=== PATIENT | male | born 1980 | race African-American/Black ===

== ENCOUNTER 2016-08-23 08:13 | Inpatient (IN) | payer MEDICAID ==
[~2016-08-23] VITALS: Ht 182.9 cm; Wt 101.5 kg
[2016-08-23] VITALS (9 sets, daily range): BP systolic 125–166; BP diastolic 73–89; PULSE 68–95; RESP 16–24; TEMP 99.8–101.6; O2SAT 92–100
[~2016-08-23 08:13] MED LIST: ATEN25TA PEG; BACL10TA PEG; DILT60TA JT; EPIN1INJ21 IV PUSH; EPIN1INJ21 SQ; FENT50DI T-DERMAL; HYDR50TA15 JT; HYOS0.129 JT; IPRA0.02 NEB; LEVE500S TUBE; MAPA325T G-TUBE; MERO1INJ8 IV; PERC5TAB12 JT; SOLU250I IV PUSH
[2016-08-23] MEDS ORDERED: PIPERACIL-TAZO 4.5 GM PREMIX 100 ML IV STA (08:16)
[2016-08-23] MEDS ORDERED: VANCOMYCIN INJ 1,000 MG in SODIUM CHLOR 0.9% 250 ML INJ 250 ML IV STA (08:16)
[2016-08-23 08:58] LABS: AUTOMATED NEUTROPHIL # 6.9 TH/MM3 (1.8-7.7); BASOPHIL # 0.1 TH/MM3 (0-0.2); BASOPHIL % 0.6 % (0.0-2.0); EOSINOPHIL % 0.3 % (0.0-4.0); HEMATOCRIT 33.8 % (39.0-51.0); HEMO FLAGS DIFF FINAL; LYMPH % 22.2 % (9.0-44.0); LYMPHOCYTE # 2.2 TH/MM3 (1.0-4.8); MEAN CELL VOLUME 83.3 FL (80.0-100.0); MEAN CORPUSCULAR HEMOGLOBIN 27.4 PG (27.0-34.0); MEAN CORPUSCULAR HGB CONC 32.9 % (32.0-36.0); MONO % 8.6 % (0.0-8.0); NEUT % 68.3 % (16.0-70.0); PLATELET COUNT 366 TH/MM3 (150-450); RED BLOOD COUNT 4.05 MIL/MM3 (4.50-5.90); RED CELL DISTRIBUTION WIDTH 16.3 % (11.6-17.2); WHITE BLOOD COUNT 10.1 TH/MM3 (4.0-11.0)
[2016-08-23] MEDS ORDERED: ACETAMINOPHEN 500 MG CPLT PO ONE (09:00)
[2016-08-23] MEDS ORDERED: ACETAMINOPHEN 650 MG SUPP RECTAL ONE (09:00)
[2016-08-23 09:08] LABS: APTT (PATIENT) 29.4 SEC (24.3-30.1); INTERNATIONAL NORMALIZED RATIO 1.1 RATIO; PROTHROMBIN TIME - PATIENT 11.7 SEC (9.8-11.6)
[2016-08-23 09:09] LABS: ALKALINE PHOSPHATASE 117 U/L (45-117); ALT (GPT) 48 U/L (12-78); ANION GAP 9 MEQ/L (5-15); AST (GOT) 30 U/L (15-37); BICARBONATE 25.9 MEQ/L (21.0-32.0); BLOOD UREA NITROGEN 14 MG/DL (7-18); CHLORIDE 99 MEQ/L (98-107); GLOMERULAR FILTRATION RATE 170 ML/MIN (>89); MAGNESIUM 1.8 MG/DL (1.5-2.5); POTASSIUM 4.3 MEQ/L (3.5-5.1); SODIUM (NA) 134 MEQ/L (136-145); TOTAL BILIRUBIN ADULT 0.4 MG/DL (0.2-1.0)
--- NOTE | 2016-08-23 09:11 | RADRPT ---
EXAM DATE/TIME: 08/23/2016 08:25 [facility] COMPARISON: CHEST SINGLE AP, June 19, 2016, 10:06. CHEST SINGLE AP, June 04, 2016, 21:28. CHEST SINGLE A P, March 12, 2016, 6:05. CHEST SINGLE AP, December 24, 2015, 18:38. CHEST SINGLE AP, December 23, 2015, 17:5 3. CHEST SINGLE AP, September 27, 2015, 8:46. CHEST SINGLE AP, May 08, 2015, 3:28. CHEST SING LE AP, April 24, 2015, 9:37. CHEST SINGLE AP, April 20, 2015, 4:04. CHEST SINGLE AP, February 082014, 12:38. CHEST SINGLE AP, January 06, 2015, 2:24. CHEST SINGLE AP, December 25, 2014, 12:21. CHEST S MIKAEL AP, December 11, 2014, 14:09. CHEST SINGLE AP, November 29, 2014, 3:46. CHEST SINGLE AP, November 25 15, 8:17. CHEST SINGLE AP, November 21, 2014, 17:37. CHEST SINGLE AP, November 16, 2014, 15:17. CHEST SI NGLE AP, November 08, 2014, 15:15. CHEST SINGLE AP, July 08, 2016, 10:44. CHEST SINGLE AP, [facility] 2015, 9:21. CHEST SINGLE AP, July 26, 2016, 11:56. INDICATIONS : Fever. MEDICAL HISTORY : Hypertension. Methicillin-resistant Staphylococcus aureus. Stroke. Seizures. Diabetes, and anemia. SURGICAL HISTORY : Coronary artery stent. J-Tube. ENCOUNTER: Initial ACUITY: 1 day PAIN SCORE: Non-responsive. LOCATION: Bilateral chest FINDINGS: Stable irregular parenchymal opacity overlying the right upper lobe which they be some pleural or par enchymal scarring or calcification or possibly associated with skeletal structures. The lungs are oth erwise clear. No pleural effusion suspected. Cardiomediastinal contours are satisfactory for techniqu e and projection. Degenerative changes are present in the shoulders. Ventricular peritoneal shunt tub ing traverses the right chest.. CONCLUSION: Stable chest without definite evidence of acute disease Joni Sharpe MD on August 23, 2016 at 9:05 Board Certified Radiologist. This report was verified electronically.
[2016-08-23] MEDS ORDERED: PERC5TAB12 J-TUBE (09:31)
--- NOTE | 2016-08-23 09:32 | RADRPT ---
EXAM DATE/TIME: 08/23/2016 08:44 [facility] COMPARISON: CT ABDOMEN & PELVIS W/O CONTRAST, April 22, 2015, 0:20. CT ABDOMEN & PELVIS W CONTRAST, [employer] 2014, 17:41. CT ABDOMEN & PELVIS W/O CONTRAST, February 09, 2015, 17:59. CT ABDOMEN & PELVIS W/O CONTRAST, December 25, 2014, 14:09. CT ABDOMEN & PELVIS W/O CONTRAST, November 26, 2014, 21:39. CT ABDOMEN & PELVIS W/O CONTRAST, November 21, 2014, 16:30. CT ABDOMEN & PELVIS W CONTRAST, October 21, 2014, 23:55. CT ABDOMEN & PELVIS W CONTRAST, March 12, 2016, 7:09. INDICATIONS : Fever. ORAL CONTRAST: No oral contrast ingested. RADIATION DOSE: 21.79 CTDIvol (mGy) MEDICAL HISTORY : Seizures. Hypertension. Diabetes mellitus type 2.CVA. SURGICAL HISTORY : J tube. ENCOUNTER: Initial ACUITY: 1 day PAIN SCALE: Non-responsive LOCATION: abdomen TECHNIQUE: Volumetric scanning of the abdomen and pelvis was performed. Using automated exposure control and ad justment of the mA and/or kV according to patient size, radiation dose was kept as low as reasonably achievable to obtain optimal diagnostic quality images. FINDINGS: A presumed ventricular peritoneal shunt is present entering the right upper quadrant with tip termina ting along side the lateral aspect of the right lobe of the liver. The adjacent liver is notable for a slightly greater than 3.5 cm low density area. The appearance is worrisome for shunt complication, either fluid loculation or catheter infection with adjacent hepatic parenchymal edema. A jejunostomy catheter is present in good position. There is extensive dystrophic calcification or myositis ossificans associated with the posterior left hip and pelvis. There is overlying myositis and cellulitis in the posterior tissues of the buttock a nd hip and diffuse edema laterally in the hip and proximal thigh region. No drainable abscess is cece rly seen. A 5 mm nonobstructing right kidney stone is present and there is slight dependent calcific density in the urinary bladder which may be small bladder stones or wall calcification. This should be followed as wall calcification would be worrisome for neoplasm versus atypical cystitis. Elsewhere, the spleen, pancreas, adrenals, left kidney are unremarkable. The lung bases are clear. Th e bowel structures are nondilated. CONCLUSION: Abnormal scan with multiple findings as outlined above Joni Sharpe MD on August 23, 2016 at 9:10 Board Certified Radiologist. This report was verified electronically.
[2016-08-23] MEDS ORDERED: SILV1CRE20 TOPICAL (09:42)
[2016-08-23] MEDS ORDERED: IPRASOL INH (09:42)
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
[2016-08-23] MEDS ORDERED: SODIUM CHLOR 0.9% 1000 ML INJ 1,000 ML IV ONE (10:15)
[2016-08-23] MEDS ORDERED: Vancomycin Consult Pharmacy 1 EA OTHER SCH (10:30)
[2016-08-23] MEDS ORDERED: RESP: ALBUTEROL 2.5 MG/IPRATROPIUM 0.5 MG NEB (PRN) NEB (10:30)
[2016-08-23] MEDS ORDERED: ACETAMINOPHEN 325 MG TAB G-TUBE PRN (10:30)
[2016-08-23] MEDS ORDERED: VANCOMYCIN INJ 1,000 MG in SODIUM CHLOR 0.9% 250 ML INJ 250 ML IV SCH (10:30)
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
--- NOTE | 2016-08-23 11:52 | PD.CONS ---
HPI Service Urology Consult Requested By Reason for Consult Urinary retention and inability to place Falcon catheter Primary Care Physician Unknown Diagnosis: History of Present Illness 36 year-old gentleman with history traumatic brain injury who presents to the emergency room with fever over the past several days. Multiple attempts were made by the ER staff to pass a Falcon without success and thus a urology consult was placed. Patient is nonverbal and I was unable to obtain any additional history from the patient. 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; 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 - 12/24/15 & 03/12/16 MRSA (blood & sputum 04/2015; urine 12/2015;sputum-03/12/16;head-06/18/16; blood-06/19/16) ESBL+E.Coli (urine-06/19/16); MDR-Pseudomonas (sputum-03/12/16) Active Ordered Medications Refer to EMR Family History Unable to obtain Social History Unable to obtain Physical Exam Vital Signs Vital Signs Date Time Temp Pulse Resp B/P Pulse Ox O2 Delivery O2 Flow Rate FiO2 08/23/16 09:21 94 22 138/73 100 Nasal Cannula 2 08/23/16 08:20 99 Nasal Cannula 2 08/23/16 08:20 24 99 Nasal Cannula 2 08/23/16 08:20 101.4 95 24 125/89 92 Room Air 08/23/16 08:20 99 Nasal Cannula 2 08/23/16 08:17 101.4 95 22 125/89 92 Physical Exam GENERAL: Lying quietly in no apparent distress. Nonverbal. SKIN: No rashes, ecchymoses or lesions. Cool and dry. HEAD: Atraumatic. Normocephalic. No temporal or scalp tenderness. EYES: Pupils equal round and reactive. Extraocular motions intact. No scleral icterus. No injection or drainage. ENT: Nose without bleeding, purulent drainage or septal hematoma. Throat without erythema, tonsillar hypertrophy or exudate. Uvula midline. Airway patent. NECK: Trachea midline. No JVD or lymphadenopathy. GASTROINTESTINAL: Abdomen soft, non-tender, nondistended. : Bladder not distended. Normal male external genitalia. MUSCULOSKELETAL: Extremities with contractures. NEUROLOGICAL: Awake and nonverbal. Laboratory Laboratory Tests Test 08/23/16 08:30 White Blood Count 10.1 Red Blood Count 4.05 Hemoglobin 11.1 Hematocrit 33.8 Mean Corpuscular Volume 83.3 Mean Corpuscular Hemoglobin 27.4 Mean Corpuscular Hemoglobin 32.9 Concent Red Cell Distribution Width 16.3 Platelet Count 366 Mean Platelet Volume 6.8 Neutrophils (%) (Auto) 68.3 Lymphocytes (%) (Auto) 22.2 Monocytes (%) (Auto) 8.6 Eosinophils (%) (Auto) 0.3 Basophils (%) (Auto) 0.6 Neutrophils # (Auto) 6.9 Lymphocytes # (Auto) 2.2 Monocytes # (Auto) 0.9 Eosinophils # (Auto) 0.0 Basophils # (Auto) 0.1 CBC Comment DIFF FINAL Differential Comment Prothrombin Time 11.7 Prothromb Time International 1.1 Ratio Activated Partial 29.4 Thromboplast Time Sodium Level 134 Potassium Level 4.3 Chloride Level 99 Carbon Dioxide Level 25.9 Anion Gap 9 Blood Urea Nitrogen 14 Creatinine 0.65 Estimat Glomerular Filtration 170 Rate Random Glucose 92 Lactic Acid Level 0.7 Calcium Level 9.2 Magnesium Level 1.8 Total Bilirubin 0.4 Aspartate Amino Transf 30 (AST/SGOT) Alanine Aminotransferase 48 (ALT/SGPT) Alkaline Phosphatase 117 Troponin I LESS THAN 0.02 Total Protein 8.0 Albumin 3.5 Lipase 81 Date/Time Procedure Status Source Growth 08/23/16 09:20 Influenza Types A,B Antigen (YESSI) - Final Complete Nasal Washing NEGATIVE FOR FLU A AND B ANTIGEN.... 08/23/16 08:35 Aerobic Blood Culture Received Blood Peripheral Pending 08/23/16 08:35 Anaerobic Blood Culture Received Blood Peripheral Pending Result Diagram: 08/23/1682908/23/16829 Course I attempted to place a 16 [place] Falcon catheter and met considerable resistance within the bulbar urethra. I then proceeded with flexible cystoscopy and the patient was noted to have a bulbar urethral stricture with a very small opening noted. I was able to pass a small guidewire through this opening and subsequently removed the cystoscope. I then dilated the urethral stricture over this wire with male dilators in sequential fashion. I was then able to easily advance a 16 [place] Falcon over the wire and the wire was withdrawn. The Falcon was then placed to gravity drainage with return of clare colored urine. Assessment and Plan Assessment and Plan Urologic impression: Bulbar urethral stricture that precluded passage of a Falcon catheter. Urethral stricture was dilated at the bedside without difficulty. Recommendations: #1 maintain Falcon catheter to gravity drainage #2 do not discontinue Falcon catheter for a minimum of 2 weeks time. Jaguar Paiz MD Aug 23, 2016 11:52
[2016-08-23 11:55] LABS: BACTERIA, URINE RARE /hpf; BLOOD, URINE MOD (NEG); COMMENT (UR) CATH-CULTURE IND; CULTURE IF INDICATED CATH CULTURE IND; GLUCOSE,URINE NEG (NEG); KETONE, URINE NEG (NEG); MUCUS URINE FEW /lpf (OCC); NITRITE,URINE NEG (NEG); SQUAMOUS EPITHELIAL CELL URINE 10 /hpf (0-5)
[2016-08-23 11:56] LABS: URINE COLOR RED (YELLW/STRAW)
[2016-08-23] MEDS ORDERED: ENOXAPARIN SODIUM 40 MG/0.4 ML SYRINGE SQ SCH (12:00)
[2016-08-23] MEDS ORDERED: PIPERACIL-TAZO 4.5 GM PREMIX 100 ML IV SCH ×2 (12:00→16:00)
--- NOTE | 2016-08-23 12:55 | RADRPT ---
EXAM DATE/TIME: 08/23/2016 11:57 [facility] COMPARISON: CT BRAIN W/O CONTRAST, July 26, 2016, 11:35. INDICATIONS: Altered mental status. RADIATION DOSE: 56.35 CTDIvol (mGy) MEDICAL HISTORY: Cerebrovascular disease. Hypertension. Seizures. SURGICAL HISTORY: Shunt ENCOUNTER: Initial ACUITY: 1 day PAIN SCALE: 0/10 LOCATION: Cranial TECHNIQUE: Multiple contiguous axial images were obtained of the head. Using automated exposure control and adj ustment of the mA and/or kV according to patient size, radiation dose was kept as low as reasonably a chievable to obtain optimal diagnostic quality images. FINDINGS: There is interval significant increase in the size of the ventricles compared to the previous examina tion in July 2016 suggesting worsening hydrocephalus. Ventriculostomy shunt is noted on the right with i ts tip in the medial aspect of the right lateral ventricle posteriorly. Extensive areas of encephalomalacia ar e again noted within the cerebral hemispheres bilaterally (right worse than left). There is no acute hemorrhage, m idline shift or extraaxial fluid collections. Extraaxial calcifications are noted within the parietal regions zulma aterally. Patient is status post bilateral parietal craniotomies. CONCLUSION: 1. Interval significant increase in the size of the ventricles compared to the previous examination suggesting worsening hydrocephalus. Clinical correlation is recommended. 2. No significant change in the extensive encephalomalacia (right worse than left) within the cerebr al hemispheres. 3. No acute hemorrhage, midline shift or extraaxial fluid collections. Donavan Vidales MD on August 23, 2016 at 12:19 Board Certified Radiologist. This report was verified electronically.
[2016-08-23] MEDS: fentaNYL 50 MCG/HR PATCH T-DERMAL SCH (13:05)
[2016-08-23] MEDS: hydrALAZINE HCL 50 MG TAB JT SCH (13:08)
[2016-08-23] MEDS: DILTIAZEM HCL 60 MG TAB JT SCH ×2 (13:08→21:00)
[2016-08-23] MEDS: HYOSCYAMINE 0.125 MG TAB JT SCH ×2 (13:09→21:00)
[2016-08-23] MEDS ORDERED: SODIUM CHLORIDE 0.9% FLUSH 5 ML FLUSH FLUSH PRN (14:00)
[2016-08-23] MEDS ORDERED: PROCHLORPERAZINE 25 MG SUPP PR PRN (14:00)
[2016-08-23] MEDS ORDERED: TEMAZEPAM 15 MG CAP PO PRN (14:00)
[2016-08-23] MEDS ORDERED: BISACODYL 10 MG SUPP PR PRN (14:00)
[2016-08-23] MEDS: RESP: ALBUTEROL 2.5 MG/IPRATROPIUM 0.5 MG NEB (SCH) NEB (14:16)
[2016-08-23] MEDS ORDERED: IOHEXOL 300 MG/ML 50 ML BTL (for RAD DIAG) ONE (15:16)
[2016-08-23] MEDS: SODIUM CHLOR 0.9% 1000 ML INJ 1,000 ML IV SCH (16:09)
[2016-08-23] MEDS: oxyCODONE/ACETAMINOPHEN 5 MG/325 MG TAB JT SCH ×2 (16:10→21:13)
[2016-08-23] MEDS: VANCOMYCIN INJ 2,000 MG in SODIUM CHLORID 0.9% 500 ML INJ 500 ML IV SCH (16:11)
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
--- NOTE | 2016-08-23 17:03 | HHI.NSPN ---
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 He had a left ventriculoperitoneal shunt which was removed secondary to wound dehiscence and had a right ventriculoperitoneal shunt placed. He is a chronic snf resident and has been febrile the last few days and presents MRI is room for workup for for this fever. He had a urethral stricture which was dilated in the emergency room by urology and urinalysis reveals urinary tract infection. He also has a decubitus ulcer. Blood cultures are pending. His neurologic examination is baseline and CT of the head obtained reveals ventriculomegaly compared to the scan from a month ago. The patient had programmable valve place with a lower setting of 50 mm water. Shuntogram obtained reveals ventricular catheter being patent but the peritoneal catheter was not evaluated because patient did not cooperate and the plan is to have this further evaluated once more cooperate with IV access per special procedures. CSF from a shunt tap that does not reveal any organisms on Gram stain. CT of the abdomen reveals a small fluid collection around the shunt catheter of unclear significance. Exam Results Vital Signs Date Time Temp Pulse Resp B/P Pulse Ox O2 Delivery O2 Flow Rate FiO2 08/23/16 16:11 16 08/23/16 16:00 101.6 88 137/78 99 Room Air 08/23/16 13:16 2 Physical Examination Bilateral scalp incision sites are clean and dry with no tenderness swelling or drainage. Right parietal shunt valve reservoir refills well without any tenderness. Abdomen is soft and nontender with a G-tube in place and no guarding or rigidity. He is awake and he tracks but does not follow commands with contractures in the upper and lower extremities which are chronic. Neurologic exam is baseline. Lab, Micro, Other Results Laboratory Tests Test 08/23/16 08/23/16 08:30 11:10 White Blood Count 10.1 Red Blood Count 4.05 Hemoglobin 11.1 Hematocrit 33.8 Mean Corpuscular Volume 83.3 Mean Corpuscular Hemoglobin 27.4 Mean Corpuscular Hemoglobin 32.9 Concent Red Cell Distribution Width 16.3 Platelet Count 366 Mean Platelet Volume 6.8 Neutrophils (%) (Auto) 68.3 Lymphocytes (%) (Auto) 22.2 Monocytes (%) (Auto) 8.6 Eosinophils (%) (Auto) 0.3 Basophils (%) (Auto) 0.6 Neutrophils # (Auto) 6.9 Lymphocytes # (Auto) 2.2 Monocytes # (Auto) 0.9 Eosinophils # (Auto) 0.0 Basophils # (Auto) 0.1 CBC Comment DIFF FINAL Differential Comment Prothrombin Time 11.7 Prothromb Time International 1.1 Ratio Activated Partial 29.4 Thromboplast Time Sodium Level 134 Potassium Level 4.3 Chloride Level 99 Carbon Dioxide Level 25.9 Anion Gap 9 Blood Urea Nitrogen 14 Creatinine 0.65 Estimat Glomerular Filtration 170 Rate Random Glucose 92 Lactic Acid Level 0.7 Calcium Level 9.2 Magnesium Level 1.8 Total Bilirubin 0.4 Aspartate Amino Transf 30 (AST/SGOT) Alanine Aminotransferase 48 (ALT/SGPT) Alkaline Phosphatase 117 Troponin I LESS THAN 0.02 Total Protein 8.0 Albumin 3.5 Lipase 81 Urine Color RED Urine Turbidity CLOUDY Urine pH 6.0 Urine Specific [place] 1.038 Urine Protein 100 Urine Glucose (UA) NEG Urine Ketones NEG Urine Occult Blood MOD Urine Nitrite NEG Urine Bilirubin NEG Urine Urobilinogen LESS THAN 2.0 Urine Leukocyte Esterase MOD Urine RBC Urine WBC 53 Urine Squamous Epithelial 10 Cells Urine Bacteria RARE Urine Mucus FEW Urine Yeast (Budding) FEW Microscopic Urinalysis Comment CATH-CULTURE IND Date/Time Procedure Status Source Growth 08/23/16 14:39 Gram Stain - Final Resulted Cerebral Spinal Fluid Shunt Fluid 08/23/16 14:39 CSF Culture Resulted Cerebral Spinal Fluid Shunt Fluid Pending 08/23/16 11:10 Urine Culture Received Urine Catheterized Urine Pending 08/23/16 09:20 Influenza Types A,B Antigen (YESSI) - Final Complete Nasal Washing NEGATIVE FOR FLU A AND B ANTIGEN.... 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 This appears that he has compensatory ventriculomegaly since the shunt pressure setting is at low level and his neurologic examination is baseline. There is a question of the LUNG PULLER shunt malfunction versus infection although on the proximal shunt evaluation it appears to be functioning and CSF does not reveal any organisms but we'll await the culture results. It is possible he may have a distal LUNG PULLER shunt malfunction and will need further evaluation with a repeat shuntogram by the radiologist. If the shunt tap CSF cultures reveal any growth then we will externalize the LUNG PULLER shunt. Franky Carreno MD Aug 23, 2016 17:03
[2016-08-23 17:30] LABS: SUPERNATE COLOR TUBE #1 CLEAR (CLEAR); VOLUME TUBE # 1 3.8 ML
[2016-08-23 17:31] LABS: GROSS BLOOD TUBE #1 0 (0); GROSS BLOOD TUBE #2 0 (0); GROSS BLOOD TUBE #3 0 (0); GROSS BLOOD TUBE #4 0 (0); SUPERNATE COLOR TUBE #2 CLEAR (CLEAR); SUPERNATE COLOR TUBE #3 CLEAR (CLEAR); SUPERNATE COLOR TUBE #4 CLEAR (CLEAR); VOLUME TUBE # 2 6.5 ML
[2016-08-23 17:32] LABS: CSF LYMPHOCYTES 88 %; CSF NEUTROPHILS 8 %; WBC TUBE #4 477 /MM3 (0-10)
[2016-08-23] MEDS ORDERED: ASP: Path resistant to other antimicrobials, culture proven XX PRN (17:45)
[2016-08-23] MEDS ORDERED: MISCELLANEOUS PHARMACY INFORMATION XX PRN ×2 (17:45)
--- NOTE | 2016-08-23 18:36 | EKG ---
Date Performed: 08/23/2016 Time Performed: 09:25:25 PTAGE: 36 years EKG: Sinus rhythm NONSPECIFIC T-WAVE ABNORMALITY BORDERLINE ECG PREVIOUS TRACING : 07/26/2016 12.10 Since previous tracing, no significant change noted DOCTOR: Ivone Malone Interpretating Date/Time 08/23/2016 18:35:00
[2016-08-23] MEDS: ACETAMINOPHEN 325 MG TAB PO PRN (21:13)
[2016-08-23] MEDS: BACLOFEN 10 MG TAB PEG SCH (21:14)
[2016-08-23] MEDS: ATENOLOL 50 MG TAB PEG SCH (21:14)
[2016-08-23] MEDS: levETIRAcetam 500 MG/5 ML UDC TUBE SCH (21:14)
[2016-08-23] MEDS: SODIUM CHLORIDE 0.9% FLUSH 5 ML FLUSH FLUSH SCH (21:15)
[2016-08-23] MEDS: MEROPENEM INJ 2,000 MG in SODIUM CHLORIDE 0.9% INJ 100 ML IV SCH (21:15)
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
[2016-08-24] VITALS (11 sets, daily range): BP systolic 104–154; BP diastolic 64–82; PULSE 81–116; RESP 16–21; TEMP 101.1–103; O2SAT 95–100
[2016-08-24] MEDS: SILVER SULFADIAZINE 1% CR 50 GM JAR TOPICAL SCH ×2 (00:15→22:28)
[2016-08-24] MEDS: ACETAMINOPHEN 325 MG TAB PO PRN (01:08)
[2016-08-24] MEDS: VANCOMYCIN INJ 2,000 MG in SODIUM CHLORID 0.9% 500 ML INJ 500 ML IV SCH ×2 (03:03→15:11)
[2016-08-24] MEDS: MEROPENEM INJ 2,000 MG in SODIUM CHLORIDE 0.9% INJ 100 ML IV SCH ×3 (03:03→22:27)
[2016-08-24] MEDS: SODIUM CHLOR 0.9% 1000 ML INJ 1,000 ML IV SCH ×3 (04:01→22:30)
[2016-08-24] MEDS: oxyCODONE/ACETAMINOPHEN 5 MG/325 MG TAB JT SCH ×3 (05:34→20:55)
[2016-08-24] MEDS: RESP: ALBUTEROL 2.5 MG/IPRATROPIUM 0.5 MG NEB (SCH) NEB ×3 (08:13→19:41)
[2016-08-24] MEDS: SODIUM CHLORIDE 0.9% FLUSH 5 ML FLUSH FLUSH SCH ×2 (09:00→21:00)
[2016-08-24 09:32] LABS: AUTOMATED NEUTROPHIL # 6.1 TH/MM3 (1.8-7.7); BASOPHIL # 0.1 TH/MM3 (0-0.2); BASOPHIL % 0.7 % (0.0-2.0); HEMATOCRIT 32.6 % (39.0-51.0); HEMO FLAGS DIFF FINAL; LYMPH % 14.6 % (9.0-44.0); LYMPHOCYTE # 1.2 TH/MM3 (1.0-4.8); MEAN CELL VOLUME 83.2 FL (80.0-100.0); MEAN CORPUSCULAR HEMOGLOBIN 27.1 PG (27.0-34.0); MEAN CORPUSCULAR HGB CONC 32.5 % (32.0-36.0); MONO % 7.2 % (0.0-8.0); NEUT % 77.5 % (16.0-70.0); PLATELET COUNT 305 TH/MM3 (150-450); RED BLOOD COUNT 3.91 MIL/MM3 (4.50-5.90); RED CELL DISTRIBUTION WIDTH 16.1 % (11.6-17.2); WHITE BLOOD COUNT 7.9 TH/MM3 (4.0-11.0)
[2016-08-24 10:04] LABS: BICARBONATE 26.4 MEQ/L (21.0-32.0); POTASSIUM 3.9 MEQ/L (3.5-5.1)
[2016-08-24] MEDS: ATENOLOL 50 MG TAB PEG SCH ×2 (10:12→22:27)
[2016-08-24] MEDS: hydrALAZINE HCL 50 MG TAB JT SCH ×4 (10:13→18:00)
[2016-08-24] MEDS: BACLOFEN 10 MG TAB PEG SCH ×2 (10:13→22:27)
[2016-08-24] MEDS: HYOSCYAMINE 0.125 MG TAB JT SCH ×4 (10:13→20:54)
[2016-08-24] MEDS: levETIRAcetam 500 MG/5 ML UDC TUBE SCH ×2 (10:13→20:53)
[2016-08-24] MEDS: DILTIAZEM HCL 60 MG TAB JT SCH ×4 (10:13→21:00)
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
[2016-08-24] MEDS: ACETAMINOPHEN 1000 MG/100 ML VIAL IV PRN (12:09)
--- NOTE | 2016-08-24 13:47 | HHI.NSPN ---
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 He had a left ventriculoperitoneal shunt which was removed secondary to wound dehiscence and had a right ventriculoperitoneal shunt placed. He is a chronic [facility] resident and has been febrile the last few days and presents MRI is room for workup for for this fever. He had a urethral stricture which was dilated in the emergency room by urology and urinalysis reveals urinary tract infection. He also has a decubitus ulcer. Blood cultures are pending. His neurologic examination is baseline and CT of the head obtained reveals ventriculomegaly compared to the scan from a month ago. The patient had programmable valve place with a lower setting of 50 mm water. Shuntogram obtained reveals ventricular catheter being patent but the peritoneal catheter was not evaluated because patient did not cooperate and the plan is to have this further evaluated once more cooperate with IV access per special procedures. CSF from a shunt tap that does not reveal any organisms on Gram stain. CT of the abdomen reveals a small fluid collection around the shunt catheter of unclear significance. 08/24/16: Pt at his clinical baseline. Eyes open. occasionally focuses on my face. At times rolling eye movements. Not following commands. Flexion contractures of UEs and Extension contractures of LEs. Pt having high fevers today. Tmax of 103 at 8am. (Juanjo Oquendo) System Review Comments Not able to obtain given clinical condition. (Juanjo Oquendo) Exam Results Vital Signs Date Time Temp Pulse Resp B/P Pulse Ox O2 Delivery O2 Flow Rate FiO2 08/24/16 12:00 102.2 116 17 128/68 97 08/24/16 08:13 Nasal Cannula 3.00 Intake and Output 08/23/16 08/23/16 08/24/16 08:00 16:00 00:00 Output Total 501 ml Balance -501 ml (Juanjo Oquendo) Physical Examination Resp: CTA bilaterally Heart: Tachycardic no murmurs. Abdomen is soft and nontender with a G-tube in place and no guarding or rigidity. Skin: Bilateral scalp incision sites are clean and dry with no tenderness swelling or drainage. Muscle: Flexion contractures in UEs and Extension contractures in LEs. Neuro: Right parietal shunt valve reservoir refills well without any tenderness. He is awake and he tracks but does not follow commands. No verbalizing. Neurologic exam is baseline. (Juanjo Oquendo) Lab, Micro, Other Results Last Impressions Shunt Study (Imaging) 08/23/16 1514 Signed Impressions: Service Date/Time: Tuesday, August 23, 2016 15:14 - CONCLUSION: SPARK PLUG TESTER shunt tap for spinal fluid sampling as above Joni Sharpe MD Chest X-Ray 08/23/16 0816 Signed Impressions: Service Date/Time: Tuesday, August 23, 2016 08:25 - CONCLUSION: Stable chest without definite evidence of acute disease Joni Sharpe MD Abdomen/Pelvis CT 08/23/16 0816 Signed Impressions: Service Date/Time: Tuesday, August 23, 2016 08:44 - CONCLUSION: Abnormal scan with multiple findings as outlined above Joni Sharpe MD Shunt Study 08/23/16 0000 Signed Impressions: Service Date/Time: Tuesday, August 23, 2016 14:07 - CONCLUSION: Shunt tubing is patent into the ventricular system. The downstream portion of the shunt to the peritoneal cavity was not evaluated. Joni Sharpe MD Head CT 08/23/16 0000 Signed Impressions: Service Date/Time: Tuesday, August 23, 2016 11:57 - CONCLUSION: 1. Interval significant increase in the size of the ventricles compared to the previous examination suggesting worsening hydrocephalus. Clinical correlation is recommended. 2. No significant change in the extensive encephalomalacia ( right worse than left) within the cerebral hemispheres. 3. No acute hemorrhage, midline shift or extraaxial fluid collections. Donavan Vidales MD Laboratory Tests Test 08/23/16 08/24/16 14:39 09:08 CSF Volume (Tube 1) 3.8 ML CSF Supernatant Color (tube 1) CLEAR CSF Gross Blood (Tube 1) 0 CSF Volume (Tube 2) 6.5 ML CSF Supernatant Color (tube 2) CLEAR CSF Gross Blood (Tube 2) 0 CSF Volume (Tube 3) 4.0 ML CSF Supernatant Color (tube 3) CLEAR CSF Gross Blood (Tube 3) 0 CSF Volume (Tube 4) 2.0 ML CSF Supernatant Color (tube 4) CLEAR CSF Gross Blood (Tube 4) 0 CSF WBC (Tube 4) 477 /MM3 CSF RBC (Tube 4) 166 /MM3 CSF Neutrophils 8 % CSF Lymphocytes 88 % CSF Histiocytes 4 % White Blood Count 7.9 TH/MM3 Red Blood Count 3.91 MIL/MM3 Hemoglobin 10.6 GM/DL Hematocrit 32.6 % Mean Corpuscular Volume 83.2 FL Mean Corpuscular Hemoglobin 27.1 PG Mean Corpuscular Hemoglobin 32.5 % Concent Red Cell Distribution Width 16.1 % Platelet Count 305 TH/MM3 Mean Platelet Volume 6.8 FL Neutrophils (%) (Auto) 77.5 % Lymphocytes (%) (Auto) 14.6 % Monocytes (%) (Auto) 7.2 % Eosinophils (%) (Auto) 0.0 % Basophils (%) (Auto) 0.7 % Neutrophils # (Auto) 6.1 TH/MM3 Lymphocytes # (Auto) 1.2 TH/MM3 Monocytes # (Auto) 0.6 TH/MM3 Eosinophils # (Auto) 0.0 TH/MM3 Basophils # (Auto) 0.1 TH/MM3 CBC Comment DIFF FINAL Differential Comment Sodium Level 135 MEQ/L Potassium Level 3.9 MEQ/L Chloride Level 101 MEQ/L Carbon Dioxide Level 26.4 MEQ/L Anion Gap 8 MEQ/L Blood Urea Nitrogen 14 MG/DL Creatinine 0.67 MG/DL Estimat Glomerular Filtration 165 ML/MIN Rate Random Glucose 105 MG/DL Calcium Level 8.7 MG/DL 08/23/16 08/23/16 08/24/16 15:00 23:00 07:00 Intake Total 1050 ml Output Total 501 ml 250 ml Balance -501 ml 800 ml Intake IV Total 500 ml Tube Feeding 200 ml Other 350 ml Output Urine Total 500 ml 250 ml Stool Total 1 ml (Juanjo Oquendo) Medical Decision Making Impression and Plan A: 36 year-old gentleman with severe traumatic brain injury in a chronic vegetative state and a pen[facility]iary resident. This appears that he has compensatory ventriculomegaly since the shunt pressure setting is at low level and his neurologic examination is baseline. There is a question of the SPARK PLUG TESTER shunt malfunction versus infection although on the proximal shunt evaluation it appears to be functioning and CSF does not reveal any organisms but we'll await the culture results. It is possible he may have a distal SPARK PLUG TESTER shunt malfunction and will need further evaluation with a repeat shuntogram by the radiologist. If the shunt tap CSF cultures reveal any growth then we will externalize the SPARK PLUG TESTER shunt. CSF cultures are negative at 24 hours. P: Continue to monitor cultures. Continue with antibiotics Continue to monitor. (Juanjo Oquendo) Attending Statement The exam, history, and the medical decision-making described in the above note were completed with the assistance of the mid-level provider. I reviewed and agree with the findings presented. I attest that I had a [id number] encounter with the patient on the same day, and personally performed and documented my assessment and findings in the medical record. Updated mother at bedside. (Franky Carreno MD) Juanjo Oquendo Aug 24, 2016 13:47 Franky Carreno MD Aug 24, 2016 15:07
[2016-08-24] MEDS: IBUPROFEN SUSP 100 MG/5 ML UDC PO PRN (18:16)
--- NOTE | 2016-08-24 18:43 | HHI.IDPN ---
Subjective Subjective Remarks ID [id number] cover for Dr Rayo chart reviewed This is a 36-year-old male a resident of a penit[facility]iary facility treated recently for Pseudomonas COMPUTER SPECIALIST shunt infection. Sp meropenem completed on August 12. REadmitted for fevers COMPUTER SPECIALIST shunt infection suspected based on shunt fluid study and CT findings, also cellulitis and myositis Pt cont to have fever up to 103 today BC grew low grade coag neg staph (1/4 bottles) urine with GNR Antibiotics meropenem 2 g q 8 vancomycin Past Medical History 1. Traumatic brain injury in October 2014, COMPUTER SPECIALIST shunt placement, 2. Seizure disorder. 3. PEG placement 4. History of tracheostomy 5. History of MRSA wound infection from the scalp 6. Bacteremia due to MRSA 7. History of ESBL E-coli UTI. 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 Vital Signs Date Time Temp Pulse Resp B/P Pulse Ox O2 Delivery O2 Flow Rate FiO2 08/24/16 16:00 101.9 103 20 116/64 98 08/24/16 12:00 102.2 116 17 128/68 97 08/24/16 08:13 98 Nasal Cannula 3.00 08/24/16 08:00 103.0 113 16 126/82 100 08/24/16 07:18 98 Nasal Cannula 3.00 08/24/16 07:00 102 08/24/16 05:51 102.8 97 20 154/79 96 08/24/16 00:52 102.7 81 21 143/70 99 08/23/16 20:36 101.5 90 18 165/85 100 08/23/16 08/23/16 08/24/16 15:00 23:00 07:00 Intake Total 1050 ml Output Total 501 ml 250 ml Balance -501 ml 800 ml Intake IV Total 500 ml Tube Feeding 200 ml Other 350 ml Output Urine Total 500 ml 250 ml Stool Total 1 ml . Laboratory Tests Test 08/23/16 08/24/16 08:30 09:08 White Blood Count 10.1 TH/MM3 7.9 TH/MM3 Red Blood Count 4.05 MIL/MM3 3.91 MIL/MM3 Hemoglobin 11.1 GM/DL 10.6 GM/DL Hematocrit 33.8 % 32.6 % Mean Corpuscular Volume 83.3 FL 83.2 FL Mean Corpuscular Hemoglobin 27.4 PG 27.1 PG Mean Corpuscular Hemoglobin 32.9 % 32.5 % Concent Red Cell Distribution Width 16.3 % 16.1 % Platelet Count 366 TH/MM3 305 TH/MM3 Mean Platelet Volume 6.8 FL 6.8 FL Neutrophils (%) (Auto) 68.3 % 77.5 % Lymphocytes (%) (Auto) 22.2 % 14.6 % Monocytes (%) (Auto) 8.6 % 7.2 % Eosinophils (%) (Auto) 0.3 % 0.0 % Basophils (%) (Auto) 0.6 % 0.7 % Neutrophils # (Auto) 6.9 TH/MM3 6.1 TH/MM3 Lymphocytes # (Auto) 2.2 TH/MM3 1.2 TH/MM3 Monocytes # (Auto) 0.9 TH/MM3 0.6 TH/MM3 Eosinophils # (Auto) 0.0 TH/MM3 0.0 TH/MM3 Basophils # (Auto) 0.1 TH/MM3 0.1 TH/MM3 CBC Comment DIFF FINAL DIFF FINAL Differential Comment Laboratory Tests Test 08/23/16 08/24/16 08:30 09:08 Sodium Level 134 MEQ/L 135 MEQ/L Potassium Level 4.3 MEQ/L 3.9 MEQ/L Chloride Level 99 MEQ/L 101 MEQ/L Carbon Dioxide Level 25.9 MEQ/L 26.4 MEQ/L Anion Gap 9 MEQ/L 8 MEQ/L Blood Urea Nitrogen 14 MG/DL 14 MG/DL Creatinine 0.65 MG/DL 0.67 MG/DL Estimat Glomerular Filtration 170 ML/MIN 165 ML/MIN Rate Random Glucose 92 MG/DL 105 MG/DL Lactic Acid Level 0.7 mmol/L Calcium Level 9.2 MG/DL 8.7 MG/DL Magnesium Level 1.8 MG/DL Total Bilirubin 0.4 MG/DL Aspartate Amino Transf 30 U/L (AST/SGOT) Alanine Aminotransferase 48 U/L (ALT/SGPT) Alkaline Phosphatase 117 U/L Troponin I LESS THAN 0.02 NG/ML Total Protein 8.0 GM/DL Albumin 3.5 GM/DL Lipase 81 U/L Microbiology Date/Time Procedure Status Source Growth 08/23/16 08:30 Aerobic Blood Culture - Preliminary Resulted Blood Peripheral Staph Sp Coagulase Negative 08/23/16 08:30 Anaerobic Blood Culture - Preliminary Resulted Blood Peripheral NO GROWTH IN 1 DAY 08/23/16 08:35 Aerobic Blood Culture - Preliminary Resulted Blood Peripheral NO GROWTH IN 1 DAY 08/23/16 08:35 Anaerobic Blood Culture - Preliminary Resulted Blood Peripheral NO GROWTH IN 1 DAY 08/23/16 09:20 Influenza Types A,B Antigen (YESSI) - Final Complete Nasal Washing NEGATIVE FOR FLU A AND B ANTIGEN.... 08/23/16 11:10 Urine Culture - Preliminary Resulted Urine Catheterized Urine IMMATURE GROWTH - REINCUBATE 08/23/16 14:39 Gram Stain - Final Resulted Cerebral Spinal Fluid Shunt Fluid 08/23/16 14:39 CSF Culture - Preliminary Resulted Cerebral Spinal Fluid Shunt Fluid NO GROWTH IN 24 HOURS. Imaging Last Impressions Shunt Study (Imaging) 08/23/16 1514 Signed Impressions: Service Date/Time: Tuesday, August 23, 2016 15:14 - CONCLUSION: COMPUTER SPECIALIST shunt tap for spinal fluid sampling as above Joni Sharpe MD Chest X-Ray 08/23/16 0816 Signed Impressions: Service Date/Time: Tuesday, August 23, 2016 08:25 - CONCLUSION: Stable chest without definite evidence of acute disease Joni Sharpe MD Abdomen/Pelvis CT 08/23/16 0816 Signed Impressions: Service Date/Time: Tuesday, August 23, 2016 08:44 - CONCLUSION: Abnormal scan with multiple findings as outlined above Joni Sharpe MD Shunt Study 08/23/16 0000 Signed Impressions: Service Date/Time: Tuesday, August 23, 2016 14:07 - CONCLUSION: Shunt tubing is patent into the ventricular system. The downstream portion of the shunt to the peritoneal cavity was not evaluated. Joni Sharpe MD Head CT 08/23/16 0000 Signed Impressions: Service Date/Time: Tuesday, August 23, 2016 11:57 - CONCLUSION: 1. Interval significant increase in the size of the ventricles compared to the previous examination suggesting worsening hydrocephalus. Clinical correlation is recommended. 2. No significant change in the extensive encephalomalacia ( right worse than left) within the cerebral hemispheres. 3. No acute hemorrhage, midline shift or extraaxial fluid collections. Donavan Vidales MD Physical Exam GENERAL: This is a well-developed male who is in no acute distress. NECK: Supple. No adenopathy. No swelling. LUNGS: Clear to auscultation. HEART: Regular rate and rhythm. Normal S1-S2. ABDOMEN: Bowel sounds present, soft, no tenderness appreciated. RECTAL: Not performed. EXTREMITIES: No clubbing or cyanosis + mildedema. Spastic extremeties SKIN: No rash. Some denuded skin at the upper left humerus. No drainage. NEUROLOGIC: awake and he appears alert. He tracks with his eyes and does not follow any commands otherwise. Uniteglligible speech (moans and groans ) No movements noted. Spastic quadriparesis Assessment & Plan Remarks IMPRESSION 1. Fever. 2. Recent COMPUTER SPECIALIST shunt malfunction and culture positive with Pseudomonas treated with a round of antibiotic and left shunt removal Suspected recurrent COMPUTER SPECIALIST shunt infx sp shiunt study: lymphocytic pleocytosis noted, clx negative @ 24 hrs - ho MDRO PSAE 3. Cellulitis suggested by CT scan of the abdomen and pelvis which reveals myositis and cellulitis in the posterior tissues of the buttock and hip. 4. UTI, GNB 5.COag negative staph bacterima, low grade likely contaminant RECOMMENDATIONS 1. Continue vancomycin. 2. cont meropenem to cover Pseudomonas which was resistant to piperacillin/tazobactam on last testing of that organism which was recovered from his COMPUTER SPECIALIST shunt catheter tip. 3. Monitor blood cultures. 4. Monitor urine culture 5. Monitor CSF culture 6. Follow clinical status 7. Monitor temperature. Lauryn Gaytan MD Aug 24, 2016 18:43
[2016-08-25] VITALS (10 sets, daily range): BP systolic 106–132; BP diastolic 54–75; PULSE 93–128; RESP 17–22; TEMP 100.6–103.4; O2SAT 94–100
[2016-08-25] MEDS: ACETAMINOPHEN 1000 MG/100 ML VIAL IV PRN ×2 (01:56→18:20)
[2016-08-25] MEDS: MEROPENEM INJ 2,000 MG in SODIUM CHLORIDE 0.9% INJ 100 ML IV SCH ×3 (03:50→21:59)
[2016-08-25] MEDS: VANCOMYCIN INJ 2,000 MG in SODIUM CHLORID 0.9% 500 ML INJ 500 ML IV SCH (03:51)
[2016-08-25] MEDS: oxyCODONE/ACETAMINOPHEN 5 MG/325 MG TAB JT SCH ×3 (04:49→21:12)
[2016-08-25 06:57] LABS: AUTOMATED NEUTROPHIL # 6.3 TH/MM3 (1.8-7.7); BASOPHIL % 0.4 % (0.0-2.0); HEMATOCRIT 31.2 % (39.0-51.0); HEMO FLAGS DIFF FINAL; LYMPH % 16.4 % (9.0-44.0); LYMPHOCYTE # 1.5 TH/MM3 (1.0-4.8); MEAN CELL VOLUME 83.3 FL (80.0-100.0); MEAN CORPUSCULAR HEMOGLOBIN 27.2 PG (27.0-34.0); MEAN CORPUSCULAR HGB CONC 32.6 % (32.0-36.0); MONO % 13.7 % (0.0-8.0); NEUT % 69.5 % (16.0-70.0); PLATELET COUNT 282 TH/MM3 (150-450); RED BLOOD COUNT 3.75 MIL/MM3 (4.50-5.90); RED CELL DISTRIBUTION WIDTH 16.4 % (11.6-17.2); WHITE BLOOD COUNT 9.1 TH/MM3 (4.0-11.0)
[2016-08-25 07:20] LABS: BICARBONATE 28.7 MEQ/L (21.0-32.0); POTASSIUM 4.1 MEQ/L (3.5-5.1)
[2016-08-25] MEDS: RESP: ALBUTEROL 2.5 MG/IPRATROPIUM 0.5 MG NEB (SCH) NEB ×3 (08:17→19:25)
--- NOTE | 2016-08-25 08:22 | HHI.NSPN ---
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 He had a left ventriculoperitoneal shunt which was removed secondary to wound dehiscence and had a right ventriculoperitoneal shunt placed. He is a chronic [facility] resident and has been febrile the last few days and presents MRI is room for workup for for this fever. He had a urethral stricture which was dilated in the emergency room by urology and urinalysis reveals urinary tract infection. He also has a decubitus ulcer. Blood cultures are pending. His neurologic examination is baseline and CT of the head obtained reveals ventriculomegaly compared to the scan from a month ago. The patient had programmable valve place with a lower setting of 50 mm water. Shuntogram obtained reveals ventricular catheter being patent but the peritoneal catheter was not evaluated because patient did not cooperate and the plan is to have this further evaluated once more cooperate with IV access per special procedures. CSF from a shunt tap that does not reveal any organisms on Gram stain. CT of the abdomen reveals a small fluid collection around the shunt catheter of unclear significance. 08/24/16: Pt at his clinical baseline. Eyes open. occasionally focuses on my face. At times rolling eye movements. Not following commands. Flexion contractures of UEs and Extension contractures of LEs. Pt having high fevers today. Tmax of 103 at 8am. 08/25/16: Pt with eyes open. Right sided gaze preference. Not following commands. Not verbalizing. Pt at baseline neurologically. Pt continues to have fevers, T Max 103.4 at 2am. System Review Comments Not able to obtain given current condition. Exam Results Vital Signs Date Time Temp Pulse Resp B/P Pulse Ox O2 Delivery O2 Flow Rate FiO2 08/25/16 02:10 103.4 93 22 119/67 98 08/24/16 19:44 Nasal Cannula 08/24/16 08:13 3.00 Intake and Output 08/24/16 08/24/16 08/25/16 08:00 16:00 00:00 Intake Total 1050 ml Output Total 250 ml 2300 ml Balance 800 ml -2300 ml Physical Examination Resp: CTA bilaterally Heart: Tachycardic no murmurs. Abdomen is soft and nontender with a G-tube in place and no guarding or rigidity. Skin: Bilateral scalp incision sites are clean and dry with no tenderness swelling or drainage. Muscle: Flexion contractures in UEs and Extension contractures in LEs. Neuro: Right parietal shunt valve reservoir refills well without any tenderness. He is awake and he tracks but does not follow commands. No verbalizing. Neurologic exam is baseline. Lab, Micro, Other Results Last Impressions Shunt Study (Imaging) 08/23/16 1514 Signed Impressions: Service Date/Time: Tuesday, August 23, 2016 15:14 - CONCLUSION: MOBILE MANAGER shunt tap for spinal fluid sampling as above Joni Sharpe MD Chest X-Ray 08/23/16 0816 Signed Impressions: Service Date/Time: Tuesday, August 23, 2016 08:25 - CONCLUSION: Stable chest without definite evidence of acute disease Joni Sharpe MD Abdomen/Pelvis CT 08/23/16 0816 Signed Impressions: Service Date/Time: Tuesday, August 23, 2016 08:44 - CONCLUSION: Abnormal scan with multiple findings as outlined above Joni Sharpe MD Shunt Study 08/23/16 0000 Signed Impressions: Service Date/Time: Tuesday, August 23, 2016 14:07 - CONCLUSION: Shunt tubing is patent into the ventricular system. The downstream portion of the shunt to the peritoneal cavity was not evaluated. Joni Sharpe MD Head CT 08/23/16 0000 Signed Impressions: Service Date/Time: Tuesday, August 23, 2016 11:57 - CONCLUSION: 1. Interval significant increase in the size of the ventricles compared to the previous examination suggesting worsening hydrocephalus. Clinical correlation is recommended. 2. No significant change in the extensive encephalomalacia ( right worse than left) within the cerebral hemispheres. 3. No acute hemorrhage, midline shift or extraaxial fluid collections. Donavan Vidales MD Laboratory Tests Test 08/24/16 08/25/16 09:08 06:13 White Blood Count 7.9 TH/MM3 9.1 TH/MM3 Red Blood Count 3.91 MIL/MM3 3.75 MIL/MM3 Hemoglobin 10.6 GM/DL 10.2 GM/DL Hematocrit 32.6 % 31.2 % Mean Corpuscular Volume 83.2 FL 83.3 FL Mean Corpuscular Hemoglobin 27.1 PG 27.2 PG Mean Corpuscular Hemoglobin 32.5 % 32.6 % Concent Red Cell Distribution Width 16.1 % 16.4 % Platelet Count 305 TH/MM3 282 TH/MM3 Mean Platelet Volume 6.8 FL 7.0 FL Neutrophils (%) (Auto) 77.5 % 69.5 % Lymphocytes (%) (Auto) 14.6 % 16.4 % Monocytes (%) (Auto) 7.2 % 13.7 % Eosinophils (%) (Auto) 0.0 % 0.0 % Basophils (%) (Auto) 0.7 % 0.4 % Neutrophils # (Auto) 6.1 TH/MM3 6.3 TH/MM3 Lymphocytes # (Auto) 1.2 TH/MM3 1.5 TH/MM3 Monocytes # (Auto) 0.6 TH/MM3 1.2 TH/MM3 Eosinophils # (Auto) 0.0 TH/MM3 0.0 TH/MM3 Basophils # (Auto) 0.1 TH/MM3 0.0 TH/MM3 CBC Comment DIFF FINAL DIFF FINAL Differential Comment Sodium Level 135 MEQ/L 138 MEQ/L Potassium Level 3.9 MEQ/L 4.1 MEQ/L Chloride Level 101 MEQ/L 102 MEQ/L Carbon Dioxide Level 26.4 MEQ/L 28.7 MEQ/L Anion Gap 8 MEQ/L 7 MEQ/L Blood Urea Nitrogen 14 MG/DL 10 MG/DL Creatinine 0.67 MG/DL 0.55 MG/DL Estimat Glomerular Filtration 165 ML/MIN 207 ML/MIN Rate Random Glucose 105 MG/DL 107 MG/DL Calcium Level 8.7 MG/DL 8.5 MG/DL 08/24/16 08/24/16 08/25/16 15:00 23:00 07:00 Output Total 2300 ml Balance -2300 ml Output Urine Total 2300 ml Medical Decision Making Impression and Plan A: 36 year-old gentleman with severe traumatic brain injury in a chronic vegetative state and a [facility] resident. This appears that he has compensatory ventriculomegaly since the shunt pressure setting is at low level and his neurologic examination is baseline. There is a question of the MOBILE MANAGER shunt malfunction versus infection although on the proximal shunt evaluation it appears to be functioning and CSF does not reveal any organisms but we'll await the culture results. It is possible he may have a distal MOBILE MANAGER shunt malfunction and will need further evaluation with a repeat shuntogram by the radiologist. If the shunt tap CSF cultures reveal any growth then we will externalize the MOBILE MANAGER shunt. CSF cultures are negative. P: Continue to monitor cultures. Continue with antibiotics Continue with medical care. Juanjo Oquendo Aug 25, 2016 08:22
[2016-08-25] MEDS: SODIUM CHLORIDE 0.9% FLUSH 5 ML FLUSH FLUSH SCH ×2 (09:00→21:00)
[2016-08-25] MEDS: ATENOLOL 50 MG TAB PEG SCH ×2 (09:00→21:00)
[2016-08-25] MEDS: DILTIAZEM HCL 60 MG TAB JT SCH ×4 (09:00→21:12)
[2016-08-25] MEDS: HYOSCYAMINE 0.125 MG TAB JT SCH ×4 (09:00→21:12)
[2016-08-25] MEDS: hydrALAZINE HCL 50 MG TAB JT SCH ×3 (09:00→18:34)
[2016-08-25] MEDS: BACLOFEN 10 MG TAB PEG SCH ×2 (09:00→21:12)
[2016-08-25] MEDS: IBUPROFEN SUSP 100 MG/5 ML UDC PO PRN ×2 (10:00→21:11)
[2016-08-25] MEDS: levETIRAcetam 500 MG/5 ML UDC TUBE SCH ×2 (10:35→21:11)
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
[2016-08-25] MEDS ORDERED: PHARMACY ORDERED LAB XX ONE (14:45)
[2016-08-25] MEDS ORDERED: VANCOMYCIN INJ 2,000 MG in SODIUM CHLORID 0.9% 500 ML INJ 500 ML IV SCH (18:31)
[2016-08-25] MEDS: SILVER SULFADIAZINE 1% CR 50 GM JAR TOPICAL SCH (21:14)
[2016-08-26] VITALS (9 sets, daily range): BP systolic 115–140; BP diastolic 61–81; PULSE 91–119; RESP 20–24; TEMP 97.9–102.7; O2SAT 96–100
[2016-08-26] MEDS: ACETAMINOPHEN 1000 MG/100 ML VIAL IV PRN (00:38)
[2016-08-26] MEDS: VANCOMYCIN 1,500 MG/NS 500 ML IV SCH ×6 (01:54→18:25)
[2016-08-26] MEDS: SODIUM CHLOR 0.9% 1000 ML INJ 1,000 ML IV SCH (02:00)
[2016-08-26] MEDS: MEROPENEM INJ 2,000 MG in SODIUM CHLORIDE 0.9% INJ 100 ML IV SCH ×3 (04:08→22:27)
[2016-08-26] MEDS: oxyCODONE/ACETAMINOPHEN 5 MG/325 MG TAB JT SCH ×3 (06:06→22:29)
[2016-08-26] MEDS: IBUPROFEN SUSP 100 MG/5 ML UDC PO PRN (06:36)
[2016-08-26] MEDS: RESP: ALBUTEROL 2.5 MG/IPRATROPIUM 0.5 MG NEB (SCH) NEB ×3 (08:09→19:46)
--- NOTE | 2016-08-26 09:54 | HHI.NSPN ---
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 He had a left ventriculoperitoneal shunt which was removed secondary to wound dehiscence and had a right ventriculoperitoneal shunt placed. He is a chronic skilled nursing resident and has been febrile the last few days and presents MRI is room for workup for for this fever. He had a urethral stricture which was dilated in the emergency room by urology and urinalysis reveals urinary tract infection. He also has a decubitus ulcer. Blood cultures are pending. His neurologic examination is baseline and CT of the head obtained reveals ventriculomegaly compared to the scan from a month ago. The patient had programmable valve place with a lower setting of 50 mm water. Shuntogram obtained reveals ventricular catheter being patent but the peritoneal catheter was not evaluated because patient did not cooperate and the plan is to have this further evaluated once more cooperate with IV access per special procedures. CSF from a shunt tap that does not reveal any organisms on Gram stain. CT of the abdomen reveals a small fluid collection around the shunt catheter of unclear significance. 08/24/16: Pt at his clinical baseline. Eyes open. occasionally focuses on my face. At times rolling eye movements. Not following commands. Flexion contractures of UEs and Extension contractures of LEs. Pt having high fevers today. Tmax of 103 at 8am. 08/25/16: Pt with eyes open. Right sided gaze preference. Not following commands. Not verbalizing. Pt at baseline neurologically. Pt continues to have fevers, T Max 103.4 at 2am. 08/26/16: Pt with eyes open. Tracking more today to both sides. Not following commands which is his baseline. Fever spikes yesterday today T max 100.1. System Review Comments Not able to obtain given clinical condition. Exam Results Vital Signs Date Time Temp Pulse Resp B/P Pulse Ox O2 Delivery O2 Flow Rate FiO2 08/26/16 08:46 100.0 100 20 120/81 100 08/26/16 08:11 Nasal Cannula 3.00 Intake and Output 08/25/16 08/25/16 08/26/16 08:00 16:00 00:00 Output Total 1000 ml 1150 ml 950 ml Balance -1000 ml -1150 ml -950 ml Physical Examination Resp: CTA bilaterally Heart: NSR no murmurs. Abdomen is soft and nontender with a G-tube in place and no guarding or rigidity. Skin: Bilateral scalp incision sites are clean and dry with no tenderness swelling or drainage. Muscle: Flexion contractures in UEs and Extension contractures in LEs. Neuro: Right parietal shunt valve reservoir refills. He is awake and he tracks but does not follow commands. No verbalizing. Neurologic exam is baseline. Lab, Micro, Other Results Laboratory Tests Test 08/25/16 08/26/16 17:31 07:13 Vancomycin Level Trough 10.0 MCG/ML Creatinine 0.43 MG/DL Estimat Glomerular Filtration 275 ML/MIN Rate 08/25/16 08/25/16 08/26/16 15:00 23:00 07:00 Output Total 2150 ml 950 ml 850 ml Balance -2150 ml -950 ml -850 ml Output Urine Total 2150 ml 950 ml 850 ml # Bowel Movements 1 1 Medical Decision Making Impression and Plan A: 36 year-old gentleman with severe traumatic brain injury in a chronic vegetative state and a skilled nursing resident. This appears that he has compensatory ventriculomegaly since the shunt pressure setting is at low level and his neurologic examination is baseline. There is a question of the LICENSING OFFICER shunt malfunction versus infection although on the proximal shunt evaluation it appears to be functioning and CSF does not reveal any organisms but we'll await the culture results. It is possible he may have a distal LICENSING OFFICER shunt malfunction and will need further evaluation with a repeat shuntogram by the radiologist. If the shunt tap CSF cultures reveal any growth then we will externalize the LICENSING OFFICER shunt. CSF cultures are negative. P: Continue with antibiotics Continue with medical care. Juanjo Oquendo Aug 26, 2016 09:54
[2016-08-26] MEDS: ACETAMINOPHEN 325 MG TAB PO PRN ×2 (09:59→17:41)
[2016-08-26] MEDS: SODIUM CHLORIDE 0.9% FLUSH 5 ML FLUSH FLUSH SCH ×2 (10:00→21:00)
[2016-08-26] MEDS: levETIRAcetam 500 MG/5 ML UDC TUBE SCH ×2 (10:00→22:20)
[2016-08-26] MEDS: hydrALAZINE HCL 50 MG TAB JT SCH ×3 (10:05→17:41)
[2016-08-26] MEDS: DILTIAZEM HCL 60 MG TAB JT SCH ×4 (10:05→22:20)
[2016-08-26] MEDS: HYOSCYAMINE 0.125 MG TAB JT SCH ×4 (10:05→22:20)
[2016-08-26] MEDS: ATENOLOL 50 MG TAB PEG SCH ×2 (10:06→22:20)
[2016-08-26] MEDS: BACLOFEN 10 MG TAB PEG SCH ×2 (10:06→22:29)
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
[2016-08-26] MEDS: REMOVE OLD PATCH TD SCH (12:00)
[2016-08-26] MEDS: fentaNYL 50 MCG/HR PATCH T-DERMAL SCH (13:18)
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
[2016-08-26] MEDS: FLUCONAZOLE 100 MG PREMIX BAG 50 ML IV SCH (16:52)
[2016-08-26] MEDS ORDERED: PHARMACY ORDERED LAB XX ONE (17:45)
[2016-08-26] MEDS: SILVER SULFADIAZINE 1% CR 50 GM JAR TOPICAL SCH (21:00)
[2016-08-27] VITALS (8 sets, daily range): BP systolic 104–123; BP diastolic 59–82; PULSE 82–116; RESP 18–26; TEMP 98.1–101.9; O2SAT 96–100
[2016-08-27] MEDS: ACETAMINOPHEN 1000 MG/100 ML VIAL IV PRN (00:42)
[2016-08-27] MEDS: MEROPENEM INJ 2,000 MG in SODIUM CHLORIDE 0.9% INJ 100 ML IV SCH ×2 (03:47→12:37)
[2016-08-27] MEDS: oxyCODONE/ACETAMINOPHEN 5 MG/325 MG TAB JT SCH ×3 (05:23→21:02)
[2016-08-27] MEDS: HYOSCYAMINE 0.125 MG TAB JT SCH ×4 (10:08→21:02)
[2016-08-27] MEDS: hydrALAZINE HCL 50 MG TAB JT SCH ×3 (10:08→17:41)
[2016-08-27] MEDS: ATENOLOL 50 MG TAB PEG SCH ×2 (10:08→21:02)
[2016-08-27] MEDS: levETIRAcetam 500 MG/5 ML UDC TUBE SCH ×2 (10:08→21:01)
[2016-08-27] MEDS: BACLOFEN 10 MG TAB PEG SCH ×2 (10:08→21:02)
[2016-08-27] MEDS: IBUPROFEN SUSP 100 MG/5 ML UDC PO PRN ×2 (10:08→21:01)
[2016-08-27] MEDS: DILTIAZEM HCL 60 MG TAB JT SCH ×4 (10:08→21:03)
[2016-08-27] MEDS: SODIUM CHLORIDE 0.9% FLUSH 5 ML FLUSH FLUSH SCH ×2 (10:09→21:00)
[2016-08-27] MEDS: SODIUM CHLOR 0.9% 1000 ML INJ 1,000 ML IV SCH ×2 (10:10→17:41)
[2016-08-27] MEDS: VANCOMYCIN INJ 1,750 MG in SODIUM CHLORID 0.9% 500 ML INJ 500 ML IV SCH ×2 (10:36→22:42)
[2016-08-27] MEDS: oxyCODONE/ACETAMINOPHEN 5 MG/325 MG TAB J-TUBE PRN (10:37)
[2016-08-27] MEDS: ACETAMINOPHEN 325 MG TAB PO PRN (13:00)
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
[2016-08-27] MEDS: FLUCONAZOLE 100 MG PREMIX BAG 50 ML IV SCH (15:26)
--- NOTE | 2016-08-27 18:03 | HHI.IDPN ---
Note Infectious Disease Note Notes reviewed. Patient is awake. Sweating. Less alert. Non verbal but tracking with eyes. Has Hiccups. Febrile. This is a 36-year-old black male who has had multiple recent admissions to this hospital. He is a resident of a intermediate facility. The patient is known to me from prior hospitalization. He was treated recently for SPORTS NUTRITIONIST shunt infection. Cultures during the hospitalization in mid July grew Pseudomonas. He received intravenous antibiotic in the form of meropenem and completed antibiotic course on August 12. The patient has had fevers at the intermediate facility for 3-4 days and they had difficulty controlling the fevers and he was sent to the emergency department for evaluation. The patient has history of traumatic brain injury and has a SPORTS NUTRITIONIST shunt in place. The SPORTS NUTRITIONIST shunt was revised recently. The patient is usually nonverbal but is able to track with his eyes at his best level of alertness. Currently, he is looking around and following me with his eyes. His temperature has remained elevated since evaluation this morning and last temperature measured 101.6 degrees this evening. He has had problems with leakage from the scalp incision from prior surgery, but he has no drainage currently. Cultures have been taken and all cultures are pending including CSF culture, urine culture and blood culture. The white count is 10.1. Chest x-ray shows no evidence of acute disease. The CT scan of the abdomen report myositis and cellulitis in the posterior tissues of the buttock and hip and diffuse edema laterally in the hip and proximal thigh region but no abscess noted. A low density area was noted adjacent to the liver with appearance being worrisome for shunt complication, fluid loculation or catheter infection with adjacent hepatic parenchyma edema per the CT scan reading. PAST MEDICAL HISTORY 1. Traumatic brain injury in October 2014, SPORTS NUTRITIONIST shunt placement, 2. Seizure disorder. 3. PEG placement 4. History of tracheostomy 5. History of MRSA wound infection from the scalp 6. Bacteremia due to MRSA 7. History of ESBL E-coli UTI. ALLERGIES NO KNOWN DRUG ALLERGIES. Current Medications Medications (Trade) Dose Ordered Sig/Yinka Route PRN Reason Start Time Stop Time Status Last Admin Dose Admin Pharmacy Profile Note (Vancomycin Consult Pharmacy) 0 ml @ 0 mls/hr UNSCH OTHER 08/23/16 10:30 Acetaminophen (Tylenol) 650 mg Q4H PRN G-TUBE INCREASED TEMPERATURE 08/23/16 10:30 Atenolol (Tenormin) 50 mg BID PEG 08/23/16 21:00 08/27/16 10:08 Baclofen (Lioresal) 10 mg BID PEG 08/23/16 21:00 08/27/16 10:08 Diltiazem HCl (Cardizem) 60 mg QID JT 08/23/16 13:00 08/27/16 17:41 Fentanyl (Duragesic 50 Mcg Patch.72 Hr) 1 patch Q72H T-DERMAL 08/23/16 12:00 08/26/16 13:18 Hydralazine HCl (Apresoline) 50 mg TID JT 08/23/16 13:00 08/27/16 17:41 Hyoscyamine Sulfate (Levsin) 0.125 mg QID JT 08/23/16 13:00 08/27/16 17:41 Levetriacetam (Keppra Liq) 1,000 mg Q12HR TUBE 08/23/16 21:00 08/27/16 10:08 Oxycodone/ Acetaminophen (Percocet 5-325 Mg) 1 tab Q6H PRN J-TUBE BREAKTHROUGH PAIN 08/23/16 10:30 08/27/16 10:37 Oxycodone/ Acetaminophen (Percocet 5-325 Mg) 1 tab Q8HR JT 08/23/16 14:00 08/27/16 15:26 Silver Sulfadiazine (Silvadene 1% Cream (50 Gm)) 1 applic HS TOPICAL 08/23/16 21:00 08/25/16 21:14 Miscellaneous Information 1 1 Q3D TD 08/26/16 12:00 08/26/16 12:00 Sodium Chloride (NS 1000 ml Inj) 1,000 ml @ 100 mls/hr Q10H IV 08/23/16 14:00 08/27/16 10:10 IV Flush (NS Flush) 2 ml UNSCH PRN FLUSH FLUSH AFTER USING IV ACCESS 08/23/16 14:00 IV Flush (NS Flush) 2 ml BID FLUSH 08/23/16 21:00 08/27/16 10:09 Acetaminophen (Tylenol) 650 mg Q4H PRN PO TEMP > 100.4 08/23/16 14:00 08/27/16 13:00 Ondansetron HCl (Zofran Inj) 4 mg Q6H PRN IVP NAUSEA OR VOMITING 08/23/16 14:00 Prochlorperazine (Compazine Supp) 25 mg Q12H PRN FL NAUSEA OR VOMITING 08/23/16 14:00 Bisacodyl (Dulcolax Supp) 10 mg DAILY PRN FL CONSTIPATION 08/23/16 14:00 Magnesium Hydroxide (Milk Of Magnesia Liq) 30 ml Q12H PRN PO CONSTIPATION 08/23/16 14:00 Sennosides (Senokot) 17.2 mg Q12H PRN PO CONSTIPATION 08/23/16 14:00 Temazepam 15 mg 15 mg HS PRN PO INSOMNIA 08/23/16 14:00 Meropenem/Sodium Chloride (Merrem Inj/NS Inj) 100 ml @ 200 mls/hr Q8H IV 08/23/16 20:00 08/27/16 12:37 Acetaminophen (Ofirmev Inj) 1,000 mg Q6H PRN IV high grade fevers/ alter ibupr 08/24/16 10:45 08/27/16 00:42 Ibuprofen 200 mg 200 mg Q6H PRN PO fevers 08/24/16 10:45 08/27/16 10:08 Fluconazole/ Sodium Chloride 50 ml @ 50 mls/hr Q24H IV 08/26/16 16:00 08/27/16 15:26 Vancomycin HCl/ Sodium Chloride (Vancomycin Inj/ NS 500 ml Inj) 517.5 ml @ 258.75 mls/ hr Q12H IV 08/27/16 11:00 08/27/16 10:36 Miscellaneous Information SPECIFIC LAB TO BE [facility]... ONCE ONCE XX 08/29/16 10:45 08/29/16 10:46 SOCIAL HISTORY The patient is a intermediate resident. No tobacco, alcohol or illicit drugs. FAMILY HISTORY Noncontributory. REVIEW OF SYSTEMS Unable to obtain OBJECTIVE: Vital Signs Date Time Temp Pulse Resp B/P Pulse Ox O2 Delivery O2 Flow Rate FiO2 08/27/16 16:34 98.1 95 20 107/59 100 08/27/16 12:26 101.3 101 20 104/59 98 08/27/16 09:31 96 Nasal Cannula 1.00 08/27/16 09:18 101.4 104 20 123/82 98 08/27/16 04:00 98.1 88 18 110/80 97 08/27/16 00:00 101.9 116 26 111/74 96 08/26/16 20:00 97.9 119 24 130/61 98 08/26/16 19:46 96 Nasal Cannula 3.00 Vital Signs Date Time Temp Pulse Resp B/P Pulse Ox O2 Delivery O2 Flow Rate FiO2 08/26/16 12:43 99.7 103 20 129/68 99 08/26/16 08:46 100.0 100 20 120/81 100 08/26/16 08:11 99 Nasal Cannula 3.00 08/26/16 08:05 101 08/26/16 04:01 100.1 97 22 124/76 100 08/26/16 00:32 99.8 91 20 115/71 100 08/25/16 23:11 108 08/25/16 20:39 101.0 116 22 106/60 98 08/25/16 19:26 95 Nasal Cannula 3.00 08/25/16 19:25 95 Nasal Cannula 3.00 08/25/16 16:00 103.4 128 20 132/75 99 08/26/16 08/26/16 08/27/16 15:00 23:00 07:00 Intake Total 2360 ml 1796 ml 1140 ml Output Total 600 ml 300 ml 300 ml Balance 1760 ml 1496 ml 840 ml Intake IV Total 1300 ml 811 ml 777 ml Tube Feeding 660 ml 835 ml 363 ml Other 400 ml 150 ml Output Urine Total 600 ml 300 ml 300 ml Laboratory Tests Test 08/26/16 07:13 Creatinine 0.43 MG/DL Estimat Glomerular Filtration 275 ML/MIN Rate Microbiology Date/Time Procedure Status Source Growth 08/24/16 20:55 Aerobic Blood Culture - Preliminary Resulted Blood Peripheral NO GROWTH IN 3 DAYS 08/24/16 20:55 Anaerobic Blood Culture - Preliminary Resulted Blood Peripheral NO GROWTH IN 3 DAYS 08/24/16 21:07 Aerobic Blood Culture - Preliminary Resulted Blood Peripheral NO GROWTH IN 3 DAYS 08/24/16 21:07 Anaerobic Blood Culture - Preliminary Resulted Blood Peripheral NO GROWTH IN 3 DAYS IMAGING: Shunt Study (Imaging) 08/23/16 8474 Signed Impressions: Service Date/Time: Tuesday, August 23, 2016 15:14 - CONCLUSION: SPORTS NUTRITIONIST shunt tap for spinal fluid sampling as above Joni Sharpe MD Chest X-Ray 08/23/1616 Signed Impressions: Service Date/Time: Tuesday, August 23, 2016 08:25 - CONCLUSION: Stable chest without definite evidence of acute disease Joni Sharpe MD Abdomen/Pelvis CT 08/23/1616 Signed Impressions: Service Date/Time: Tuesday, August 23, 2016 08:44 - CONCLUSION: Abnormal scan with multiple findings as outlined above Joni Sharpe MD Shunt Study 08/23/16 0000 Signed Impressions: Service Date/Time: Tuesday, August 23, 2016 14:07 - CONCLUSION: Shunt tubing is patent into the ventricular system. The downstream portion of the shunt to the peritoneal cavity was not evaluated. Joni Sharpe MD Head CT 08/23/16 0000 Signed Impressions: Service Date/Time: Tuesday, August 23, 2016 11:57 - CONCLUSION: 1. Interval significant increase in the size of the ventricles compared to the previous examination suggesting worsening hydrocephalus. Clinical correlation is recommended. 2. No significant change in the extensive encephalomalacia ( right worse than left) within the cerebral hemispheres. 3. No acute hemorrhage, midline shift or extraaxial fluid collections. Donavan Vidales MD PHYSICAL EXAMINATION GENERAL: Well-developed male who is in no acute distress. He tracks with his eyes and does not follow any commands otherwise. NECK: Supple. No adenopathy. No swelling. LUNGS: Clear to auscultation. HEART: Regular rate and rhythm. Normal S1-S2. ABDOMEN: Bowel sounds present, soft, no tenderness appreciated. EXTREMITIES: No clubbing or cyanosis or edema. Bilateral hip without edema or erythema. SKIN: No rash. Some denuded skin at the upper left humerus. No drainage. NEUROLOGIC: Unable to fully assess. less alert. IMPRESSION 1. Fever. Persist. ? infection, ? drug. No clear source. ? shunt related. 2. Recent SPORTS NUTRITIONIST shunt malfunction and culture positive with Pseudomonas treated with a round of antibiotic. No positive culture to suggest shunt associated infection. 3. Cellulitis suggested by CT scan of the abdomen and pelvis which reveals myositis and cellulitis in the posterior tissues of the buttock and hip. 4. Candiduria. RECOMMENDATIONS 1. Continue vancomycin. 2. Stop Meropenem. 3. Continue Diflucan for [place]. 4. Thorazine trial for the Hiccups 5. Monitor blood cultures. 6. Follow clinical status 7. Monitor temperature. 8. Consider repeat abdomen CT scan if fever persist. Quique Mendez MD Aug 27, 2016 18:03
[2016-08-27] MEDS ORDERED: chlorproMAZINE HCL 25 MG TAB PO PRN (20:00)
[2016-08-27] MEDS: SILVER SULFADIAZINE 1% CR 50 GM JAR TOPICAL SCH (21:00)
[2016-08-28] VITALS (12 sets, daily range): BP systolic 98–158; BP diastolic 66–105; PULSE 83–135; RESP 18–24; TEMP 98.4–102.8; O2SAT 95–100
[2016-08-28] MEDS: ACETAMINOPHEN 1000 MG/100 ML VIAL IV PRN ×2 (03:56→21:38)
[2016-08-28] MEDS: SODIUM CHLOR 0.9% 1000 ML INJ 1,000 ML IV SCH ×2 (04:03→14:00)
[2016-08-28] MEDS: oxyCODONE/ACETAMINOPHEN 5 MG/325 MG TAB JT SCH ×3 (05:30→21:38)
[2016-08-28] MEDS: SODIUM CHLORIDE 0.9% FLUSH 5 ML FLUSH FLUSH SCH ×2 (09:00→21:00)
[2016-08-28] MEDS: levETIRAcetam 500 MG/5 ML UDC TUBE SCH ×2 (10:42→21:37)
[2016-08-28] MEDS: BACLOFEN 10 MG TAB PEG SCH ×2 (10:42→21:37)
[2016-08-28] MEDS: HYOSCYAMINE 0.125 MG TAB JT SCH ×4 (10:42→21:37)
[2016-08-28] MEDS: hydrALAZINE HCL 50 MG TAB JT SCH ×4 (10:42→18:21)
[2016-08-28] MEDS: DILTIAZEM HCL 60 MG TAB JT SCH ×4 (10:53→21:37)
[2016-08-28] MEDS: ATENOLOL 50 MG TAB PEG SCH ×2 (10:56→21:37)
[2016-08-28] MEDS: VANCOMYCIN INJ 1,750 MG in SODIUM CHLORID 0.9% 500 ML INJ 500 ML IV SCH ×2 (11:07→23:46)
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
[2016-08-28] MEDS ORDERED: CEFEPIME INJ 2,000 MG in SODIUM CHLORIDE 0.9% INJ 100 ML IV SCH (17:00)
--- NOTE | 2016-08-28 17:12 | PD.OP ---
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 Food Consultant(s): None Operation and Findings: 36-year-old unfortunate gentleman with a severe traumatic brain injury and persistent vegetative state. Presented to the emergency room with the persistent fevers and a LEATHER SEASONER shunt tap did not reveal any infection although in the distal peritoneal catheter there is a fluid loculation. The proximal portion of the LEATHER SEASONER shunt is functioning but the distal portion could not be assessed given the patient's significant contractures and noncooperation. His neurologic status has changed the and is somewhat less responsive per his mother and grunting today. It is felt best that we externalize a distal ventriculoperitoneal shunt externally to monitor CSF drainage and cultures. Informed consent was obtained from the patient's mother and the procedure and taken the bedside using sterile technique this prepping and draping with Betadine ointment and usual fashion. 1% lidocaine with epinephrine was injected overlying the distal ventricle peritoneal shunt tube palpating over the clavicle in the anterior chest. The 11 blade incision was made and the underlying catheter identified and pulled out from the peritoneum through this small incision. Clear CSF drainage was noted at the distal peritoneal catheter and which was connected to the drainage bag. The exit site approximated with the 2-0 silk stitches and a sterile dressing applied. There were no complications and blood loss less than 5 cc. Franky Carreno MD Aug 28, 2016 17:12
[2016-08-28] MEDS: LEVOFLOXACIN 750 MG PREMIX INJ 150 ML IV SCH (17:50)
[2016-08-28] MEDS: MICAFUNGIN INJ 100 MG in SODIUM CHLORIDE 0.9% INJ 100 ML IV SCH (17:50)
[2016-08-28] MEDS ORDERED: GENTAMICIN INJ 300 MG in SODIUM CHLORIDE 0.9% INJ 100 ML IV ONE (18:00)
[2016-08-28] MEDS: CEFEPIME INJ 2,000 MG in SODIUM CHLORIDE 0.9% INJ 100 ML IV SCH (19:10)
[2016-08-28] MEDS: SILVER SULFADIAZINE 1% CR 50 GM JAR TOPICAL SCH (21:00)
[2016-08-29] VITALS (13 sets, daily range): BP systolic 108–152; BP diastolic 60–86; PULSE 76–124; RESP 14–29; TEMP 98.8–102; O2SAT 98–100
[2016-08-29] MEDS: SODIUM CHLOR 0.9% 1000 ML INJ 1,000 ML IV SCH ×3 (00:41→17:21)
[2016-08-29] MEDS: CEFEPIME INJ 2,000 MG in SODIUM CHLORIDE 0.9% INJ 100 ML IV SCH ×3 (03:37→17:21)
[2016-08-29 04:30] LABS: HEMATOCRIT 32.3 % (39.0-51.0); MEAN CELL VOLUME 85.9 FL (80.0-100.0); MEAN CORPUSCULAR HEMOGLOBIN 27.4 PG (27.0-34.0); MEAN CORPUSCULAR HGB CONC 31.9 % (32.0-36.0); RED BLOOD COUNT 3.76 MIL/MM3 (4.50-5.90); RED CELL DISTRIBUTION WIDTH 16.8 % (11.6-17.2)
[2016-08-29 04:31] LABS: AUTOMATED NEUTROPHIL # 6.1 TH/MM3 (1.8-7.7); BASOPHIL % 0.3 % (0.0-2.0); EOSINOPHIL % 0.1 % (0.0-4.0); HEMO FLAGS DIFF FINAL; LYMPH % 20.8 % (9.0-44.0); LYMPHOCYTE # 1.9 TH/MM3 (1.0-4.8); MONO % 10.7 % (0.0-8.0); NEUT % 68.1 % (16.0-70.0); PLATELET COUNT 292 TH/MM3 (150-450)
[2016-08-29 04:51] LABS: BICARBONATE 29.4 MEQ/L (21.0-32.0)
[2016-08-29] MEDS: oxyCODONE/ACETAMINOPHEN 5 MG/325 MG TAB JT SCH ×3 (06:50→21:15)
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
[2016-08-29] MEDS: DILTIAZEM HCL 60 MG TAB JT SCH ×4 (08:53→21:15)
[2016-08-29] MEDS: levETIRAcetam 500 MG/5 ML UDC TUBE SCH ×2 (08:53→21:15)
[2016-08-29] MEDS: HYOSCYAMINE 0.125 MG TAB JT SCH ×4 (08:53→21:15)
[2016-08-29] MEDS: BACLOFEN 10 MG TAB PEG SCH ×2 (08:53→21:15)
[2016-08-29] MEDS: hydrALAZINE HCL 50 MG TAB JT SCH ×3 (08:53→17:19)
[2016-08-29] MEDS: SODIUM CHLORIDE 0.9% FLUSH 5 ML FLUSH FLUSH SCH ×2 (08:54→21:15)
[2016-08-29] MEDS: ATENOLOL 50 MG TAB PEG SCH ×2 (08:55→21:15)
--- NOTE | 2016-08-29 09:26 | HHI.NSPN ---
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 He had a left ventriculoperitoneal shunt which was removed secondary to wound dehiscence and had a right ventriculoperitoneal shunt placed. He is a chronic assisted resident and has been febrile the last few days and presents MRI is room for workup for for this fever. He had a urethral stricture which was dilated in the emergency room by urology and urinalysis reveals urinary tract infection. He also has a decubitus ulcer. Blood cultures are pending. His neurologic examination is baseline and CT of the head obtained reveals ventriculomegaly compared to the scan from a month ago. The patient had programmable valve place with a lower setting of 50 mm water. Shuntogram obtained reveals ventricular catheter being patent but the peritoneal catheter was not evaluated because patient did not cooperate and the plan is to have this further evaluated once more cooperate with IV access per special procedures. CSF from a shunt tap that does not reveal any organisms on Gram stain. CT of the abdomen reveals a small fluid collection around the shunt catheter of unclear significance. 08/24/16: Pt at his clinical baseline. Eyes open. occasionally focuses on my face. At times rolling eye movements. Not following commands. Flexion contractures of UEs and Extension contractures of LEs. Pt having high fevers today. Tmax of 103 at 8am. 08/25/16: Pt with eyes open. Right sided gaze preference. Not following commands. Not verbalizing. Pt at baseline neurologically. Pt continues to have fevers, T Max 103.4 at 2am. 08/26/16: Pt with eyes open. Tracking more today to both sides. Not following commands which is his baseline. Fever spikes yesterday today T max 100.1. 08/28/16: Pt examined on 08/28/16 delayed note entry. Pt awake with rolling eye movements, erythematous sclera, grunting, and appears more restlessness. System Review Comments Not able to obtain given clinical status. Exam Results Vital Signs Date Time Temp Pulse Resp B/P Pulse Ox O2 Delivery O2 Flow Rate FiO2 08/29/16 08:00 100 Nasal Cannula 3.00 08/29/16 06:00 91 08/29/16 00:00 98.8 27 108/60 Intake and Output 08/28/16 08/28/16 08/29/16 08:00 16:00 00:00 Intake Total 1502 ml 2534 ml Output Total 2200 ml 850 ml 96 ml Balance -698 ml -850 ml 2438 ml Physical Examination Resp: CTA bilaterally Heart: NSR no murmurs. Abdomen is soft and nontender with a G-tube in place and no guarding or rigidity. Skin: Bilateral scalp incision sites are clean and dry with no tenderness swelling or drainage. Muscle: Flexion contractures in UEs and Extension contractures in LEs. Neuro: Right parietal shunt valve reservoir refills. He is awake not tracking today. Not follow commands. No verbalizing. He has increased rolling upward eye movements and grunting today. Lab, Micro, Other Results Laboratory Tests Test 08/29/16 03:54 White Blood Count 9.0 TH/MM3 Red Blood Count 3.76 MIL/MM3 Hemoglobin 10.3 GM/DL Hematocrit 32.3 % Mean Corpuscular Volume 85.9 FL Mean Corpuscular Hemoglobin 27.4 PG Mean Corpuscular Hemoglobin 31.9 % Concent Red Cell Distribution Width 16.8 % Platelet Count 292 TH/MM3 Mean Platelet Volume 7.2 FL Neutrophils (%) (Auto) 68.1 % Lymphocytes (%) (Auto) 20.8 % Monocytes (%) (Auto) 10.7 % Eosinophils (%) (Auto) 0.1 % Basophils (%) (Auto) 0.3 % Neutrophils # (Auto) 6.1 TH/MM3 Lymphocytes # (Auto) 1.9 TH/MM3 Monocytes # (Auto) 1.0 TH/MM3 Eosinophils # (Auto) 0.0 TH/MM3 Basophils # (Auto) 0.0 TH/MM3 CBC Comment DIFF FINAL Differential Comment Sodium Level 143 MEQ/L Potassium Level 4.0 MEQ/L Chloride Level 106 MEQ/L Carbon Dioxide Level 29.4 MEQ/L Anion Gap 8 MEQ/L Blood Urea Nitrogen 14 MG/DL Creatinine 0.44 MG/DL Estimat Glomerular Filtration 267 ML/MIN Rate Random Glucose 95 MG/DL Calcium Level 8.8 MG/DL 08/28/16 08/28/16 08/29/16 15:00 23:00 07:00 Intake Total 2534 ml 1514 ml Output Total 850 ml 96 ml 553 ml Balance -850 ml 2438 ml 961 ml Intake IV Total 1766 ml 1184 ml Tube Feeding 768 ml 270 ml Tube Irrigant 60 ml Output Urine Total 850 ml 50 ml 550 ml Drainage Total 46 ml 3 ml # Bowel Movements 1 0 0 Medical Decision Making Impression and Plan A: 36 year-old gentleman with severe traumatic brain injury in a chronic vegetative state and a assisted resident. This appears that he has compensatory ventriculomegaly since the shunt pressure setting is at low level and his neurologic examination is baseline. There is a question of the LGSW shunt malfunction versus infection although on the proximal shunt evaluation it appears to be functioning and CSF does not reveal any organisms but we'll await the culture results. It is possible he may have a distal LGSW shunt malfunction and will need further evaluation with a repeat shuntogram by the radiologist. If the shunt tap CSF cultures reveal any growth then we will externalize the LGSW shunt. CSF cultures are negative. P: Continue with antibiotics Continue with medical care. Discussed with Dr. Carreno. Pt will be transferred to [facility] and LGSW shunt will be externalized. Juanjo Oquendo Aug 29, 2016 09:26
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
[2016-08-29] MEDS ORDERED: PHARMACY ORDERED LAB XX ONE (10:45)
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
[2016-08-29] MEDS: REMOVE OLD PATCH TD SCH (12:00)
[2016-08-29] MEDS: fentaNYL 50 MCG/HR PATCH T-DERMAL SCH (12:30)
[2016-08-29] MEDS: VANCOMYCIN INJ 1,750 MG in SODIUM CHLORID 0.9% 500 ML INJ 500 ML IV SCH (13:26)
[2016-08-29] MEDS: MICAFUNGIN INJ 100 MG in SODIUM CHLORIDE 0.9% INJ 100 ML IV SCH (17:20)
[2016-08-29] MEDS: LEVOFLOXACIN 750 MG PREMIX INJ 150 ML IV SCH (17:20)
[2016-08-29] MEDS: SILVER SULFADIAZINE 1% CR 50 GM JAR TOPICAL SCH (21:15)
[2016-08-30] VITALS (15 sets, daily range): BP systolic 113–144; BP diastolic 62–90; PULSE 82–108; RESP 18–33; TEMP 99.1–101.2; O2SAT 93–100
[2016-08-30] MEDS: VANCOMYCIN INJ 1,750 MG in SODIUM CHLORID 0.9% 500 ML INJ 500 ML IV SCH ×2 (00:44→12:35)
[2016-08-30] MEDS: CEFEPIME INJ 2,000 MG in SODIUM CHLORIDE 0.9% INJ 100 ML IV SCH ×3 (04:08→17:48)
[2016-08-30] MEDS: oxyCODONE/ACETAMINOPHEN 5 MG/325 MG TAB JT SCH ×3 (05:55→21:39)
[2016-08-30] MEDS: SODIUM CHLOR 0.9% 1000 ML INJ 1,000 ML IV SCH ×2 (05:55→16:00)
[2016-08-30] MEDS: BACLOFEN 10 MG TAB PEG SCH ×2 (08:22→21:38)
[2016-08-30] MEDS: levETIRAcetam 500 MG/5 ML UDC TUBE SCH ×2 (08:22→21:39)
[2016-08-30] MEDS: DILTIAZEM HCL 60 MG TAB JT SCH ×4 (08:22→21:38)
[2016-08-30] MEDS: ATENOLOL 50 MG TAB PEG SCH ×2 (08:22→21:39)
[2016-08-30] MEDS: hydrALAZINE HCL 50 MG TAB JT SCH ×3 (08:22→17:44)
[2016-08-30] MEDS: HYOSCYAMINE 0.125 MG TAB JT SCH ×4 (08:24→21:39)
[2016-08-30] MEDS: SODIUM CHLORIDE 0.9% FLUSH 5 ML FLUSH FLUSH SCH ×2 (08:25→21:38)
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
[2016-08-30] MEDS ORDERED: PHARMACY ORDERED LAB XX ONE (10:45)
--- NOTE | 2016-08-30 11:43 | HHI.IDPN ---
Note Infectious Disease Note Notes reviewed. Patient has eyes open and upward gaze. Not tracking. Still with hiccups. Calmer and not sweating. Still febrile but temp is lower. WBC nl. CSF culture has no growth. Had RESEARCH DIETITIAN shunt externalization. CSF looks clear. This is a 36-year-old black male who has had multiple recent admissions to this hospital. He is a resident of a shelter facility. The patient is known to me from prior hospitalization. He was treated recently for RESEARCH DIETITIAN shunt infection. Cultures during the hospitalization in mid July grew Pseudomonas. He received intravenous antibiotic in the form of meropenem and completed antibiotic course on August 12. The patient has had fevers at the shelter facility for 3-4 days and they had difficulty controlling the fevers and he was sent to the emergency department for evaluation. The patient has history of traumatic brain injury and has a RESEARCH DIETITIAN shunt in place. The RESEARCH DIETITIAN shunt was revised recently. The patient is usually nonverbal but is able to track with his eyes at his best level of alertness. Currently, he is looking around and following me with his eyes. His temperature has remained elevated since evaluation this morning and last temperature measured 101.6 degrees this evening. He has had problems with leakage from the scalp incision from prior surgery, but he has no drainage currently. Cultures have been taken and all cultures are pending including CSF culture, urine culture and blood culture. The white count is 10.1. Chest x-ray shows no evidence of acute disease. The CT scan of the abdomen report myositis and cellulitis in the posterior tissues of the buttock and hip and diffuse edema laterally in the hip and proximal thigh region but no abscess noted. A low density area was noted adjacent to the liver with appearance being worrisome for shunt complication, fluid loculation or catheter infection with adjacent hepatic parenchyma edema per the CT scan reading. PAST MEDICAL HISTORY 1. Traumatic brain injury in October 2014, RESEARCH DIETITIAN shunt placement, 2. Seizure disorder. 3. PEG placement 4. History of tracheostomy 5. History of MRSA wound infection from the scalp 6. Bacteremia due to MRSA 7. History of ESBL E-coli UTI. ALLERGIES NO KNOWN DRUG ALLERGIES. Current Medications Medications (Trade) Dose Ordered Sig/Yinka Route PRN Reason Start Time Stop Time Status Last Admin Dose Admin Pharmacy Profile Note (Vancomycin Consult Pharmacy) 0 ml @ 0 mls/hr UNSCH OTHER 08/23/16 10:30 Acetaminophen (Tylenol) 650 mg Q4H PRN G-TUBE INCREASED TEMPERATURE 08/23/16 10:30 08/28/16 12:37 Atenolol (Tenormin) 50 mg BID PEG 08/23/16 21:00 08/30/16 08:22 Baclofen (Lioresal) 10 mg BID PEG 08/23/16 21:00 08/30/16 08:22 Diltiazem HCl (Cardizem) 60 mg QID JT 08/23/16 13:00 08/30/16 08:22 Fentanyl (Duragesic 50 Mcg Patch.72 Hr) 1 patch Q72H T-DERMAL 08/23/16 12:00 08/29/16 12:30 Hydralazine HCl (Apresoline) 50 mg TID JT 08/23/16 13:00 08/30/16 08:22 Hyoscyamine Sulfate (Levsin) 0.125 mg QID JT 08/23/16 13:00 08/30/16 08:24 Levetriacetam (Keppra Liq) 1,000 mg Q12HR TUBE 08/23/16 21:00 08/30/16 08:22 Oxycodone/ Acetaminophen (Percocet 5-325 Mg) 1 tab Q6H PRN J-TUBE BREAKTHROUGH PAIN 08/23/16 10:30 08/27/16 10:37 Oxycodone/ Acetaminophen (Percocet 5-325 Mg) 1 tab Q8HR JT 08/23/16 14:00 08/30/16 05:55 Silver Sulfadiazine (Silvadene 1% Cream (50 Gm)) 1 applic HS TOPICAL 08/23/16 21:00 08/29/16 21:15 Miscellaneous Information 1 1 Q3D TD 08/26/16 12:00 08/29/16 12:00 Sodium Chloride (NS 1000 ml Inj) 1,000 ml @ 100 mls/hr Q10H IV 08/23/16 14:00 08/30/16 05:55 IV Flush (NS Flush) 2 ml UNSCH PRN FLUSH FLUSH AFTER USING IV ACCESS 08/23/16 14:00 IV Flush (NS Flush) 2 ml BID FLUSH 08/23/16 21:00 08/30/16 08:25 Acetaminophen (Tylenol) 650 mg Q4H PRN PO TEMP > 100.4 08/23/16 14:00 08/27/16 13:00 Ondansetron HCl (Zofran Inj) 4 mg Q6H PRN IVP NAUSEA OR VOMITING 08/23/16 14:00 Prochlorperazine (Compazine Supp) 25 mg Q12H PRN SC NAUSEA OR VOMITING 08/23/16 14:00 Bisacodyl (Dulcolax Supp) 10 mg DAILY PRN SC CONSTIPATION 08/23/16 14:00 Magnesium Hydroxide (Milk Of Magnesia Liq) 30 ml Q12H PRN PO CONSTIPATION 08/23/16 14:00 Sennosides (Senokot) 17.2 mg Q12H PRN PO CONSTIPATION 08/23/16 14:00 Temazepam (Restoril) 15 mg HS PRN PO INSOMNIA 08/23/16 14:00 Acetaminophen (Ofirmev Inj) 1,000 mg Q6H PRN IV high grade fevers/ alter ibupr 08/24/16 10:45 08/28/16 21:38 Ibuprofen 200 mg 200 mg Q6H PRN PO fevers 08/24/16 10:45 08/27/16 21:01 Vancomycin HCl 1750 mg/Sodium Chloride 517.5 ml @ 258.75 mls/ hr Q12H IV 08/27/16 11:00 08/30/16 00:44 Micafungin Sodium 100 mg/Sodium Chloride 100 ml @ 100 mls/hr Q24H IV 08/28/16 17:00 08/29/16 17:20 Levofloxacin/ Dextrose 150 ml @ 100 mls/hr Q24H IV 08/28/16 17:00 08/29/16 17:20 Cefepime HCl/ Sodium Chloride (Maxipime Inj/NS Inj) 100 ml @ 200 mls/hr Q8H IV 08/28/16 19:00 08/30/16 11:10 Chlorpromazine (Thorazine) 25 mg Q6H PRN PO hiccups 08/30/16 09:00 SOCIAL HISTORY The patient is a shelter resident. No tobacco, alcohol or illicit drugs. FAMILY HISTORY Noncontributory. REVIEW OF SYSTEMS Unable to obtain OBJECTIVE: Vital Signs Date Time Temp Pulse Resp B/P Pulse Ox O2 Delivery O2 Flow Rate FiO2 08/30/16 10:00 100 1/20/17 09:12 97 Nasal Cannula 2.00 08/30/16 08:00 105 08/30/16 08:00 99.8 103 22 144/90 97 08/30/16 08:00 Room Air 3.00 08/30/16 06:00 108 08/30/16 04:00 84 08/30/16 02:00 86 08/30/16 00:00 82 08/30/16 00:00 82 18 113/62 100 08/29/16 22:00 90 08/29/16 20:42 100 Nasal Cannula 2.00 08/29/16 20:00 100.5 96 24 133/69 100 08/29/16 20:00 96 08/29/16 19:00 100 Nasal Cannula 2.00 08/29/16 18:00 101 08/29/16 16:00 87 08/29/16 16:00 99.0 87 14 119/64 100 08/29/16 14:00 78 08/29/16 12:00 99.7 84 15 128/75 100 08/29/16 12:00 84 08/29/16 08/29/16 08/30/16 15:00 23:00 07:00 Intake Total 1603 ml 1724 ml 1803 ml Output Total 990 ml 762 ml 530 ml Balance 613 ml 962 ml 1273 ml Intake IV Total 992 ml 1050 ml 1133 ml Tube Feeding 411 ml 449 ml 420 ml Tube Irrigant 200 ml 50 ml Other 175 ml 250 ml Output Urine Total 900 ml 750 ml 500 ml Drainage Total 90 ml 12 ml 30 ml # Bowel Movements 0 0 0 Laboratory Tests Test 08/29/16 03:54 White Blood Count 9.0 TH/MM3 Red Blood Count 3.76 MIL/MM3 Hemoglobin 10.3 GM/DL Hematocrit 32.3 % Mean Corpuscular Volume 85.9 FL Mean Corpuscular Hemoglobin 27.4 PG Mean Corpuscular Hemoglobin 31.9 % Concent Red Cell Distribution Width 16.8 % Platelet Count 292 TH/MM3 Mean Platelet Volume 7.2 FL Neutrophils (%) (Auto) 68.1 % Lymphocytes (%) (Auto) 20.8 % Monocytes (%) (Auto) 10.7 % Eosinophils (%) (Auto) 0.1 % Basophils (%) (Auto) 0.3 % Neutrophils # (Auto) 6.1 TH/MM3 Lymphocytes # (Auto) 1.9 TH/MM3 Monocytes # (Auto) 1.0 TH/MM3 Eosinophils # (Auto) 0.0 TH/MM3 Basophils # (Auto) 0.0 TH/MM3 CBC Comment DIFF FINAL Differential Comment Laboratory Tests Test 08/29/16 03:54 Sodium Level 143 MEQ/L Potassium Level 4.0 MEQ/L Chloride Level 106 MEQ/L Carbon Dioxide Level 29.4 MEQ/L Anion Gap 8 MEQ/L Blood Urea Nitrogen 14 MG/DL Creatinine 0.44 MG/DL Estimat Glomerular Filtration 267 ML/MIN Rate Random Glucose 95 MG/DL Calcium Level 8.8 MG/DL Microbiology Date/Time Procedure Status Source Growth 08/29/16 09:30 Gram Stain - Final Resulted Cerebral Spinal Fluid Shunt Fluid 08/29/16 09:30 CSF Culture - Preliminary Resulted Cerebral Spinal Fluid Shunt Fluid NO GROWTH IN 24 HOURS. IMAGING: Shunt Study (Imaging) 08/23/16 1514 Signed Impressions: Service Date/Time: Tuesday, August 23, 2016 15:14 - CONCLUSION: RESEARCH DIETITIAN shunt tap for spinal fluid sampling as above Joni Sharpe MD Chest X-Ray 08/23/16 0816 Signed Impressions: Service Date/Time: Tuesday, August 23, 2016 08:25 - CONCLUSION: Stable chest without definite evidence of acute disease Joni Sharpe MD Abdomen/Pelvis CT 08/23/16 0816 Signed Impressions: Service Date/Time: Tuesday, August 23, 2016 08:44 - CONCLUSION: Abnormal scan with multiple findings as outlined above Joni Sharpe MD Shunt Study 08/23/16 0000 Signed Impressions: Service Date/Time: Tuesday, August 23, 2016 14:07 - CONCLUSION: Shunt tubing is patent into the ventricular system. The downstream portion of the shunt to the peritoneal cavity was not evaluated. Joni Sharpe MD Head CT 08/23/16 0000 Signed Impressions: Service Date/Time: Tuesday, August 23, 2016 11:57 - CONCLUSION: 1. Interval significant increase in the size of the ventricles compared to the previous examination suggesting worsening hydrocephalus. Clinical correlation is recommended. 2. No significant change in the extensive encephalomalacia ( right worse than left) within the cerebral hemispheres. 3. No acute hemorrhage, midline shift or extraaxial fluid collections. Donavan Vidales MD PHYSICAL EXAMINATION GENERAL: decreased responsiveness. Has Hiccups. Not tracks with his eyes. NECK: Supple. No adenopathy. No swelling. LUNGS: Coarse breath sounds. HEART: Regular rate and rhythm. Normal S1-S2. ABDOMEN: Bowel sounds present, soft. EXTREMITIES: No clubbing or cyanosis or edema. Bilateral hip without edema or erythema. SKIN: No rash. Dry. No drainage. NEUROLOGIC: Unable to fully assess. IMPRESSION 1. Fever. Persistent. ? infection, ? drug. No clear source. ? shunt related. New CSF culture pending. Sepsis indicated By decreased BP, increased HR. Decreased mentation. High fever. 2. Recent RESEARCH DIETITIAN shunt malfunction and culture positive with Pseudomonas treated with a round of antibiotic. No positive CSF culture now. ? shunt associated infection. 3. Cellulitis suggested by CT scan of the abdomen and pelvis which reveals myositis and cellulitis in the posterior tissues of the buttock and hip. No erythema present. 4. Candiduria. RECOMMENDATIONS 1. Continue vancomycin. 2. Continue Aztreonam. 3. Continue Micafungin for [place]. 4. Continue Levaquin. 5. Monitor CSF culture. 6. Follow blood counts. 7. Monitor temp. 8. Neurosurgery to decide on shunt. ? revise again. Quique Mendze MD Aug 30, 2016 11:43
--- NOTE | 2016-08-30 13:26 | HHI.NSPN ---
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 He had a left ventriculoperitoneal shunt which was removed secondary to wound dehiscence and had a right ventriculoperitoneal shunt placed. He is a chronic residential resident and has been febrile the last few days and presents MRI is room for workup for for this fever. He had a urethral stricture which was dilated in the emergency room by urology and urinalysis reveals urinary tract infection. He also has a decubitus ulcer. Blood cultures are pending. His neurologic examination is baseline and CT of the head obtained reveals ventriculomegaly compared to the scan from a month ago. The patient had programmable valve place with a lower setting of 50 mm water. Shuntogram obtained reveals ventricular catheter being patent but the peritoneal catheter was not evaluated because patient did not cooperate and the plan is to have this further evaluated once more cooperate with IV access per special procedures. CSF from a shunt tap that does not reveal any organisms on Gram stain. CT of the abdomen reveals a small fluid collection around the shunt catheter of unclear significance. 08/24/16: Pt at his clinical baseline. Eyes open. occasionally focuses on my face. At times rolling eye movements. Not following commands. Flexion contractures of UEs and Extension contractures of LEs. Pt having high fevers today. Tmax of 103 at 8am. 08/25/16: Pt with eyes open. Right sided gaze preference. Not following commands. Not verbalizing. Pt at baseline neurologically. Pt continues to have fevers, T Max 103.4 at 2am. 08/26/16: Pt with eyes open. Tracking more today to both sides. Not following commands which is his baseline. Fever spikes yesterday today T max 100.1. 08/28/16: Pt examined on 08/28/16 delayed note entry. Pt awake with rolling eye movements, erythematous sclera, grunting, and appears more restlessness. 08/29/16: Pt with eyes open and upward gaze with rolling eye movements. Not focusing on face or tacking. Less grunting. Resolving injected sclera. Less restlessness than yesterday. Shunt is externalized and connected to a drainage bag. 08/30/16: Pt with eyes open and upward gaze. He does appear to be less agitated today with no grunting. He also focused on my face briefly which he didn't do yesterday. Distal TENTER FEEDER shunt catheter is connected to a drainage bag and draining well. (Juanjo Oquendo) Exam Results Vital Signs Date Time Temp Pulse Resp B/P Pulse Ox O2 Delivery O2 Flow Rate FiO2 08/30/16 12:00 101.2 96 26 118/63 96 08/30/16 09:12 Nasal Cannula 2.00 Intake and Output 08/29/16 08/29/16 08/30/16 08:00 16:00 00:00 Intake Total 1514 ml 1603 ml 1724 ml Output Total 553 ml 990 ml 762 ml Balance 961 ml 613 ml 962 ml (Juanjo Oquendo) Physical Examination Resp: CTA bilaterally Heart: NSR no murmurs. Abdomen is soft and nontender with a G-tube in place and no guarding or rigidity. Skin: Bilateral scalp incision sites are clean and dry with no tenderness swelling or drainage. The distal TENTER FEEDER shunt catheter is connected to a drainage bag. Muscle: Flexion contractures in UEs and Extension contractures in LEs. Neuro: Right parietal shunt valve reservoir refills. He is awake not tracking today but focused briefly on my face. Not follow commands. No verbalizing. He has rolling upward eye movements. No grunting or snoring noted. He does have hiccups currently. Distal TENTER FEEDER shunt catheter is connected to a drainage bag at - 5 and leveled at nipple line. CSF draining does not look infected normal gold colored CSF. CSF is negative at 24 hours. (Juanjo Oquendo) Lab, Micro, Other Results Laboratory Tests Test 08/29/16 23:09 Vancomycin Level Trough 12.3 MCG/ML 08/29/16 08/29/16 08/30/16 15:00 23:00 07:00 Intake Total 1603 ml 1724 ml 1803 ml Output Total 990 ml 762 ml 530 ml Balance 613 ml 962 ml 1273 ml Intake IV Total 992 ml 1050 ml 1133 ml Tube Feeding 411 ml 449 ml 420 ml Tube Irrigant 200 ml 50 ml Other 175 ml 250 ml Output Urine Total 900 ml 750 ml 500 ml Drainage Total 90 ml 12 ml 30 ml # Bowel Movements 0 0 0 (Juanjo Oquendo) Medical Decision Making Impression and Plan A: 36 year-old gentleman with severe traumatic brain injury in a chronic vegetative state and a residential resident. This appears that he has compensatory ventriculomegaly since the shunt pressure setting is at low level and his neurologic examination is baseline. There is a question of the TENTER FEEDER shunt malfunction versus infection although on the proximal shunt evaluation it appears to be functioning and CSF does not reveal any organisms but we'll await the culture results. It is possible he may have a distal TENTER FEEDER shunt malfunction and will need further evaluation with a repeat shuntogram by the radiologist. P: Continue with antibiotics Continue with medical care. Discussed with Dr. Vaughan (Juanjo Oquendo) Attending Statement The exam, history, and the medical decision-making described in the above note were completed with the assistance of the mid-level provider. I reviewed and agree with the findings presented. I attest that I had a [id number] encounter with the patient on the same day, and personally performed and documented my assessment and findings in the medical record. (Franky Carreno MD) Juanjo Oquendo Aug 30, 2016 13:26 Franky Carreno MD Aug 30, 2016 15:21
[2016-08-30] MEDS: LEVOFLOXACIN 750 MG PREMIX INJ 150 ML IV SCH (16:34)
[2016-08-30] MEDS: MICAFUNGIN INJ 100 MG in SODIUM CHLORIDE 0.9% INJ 100 ML IV SCH (16:35)
[2016-08-30] MEDS: SILVER SULFADIAZINE 1% CR 50 GM JAR TOPICAL SCH (21:00)
[2016-08-30] MEDS: chlorproMAZINE HCL 25 MG TAB PO PRN (22:46)
[2016-08-30] MEDS: IBUPROFEN SUSP 100 MG/5 ML UDC PO PRN (22:46)
[2016-08-30] MEDS: VANCOMYCIN INJ 2,000 MG in SODIUM CHLORID 0.9% 500 ML INJ 500 ML IV SCH (23:15)
[2016-08-31] VITALS (14 sets, daily range): BP systolic 106–143; BP diastolic 38–92; PULSE 78–98; RESP 14–22; TEMP 98–99.3; O2SAT 97–100
[2016-08-31] MEDS: SODIUM CHLOR 0.9% 1000 ML INJ 1,000 ML IV SCH ×3 (02:41→23:18)
[2016-08-31] MEDS: CEFEPIME INJ 2,000 MG in SODIUM CHLORIDE 0.9% INJ 100 ML IV SCH ×3 (03:07→18:16)
[2016-08-31] MEDS: oxyCODONE/ACETAMINOPHEN 5 MG/325 MG TAB JT SCH ×3 (05:29→23:17)
[2016-08-31] MEDS: ATENOLOL 50 MG TAB PEG SCH ×2 (08:08→23:18)
[2016-08-31] MEDS: hydrALAZINE HCL 50 MG TAB JT SCH ×3 (08:08→18:00)
[2016-08-31] MEDS: DILTIAZEM HCL 60 MG TAB JT SCH ×4 (08:08→23:17)
[2016-08-31] MEDS: BACLOFEN 10 MG TAB PEG SCH ×2 (08:08→23:17)
[2016-08-31] MEDS: levETIRAcetam 500 MG/5 ML UDC TUBE SCH ×2 (08:08→23:18)
[2016-08-31] MEDS: HYOSCYAMINE 0.125 MG TAB JT SCH ×4 (08:08→23:17)
--- NOTE | 2016-08-31 09:37 | HHI.NSPN ---
History Chief Complaint: n/a Interval History Low grade fevers but stable after externalization of the shunt at the chest. EVD put out 121 cc of xanthochromic CSF. CSF is still negative and a distal shuntogram is planned. Review of Systems General: Positive for: fever (to 100.2) Exam Results Vital Signs Date Time Temp Pulse Resp B/P Pulse Ox O2 Delivery O2 Flow Rate FiO2 08/31/16 08:00 98.0 94 22 134/71 98 08/31/16 07:00 Nasal Cannula 2.00 Intake and Output 08/30/16 08/30/16 08/31/16 08:00 16:00 00:00 Intake Total 1803 ml 1790 ml 1423 ml Output Total 530 ml 895 ml 726 ml Balance 1273 ml 895 ml 697 ml Physical Examination Resp: CTA bilaterally Heart: NSR no murmurs. Abdomen is soft and nontender with a G-tube in place and no guarding or rigidity. Skin: Bilateral scalp incision sites are clean and dry with no tenderness swelling or drainage. The distal SCIENTIFIC ADVISOR shunt catheter is connected to a drainage bag.CSF clear yellow Muscle: Flexion contractures in UEs and Extension contractures in LEs. Neuro: Right parietal shunt valve reservoir refills. He is awake not tracking today but focused briefly on my face. Not follow commands. No verbalizing. He has rolling upward eye movements. He does have hiccups currently. Lab, Micro, Other Results Microbiology Date/Time Procedure Status Source Growth 08/29/16 09:30 Gram Stain - Final Resulted Cerebral Spinal Fluid Shunt Fluid 08/29/16 09:30 CSF Culture - Preliminary Resulted Cerebral Spinal Fluid Shunt Fluid NO GROWTH IN 48 HOURS. Medical Decision Making Impression and Plan 36 year old gentleman with repeated shunt malfunctions/infections. A distal shuntogram is planned. The last positive cx was from the blood, staph hominis on 08/23/16. Tube feeds are well tolerated. He is at his neurologic baseline with eyes open. ID is following. Total Minutes: 10 Denton Cavazos Aug 31, 2016 09:37
[2016-08-31] MEDS: VANCOMYCIN INJ 2,000 MG in SODIUM CHLORID 0.9% 500 ML INJ 500 ML IV SCH (10:44)
[2016-08-31] MEDS: SODIUM CHLORIDE 0.9% FLUSH 5 ML FLUSH FLUSH SCH ×2 (10:45→23:17)
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
--- NOTE | 2016-08-31 17:02 | HHI.IDPN ---
Subjective Subjective Remarks ID X cover for Dr Rayo chart reviewed This is a 36-year-old male a resident of a custodial facility treated recently for Pseudomonas NUCLEAR EQUIPMENT OPERATOR shunt infection. Sp meropenem completed on August 12. Readmitted for fevers NUCLEAR EQUIPMENT OPERATOR shunt infection suspected based on shunt fluid study and CT findings, also cellulitis and myositis Pt cont to have fever up to 103 today BC grew low grade coag neg staph (1/4 bottles) urine with GNR Overnight events reviewed No fevers No rash No diarrhea More alert per family. Not tracking. Antibiotics Cefepime IV Levaquin IV Micafungin IV vancomycin Lines Line sites with no e/o infection Past Medical History 1. Traumatic brain injury in October 2014, NUCLEAR EQUIPMENT OPERATOR shunt placement, 2. Seizure disorder. 3. J tube placement 4. History of tracheostomy 5. History of MRSA wound infection from the scalp 6. Bacteremia due to MRSA 7. History of ESBL E-coli UTI. 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 Vital Signs Date Time Temp Pulse Resp B/P Pulse Ox O2 Delivery O2 Flow Rate FiO2 08/31/16 16:00 82 08/31/16 16:00 98.0 97 22 143/92 100 08/31/16 14:00 98 08/31/16 12:00 98.0 85 22 134/82 98 08/31/16 12:00 80 08/31/16 10:05 97 Nasal Cannula 2.00 08/31/16 10:00 94 08/31/16 08:00 98.0 94 22 134/71 98 08/31/16 08:00 96 08/31/16 07:00 Nasal Cannula 2.00 08/31/16 06:00 81 08/31/16 04:00 78 08/31/16 02:00 78 08/31/16 00:00 99.2 86 19 106/60 97 08/31/16 00:00 86 08/30/16 22:00 96 08/30/16 21:02 95 Nasal Cannula 2.00 08/30/16 20:00 92 08/30/16 20:00 100.2 96 33 129/78 95 08/30/16 19:00 94 Nasal Cannula 2.00 08/30/16 18:00 97 08/30/16 17:19 99.1 86 30 122/65 93 08/30/16 08/30/16 08/31/16 15:00 23:00 07:00 Intake Total 1790 ml 1423 ml 1752 ml Output Total 895 ml 726 ml 1455 ml Balance 895 ml 697 ml 297 ml Intake IV Total 1201 ml 854 ml 1087 ml Tube Feeding 389 ml 394 ml 415 ml Tube Irrigant 50 ml Other 200 ml 125 ml 250 ml Output Urine Total 850 ml 650 ml 1450 ml Drainage Total 45 ml 76 ml 5 ml # Bowel Movements 0 0 0 . Microbiology Date/Time Procedure Status Source Growth 08/29/16 09:30 Gram Stain - Final Resulted Cerebral Spinal Fluid Shunt Fluid 08/29/16 09:30 CSF Culture - Preliminary Resulted Cerebral Spinal Fluid Shunt Fluid NO GROWTH IN 48 HOURS. Imaging Last Impressions Shunt Study (Imaging) 08/23/16 1514 Signed Impressions: Service Date/Time: Tuesday, August 23, 2016 15:14 - CONCLUSION: NUCLEAR EQUIPMENT OPERATOR shunt tap for spinal fluid sampling as above Joni Sharpe MD Chest X-Ray 08/23/16 0816 Signed Impressions: Service Date/Time: Tuesday, August 23, 2016 08:25 - CONCLUSION: Stable chest without definite evidence of acute disease Joni Sharpe MD Abdomen/Pelvis CT 08/23/16 0816 Signed Impressions: Service Date/Time: Tuesday, August 23, 2016 08:44 - CONCLUSION: Abnormal scan with multiple findings as outlined above Joni Sharpe MD Shunt Study 08/23/16 0000 Signed Impressions: Service Date/Time: Tuesday, August 23, 2016 14:07 - CONCLUSION: Shunt tubing is patent into the ventricular system. The downstream portion of the shunt to the peritoneal cavity was not evaluated. Joni Sharpe MD Head CT 08/23/16 0000 Signed Impressions: Service Date/Time: Tuesday, August 23, 2016 11:57 - CONCLUSION: 1. Interval significant increase in the size of the ventricles compared to the previous examination suggesting worsening hydrocephalus. Clinical correlation is recommended. 2. No significant change in the extensive encephalomalacia ( right worse than left) within the cerebral hemispheres. 3. No acute hemorrhage, midline shift or extraaxial fluid collections. Donavan Vidales MD Physical Exam GENERAL: This is a well-developed male who is in no acute distress. NECK: Supple. No adenopathy. No swelling. Prior trach scar. LUNGS: Clear to auscultation. HEART: Regular rate and rhythm. Normal S1-S2. ABDOMEN: Bowel sounds present, soft, no tenderness appreciated. RECTAL: Not performed. EXTREMITIES: No clubbing or cyanosis + mildedema. Spastic extremeties SKIN: No rash. Some denuded skin at the upper left humerus. No drainage. NUCLEAR EQUIPMENT OPERATOR shunt cath in the Right chest wall connected to bag. Clear fluid in bag. NEUROLOGIC: awake and he appears alert. He tracks with his eyes and does not follow any commands otherwise. Unintelligible speech (moans and groans ) No movements noted. Spastic quadriparesis Psych could not be assessed IV line sites with no e/o infection. Assessment & Plan Remarks 1. Fever. 2. Recent NUCLEAR EQUIPMENT OPERATOR shunt malfunction and culture positive with Pseudomonas treated with a round of antibiotic and left shunt removal Suspected recurrent NUCLEAR EQUIPMENT OPERATOR shunt infx sp shunt study: lymphocytic pleocytosis noted, clx negative - ho MDRO PSAE treated with Zerbaxa IV in past. 3. Cellulitis suggested by CT scan of the abdomen and pelvis which reveals myositis and cellulitis in the posterior tissues of the buttock and hip. 4. UTI, GNB 5.COag negative staph bacterima, low grade likely contaminant RECOMMENDATIONS Continue vancomycin for cellulitis of buttock area. Target 10-15. Cont Cefepime IV to cover Pseudomonas which was resistant to piperacillin/tazobactam on last testing of that organism which was recovered from his NUCLEAR EQUIPMENT OPERATOR shunt catheter tip. DC Levaquin IV DC Micafungin IV Follow cultures Follow clinically to resume care on friday. Will follow prn over the weekend. If any issues please call back. Ginny Quezada MD Aug 31, 2016 5:01 pm
[2016-08-31] MEDS: SILVER SULFADIAZINE 1% CR 50 GM JAR TOPICAL SCH (21:00)
[2016-08-31] MEDS ORDERED: PHARMACY ORDERED LAB XX ONE (22:45)
[2016-08-31] MEDS: levETIRAcetam 1000 MG INJ 100 ML IV SCH (23:00)
[2016-09-01] VITALS (13 sets, daily range): BP systolic 115–159; BP diastolic 64–81; PULSE 76–109; RESP 12–24; TEMP 97.7–99.9; O2SAT 92–100
[2016-09-01] MEDS: VANCOMYCIN INJ 2,000 MG in SODIUM CHLORID 0.9% 500 ML INJ 500 ML IV SCH ×3 (00:13→22:57)
[2016-09-01] MEDS: SODIUM CHLOR 0.9% 1000 ML INJ 1,000 ML IV SCH ×3 (02:40→17:47)
[2016-09-01] MEDS: CEFEPIME INJ 2,000 MG in SODIUM CHLORIDE 0.9% INJ 100 ML IV SCH ×3 (02:41→17:48)
[2016-09-01] MEDS: oxyCODONE/ACETAMINOPHEN 5 MG/325 MG TAB JT SCH ×3 (06:12→20:32)
[2016-09-01] MEDS: levETIRAcetam 1000 MG INJ 100 ML IV SCH ×3 (09:00→20:33)
[2016-09-01] MEDS: levETIRAcetam 500 MG/5 ML UDC TUBE SCH ×2 (09:19→20:32)
[2016-09-01] MEDS: DILTIAZEM HCL 60 MG TAB JT SCH ×4 (09:19→20:31)
[2016-09-01] MEDS: ATENOLOL 50 MG TAB PEG SCH ×2 (09:19→20:31)
[2016-09-01] MEDS: hydrALAZINE HCL 50 MG TAB JT SCH ×3 (09:19→17:47)
[2016-09-01] MEDS: BACLOFEN 10 MG TAB PEG SCH ×2 (09:19→20:31)
[2016-09-01] MEDS: HYOSCYAMINE 0.125 MG TAB JT SCH ×4 (09:19→20:31)
[2016-09-01] MEDS: SODIUM CHLORIDE 0.9% FLUSH 5 ML FLUSH FLUSH SCH ×2 (09:20→20:32)
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
[2016-09-01] MEDS: fentaNYL 50 MCG/HR PATCH T-DERMAL SCH (11:58)
[2016-09-01] MEDS: REMOVE OLD PATCH TD SCH (12:00)
[2016-09-01] MEDS: oxyCODONE/ACETAMINOPHEN 5 MG/325 MG TAB J-TUBE PRN (12:37)
--- NOTE | 2016-09-01 12:37 | HHI.NSPN ---
History Chief Complaint: n/a Interval History Low grade fevers but stable after externalization of the shunt at the chest. EVD put out 121 cc of xanthochromic CSF. CSF is still negative and a distal shuntogram is planned. 09/01/16 He has no fevers and the CSF is still clear but he still has some abdominal tenderness. Review of Systems General: Negative for: fever, chills, insomnia Gastrointestinal: Negative for: nausea, vomitting, diarrhea, constipation Exam Results Vital Signs Date Time Temp Pulse Resp B/P Pulse Ox O2 Delivery O2 Flow Rate FiO2 09/01/16 10:20 96 High Flow Nasal Cannula 2.00 09/01/16 10:00 91 09/01/16 08:00 98.7 19 124/66 Intake and Output 08/31/16 08/31/16 09/01/16 08:00 16:00 00:00 Intake Total 1752 ml 1777 ml 791 ml Output Total 1455 ml 1314 ml 758 ml Balance 297 ml 463 ml 33 ml Physical Examination Resp: CTA bilaterally Heart: NSR no murmurs. Abdomen is soft and tender with a G-tube in place Skin: Bilateral scalp incision sites are clean and dry with no tenderness swelling or drainage. The distal FLAT SPRING ASSEMBLER shunt catheter is connected to a drainage bag.CSF clear yellow Muscle: Flexion contractures in UEs and Extension contractures in LEs. Neuro: Right parietal shunt valve reservoir refills. He is awake and tracking today but focused briefly on my face. Not follow commands. No verbalizing. He has rolling upward eye movements. Medical Decision Making Impression and Plan 36 year old gentleman with repeated shunt malfunctions/infections. A distal shuntogram is planned. The last positive cx was from the blood, staph hominis on 08/23/16 but CSF remains negative. Tube feeds are well tolerated. He is at his neurologic baseline with eyes open. ID is following. Total Minutes: 10 Denton Cavazos Sep 01, 2016 12:37
[2016-09-01] MEDS: SILVER SULFADIAZINE 1% CR 50 GM JAR TOPICAL SCH (20:32)
[2016-09-01] MEDS: DEXAMETHASONE SOD PHOS 4 MG/ML VIAL IV PUSH SCH (22:57)
[2016-09-01 23:39] LABS: GROSS BLOOD TUBE #1 0 (0); GROSS BLOOD TUBE #2 0 (0); SUPERNATE COLOR TUBE #1 CLEAR (CLEAR); SUPERNATE COLOR TUBE #2 CLEAR (CLEAR); WBC TUBE #2 55 /MM3 (0-10)
[2016-09-01 23:40] LABS: GROSS BLOOD TUBE #3 0 (0); SUPERNATE COLOR TUBE #3 CLEAR (CLEAR)
[2016-09-01 23:41] LABS: CSF LYMPHOCYTES 78 %; CSF MONOCYTES 2 %; CSF NEUTROPHILS 20 %
[2016-09-02] VITALS (10 sets, daily range): BP systolic 126–145; BP diastolic 62–92; PULSE 70–82; RESP 11–17; TEMP 97.5–99; O2SAT 93–100
[2016-09-02] MEDS: CEFEPIME INJ 2,000 MG in SODIUM CHLORIDE 0.9% INJ 100 ML IV SCH ×3 (03:00→18:58)
[2016-09-02] MEDS: SODIUM CHLOR 0.9% 1000 ML INJ 1,000 ML IV SCH ×3 (04:14→22:42)
[2016-09-02] MEDS: DEXAMETHASONE SOD PHOS 4 MG/ML VIAL IV PUSH SCH ×4 (05:57→23:50)
[2016-09-02] MEDS: oxyCODONE/ACETAMINOPHEN 5 MG/325 MG TAB JT SCH ×3 (05:57→20:41)
[2016-09-02] MEDS: SODIUM CHLORIDE 0.9% FLUSH 5 ML FLUSH FLUSH SCH ×2 (09:00→20:41)
[2016-09-02] MEDS: fentaNYL 50 MCG/HR PATCH T-DERMAL SCH (09:27)
[2016-09-02] MEDS: hydrALAZINE HCL 50 MG TAB JT SCH ×3 (09:27→18:58)
[2016-09-02] MEDS: HYOSCYAMINE 0.125 MG TAB JT SCH ×4 (09:27→20:41)
[2016-09-02] MEDS: ATENOLOL 50 MG TAB PEG SCH ×2 (09:27→20:41)
[2016-09-02] MEDS: levETIRAcetam 500 MG/5 ML UDC TUBE SCH ×2 (09:27→20:41)
[2016-09-02] MEDS: BACLOFEN 10 MG TAB PEG SCH ×2 (09:27→20:41)
[2016-09-02] MEDS: DILTIAZEM HCL 60 MG TAB JT SCH ×4 (09:27→20:41)
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
[2016-09-02] MEDS: VANCOMYCIN INJ 2,000 MG in SODIUM CHLORID 0.9% 500 ML INJ 500 ML IV SCH ×2 (10:05→22:42)
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
--- NOTE | 2016-09-02 13:06 | HHI.IDPN ---
Note Infectious Disease Note Notes reviewed. Sleeping. Comfortable. No hiccups. Not sweating. Afebrile. WBC nl. CSF from 08/29 has AFB. ` Sent to state lab for ID. Had GENERAL COUNSEL shunt externalization. CSF looks clear. This is a 36-year-old black male who has had multiple recent admissions to this hospital. He is a resident of a shelter facility. The patient is known to me from prior hospitalization. He was treated recently for GENERAL COUNSEL shunt infection. Cultures during the hospitalization in mid July grew Pseudomonas. He received intravenous antibiotic in the form of meropenem and completed antibiotic course on August 12. The patient has had fevers at the shelter facility for 3-4 days and they had difficulty controlling the fevers and he was sent to the emergency department for evaluation. The patient has history of traumatic brain injury and has a GENERAL COUNSEL shunt in place. The GENERAL COUNSEL shunt was revised recently. The patient is usually nonverbal but is able to track with his eyes at his best level of alertness. Currently, he is looking around and following me with his eyes. His temperature has remained elevated since evaluation this morning and last temperature measured 101.6 degrees this evening. He has had problems with leakage from the scalp incision from prior surgery, but he has no drainage currently. Cultures have been taken and all cultures are pending including CSF culture, urine culture and blood culture. The white count is 10.1. Chest x-ray shows no evidence of acute disease. The CT scan of the abdomen report myositis and cellulitis in the posterior tissues of the buttock and hip and diffuse edema laterally in the hip and proximal thigh region but no abscess noted. A low density area was noted adjacent to the liver with appearance being worrisome for shunt complication, fluid loculation or catheter infection with adjacent hepatic parenchyma edema per the CT scan reading. PAST MEDICAL HISTORY 1. Traumatic brain injury in October 2014, GENERAL COUNSEL shunt placement, 2. Seizure disorder. 3. PEG placement 4. History of tracheostomy 5. History of MRSA wound infection from the scalp 6. Bacteremia due to MRSA 7. History of ESBL E-coli UTI. ALLERGIES NO KNOWN DRUG ALLERGIES. Current Medications Medications (Trade) Dose Ordered Sig/Yinka Route PRN Reason Start Time Stop Time Status Last Admin Dose Admin Pharmacy Profile Note (Vancomycin Consult Pharmacy) 0 ml @ 0 mls/hr UNSCH OTHER 08/23/16 10:30 Acetaminophen (Tylenol) 650 mg Q4H PRN G-TUBE INCREASED TEMPERATURE 08/23/16 10:30 08/28/16 12:37 Atenolol (Tenormin) 50 mg BID PEG 08/23/16 21:00 09/02/16 09:27 Baclofen (Lioresal) 10 mg BID PEG 08/23/16 21:00 09/02/16 09:27 Diltiazem HCl (Cardizem) 60 mg QID JT 08/23/16 13:00 09/02/16 09:27 Fentanyl (Duragesic 50 Mcg Patch.72 Hr) 1 patch Q72H T-DERMAL 08/23/16 12:00 09/01/16 11:58 Hydralazine HCl (Apresoline) 50 mg TID JT 08/23/16 13:00 09/02/16 09:27 Hyoscyamine Sulfate (Levsin) 0.125 mg QID JT 08/23/16 13:00 09/02/16 09:27 Levetriacetam (Keppra Liq) 1,000 mg Q12HR TUBE 08/23/16 21:00 09/02/16 09:27 Oxycodone/ Acetaminophen (Percocet 5-325 Mg) 1 tab Q6H PRN J-TUBE BREAKTHROUGH PAIN 08/23/16 10:30 09/01/16 12:37 Oxycodone/ Acetaminophen (Percocet 5-325 Mg) 1 tab Q8HR JT 08/23/16 14:00 09/02/16 05:57 Silver Sulfadiazine (Silvadene 1% Cream (50 Gm)) 1 applic HS TOPICAL 08/23/16 21:00 09/01/16 20:32 Miscellaneous Information 1 1 Q3D TD 08/26/16 12:00 09/01/16 12:00 Sodium Chloride (NS 1000 ml Inj) 1,000 ml @ 100 mls/hr Q10H IV 08/23/16 14:00 09/02/16 04:14 IV Flush (NS Flush) 2 ml UNSCH PRN FLUSH FLUSH AFTER USING IV ACCESS 08/23/16 14:00 IV Flush (NS Flush) 2 ml BID FLUSH 08/23/16 21:00 09/01/16 20:32 Acetaminophen (Tylenol) 650 mg Q4H PRN PO TEMP > 100.4 08/23/16 14:00 08/27/16 13:00 Ondansetron HCl (Zofran Inj) 4 mg Q6H PRN IVP NAUSEA OR VOMITING 08/23/16 14:00 Prochlorperazine (Compazine Supp) 25 mg Q12H PRN MN NAUSEA OR VOMITING 08/23/16 14:00 Bisacodyl (Dulcolax Supp) 10 mg DAILY PRN MN CONSTIPATION 08/23/16 14:00 Magnesium Hydroxide (Milk Of Magnesia Liq) 30 ml Q12H PRN PO CONSTIPATION 08/23/16 14:00 Sennosides (Senokot) 17.2 mg Q12H PRN PO CONSTIPATION 08/23/16 14:00 Temazepam (Restoril) 15 mg HS PRN PO INSOMNIA 08/23/16 14:00 Acetaminophen (Ofirmev Inj) 1,000 mg Q6H PRN IV high grade fevers/ alter ibupr 08/24/16 10:45 08/28/16 21:38 Ibuprofen 200 mg 200 mg Q6H PRN PO fevers 08/24/16 10:45 08/30/16 22:46 Cefepime HCl/ Sodium Chloride (Maxipime Inj/NS Inj) 100 ml @ 200 mls/hr Q8H IV 08/28/16 19:00 09/02/16 10:06 Chlorpromazine 25 mg 25 mg Q6H PRN PO hiccups 08/30/16 09:00 08/30/16 22:46 Vancomycin HCl/ Sodium Chloride (Vancomycin Inj/ NS 500 ml Inj) 520 ml @ 250 mls/hr Q12H IV 08/30/16 23:00 09/02/16 10:05 Labetalol HCl 10 mg 10 mg Q4H PRN IV PUSH SBP>160, DBP>95, HR>65 08/31/16 23:00 Levetriacetam (Keppra 1000 Mg Inj) 100 ml @ 400 mls/hr Q12HR PRN IV IF TUBE CLOGGED 09/01/16 21:42 Dexamethasone Sodium Phosphate (Decadron Inj) 4 mg Q6HR IV PUSH 09/02/16 00:00 09/02/16 05:57 Miscellaneous Information SPECIFIC LAB TO BE [facility]... ONCE ONCE XX 09/03/16 10:45 09/03/16 10:46 SOCIAL HISTORY The patient is a shelter resident. No tobacco, alcohol or illicit drugs. FAMILY HISTORY Noncontributory. REVIEW OF SYSTEMS Unable to obtain OBJECTIVE: Vital Signs Date Time Temp Pulse Resp B/P Pulse Ox O2 Delivery O2 Flow Rate FiO2 09/02/16 09:20 98 Simple Mask 10.00 09/02/16 08:00 98.1 76 17 135/81 98 09/02/16 07:00 95 Simple Mask 10.00 09/02/16 06:57 20 09/02/16 04:00 99.0 76 11 141/92 99 09/02/16 00:00 98.8 74 12 126/81 99 09/01/16 22:58 95 Nasal Cannula 3.00 09/01/16 20:00 99.9 90 12 128/81 96 09/01/16 20:00 92 09/01/16 20:00 Nasal Cannula 2.00 09/01/16 18:00 98 09/01/16 16:00 85 09/01/16 16:00 99.2 86 22 120/75 100 09/01/16 14:00 100 09/01/16 09/01/16 09/02/16 15:00 23:00 07:00 Intake Total 1696 ml 1470 ml 1600 ml Output Total 1924 ml 2106 ml 2400 ml Balance -228 ml -636 ml -800 ml Intake IV Total 1173 ml 919 ml 1115 ml Tube Feeding 423 ml 431 ml 425 ml Tube Irrigant 120 ml 60 ml Other 100 ml Output Urine Total 1900 ml 2100 ml 2400 ml Drainage Total 24 ml 6 ml 0 ml # Bowel Movements 1 1 Laboratory Tests Test 09/01/16 04:32 Creatinine 0.38 MG/DL Estimat Glomerular Filtration 317 ML/MIN Rate Microbiology Date/Time Procedure Status Source Growth 09/01/16 22:00 Gram Stain - Final Resulted Cerebral Spinal Fluid Shunt Fluid 09/01/16 22:00 CSF Culture - Preliminary Resulted Cerebral Spinal Fluid Shunt Fluid NO GROWTH IN 24 HOURS. 09/01/16 22:00 Acid Fast Stain Received Cerebral Spinal Fluid Shunt Fluid Pending 09/01/16 22:00 Mycobacterial Culture Received Cerebral Spinal Fluid Shunt Fluid Pending 09/01/16 22:00 Fungal Smear Received Cerebral Spinal Fluid Shunt Fluid Pending 09/01/16 22:00 Fungal Culture Received Cerebral Spinal Fluid Shunt Fluid Pending Microbiology Date/Time Procedure Status Source Growth 08/29/16 09:30 Gram Stain - Final Resulted Cerebral Spinal Fluid Shunt Fluid 08/29/16 09:30 CSF Culture - Preliminary Resulted Cerebral Spinal Fluid Shunt Fluid NO GROWTH IN 24 HOURS. IMAGING: Shunt Study (Imaging) 08/23/16 1514 Signed Impressions: Service Date/Time: Tuesday, August 23, 2016 15:14 - CONCLUSION: GENERAL COUNSEL shunt tap for spinal fluid sampling as above Joni Sharpe MD Chest X-Ray 08/23/16 0816 Signed Impressions: Service Date/Time: Tuesday, August 23, 2016 08:25 - CONCLUSION: Stable chest without definite evidence of acute disease Joni Sharpe MD Abdomen/Pelvis CT 08/23/16 0816 Signed Impressions: Service Date/Time: Tuesday, August 23, 2016 08:44 - CONCLUSION: Abnormal scan with multiple findings as outlined above Joni Sharpe MD Shunt Study 08/23/16 0000 Signed Impressions: Service Date/Time: Tuesday, August 23, 2016 14:07 - CONCLUSION: Shunt tubing is patent into the ventricular system. The downstream portion of the shunt to the peritoneal cavity was not evaluated. Joni Sharpe MD Head CT 08/23/16 0000 Signed Impressions: Service Date/Time: Tuesday, August 23, 2016 11:57 - CONCLUSION: 1. Interval significant increase in the size of the ventricles compared to the previous examination suggesting worsening hydrocephalus. Clinical correlation is recommended. 2. No significant change in the extensive encephalomalacia ( right worse than left) within the cerebral hemispheres. 3. No acute hemorrhage, midline shift or extraaxial fluid collections. Donavan Vidales MD PHYSICAL EXAMINATION GENERAL: No distress. NECK: Supple. No adenopathy. No swelling. LUNGS: Decreased breath sounds. HEART: Regular rate and rhythm. Normal S1-S2. ABDOMEN: Bowel sounds present, soft. EXTREMITIES: No clubbing or cyanosis or edema. Bilateral hip without edema or erythema. SKIN: No rash. Dry. No drainage. NEUROLOGIC: Unable to fully assess. IMPRESSION 1. Fever. Persistent. ? infection, ? drug. No clear source. ? shunt related. New CSF culture pending. AFB in CSF ? significance. ? contamination. Sepsis indicated By decreased BP, increased HR. Decreased mentation. High fever. 2. Recent GENERAL COUNSEL shunt malfunction and culture positive with Pseudomonas treated with a round of antibiotic. No positive CSF culture now. ? shunt associated infection. 3. Cellulitis suggested by CT scan of the abdomen and pelvis which reveals myositis and cellulitis in the posterior tissues of the buttock and hip. No erythema present. 4. Candiduria. RECOMMENDATIONS 1. Continue vancomycin. 2. Continue Cefepime. 3. Monitor CSF culture and AFB ID. 4. Monitor temp. 5. Neurosurgery to decide on shunt. ? revise again. Need to obtain CSF AFB ID before shunt procedure. Quique Mendez MD Sep 02, 2016 13:06
[2016-09-02] MEDS: levETIRAcetam 1000 MG INJ 100 ML IV PRN (20:41)
[2016-09-02] MEDS: SILVER SULFADIAZINE 1% CR 50 GM JAR TOPICAL SCH (20:41)
[2016-09-03] VITALS (12 sets, daily range): BP systolic 100–143; BP diastolic 57–86; PULSE 66–87; RESP 12–18; TEMP 96.6–98; O2SAT 96–100
[2016-09-03] MEDS: CEFEPIME INJ 2,000 MG in SODIUM CHLORIDE 0.9% INJ 100 ML IV SCH ×3 (04:02→17:06)
[2016-09-03] MEDS: oxyCODONE/ACETAMINOPHEN 5 MG/325 MG TAB JT SCH ×3 (05:49→20:49)
[2016-09-03] MEDS: DEXAMETHASONE SOD PHOS 4 MG/ML VIAL IV PUSH SCH (05:49)
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
[2016-09-03] MEDS: DILTIAZEM HCL 60 MG TAB JT SCH ×4 (09:50→20:49)
[2016-09-03] MEDS: ATENOLOL 50 MG TAB PEG SCH ×2 (09:50→20:49)
[2016-09-03] MEDS: hydrALAZINE HCL 50 MG TAB JT SCH ×3 (09:50→17:06)
[2016-09-03] MEDS: HYOSCYAMINE 0.125 MG TAB JT SCH ×4 (09:50→20:49)
[2016-09-03] MEDS: levETIRAcetam 500 MG/5 ML UDC TUBE SCH ×2 (09:50→20:49)
[2016-09-03] MEDS: SODIUM CHLOR 0.9% 1000 ML INJ 1,000 ML IV SCH ×2 (09:50→20:50)
[2016-09-03] MEDS: BACLOFEN 10 MG TAB PEG SCH ×2 (09:50→20:49)
[2016-09-03] MEDS: SODIUM CHLORIDE 0.9% FLUSH 5 ML FLUSH FLUSH SCH ×2 (09:51→20:50)
[2016-09-03] MEDS ORDERED: PHARMACY ORDERED LAB XX ONE (10:45)
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
[2016-09-03 12:11] LABS: CMV PCR SPECIMEN SOURCE CSF (())
[2016-09-03] MEDS ORDERED: GADODIAMIDE PF 287 MG/ML 20 ML VIAL (for RAD MRI) IV ONE (12:13)
[2016-09-03] MEDS: VANCOMYCIN INJ 2,000 MG in SODIUM CHLORID 0.9% 500 ML INJ 500 ML IV SCH ×2 (13:59→23:00)
--- NOTE | 2016-09-03 14:45 | RADRPT ---
EXAM DATE/TIME: 09/03/2016 11:54 [facility] COMPARISON: MRI BRAIN W & W/O CONTRAST, May 02, 2015, 12:22. INDICATIONS : Infection in the brain from recent shunt surgery in July. CONTRAST: 20 cc Omniscan (gadodiamide) IV MEDICAL HISTORY : Seizures. Hypertension. Tramatic brain injury. SURGICAL HISTORY : Craniotomy. Tracheostomy with tracheotomy. Shunt placement and revisions. ENCOUNTER: Subsequent ACUITY: 1 month PAIN SCORE: Nonresponsive. LOCATION: head. TECHNIQUE: Multiplanar, multisequence MRI of the brain was performed both prior to and following the administrat ion of paramagnetic contrast. FINDINGS: There is severe ventriculomegaly involving the lateral and third ventricles with massive increase in size of the aqueduct and fourth ventricle. This is significantly larger than on the prior study but n o transependymal fluid migration is seen. There is extensive infarction involving the right cerebral hemisphere with encephalomalacia which may be accounting for at least part of the increase in ventric ular size. Diffusion weighted imaging demonstrates no abnormality. Following the administration of co ntrast no abnormal enhancement is identified. There is no evidence of abscess. Posterior fossa struct ures are unremarkable. CONCLUSION: 1. Marked increase in ventricular size and compare with the prior study but no transependymal fluid m igration. Obstructing communicating hydrocephalus is not excluded. There is no evidence of abscess. Jem Alexander MD on September 03, 2016 at 14:39 Board Certified Radiologist. This report was verified electronically.
[2016-09-03] MEDS: SILVER SULFADIAZINE 1% CR 50 GM JAR TOPICAL SCH (20:49)
[2016-09-04] VITALS (10 sets, daily range): BP systolic 96–129; BP diastolic 55–87; PULSE 63–78; RESP 12–23; TEMP 97–98.3; O2SAT 98–100
[2016-09-04] MEDS: CEFEPIME INJ 2,000 MG in SODIUM CHLORIDE 0.9% INJ 100 ML IV SCH ×3 (03:00→20:14)
[2016-09-04 04:59] LABS: AUTOMATED NEUTROPHIL # 8.5 TH/MM3 (1.8-7.7); BASOPHIL % 0.3 % (0.0-2.0); HEMATOCRIT 34.7 % (39.0-51.0); HEMO FLAGS DIFF FINAL; LYMPH % 9.7 % (9.0-44.0); MEAN CORPUSCULAR HEMOGLOBIN 27.4 PG (27.0-34.0); MEAN CORPUSCULAR HGB CONC 32.2 % (32.0-36.0); MONO % 9.7 % (0.0-8.0); NEUT % 80.3 % (16.0-70.0); PLATELET COUNT 467 TH/MM3 (150-450); RED BLOOD COUNT 4.08 MIL/MM3 (4.50-5.90); RED CELL DISTRIBUTION WIDTH 17.4 % (11.6-17.2); WHITE BLOOD COUNT 10.6 TH/MM3 (4.0-11.0)
[2016-09-04 05:26] LABS: POTASSIUM 4.2 MEQ/L (3.5-5.1)
[2016-09-04] MEDS: oxyCODONE/ACETAMINOPHEN 5 MG/325 MG TAB JT SCH ×3 (05:50→20:15)
[2016-09-04] MEDS: SODIUM CHLOR 0.9% 1000 ML INJ 1,000 ML IV SCH ×2 (05:50→12:45)
[2016-09-04] MEDS: levETIRAcetam 500 MG/5 ML UDC TUBE SCH ×2 (08:36→20:14)
[2016-09-04] MEDS: ATENOLOL 50 MG TAB PEG SCH ×2 (08:36→20:14)
[2016-09-04] MEDS: DILTIAZEM HCL 60 MG TAB JT SCH ×4 (08:36→20:14)
[2016-09-04] MEDS: HYOSCYAMINE 0.125 MG TAB JT SCH ×4 (08:36→20:14)
[2016-09-04] MEDS: SODIUM CHLORIDE 0.9% FLUSH 5 ML FLUSH FLUSH SCH ×2 (08:36→20:15)
[2016-09-04] MEDS: hydrALAZINE HCL 50 MG TAB JT SCH ×3 (08:36→17:10)
[2016-09-04] MEDS: BACLOFEN 10 MG TAB PEG SCH ×2 (08:36→20:14)
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
[2016-09-04] MEDS: VANCOMYCIN INJ 2,000 MG in SODIUM CHLORID 0.9% 500 ML INJ 500 ML IV SCH ×2 (11:44→22:54)
[2016-09-04] MEDS: REMOVE OLD PATCH TD SCH (11:45)
[2016-09-04] MEDS: fentaNYL 50 MCG/HR PATCH T-DERMAL SCH (11:45)
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
--- NOTE | 2016-09-04 13:47 | HHI.IDPN ---
Note Infectious Disease Note Notes reviewed. Patient has eyes open but is not responsive. Afebrile. Non verbal and unable to obtain history. CSF from 08/29 has AFB. ` Sent to [facility] lab for ID. Result not yet available. Repeat CSF AFB smear 09/01 positive. Post FOOD CHEMIST shunt externalization. CSF looks clear. PAST MEDICAL HISTORY 1. Traumatic brain injury in October 2014, FOOD CHEMIST shunt placement, 2. Seizure disorder. 3. PEG placement 4. History of tracheostomy 5. History of MRSA wound infection from the scalp 6. Bacteremia due to MRSA 7. History of ESBL E-coli UTI. ALLERGIES NO KNOWN DRUG ALLERGIES. ANTIBIOTICS: Cefepime. Vancomycin. SOCIAL HISTORY The patient is a group home resident. No tobacco, alcohol or illicit drugs. FAMILY HISTORY Noncontributory. REVIEW OF SYSTEMS Unable to obtain OBJECTIVE: Vital Signs Date Time Temp Pulse Resp B/P Pulse Ox O2 Delivery O2 Flow Rate FiO2 09/04/16 12:00 97.7 64 18 129/87 98 09/04/16 12:00 63 09/04/16 10:00 70 09/04/16 08:00 97.9 76 12 107/59 98 09/04/16 08:00 76 09/04/16 07:00 99 Nasal Cannula 2.00 09/04/16 04:00 97.2 78 23 125/80 99 09/04/16 00:00 97.0 64 13 96/55 100 09/03/16 21:49 15 09/03/16 20:00 78 09/03/16 20:00 Nasal Cannula 2.00 09/03/16 20:00 96.6 72 18 136/73 100 09/03/16 19:15 100 Nasal Cannula 4.00 09/03/16 18:00 79 09/03/16 16:00 66 09/03/16 16:00 98.0 66 13 124/69 100 09/03/16 14:00 75 09/03/16 09/03/16 09/04/16 15:00 23:00 07:00 Intake Total 581 ml 1411 ml 1479 ml Output Total 658 ml 1004 ml 902 ml Balance -77 ml 407 ml 577 ml IV Total 581 ml 1167 ml 1015 ml Tube Feeding 184 ml 404 ml Tube Irrigant 60 ml 60 ml Output Urine Total 650 ml 1000 ml 900 ml Drainage Total 8 ml 4 ml 2 ml # Bowel Movements 1 0 0 Laboratory Tests Test 09/04/16 04:48 White Blood Count 10.6 TH/MM3 Red Blood Count 4.08 MIL/MM3 Hemoglobin 11.2 GM/DL Hematocrit 34.7 % Mean Corpuscular Volume 85.0 FL Mean Corpuscular Hemoglobin 27.4 PG Mean Corpuscular Hemoglobin 32.2 % Concent Red Cell Distribution Width 17.4 % Platelet Count 467 TH/MM3 Mean Platelet Volume 6.6 FL Neutrophils (%) (Auto) 80.3 % Lymphocytes (%) (Auto) 9.7 % Monocytes (%) (Auto) 9.7 % Eosinophils (%) (Auto) 0.0 % Basophils (%) (Auto) 0.3 % Neutrophils # (Auto) 8.5 TH/MM3 Lymphocytes # (Auto) 1.0 TH/MM3 Monocytes # (Auto) 1.0 TH/MM3 Eosinophils # (Auto) 0.0 TH/MM3 Basophils # (Auto) 0.0 TH/MM3 CBC Comment DIFF FINAL Differential Comment Laboratory Tests Test 09/04/16 04:48 Sodium Level 142 MEQ/L Potassium Level 4.2 MEQ/L Chloride Level 104 MEQ/L Carbon Dioxide Level 32.0 MEQ/L Anion Gap 6 MEQ/L Blood Urea Nitrogen 16 MG/DL Creatinine 0.44 MG/DL Estimat Glomerular Filtration 267 ML/MIN Rate Random Glucose 100 MG/DL Calcium Level 8.9 MG/DL Microbiology Date/Time Procedure Status Source Growth 09/01/16 22:00 Gram Stain - Final Resulted Cerebral Spinal Fluid Shunt Fluid 09/01/16 22:00 CSF Culture - Preliminary Resulted Staph Sp Coagulase Negative 09/01/16 22:00 Acid Fast Stain - Final Resulted Cerebral Spinal Fluid Shunt Fluid NO ACID FAST BACILLI SEEN 09/01/16 22:00 Mycobacterial Culture - Preliminary Resulted Culture Positive For Afb 09/01/16 22:00 Fungal Smear - Final Resulted Cerebral Spinal Fluid Shunt Fluid NO FUNGAL ELEMENTS SEEN. 09/01/16 22:00 Fungal Culture Resulted Cerebral Spinal Fluid Shunt Fluid Pending 09/04/16 09:22 Gram Stain - Final Resulted Cerebral Spinal Fluid Shunt Fluid 09/04/16 09:22 CSF Culture Resulted Cerebral Spinal Fluid Shunt Fluid Pending IMAGING: Brain MRI 09/03/16 0600 Signed Impressions: Service Date/Time: Saturday, September 03, 2016 11:54 - CONCLUSION: 1. Marked increase in ventricular size and compare with the prior study but no transependymal fluid migration. Obstructing communicating hydrocephalus is not excluded. There is no evidence of abscess. Jem Alexander MD Shunt Study (Imaging) 08/23/16 1514 Signed Impressions: Service Date/Time: Tuesday, August 23, 2016 15:14 - CONCLUSION: FOOD CHEMIST shunt tap for spinal fluid sampling as above Joni Sharpe MD Chest X-Ray 08/23/16 0816 Signed Impressions: Service Date/Time: Tuesday, August 23, 2016 08:25 - CONCLUSION: Stable chest without definite evidence of acute disease Joni Sharpe MD Abdomen/Pelvis CT 08/23/16 0816 Signed Impressions: Service Date/Time: Tuesday, August 23, 2016 08:44 - CONCLUSION: Abnormal scan with multiple findings as outlined above Joni Sharpe MD Shunt Study 08/23/16 0000 Signed Impressions: Service Date/Time: Tuesday, August 23, 2016 14:07 - CONCLUSION: Shunt tubing is patent into the ventricular system. The downstream portion of the shunt to the peritoneal cavity was not evaluated. Joni Sharpe MD Head CT 08/23/16 0000 Signed Impressions: Service Date/Time: Tuesday, August 23, 2016 11:57 - CONCLUSION: 1. Interval significant increase in the size of the ventricles compared to the previous examination suggesting worsening hydrocephalus. Clinical correlation is recommended. 2. No significant change in the extensive encephalomalacia ( right worse than left) within the cerebral hemispheres. 3. No acute hemorrhage, midline shift or extraaxial fluid collections. Donavan Vidales MD PHYSICAL EXAMINATION GENERAL: No distress. No responses. NECK: Supple. No adenopathy. No swelling. LUNGS: Decreased breath sounds. HEART: Regular rate and rhythm. ABDOMEN: Bowel sounds present, soft. EXTREMITIES: No clubbing or cyanosis or edema. Bilateral hip without edema or erythema. SKIN: No rash. NEUROLOGIC: Unable to fully assess. IMPRESSION 1. Fever. Persistent previous, now temp normal. Shunt related infection. CSF has AFB. Rapid grower. Sepsis indicated By decreased BP, increased HR. Decreased mentation. High fever. 2. Recent FOOD CHEMIST shunt malfunction and culture positive with Pseudomonas treated with a round of antibiotic. No positive CSF culture now. ? shunt associated infection. 3. Cellulitis suggested by CT scan of the abdomen and pelvis which reveals myositis and cellulitis in the posterior tissues of the buttock and hip. No erythema present. 4. Candiduria. RECOMMENDATIONS 1. Continue vancomycin. 2. Continue Cefepime. 3. Monitor CSF culture and AFB ID. 4. Add Ethambutol to cover rapid growing AFB in CSF. 5. Add Biaxin to cover rapid growing AFB in CSF. 6. Will discuss with Neurosurgery. I think the FOOD CHEMIST shunt needs to be removed. Quique Mendez MD Sep 04, 2016 13:47
[2016-09-04] MEDS: ETHAMBUTOL HCL 400 MG TAB PO SCH (16:53)
[2016-09-04] MEDS: CLARITHROMYCIN 500 MG TAB PO SCH ×2 (16:53→20:14)
[2016-09-04] MEDS: SILVER SULFADIAZINE 1% CR 50 GM JAR TOPICAL SCH (20:15)
[2016-09-04 23:19] LABS: CSF CRYPTOCOCCUS AG CONF ND (NOT DETECTD)
[2016-09-05] VITALS (11 sets, daily range): BP systolic 110–135; BP diastolic 58–82; PULSE 64–84; RESP 9–18; TEMP 97.3–97.9; O2SAT 96–98
[2016-09-05] MEDS: SODIUM CHLOR 0.9% 1000 ML INJ 1,000 ML IV SCH ×3 (02:49→22:00)
[2016-09-05] MEDS: CEFEPIME INJ 2,000 MG in SODIUM CHLORIDE 0.9% INJ 100 ML IV SCH ×3 (02:50→18:16)
[2016-09-05] MEDS: oxyCODONE/ACETAMINOPHEN 5 MG/325 MG TAB JT SCH ×3 (05:12→22:32)
[2016-09-05] MEDS: levETIRAcetam 500 MG/5 ML UDC TUBE SCH ×2 (09:30→22:31)
[2016-09-05] MEDS: VANCOMYCIN INJ 2,000 MG in SODIUM CHLORID 0.9% 500 ML INJ 500 ML IV SCH ×2 (09:30→22:34)
[2016-09-05] MEDS: SODIUM CHLORIDE 0.9% FLUSH 5 ML FLUSH FLUSH SCH ×2 (09:30→21:00)
[2016-09-05] MEDS: hydrALAZINE HCL 50 MG TAB JT SCH ×3 (09:31→18:16)
[2016-09-05] MEDS: HYOSCYAMINE 0.125 MG TAB JT SCH ×4 (09:31→22:31)
[2016-09-05] MEDS: CLARITHROMYCIN 500 MG TAB PO SCH ×2 (09:31→22:32)
[2016-09-05] MEDS: ETHAMBUTOL HCL 400 MG TAB PO SCH (09:31)
[2016-09-05] MEDS: DILTIAZEM HCL 60 MG TAB JT SCH ×4 (09:31→22:31)
[2016-09-05] MEDS: BACLOFEN 10 MG TAB PEG SCH ×2 (09:31→22:32)
[2016-09-05] MEDS: ATENOLOL 50 MG TAB PEG SCH ×2 (09:31→22:32)
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
[2016-09-05] MEDS: THROMBIN (TOPICAL) 5,000 UNIT VIAL ONE ×2 (11:39→12:58)
[2016-09-05] MEDS ORDERED: VANCOMYCIN HCL 1000 MG VIAL ONE (11:39)
[2016-09-05] MEDS: VANCOMYCIN 500 MG VIAL ONE ×2 (11:39→12:58)
[2016-09-05] MEDS: GELFOAM SIZE 100 ONE ×2 (11:39→12:58)
[2016-09-05] MEDS ORDERED: ONDANSETRON HCL 4 MG/2 ML VIAL IV PUSH ONE (12:00)
[2016-09-05] MEDS ORDERED: PROPOFOL 200 MG/20 ML AMP IV ONE (12:00)
[2016-09-05] MEDS ORDERED: NEOSTIGMINE 3 MG/3 ML SYR IV ONE (12:00)
[2016-09-05] MEDS: BUPIVACAINE/EPINEPHRINE 0.25% PF 30 ML VIAL ONE ×2 (12:19→12:58)
[2016-09-05] MEDS ORDERED: DO NOT ADM ANY ANTICOAGULANT DRUGS XX PRN (14:30)
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
[2016-09-05] MEDS: SILVER SULFADIAZINE 1% CR 50 GM JAR TOPICAL SCH (21:00)
[2016-09-06] VITALS (14 sets, daily range): BP systolic 111–132; BP diastolic 60–90; PULSE 68–92; RESP 8–15; TEMP 97.8–98.4; O2SAT 96–98
[2016-09-06] MEDS: CEFEPIME INJ 2,000 MG in SODIUM CHLORIDE 0.9% INJ 100 ML IV SCH ×3 (03:00→17:52)
[2016-09-06] MEDS: oxyCODONE/ACETAMINOPHEN 5 MG/325 MG TAB JT SCH ×3 (04:36→20:35)
[2016-09-06] MEDS: SODIUM CHLORIDE 0.9% FLUSH 5 ML FLUSH FLUSH SCH ×2 (09:13→20:35)
[2016-09-06] MEDS: SODIUM CHLOR 0.9% 1000 ML INJ 1,000 ML IV SCH ×2 (09:13→17:52)
[2016-09-06] MEDS: DILTIAZEM HCL 60 MG TAB JT SCH ×4 (09:14→20:35)
[2016-09-06] MEDS: HYOSCYAMINE 0.125 MG TAB JT SCH ×4 (09:14→20:34)
[2016-09-06] MEDS: levETIRAcetam 500 MG/5 ML UDC TUBE SCH ×2 (09:14→20:34)
[2016-09-06] MEDS: ETHAMBUTOL HCL 400 MG TAB PO SCH (09:14)
[2016-09-06] MEDS: ATENOLOL 50 MG TAB PEG SCH ×2 (09:14→20:34)
[2016-09-06] MEDS: CLARITHROMYCIN 500 MG TAB PO SCH ×2 (09:14→20:35)
[2016-09-06] MEDS: BACLOFEN 10 MG TAB PEG SCH ×2 (09:14→20:34)
[2016-09-06] MEDS: hydrALAZINE HCL 50 MG TAB JT SCH ×3 (09:14→17:52)
[2016-09-06] MEDS: VANCOMYCIN INJ 2,000 MG in SODIUM CHLORID 0.9% 500 ML INJ 500 ML IV SCH ×2 (10:31→22:17)
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
--- NOTE | 2016-09-06 13:26 | HHI.NSPN ---
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 He had a left ventriculoperitoneal shunt which was removed secondary to wound dehiscence and had a right ventriculoperitoneal shunt placed. [facility] is a [facility] and has been febrile the last few days and presents MRI is room for workup for for this fever. He had a urethral stricture which was dilated in the emergency room by urology and urinalysis reveals urinary tract infection. He also has a decubitus ulcer. Blood cultures are pending. His neurologic examination is baseline and CT of the head obtained reveals ventriculomegaly compared to the scan from a month ago. The patient had programmable valve place with a lower setting of 50 mm water. Shuntogram obtained reveals ventricular catheter being patent but the peritoneal catheter was not evaluated because patient did not cooperate and the plan is to have this further evaluated once more cooperate with IV access per special procedures. CSF from a shunt tap that does not reveal any organisms on Gram stain. CT of the abdomen reveals a small fluid collection around the shunt catheter of unclear significance. 08/24/16: Pt at his clinical baseline. Eyes open. occasionally focuses on my face. At times rolling eye movements. Not following commands. Flexion contractures of UEs and Extension contractures of LEs. Pt having high fevers today. Tmax of 103 at 8am. 08/25/16: Pt with eyes open. Right sided gaze preference. Not following commands. Not verbalizing. Pt at baseline neurologically. Pt continues to have fevers, T Max 103.4 at 2am. 08/26/16: Pt with eyes open. Tracking more today to both sides. Not following commands which is his baseline. Fever spikes yesterday today T max 100.1. 08/28/16: Pt examined on 08/28/16 delayed note entry. Pt awake with rolling eye movements, erythematous sclera, grunting, and appears more restlessness. 08/29/16: Pt with eyes open and upward gaze with rolling eye movements. Not focusing on face or tacking. Less grunting. Resolving injected sclera. Less restlessness than yesterday. Shunt is externalized and connected to a drainage bag. 08/30/16: Pt with eyes open and upward gaze. He does appear to be less agitated today with no grunting. He also focused on my face briefly which he didn't do yesterday. Distal SEAMER shunt catheter is connected to a drainage bag and draining well. 09/02/16: Pt with eyes open and upward gaze and some rolling eye movements. No grunting or snoring noted by me at bedside. Not focusing on face or tracking. Distal SEAMER shunt catheter is connected to drainage bag. 09/03/16: Pt with eyes open and upward gaze. No tracking. Not focusing on my face or tracking. Distal SEAMER shunt catheter connected to drainage bag. 09/04/16: Pt with eyes open upward gaze. Not tracking. Distal SEAMER shunt catheter connected to drainage bag with clear CSF. Pt Neurologically at baseline. 09/06: s/p removal of SEAMER shunt with placement of ventriculostomy drain yesterday. Drain set at 5 cm H20, draining well. No changes to neuro checks overnight. CSF cx +acid fast bacilli and stap haemolyticus, ID following ( Laurie Kerr) Labs, Micro, & Vital Signs Results Date Time Temp Pulse Resp B/P Pulse Ox O2 Delivery O2 Flow Rate FiO2 09/06/16 10:00 88 09/06/16 09:02 96 Nasal Cannula 2.00 09/06/16 08:00 68 09/06/16 08:00 97.8 68 10 122/73 96 09/06/16 07:00 96 Nasal Cannula 2.00 09/06/16 06:00 74 09/06/16 05:36 10 09/06/16 04:00 97.9 76 8 123/90 97 09/06/16 04:00 74 09/06/16 02:00 72 09/06/16 00:00 98.0 74 14 111/60 98 09/06/16 00:00 74 09/05/16 22:00 84 09/05/16 20:00 97.9 82 9 135/82 97 09/05/16 20:00 82 09/05/16 19:51 97 Nasal Cannula 2.00 09/05/16 19:00 100 Nasal Cannula 2.00 09/05/16 18:00 74 09/05/16 16:00 97.6 76 12 131/58 98 09/05/16 16:00 76 09/05/16 14:45 78 09/05/16 14:30 74 14 132/76 97 Nasal Cannula 3 09/05/16 14:15 71 14 132/78 97 Nasal Cannula 3 09/05/16 14:00 69 14 132/72 96 Nasal Cannula 3 09/05/16 13:47 98.2 76 14 124/74 96 Nasal Cannula 3 09/06/16 07:00 Intake Total 3269 ml Output Total 3775.0 ml Balance -506.0 ml Constitutional Vital Signs Date Time Temp Pulse Resp B/P Pulse Ox O2 Delivery O2 Flow Rate FiO2 09/06/16 10:00 88 09/06/16 09:02 96 Nasal Cannula 2.00 09/06/16 08:00 68 09/06/16 08:00 97.8 68 10 122/73 96 09/06/16 07:00 96 Nasal Cannula 2.00 09/06/16 06:00 74 09/06/16 05:36 10 09/06/16 04:00 97.9 76 8 123/90 97 09/06/16 04:00 74 09/06/16 02:00 72 09/06/16 00:00 98.0 74 14 111/60 98 09/06/16 00:00 74 09/05/16 22:00 84 09/05/16 20:00 97.9 82 9 135/82 97 09/05/16 20:00 82 09/05/16 19:51 97 Nasal Cannula 2.00 09/05/16 19:00 100 Nasal Cannula 2.00 09/05/16 18:00 74 09/05/16 16:00 97.6 76 12 131/58 98 09/05/16 16:00 76 09/05/16 14:45 78 09/05/16 14:30 74 14 132/76 97 Nasal Cannula 3 09/05/16 14:15 71 14 132/78 97 Nasal Cannula 3 09/05/16 14:00 69 14 132/72 96 Nasal Cannula 3 09/05/16 13:47 98.2 76 14 124/74 96 Nasal Cannula 3 09/06/16 07:00 Intake Total 3269 ml Output Total 3775.0 ml Balance -506.0 ml (Laurie Kerr) Review of Systems/Exam Exam Awake, eyes open but does not focus or track. Does not follow commands. Ventriculostomy drain in place, draining well at 5 cm H20. CN: Pupils equal Motor: contracture in upper extremities, extended in LEs. (Laurie Kerr) Medications Current Medications Current Medications Medications (Trade) Dose Ordered Sig/Yinka Route PRN Reason Start Time Stop Time Status Last Admin Dose Admin Pharmacy Profile Note (Vancomycin Consult Pharmacy) 0 ml @ 0 mls/hr UNSCH OTHER 08/23/16 10:30 Acetaminophen (Tylenol) 650 mg Q4H PRN G-TUBE INCREASED TEMPERATURE 08/23/16 10:30 08/28/16 12:37 Atenolol (Tenormin) 50 mg BID PEG 08/23/16 21:00 09/06/16 09:14 Baclofen (Lioresal) 10 mg BID PEG 08/23/16 21:00 09/06/16 09:14 Diltiazem HCl (Cardizem) 60 mg QID JT 08/23/16 13:00 09/06/16 09:14 Fentanyl (Duragesic 50 Mcg Patch.72 Hr) 1 patch Q72H T-DERMAL 08/23/16 12:00 09/04/16 11:45 Hydralazine HCl (Apresoline) 50 mg TID JT 08/23/16 13:00 09/06/16 09:14 Hyoscyamine Sulfate (Levsin) 0.125 mg QID JT 08/23/16 13:00 09/06/16 09:14 Levetriacetam (Keppra Liq) 1,000 mg Q12HR TUBE 08/23/16 21:00 09/06/16 09:14 Oxycodone/ Acetaminophen (Percocet 5-325 Mg) 1 tab Q6H PRN J-TUBE BREAKTHROUGH PAIN 08/23/16 10:30 09/01/16 12:37 Oxycodone/ Acetaminophen (Percocet 5-325 Mg) 1 tab Q8HR JT 08/23/16 14:00 09/06/16 04:36 Silver Sulfadiazine (Silvadene 1% Cream (50 Gm)) 1 applic HS TOPICAL 08/23/16 21:00 09/05/16 21:00 Miscellaneous Information 1 1 Q3D TD 08/26/16 12:00 09/01/16 12:00 Sodium Chloride (NS 1000 ml Inj) 1,000 ml @ 100 mls/hr Q10H IV 08/23/16 14:00 09/06/16 09:13 IV Flush (NS Flush) 2 ml UNSCH PRN FLUSH FLUSH AFTER USING IV ACCESS 08/23/16 14:00 IV Flush (NS Flush) 2 ml BID FLUSH 08/23/16 21:00 09/06/16 09:13 Acetaminophen (Tylenol) 650 mg Q4H PRN PO TEMP > 100.4 08/23/16 14:00 08/27/16 13:00 Ondansetron HCl (Zofran Inj) 4 mg Q6H PRN IVP NAUSEA OR VOMITING 08/23/16 14:00 Prochlorperazine (Compazine Supp) 25 mg Q12H PRN HI NAUSEA OR VOMITING 08/23/16 14:00 Bisacodyl (Dulcolax Supp) 10 mg DAILY PRN HI CONSTIPATION 08/23/16 14:00 Magnesium Hydroxide (Milk Of Magnesia Liq) 30 ml Q12H PRN PO CONSTIPATION 08/23/16 14:00 Sennosides (Senokot) 17.2 mg Q12H PRN PO CONSTIPATION 08/23/16 14:00 Temazepam (Restoril) 15 mg HS PRN PO INSOMNIA 08/23/16 14:00 Acetaminophen (Ofirmev Inj) 1,000 mg Q6H PRN IV high grade fevers/ alter ibupr 08/24/16 10:45 08/28/16 21:38 Ibuprofen 200 mg 200 mg Q6H PRN PO fevers 08/24/16 10:45 08/30/16 22:46 Cefepime HCl/ Sodium Chloride (Maxipime Inj/NS Inj) 100 ml @ 200 mls/hr Q8H IV 08/28/16 19:00 09/06/16 09:14 Chlorpromazine 25 mg 25 mg Q6H PRN PO hiccups 08/30/16 09:00 08/30/16 22:46 Vancomycin HCl/ Sodium Chloride (Vancomycin Inj/ NS 500 ml Inj) 520 ml @ 250 mls/hr Q12H IV 08/30/16 23:00 09/06/16 10:31 Labetalol HCl 10 mg 10 mg Q4H PRN IV PUSH SBP>160, DBP>95, HR>65 08/31/16 23:00 Levetriacetam (Keppra 1000 Mg Inj) 100 ml @ 400 mls/hr Q12HR PRN IV IF TUBE CLOGGED 09/01/16 21:42 09/02/16 20:41 Ethambutol HCl (Myambutol) 1,200 mg DAILY PO 09/04/16 14:00 09/06/16 09:14 Clarithromycin (Biaxin) 500 mg Q12HR PO 09/04/16 14:00 09/06/16 09:14 Miscellaneous Information ALL NURSING DEPARTME... UNSCH PRN XX SEE LABEL COMMENTS 09/05/16 14:30 09/06/16 14:29 (Laurie Kerr) Medical Decision Making MDM Remarks 36 y/o male with history of severe TBI, hydrocephalus with SEAMER shunt placement. Shunt infection, s/p removal of SEAMER shunt with placement of external ventriculostomy drain (Laurie Kerr) Plan Plan Remarks cont ventriculostomy draining, cont abx per Infectious Disease cont serial neuro checks (Laurie Kerr) Attending Statement The exam, history, and the medical decision-making described in the above note were completed with the assistance of the mid-level provider. I reviewed and agree with the findings presented. I attest that I had a [id number] encounter with the patient on the same day, and personally performed and documented my assessment and findings in the medical record. (Tom Quick MD) Laurie Kerr Sep 06, 2016 13:26 Tom Quick MD Sep 07, 2016 18:37
--- NOTE | 2016-09-06 18:27 | HHI.IDPN ---
Note Infectious Disease Note Notes reviewed. Patient has random non purposeful eye movements. Afebrile. Had removal of [employer]IST[employer] shunt 09/05/16. CSF from 08/29 has AFB. ` [facility] lab for ID. still awaiting the ID. Repeat CSF AFB smear 09/01 positive. CSF culture also has staph haemolyticus. PAST MEDICAL HISTORY 1. 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 Seizure disorder. 3. PEG placement 4. History of tracheostomy 5. History of MRSA wound infection from the scalp 6. Bacteremia due to MRSA 7. History of ESBL E-coli UTI. 8. Recent [employer]IST[employer] shunt malfunction and culture positive with Pseudomonas treated with a round of antibiotic. ALLERGIES NO KNOWN DRUG ALLERGIES. ANTIBIOTICS: Cefepime. Vancomycin. Ethambutol 09/04/16. Biaxin 09/04/16. SOCIAL HISTORY The patient is a group home resident. No tobacco, alcohol or illicit drugs. FAMILY HISTORY Noncontributory. REVIEW OF SYSTEMS Unable to obtain OBJECTIVE: Vital Signs Date Time Temp Pulse Resp B/P Pulse Ox O2 Delivery O2 Flow Rate FiO2 09/06/16 18:00 92 09/06/16 16:00 92 09/06/16 16:00 98.3 92 15 128/66 97 09/06/16 14:00 84 09/06/16 12:00 97.9 87 12 121/69 96 09/06/16 12:00 87 09/06/16 10:00 88 09/06/16 09:02 96 Nasal Cannula 2.00 09/06/16 08:00 68 09/06/16 08:00 97.8 68 10 122/73 96 09/06/16 07:00 96 Nasal Cannula 2.00 09/06/16 06:00 74 09/06/16 05:36 10 09/06/16 04:00 97.9 76 8 123/90 97 09/06/16 04:00 74 09/06/16 02:00 72 09/06/16 00:00 98.0 74 14 111/60 98 09/06/16 00:00 74 09/05/16 22:00 84 09/05/16 20:00 97.9 82 9 135/82 97 09/05/16 20:00 82 09/05/16 19:51 97 Nasal Cannula 2.00 09/05/16 19:00 100 Nasal Cannula 2.00 09/05/16 09/05/16 09/06/16 15:00 23:00 07:00 Intake Total 1210 ml 1372 ml 687 ml Output Total 605 ml 1250.0 ml 1920 ml Balance 605 ml 122.0 ml -1233 ml IV Total 960 ml 1372 ml 414 ml Tube Feeding 273 ml Other 250 ml Output Urine Total 600 ml 1200 ml 1900 ml Tube Feeding Residual Discard 30.0 ml Drainage Total 0 ml 20 ml 20 ml Estimated Blood Loss 5 ml Other 0 ml # Bowel Movements 0 0 0 Laboratory Tests Test 09/06/16 04:37 Creatinine 0.35 MG/DL Estimat Glomerular Filtration 348 ML/MIN Rate Microbiology Date/Time Procedure Status Source Growth 09/04/16 09:22 Gram Stain - Final Resulted Cerebral Spinal Fluid Shunt Fluid 09/04/16 09:22 CSF Culture - Preliminary Resulted Cerebral Spinal Fluid Shunt Fluid NO GROWTH IN 24 HOURS. 09/05/16 13:07 Gram Stain - Final Resulted Cerebral Spinal Fluid Shunt Fluid 09/05/16 13:07 CSF Culture - Preliminary Resulted Cerebral Spinal Fluid Shunt Fluid NO GROWTH IN 24 HOURS. 09/05/16 13:07 Acid Fast Stain - Final Resulted Cerebral Spinal Fluid Shunt Fluid NO ACID FAST BACILLI SEEN 09/05/16 13:07 Mycobacterial Culture Resulted Cerebral Spinal Fluid Shunt Fluid Pending 09/05/16 13:07 Fungal Smear - Final Resulted Cerebral Spinal Fluid Shunt Fluid NO FUNGAL ELEMENTS SEEN. 09/05/16 13:07 Fungal Culture Resulted Cerebral Spinal Fluid Shunt Fluid Pending Microbiology Date/Time Procedure Status Source Growth 09/01/16 22:00 Gram Stain - Final Resulted Cerebral Spinal Fluid Shunt Fluid 09/01/16 22:00 CSF Culture - Preliminary Resulted Staph Sp Coagulase Negative 09/01/16 22:00 Acid Fast Stain - Final Resulted Cerebral Spinal Fluid Shunt Fluid NO ACID FAST BACILLI SEEN 09/01/16 22:00 Mycobacterial Culture - Preliminary Resulted Culture Positive For Afb 09/01/16 22:00 Fungal Smear - Final Resulted Cerebral Spinal Fluid Shunt Fluid NO FUNGAL ELEMENTS SEEN. 09/01/16 22:00 Fungal Culture Resulted Cerebral Spinal Fluid Shunt Fluid Pending 09/04/16 09:22 Gram Stain - Final Resulted Cerebral Spinal Fluid Shunt Fluid 09/04/16 09:22 CSF Culture Resulted Cerebral Spinal Fluid Shunt Fluid Pending IMAGING: Brain MRI 09/03/16 0600 Signed Impressions: Service Date/Time: Saturday, September 03, 2016 11:54 - CONCLUSION: 1. Marked increase in ventricular size and compare with the prior study but no transependymal fluid migration. Obstructing communicating hydrocephalus is not excluded. There is no evidence of abscess. Jem Alexander MD Shunt Study (Imaging) 08/23/16 1514 Signed Impressions: Service Date/Time: Tuesday, August 23, 2016 15:14 - CONCLUSION: [employer] shunt tap for spinal fluid sampling as above Joni Sharpe MD Chest X-Ray 08/23/16 0816 Signed Impressions: Service Date/Time: Tuesday, August 23, 2016 08:25 - CONCLUSION: Stable chest without definite evidence of acute disease Joni Sharpe MD Abdomen/Pelvis CT 08/23/16 0816 Signed Impressions: Service Date/Time: Tuesday, August 23, 2016 08:44 - CONCLUSION: Abnormal scan with multiple findings as outlined above Joni Sharpe MD Shunt Study 08/23/16 0000 Signed Impressions: Service Date/Time: Tuesday, August 23, 2016 14:07 - CONCLUSION: Shunt tubing is patent into the ventricular system. The downstream portion of the shunt to the peritoneal cavity was not evaluated. Joni Sharpe MD Head CT 08/23/16 0000 Signed Impressions: Service Date/Time: Tuesday, August 23, 2016 11:57 - CONCLUSION: 1. Interval significant increase in the size of the ventricles compared to the previous examination suggesting worsening hydrocephalus. Clinical correlation is recommended. 2. No significant change in the extensive encephalomalacia ( right worse than left) within the cerebral hemispheres. 3. No acute hemorrhage, midline shift or extraaxial fluid collections. Donavan Vidales MD PHYSICAL EXAMINATION GENERAL: No distress. NECK: No adenopathy. No swelling. LUNGS: Slight basilar rhonchi - same. HEART: Regular rate and rhythm. ABDOMEN: Bowel sounds present, soft. EXTREMITIES: No clubbing or cyanosis or edema. No hip edema or erythema. SKIN: No rash. NEUROLOGIC: Unable to fully assess. IMPRESSION 1. Fever. Persistent previous, now temp normal. [employer] ASSISTANT Shunt related infection. CSF has AFB. Rapid grower. Also Staph Haemolyticus. Sepsis indicated By decreased BP, increased HR. Decreased mentation. High fever. 2. Cellulitis suggested by CT scan of the abdomen and pelvis which reveals myositis and cellulitis in the posterior tissues of the buttock and hip. No erythema present. 3. Candiduria. Treated. RECOMMENDATIONS 1. Continue vancomycin. 2. Continue Cefepime. 3. Monitor CSF culture and AFB ID. 4. Continue Ethambutol to cover rapid growing AFB in CSF. 5. Continue Biaxin to cover rapid growing AFB in CSF. Quique Mendez MD Sep 06, 2016 18:27
[2016-09-06] MEDS: SILVER SULFADIAZINE 1% CR 50 GM JAR TOPICAL SCH (20:35)
[2016-09-07] VITALS (13 sets, daily range): BP systolic 113–148; BP diastolic 71–89; PULSE 84–92; RESP 9–12; TEMP 98.2–98.6; O2SAT 95–97
[2016-09-07] MEDS: SODIUM CHLOR 0.9% 1000 ML INJ 1,000 ML IV SCH ×2 (04:00→13:54)
[2016-09-07] MEDS: oxyCODONE/ACETAMINOPHEN 5 MG/325 MG TAB JT SCH ×3 (04:23→22:04)
[2016-09-07] MEDS: CEFEPIME INJ 2,000 MG in SODIUM CHLORIDE 0.9% INJ 100 ML IV SCH ×3 (04:23→18:08)
[2016-09-07] MEDS: CLARITHROMYCIN 500 MG TAB PO SCH ×2 (08:55→20:37)
[2016-09-07] MEDS: ATENOLOL 50 MG TAB PEG SCH ×2 (08:55→20:37)
[2016-09-07] MEDS: DILTIAZEM HCL 60 MG TAB JT SCH ×4 (08:55→20:37)
[2016-09-07] MEDS: ETHAMBUTOL HCL 400 MG TAB PO SCH (08:55)
[2016-09-07] MEDS: hydrALAZINE HCL 50 MG TAB JT SCH ×3 (08:55→18:02)
[2016-09-07] MEDS: BACLOFEN 10 MG TAB PEG SCH ×2 (08:55→20:37)
[2016-09-07] MEDS: levETIRAcetam 500 MG/5 ML UDC TUBE SCH ×2 (08:55→20:37)
[2016-09-07] MEDS: HYOSCYAMINE 0.125 MG TAB JT SCH ×4 (08:55→20:37)
[2016-09-07] MEDS: SODIUM CHLORIDE 0.9% FLUSH 5 ML FLUSH FLUSH SCH ×2 (08:56→20:39)
[2016-09-07] MEDS: VANCOMYCIN INJ 2,000 MG in SODIUM CHLORID 0.9% 500 ML INJ 500 ML IV SCH ×2 (10:08→22:04)
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
[2016-09-07] MEDS: fentaNYL 50 MCG/HR PATCH T-DERMAL SCH (11:55)
[2016-09-07] MEDS: REMOVE OLD PATCH TD SCH (11:55)
[2016-09-07] MEDS: SENNOSIDES 8.6 MG TAB PO PRN (18:03)
[2016-09-07] MEDS: SILVER SULFADIAZINE 1% CR 50 GM JAR TOPICAL SCH (20:39)
[2016-09-08] VITALS (14 sets, daily range): BP systolic 114–152; BP diastolic 71–90; PULSE 74–100; RESP 11–20; TEMP 98.2–98.5; O2SAT 95–99
[2016-09-08] MEDS: CEFEPIME INJ 2,000 MG in SODIUM CHLORIDE 0.9% INJ 100 ML IV SCH ×2 (02:24→09:42)
[2016-09-08] MEDS: oxyCODONE/ACETAMINOPHEN 5 MG/325 MG TAB JT SCH ×3 (06:00→22:00)
[2016-09-08] MEDS: SODIUM CHLORIDE 0.9% FLUSH 5 ML FLUSH FLUSH SCH ×2 (09:00→21:00)
[2016-09-08] MEDS: levETIRAcetam 500 MG/5 ML UDC TUBE SCH ×2 (09:41→21:00)
[2016-09-08] MEDS: ATENOLOL 50 MG TAB PEG SCH ×2 (09:41→21:00)
[2016-09-08] MEDS: CLARITHROMYCIN 500 MG TAB PO SCH ×2 (09:41→21:00)
[2016-09-08] MEDS: DILTIAZEM HCL 60 MG TAB JT SCH ×4 (09:41→21:00)
[2016-09-08] MEDS: ETHAMBUTOL HCL 400 MG TAB PO SCH (09:41)
[2016-09-08] MEDS: HYOSCYAMINE 0.125 MG TAB JT SCH ×4 (09:42→21:00)
[2016-09-08] MEDS: BACLOFEN 10 MG TAB PEG SCH ×2 (09:42→21:00)
[2016-09-08] MEDS: hydrALAZINE HCL 50 MG TAB JT SCH ×3 (09:42→18:00)
[2016-09-08] MEDS: SODIUM CHLOR 0.9% 1000 ML INJ 1,000 ML IV SCH ×3 (09:42→12:54)
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
[2016-09-08] MEDS ORDERED: ASP: Other exception documentation: ( ) XX PRN (10:30)
[2016-09-08] MEDS ORDERED: MISCELLANEOUS PHARMACY INFORMATION XX PRN (10:30)
[2016-09-08] MEDS ORDERED: PHARMACY ORDERED LAB XX ONE ×2 (10:45→22:00)
[2016-09-08] MEDS: VANCOMYCIN INJ 2,000 MG in SODIUM CHLORID 0.9% 500 ML INJ 500 ML IV SCH ×2 (11:30→23:00)
--- NOTE | 2016-09-08 11:49 | HHI.NSPN ---
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 He had a left ventriculoperitoneal shunt which was removed secondary to wound dehiscence and had a right ventriculoperitoneal shunt placed. He is a chronic [facility] resident and has been febrile the last few days and presents MRI is room for workup for for this fever. He had a urethral stricture which was dilated in the emergency room by urology and urinalysis reveals urinary tract infection. He also has a decubitus ulcer. Blood cultures are pending. His neurologic examination is baseline and CT of the head obtained reveals ventriculomegaly compared to the scan from a month ago. The patient had programmable valve place with a lower setting of 50 mm water. Shuntogram obtained reveals ventricular catheter being patent but the peritoneal catheter was not evaluated because patient did not cooperate and the plan is to have this further evaluated once more cooperate with IV access per special procedures. CSF from a shunt tap that does not reveal any organisms on Gram stain. CT of the abdomen reveals a small fluid collection around the shunt catheter of unclear significance. 08/24/16: Pt at his clinical baseline. Eyes open. occasionally focuses on my face. At times rolling eye movements. Not following commands. Flexion contractures of UEs and Extension contractures of LEs. Pt having high fevers today. Tmax of 103 at 8am. 08/25/16: Pt with eyes open. Right sided gaze preference. Not following commands. Not verbalizing. Pt at baseline neurologically. Pt continues to have fevers, T Max 103.4 at 2am. 08/26/16: Pt with eyes open. Tracking more today to both sides. Not following commands which is his baseline. Fever spikes yesterday today T max 100.1. 08/28/16: Pt examined on 08/28/16 delayed note entry. Pt awake with rolling eye movements, erythematous sclera, grunting, and appears more restlessness. 08/29/16: Pt with eyes open and upward gaze with rolling eye movements. Not focusing on face or tacking. Less grunting. Resolving injected sclera. Less restlessness than yesterday. Shunt is externalized and connected to a drainage bag. 08/30/16: Pt with eyes open and upward gaze. He does appear to be less agitated today with no grunting. He also focused on my face briefly which he didn't do yesterday. Distal PROCESS DEVELOPMENT TECHNICIAN shunt catheter is connected to a drainage bag and draining well. 09/02/16: Pt with eyes open and upward gaze and some rolling eye movements. No grunting or snoring noted by me at bedside. Not focusing on face or tracking. Distal PROCESS DEVELOPMENT TECHNICIAN shunt catheter is connected to drainage bag. 09/03/16: Pt with eyes open and upward gaze. No tracking. Not focusing on my face or tracking. Distal PROCESS DEVELOPMENT TECHNICIAN shunt catheter connected to drainage bag. 09/04/16: Pt with eyes open upward gaze. Not tracking. Distal PROCESS DEVELOPMENT TECHNICIAN shunt catheter connected to drainage bag with clear CSF. Pt Neurologically at baseline. 09/06: s/p removal of PROCESS DEVELOPMENT TECHNICIAN shunt with placement of ventriculostomy drain yesterday. Drain set at 5 cm H20, draining well. No changes to neuro checks overnight. CSF cx +acid fast bacilli and stap haemolyticus, ID following 09/07: EVD draining well, no changes to neuro checks. 09/08: EVD continues to be draining well, drain intact. no clinical changes ( Laurie Kerr) Labs, Micro, & Vital Signs Results Date Time Temp Pulse Resp B/P Pulse Ox O2 Delivery O2 Flow Rate FiO2 09/08/16 10:00 80 09/08/16 08:00 80 09/08/16 08:00 98.2 86 20 136/71 96 09/08/16 07:00 98 Nasal Cannula 1.00 09/08/16 06:00 82 09/08/16 04:00 98.3 82 11 146/90 95 09/08/16 04:00 92 09/08/16 02:00 90 09/08/16 00:00 98.3 74 11 125/77 96 09/08/16 00:00 78 09/07/16 22:00 85 09/07/16 20:47 97 Nasal Cannula 1.50 09/07/16 20:00 86 09/07/16 20:00 98.3 86 10 148/84 96 09/07/16 19:00 97 Nasal Cannula 1.00 09/07/16 18:00 86 09/07/16 16:00 98.2 84 9 130/76 97 09/07/16 16:00 84 09/07/16 14:55 10 09/07/16 14:00 84 09/07/16 12:55 12 09/07/16 12:00 98.5 87 12 132/84 97 09/07/16 12:00 87 09/08/16 07:00 Intake Total 5782 ml Output Total 6055 ml Balance -273 ml Constitutional Vital Signs Date Time Temp Pulse Resp B/P Pulse Ox O2 Delivery O2 Flow Rate FiO2 09/08/16 10:00 80 09/08/16 08:00 80 09/08/16 08:00 98.2 86 20 136/71 96 09/08/16 07:00 98 Nasal Cannula 1.00 09/08/16 06:00 82 09/08/16 04:00 98.3 82 11 146/90 95 09/08/16 04:00 92 09/08/16 02:00 90 09/08/16 00:00 98.3 74 11 125/77 96 09/08/16 00:00 78 09/07/16 22:00 85 09/07/16 20:47 97 Nasal Cannula 1.50 09/07/16 20:00 86 09/07/16 20:00 98.3 86 10 148/84 96 09/07/16 19:00 97 Nasal Cannula 1.00 09/07/16 18:00 86 09/07/16 16:00 98.2 84 9 130/76 97 09/07/16 16:00 84 09/07/16 14:55 10 09/07/16 14:00 84 09/07/16 12:55 12 09/07/16 12:00 98.5 87 12 132/84 97 09/07/16 12:00 87 09/08/16 07:00 Intake Total 5782 ml Output Total 6055 ml Balance -273 ml (Laurie Kerr) Review of Systems/Exam Exam Awake, eyes open but does not focus or track. Does not follow commands. Ventriculostomy drain in place, draining well at 5 cm H20. CN: Pupils equal, intermittently looks around but not focusing or tracking. Yawning. Motor: contracture in upper extremities, extended in LEs. Tone increased throughout. Plantars equivocal b/l. (Laurie Kerr) Medications Current Medications Current Medications Medications (Trade) Dose Ordered Sig/Yinka Route PRN Reason Start Time Stop Time Status Last Admin Dose Admin Pharmacy Profile Note (Vancomycin Consult Pharmacy) 0 ml @ 0 mls/hr UNSCH OTHER 08/23/16 10:30 Acetaminophen (Tylenol) 650 mg Q4H PRN G-TUBE INCREASED TEMPERATURE 08/23/16 10:30 08/28/16 12:37 Atenolol (Tenormin) 50 mg BID PEG 08/23/16 21:00 09/08/16 09:41 Baclofen (Lioresal) 10 mg BID PEG 08/23/16 21:00 09/08/16 09:42 Diltiazem HCl (Cardizem) 60 mg QID JT 08/23/16 13:00 09/08/16 09:41 Fentanyl (Duragesic 50 Mcg Patch.72 Hr) 1 patch Q72H T-DERMAL 08/23/16 12:00 09/07/16 11:55 Hydralazine HCl (Apresoline) 50 mg TID JT 08/23/16 13:00 09/08/16 09:42 Hyoscyamine Sulfate (Levsin) 0.125 mg QID JT 08/23/16 13:00 09/08/16 09:42 Levetriacetam (Keppra Liq) 1,000 mg Q12HR TUBE 08/23/16 21:00 09/08/16 09:41 Oxycodone/ Acetaminophen (Percocet 5-325 Mg) 1 tab Q6H PRN J-TUBE BREAKTHROUGH PAIN 08/23/16 10:30 09/01/16 12:37 Oxycodone/ Acetaminophen (Percocet 5-325 Mg) 1 tab Q8HR JT 08/23/16 14:00 09/08/16 06:00 Silver Sulfadiazine (Silvadene 1% Cream (50 Gm)) 1 applic HS TOPICAL 08/23/16 21:00 09/07/16 20:39 Miscellaneous Information 1 1 Q3D TD 08/26/16 12:00 09/07/16 11:55 Sodium Chloride (NS 1000 ml Inj) 1,000 ml @ 100 mls/hr Q10H IV 08/23/16 14:00 09/08/16 09:42 IV Flush (NS Flush) 2 ml UNSCH PRN FLUSH FLUSH AFTER USING IV ACCESS 08/23/16 14:00 IV Flush (NS Flush) 2 ml BID FLUSH 08/23/16 21:00 09/08/16 09:00 Acetaminophen (Tylenol) 650 mg Q4H PRN PO TEMP > 100.4 08/23/16 14:00 08/27/16 13:00 Ondansetron HCl (Zofran Inj) 4 mg Q6H PRN IVP NAUSEA OR VOMITING 08/23/16 14:00 Prochlorperazine (Compazine Supp) 25 mg Q12H PRN MN NAUSEA OR VOMITING 08/23/16 14:00 Bisacodyl (Dulcolax Supp) 10 mg DAILY PRN MN CONSTIPATION 08/23/16 14:00 Magnesium Hydroxide (Milk Of Magnesia Liq) 30 ml Q12H PRN PO CONSTIPATION 08/23/16 14:00 Sennosides (Senokot) 17.2 mg Q12H PRN PO CONSTIPATION 08/23/16 14:00 09/07/16 18:03 Temazepam (Restoril) 15 mg HS PRN PO INSOMNIA 08/23/16 14:00 Acetaminophen (Ofirmev Inj) 1,000 mg Q6H PRN IV high grade fevers/ alter ibupr 08/24/16 10:45 08/28/16 21:38 Ibuprofen (Motrin Liq) 200 mg Q6H PRN PO fevers 08/24/16 10:45 08/30/16 22:46 Chlorpromazine 25 mg 25 mg Q6H PRN PO hiccups 08/30/16 09:00 08/30/16 22:46 Vancomycin HCl/ Sodium Chloride (Vancomycin Inj/ NS 500 ml Inj) 520 ml @ 250 mls/hr Q12H IV 08/30/16 23:00 09/07/16 22:04 Labetalol HCl 10 mg 10 mg Q4H PRN IV PUSH SBP>160, DBP>95, HR>65 08/31/16 23:00 Levetriacetam (Keppra 1000 Mg Inj) 100 ml @ 400 mls/hr Q12HR PRN IV IF TUBE CLOGGED 09/01/16 21:42 09/02/16 20:41 Ethambutol HCl (Myambutol) 1,200 mg DAILY PO 09/04/16 14:00 09/08/16 09:41 Clarithromycin 500 mg 500 mg Q12HR PO 09/04/16 14:00 09/08/16 09:41 Imipenem/ Cilastatin Sodium/ Sodium Chloride (Primaxin Inj/NS Inj) 100 ml @ 200 mls/hr Q6H IV 09/08/16 12:00 (Laurie Kerr) Medical Decision Making MDM Remarks 36 y/o male with history of severe TBI, hydrocephalus with PROCESS DEVELOPMENT TECHNICIAN shunt placement. Shunt infection, s/p removal of PROCESS DEVELOPMENT TECHNICIAN shunt with placement of external ventriculostomy drain (Laurie Kerr) Plan Plan Remarks cont ventriculostomy drain cont abx per Infectious Disease cont serial neuro checks dw nursing (Laurie Kerr) Attending Statement The exam, history, and the medical decision-making described in the above note were completed with the assistance of the mid-level provider. I reviewed and agree with the findings presented. I attest that I had a [id number] encounter with the patient on the same day, and personally performed and documented my assessment and findings in the medical record. (Tom Quick MD) Laurie Kerr Sep 08, 2016 11:49 Tom Quick MD Sep 09, 2016 11:42
[2016-09-08] MEDS: IMIPENEM/CILASTATIN INJ 500 MG in SODIUM CHLORIDE 0.9% INJ 100 ML IV SCH ×2 (12:00→17:57)
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
[2016-09-08] MEDS: LABETALOL HCL 100 MG/20 ML VIAL IV PUSH PRN (16:40)
[2016-09-08] MEDS: ONDANSETRON HCL 4 MG/2 ML VIAL IVP PRN (23:28)
[2016-09-08] MEDS: levETIRAcetam 1000 MG INJ 100 ML IV PRN (23:32)
[2016-09-09] VITALS (18 sets, daily range): BP systolic 109–154; BP diastolic 64–94; PULSE 88–104; RESP 12–24; TEMP 97.8–100; O2SAT 91–100
[2016-09-09] MEDS ORDERED: PANTOPRAZOLE SODIUM 40 MG VIAL IV PUSH ONE
[2016-09-09] MEDS ORDERED: MORPHINE SULFATE 4 MG/ML INJ IV PUSH ONE
--- NOTE | 2016-09-09 00:16 | RADRPT ---
EXAM DATE/TIME: 09/09/2016 00:01 [place] COMPARISON: CHEST SINGLE AP, August 23, 2016, 8:25. INDICATIONS : Congestion. MEDICAL HISTORY : Hypertension. Acute head trauma SURGICAL HISTORY : Craniotomy. Shunt, tracheostomy ENCOUNTER: Subsequent ACUITY: 1 month PAIN SCORE: Non-responsive. LOCATION: Bilateral chest FINDINGS: Ill-defined opacity seen projecting over the right upper lobe. Patient has had right-sided ventriculo peritoneal shunt catheter removed recently and I do see some skin naldo in the supraclavicular yesy on some gauze or other bandaging could be present. If there is no bandage, presumably the opacity rep resents some right upper lobe consolidation. Otherwise, there is minimal streaky atelectasis of both mid and lower lungs. No pleural effusion. No pneumothorax. Heart size stable, within normal limits. CONCLUSION: 1. Ill-defined opacity projecting over the right upper lobe. Right upper lobe pneumonia versus overly ing bandage/gauze.Please see above. 2. Mild bibasilar atelectasis. Joni Lay MD on September 09, 2016 at 0:12 Board Certified Radiologist. This report was verified electronically.
[2016-09-09] MEDS ORDERED: RESP: ALBUTEROL 2.5 MG/IPRATROPIUM 0.5 MG NEB (PRN) NEB (01:15)
[2016-09-09] MEDS: SILVER SULFADIAZINE 1% CR 50 GM JAR TOPICAL SCH ×2 (01:41→21:00)
[2016-09-09] MEDS: IMIPENEM/CILASTATIN INJ 500 MG in SODIUM CHLORIDE 0.9% INJ 100 ML IV SCH ×4 (01:41→21:09)
[2016-09-09] MEDS: VANCOMYCIN INJ 2,000 MG in SODIUM CHLORID 0.9% 500 ML INJ 500 ML IV SCH ×2 (01:42→14:00)
[2016-09-09] MEDS: SODIUM CHLOR 0.9% 1000 ML INJ 1,000 ML IV SCH ×2 (05:23→16:00)
[2016-09-09] MEDS: oxyCODONE/ACETAMINOPHEN 5 MG/325 MG TAB JT SCH ×3 (05:24→21:01)
[2016-09-09] MEDS: HYOSCYAMINE 0.125 MG TAB JT SCH ×4 (08:11→21:09)
[2016-09-09] MEDS: hydrALAZINE HCL 50 MG TAB JT SCH ×3 (08:11→18:00)
[2016-09-09] MEDS: ATENOLOL 50 MG TAB PEG SCH ×2 (08:11→21:01)
[2016-09-09] MEDS: levETIRAcetam 500 MG/5 ML UDC TUBE SCH ×2 (08:11→21:01)
[2016-09-09] MEDS: DILTIAZEM HCL 60 MG TAB JT SCH ×4 (08:11→21:09)
[2016-09-09] MEDS: BACLOFEN 10 MG TAB PEG SCH ×2 (08:11→21:01)
[2016-09-09] MEDS: ETHAMBUTOL HCL 400 MG TAB PO SCH (08:11)
[2016-09-09] MEDS: chlorproMAZINE HCL 25 MG TAB PO PRN (08:11)
[2016-09-09] MEDS: CLARITHROMYCIN 500 MG TAB PO SCH ×2 (08:12→21:02)
[2016-09-09] MEDS: SODIUM CHLORIDE 0.9% FLUSH 5 ML FLUSH FLUSH SCH ×2 (08:12→21:02)
--- NOTE | 2016-09-09 13:13 | HHI.NSPN ---
History Chief Complaint: n/a Interval History Low grade fevers but stable after externalization of the shunt at the chest. EVD put out 121 cc of xanthochromic CSF. CSF is still negative and a distal shuntogram is planned. 09/01/16 He has no fevers and the CSF is still clear but he still has some abdominal tenderness. 09/09/16 CSF draing 100 cc in 24 hr. 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 MRI was negative for abcess Exam Results Vital Signs Date Time Temp Pulse Resp B/P Pulse Ox O2 Delivery O2 Flow Rate FiO2 09/09/16 12:15 97 Venturi Mask 6.00 50 09/09/16 10:00 94 09/09/16 08:00 98.2 16 119/76 Intake and Output 09/08/16 09/08/16 09/09/16 08:00 16:00 00:00 Intake Total 1779 ml 1256 ml 803 ml Output Total 1665 ml 2034 ml 1384 ml Balance 114 ml -778 ml -581 ml Medical Decision Making Impression and Plan 36 year old gentleman with repeated shunt malfunctions/infections. On EVD and draing well, antibiotics per ID. Denton Cavazos Sep 09, 2016 13:13
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
[2016-09-10] VITALS (14 sets, daily range): BP systolic 119–147; BP diastolic 72–82; PULSE 85–98; RESP 16–22; TEMP 97.8–98.9; O2SAT 93–98
[2016-09-10] MEDS: IMIPENEM/CILASTATIN INJ 500 MG in SODIUM CHLORIDE 0.9% INJ 100 ML IV SCH ×4 (01:39→18:29)
[2016-09-10] MEDS: VANCOMYCIN INJ 2,000 MG in SODIUM CHLORID 0.9% 500 ML INJ 500 ML IV SCH ×2 (02:25→14:26)
[2016-09-10] MEDS: SODIUM CHLOR 0.9% 1000 ML INJ 1,000 ML IV SCH ×3 (02:26→15:29)
[2016-09-10 04:50] LABS: POTASSIUM 4.6 MEQ/L (3.5-5.1)
[2016-09-10] MEDS: oxyCODONE/ACETAMINOPHEN 5 MG/325 MG TAB JT SCH ×2 (06:24→13:01)
[2016-09-10] MEDS: ATENOLOL 50 MG TAB PEG SCH (09:22)
[2016-09-10] MEDS: hydrALAZINE HCL 50 MG TAB JT SCH ×3 (09:22→18:29)
[2016-09-10] MEDS: HYOSCYAMINE 0.125 MG TAB JT SCH ×3 (09:22→18:29)
[2016-09-10] MEDS: levETIRAcetam 500 MG/5 ML UDC TUBE SCH (09:22)
[2016-09-10] MEDS: SODIUM CHLORIDE 0.9% FLUSH 5 ML FLUSH FLUSH SCH (09:22)
[2016-09-10] MEDS: DILTIAZEM HCL 60 MG TAB JT SCH ×3 (09:22→18:29)
[2016-09-10] MEDS: BACLOFEN 10 MG TAB PEG SCH (09:23)
[2016-09-10] MEDS: ETHAMBUTOL HCL 400 MG TAB PO SCH (09:37)
[2016-09-10] MEDS: CLARITHROMYCIN 500 MG TAB PO SCH (09:37)
[2016-09-10] MEDS: REMOVE OLD PATCH TD SCH (12:00)
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
[2016-09-10] MEDS: fentaNYL 50 MCG/HR PATCH T-DERMAL SCH (12:58)
[2016-09-10] MEDS: chlorproMAZINE HCL 25 MG TAB PO PRN (13:02)
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
--- NOTE | 2016-09-10 15:16 | HHI.IDPN ---
Note Infectious Disease Note Notes reviewed. Patient looks lethargic. Afebrile. CXR abnormality noted. Had removal of PROJECTION PRINTER shunt 09/05/16. CSF still has AFB. Yet to be identified by State lab. Notified by micro the the organism had to be grown on slant media before being sent to the state, Therefore delay is identification. CSF from 08/29 has AFB. Repeat CSF AFB smear 09/01,09/05 positive. PAST MEDICAL HISTORY 1. Traumatic brain injury in October 2014, PROJECTION PRINTER shunt placement, 2. Seizure disorder. 3. PEG placement 4. History of tracheostomy 5. History of MRSA wound infection from the scalp 6. Bacteremia due to MRSA 7. History of ESBL E-coli UTI. 8. Recent PROJECTION PRINTER shunt malfunction and culture positive with Pseudomonas treated with a round of antibiotic. ALLERGIES NO KNOWN DRUG ALLERGIES. ANTIBIOTICS: Imipenem. Vancomycin. Ethambutol 09/04/16. Biaxin 09/04/16. SOCIAL HISTORY The patient is a care home resident. No tobacco, alcohol or illicit drugs. OBJECTIVE: Vital Signs Date Time Temp Pulse Resp B/P Pulse Ox O2 Delivery O2 Flow Rate FiO2 09/10/16 12:00 88 09/10/16 12:00 97.8 88 22 128/72 97 09/10/16 10:00 88 09/10/16 08:18 97 Venturi Mask 6.00 50 09/10/16 08:00 88 09/10/16 08:00 98.8 95 21 147/79 96 09/10/16 07:00 99 Venturi Mask 5.00 50 09/10/16 06:00 94 09/10/16 04:00 87 09/10/16 04:00 98.9 86 17 142/79 98 09/10/16 02:00 89 09/10/16 00:00 98.5 86 16 119/72 93 09/10/16 00:00 86 09/09/16 22:00 88 09/09/16 20:00 100.0 100 17 130/67 100 09/09/16 20:00 99 09/09/16 19:53 95 Venturi Mask 6.00 50 09/09/16 19:00 100 Venturi Mask 50 09/09/16 18:00 90 09/09/16 16:00 93 09/09/16 16:00 98.8 93 21 109/76 91 Laboratory Tests Test 09/10/16 04:06 Sodium Level 134 MEQ/L Potassium Level 4.6 MEQ/L Chloride Level 98 MEQ/L Carbon Dioxide Level 31.0 MEQ/L Anion Gap 5 MEQ/L Blood Urea Nitrogen 12 MG/DL Creatinine 0.37 MG/DL Estimat Glomerular Filtration 327 ML/MIN Rate Random Glucose 111 MG/DL Serum Osmolality 281 MOSM/KG Calcium Level 9.0 MG/DL Microbiology Date/Time Procedure Status Source Growth 09/01/16 22:00 Gram Stain - Final Resulted Cerebral Spinal Fluid Shunt Fluid 09/01/16 22:00 CSF Culture - Preliminary Resulted Staph Sp Coagulase Negative 09/01/16 22:00 Acid Fast Stain - Final Resulted Cerebral Spinal Fluid Shunt Fluid NO ACID FAST BACILLI SEEN 09/01/16 22:00 Mycobacterial Culture - Preliminary Resulted Culture Positive For Afb 09/01/16 22:00 Fungal Smear - Final Resulted Cerebral Spinal Fluid Shunt Fluid NO FUNGAL ELEMENTS SEEN. 09/01/16 22:00 Fungal Culture Resulted Cerebral Spinal Fluid Shunt Fluid Pending 09/04/16 09:22 Gram Stain - Final Resulted Cerebral Spinal Fluid Shunt Fluid 09/04/16 09:22 CSF Culture Resulted Cerebral Spinal Fluid Shunt Fluid Pending IMAGING: Chest X-Ray 09/08/16 0000 Signed Impressions: Service Date/Time: Friday, September 09, 2016 00:01 - CONCLUSION: 1. Ill- defined opacity projecting over the right upper lobe. Right upper lobe pneumonia versus overlying bandage/gauze.Please see above. 2. Mild bibasilar atelectasis. Joni Lay MD Brain MRI 09/03/16 0600 Signed Impressions: Service Date/Time: Saturday, September 03, 2016 11:54 - CONCLUSION: 1. Marked increase in ventricular size and compare with the prior study but no transependymal fluid migration. Obstructing communicating hydrocephalus is not excluded. There is no evidence of abscess. Jem Alexander MD Shunt Study (Imaging) 08/23/16 1514 Signed Impressions: Service Date/Time: Tuesday, August 23, 2016 15:14 - CONCLUSION: PROJECTION PRINTER shunt tap for spinal fluid sampling as above Joni Sharpe MD Chest X-Ray 08/23/16 0816 Signed Impressions: Service Date/Time: Tuesday, August 23, 2016 08:25 - CONCLUSION: Stable chest without definite evidence of acute disease Joni Sharpe MD Abdomen/Pelvis CT 08/23/16 0816 Signed Impressions: Service Date/Time: Tuesday, August 23, 2016 08:44 - CONCLUSION: Abnormal scan with multiple findings as outlined above Joni Sharpe MD Shunt Study 08/23/16 0000 Signed Impressions: Service Date/Time: Tuesday, August 23, 2016 14:07 - CONCLUSION: Shunt tubing is patent into the ventricular system. The downstream portion of the shunt to the peritoneal cavity was not evaluated. Joni Sharpe MD Head CT 08/23/16 0000 Signed Impressions: Service Date/Time: Tuesday, August 23, 2016 11:57 - CONCLUSION: 1. Interval significant increase in the size of the ventricles compared to the previous examination suggesting worsening hydrocephalus. Clinical correlation is recommended. 2. No significant change in the extensive encephalomalacia ( right worse than left) within the cerebral hemispheres. 3. No acute hemorrhage, midline shift or extraaxial fluid collections. Donavan Vidales MD PHYSICAL EXAMINATION GENERAL: No distress. NECK: No adenopathy or swelling. LUNGS: Bilateral basilar rhonchi. HEART: Regular rate and rhythm. Nl S1S2. ABDOMEN: Bowel sounds present, soft. EXTREMITIES: No clubbing or cyanosis or edema. No hip edema or erythema. SKIN: No rash. NEUROLOGIC: Unable to fully assess. IMPRESSION 1. Fever. Persistent previous, now temp normal. PROJECTION PRINTER Shunt related infection. CSF has AFB. Rapid grower. Also Staph Haemolyticus on in one sample. Sepsis indicated By decreased BP, increased HR. Decreased mentation. High fever. 2. Cellulitis suggested by CT scan of the abdomen and pelvis which reveals myositis and cellulitis in the posterior tissues of the buttock and hip. No erythema present. 3. Candiduria. Treated. 4. Abnormal CXR suggesting pneumonia. RECOMMENDATIONS 1. Stop vancomycin. 2. Continue Imipenem. Started 2 days ago. 3. Monitor CSF culture and AFB ID. Repeated call to micro for update on the culture. 4. Continue Ethambutol to cover rapid growing AFB in CSF. 5. Continue Biaxin to cover rapid growing AFB in CSF. 6. Add Rifampin. 7. Monitor response. Quique Mendez MD Sep 10, 2016 15:16
[2016-09-10] MEDS: RIFAMPIN INJ 600 MG in SODIUM CHLORIDE 0.9% INJ 100 ML IV SCH (16:41)
[2016-09-10] MEDS: SILVER SULFADIAZINE 1% CR 50 GM JAR TOPICAL SCH (21:00)
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
[2016-09-11] VITALS (15 sets, daily range): BP systolic 118–143; BP diastolic 65–84; PULSE 68–92; RESP 12–18; TEMP 98.6–98.8; O2SAT 93–98
[2016-09-11] MEDS: IMIPENEM/CILASTATIN INJ 500 MG in SODIUM CHLORIDE 0.9% INJ 100 ML IV SCH ×6 (06:00→17:56)
[2016-09-11 06:06] LABS: BASOPHIL % 0.5 % (0.0-2.0); EOSINOPHIL # 0.1 TH/MM3 (0-0.4); EOSINOPHIL % 1.4 % (0.0-4.0); HEMATOCRIT 35.7 % (39.0-51.0); HEMO FLAGS DIFF FINAL; LYMPH % 11.8 % (9.0-44.0); LYMPHOCYTE # 0.9 TH/MM3 (1.0-4.8); MEAN CELL VOLUME 85.7 FL (80.0-100.0); MEAN CORPUSCULAR HEMOGLOBIN 27.1 PG (27.0-34.0); MEAN CORPUSCULAR HGB CONC 31.6 % (32.0-36.0); MONO % 10.3 % (0.0-8.0); PLATELET COUNT 326 TH/MM3 (150-450); RED BLOOD COUNT 4.16 MIL/MM3 (4.50-5.90); RED CELL DISTRIBUTION WIDTH 17.7 % (11.6-17.2); WHITE BLOOD COUNT 7.9 TH/MM3 (4.0-11.0)
[2016-09-11 06:34] LABS: BICARBONATE 32.5 MEQ/L (21.0-32.0); POTASSIUM 5.1 MEQ/L (3.5-5.1)
[2016-09-11] MEDS: SODIUM CHLOR 0.9% 1000 ML INJ 1,000 ML IV SCH ×2 (08:00→18:11)
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
[2016-09-11] MEDS: RIFAMPIN INJ 600 MG in SODIUM CHLORIDE 0.9% INJ 100 ML IV SCH (09:21)
[2016-09-11] MEDS: hydrALAZINE HCL 50 MG TAB JT SCH ×3 (09:24→18:11)
[2016-09-11] MEDS: ETHAMBUTOL HCL 400 MG TAB PO SCH (09:25)
[2016-09-11] MEDS: SODIUM CHLORIDE 0.9% FLUSH 5 ML FLUSH FLUSH SCH ×2 (09:27→22:54)
[2016-09-11] MEDS: DILTIAZEM HCL 60 MG TAB JT SCH ×4 (09:27→22:54)
[2016-09-11] MEDS: HYOSCYAMINE 0.125 MG TAB JT SCH ×4 (09:28→22:53)
[2016-09-11] MEDS: BACLOFEN 10 MG TAB PEG SCH ×2 (09:28→22:54)
[2016-09-11] MEDS: ATENOLOL 50 MG TAB PEG SCH ×2 (09:29→22:53)
[2016-09-11] MEDS: chlorproMAZINE HCL 25 MG TAB PO PRN (09:30)
[2016-09-11] MEDS: CLARITHROMYCIN 500 MG TAB PO SCH ×2 (09:30→22:53)
[2016-09-11] MEDS: levETIRAcetam 500 MG/5 ML UDC TUBE SCH ×2 (09:31→22:52)
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
[2016-09-11] MEDS: oxyCODONE/ACETAMINOPHEN 5 MG/325 MG TAB JT SCH ×2 (13:01→22:53)
[2016-09-11] MEDS ORDERED: Amikacin Consult Pharmacy 1 EA OTHER SCH (14:00)
--- NOTE | 2016-09-11 14:16 | HHI.IDPN ---
Note Infectious Disease Note Patient with eyes open. Has Hiccups. No tracking. Baseline non verbal. Afebrile. CSF clear in external ventric. Had removal of ROAD MAKER shunt 09/05/16. AFB identified as Mycobacterium abscessus. CSF from 08/29 has AFB. Repeat CSF AFB smear 09/01,09/05 positive. PAST MEDICAL HISTORY 1. Traumatic brain injury in October 2014, ROAD MAKER shunt placement, 2. Seizure disorder. 3. PEG placement 4. History of tracheostomy 5. History of MRSA wound infection from the scalp 6. Bacteremia due to MRSA 7. History of ESBL E-coli UTI. 8. Recent ROAD MAKER shunt malfunction and culture positive with Pseudomonas treated with a round of antibiotic. ALLERGIES NO KNOWN DRUG ALLERGIES. ANTIBIOTICS: Imipenem. Vancomycin. Ethambutol 09/04/16. Biaxin 09/04/16. Rifampin. OBJECTIVE: Vital Signs Date Time Temp Pulse Resp B/P Pulse Ox O2 Delivery O2 Flow Rate FiO2 09/11/16 12:00 87 09/11/16 12:00 98.6 85 18 131/65 97 09/11/16 10:00 92 09/11/16 08:30 97 Nasal Cannula 3.00 09/11/16 08:00 98.8 91 15 142/84 98 09/11/16 08:00 68 09/11/16 07:00 96 Nasal Cannula 3.00 09/11/16 06:00 88 09/11/16 04:00 98.7 80 16 133/82 97 09/11/16 04:00 80 09/11/16 02:00 88 09/11/16 00:00 98.8 82 12 132/73 97 09/11/16 00:00 88 09/10/16 20:00 88 09/10/16 20:00 97 Nasal Cannula 4.00 09/10/16 20:00 98.8 92 16 142/82 97 09/10/16 19:43 97 Nasal Cannula 5.00 09/10/16 18:00 98 09/10/16 16:52 96 Nasal Cannula 5.00 09/10/16 16:00 85 09/10/16 09/10/16 09/11/16 15:00 23:00 07:00 Intake Total 1452 ml 1592 ml 1107 ml Output Total 2052 ml 1374 ml 1330 ml Balance -600 ml 218 ml -223 ml Intake Oral 0 ml 0 ml 0 ml IV Total 945 ml 1085 ml 712 ml Tube Feeding 457 ml 457 ml 345 ml Tube Irrigant 50 ml 50 ml 50 ml Output Urine Total 2000 ml 1350 ml 1300 ml Drainage Total 52 ml 24 ml 30 ml # Bowel Movements 0 0 0 Laboratory Tests Test 09/11/16 05:24 White Blood Count 7.9 TH/MM3 Red Blood Count 4.16 MIL/MM3 Hemoglobin 11.3 GM/DL Hematocrit 35.7 % Mean Corpuscular Volume 85.7 FL Mean Corpuscular Hemoglobin 27.1 PG Mean Corpuscular Hemoglobin 31.6 % Concent Red Cell Distribution Width 17.7 % Platelet Count 326 TH/MM3 Mean Platelet Volume 6.8 FL Neutrophils (%) (Auto) 76.0 % Lymphocytes (%) (Auto) 11.8 % Monocytes (%) (Auto) 10.3 % Eosinophils (%) (Auto) 1.4 % Basophils (%) (Auto) 0.5 % Neutrophils # (Auto) 6.0 TH/MM3 Lymphocytes # (Auto) 0.9 TH/MM3 Monocytes # (Auto) 0.8 TH/MM3 Eosinophils # (Auto) 0.1 TH/MM3 Basophils # (Auto) 0.0 TH/MM3 CBC Comment DIFF FINAL Differential Comment Laboratory Tests Test 09/10/16 09/11/16 04:06 05:24 Sodium Level 134 MEQ/L 136 MEQ/L Potassium Level 4.6 MEQ/L 5.1 MEQ/L Chloride Level 98 MEQ/L 94 MEQ/L Carbon Dioxide Level 31.0 MEQ/L 32.5 MEQ/L Anion Gap 5 MEQ/L 10 MEQ/L Blood Urea Nitrogen 12 MG/DL 12 MG/DL Creatinine 0.37 MG/DL 0.34 MG/DL Estimat Glomerular Filtration 327 ML/MIN 360 ML/MIN Rate Random Glucose 111 MG/DL 110 MG/DL Serum Osmolality 281 MOSM/KG Calcium Level 9.0 MG/DL 9.2 MG/DL IMAGING: Chest X-Ray 09/08/16 0000 Signed Impressions: Service Date/Time: Friday, September 09, 2016 00:01 - CONCLUSION: 1. Ill- defined opacity projecting over the right upper lobe. Right upper lobe pneumonia versus overlying bandage/gauze.Please see above. 2. Mild bibasilar atelectasis. Joni Lay MD PHYSICAL EXAMINATION GENERAL: Has Hiccups. NECK: No adenopathy or swelling. LUNGS: Bilateral rhonchi. HEART: Regular rate and rhythm. Nl S1S2. ABDOMEN: Bowel sounds present, soft. EXTREMITIES: No clubbing or cyanosis or edema. NEUROLOGIC: Unable to fully assess. IMPRESSION 1. Fever. Persistent previous, now temp normal. ROAD MAKER Shunt related infection. Mycobacteria abscessus. Also had Staph Haemolyticus on in one sample. Sepsis indicated By decreased BP, increased HR. Decreased mentation. High fever. 2. Cellulitis suggested by CT scan of the abdomen and pelvis which reveals myositis and cellulitis in the posterior tissues of the buttock and hip. No erythema present. 3. Candiduria. Treated. 4. Abnormal CXR suggesting pneumonia. RECOMMENDATIONS 1. Add Amikacin. Pharmacy to assist with dosing. 2. Continue Imipenem. 3. Stop Ethambutol to cover rapid growing AFB in CSF. 4. Continue Biaxin to cover rapid growing AFB in CSF. 5. Stop Rifampin. 6. Repeat CSF to check for clearance today. This will need to be done every couple of days initially. Above antibiotic combination of antibiotics recommended but the infection may be difficult to clear since he need the external shunt.. However with the ROAD MAKER shunt having been removed there is better chance of clearance. Quique Mendez MD Sep 11, 2016 14:16
[2016-09-11] MEDS: SODIUM CHLORID 0.9% IV SCH (18:10)
[2016-09-11] MEDS: AMIKACIN IV SCH (18:10)
--- NOTE | 2016-09-11 20:29 | HHI.PR ---
Subjective Remarks 36 YOAA male with TBI, Ch RF On NC Looks around, does'T follow No fever Tolerates TF Objective Vital Signs Vital Signs Date Time Temp Pulse Resp B/P Pulse Ox O2 Delivery O2 Flow Rate FiO2 09/11/16 19:00 95 Nasal Cannula 3.00 50 09/11/16 18:00 82 09/11/16 16:00 98.8 82 14 118/68 96 09/11/16 16:00 82 09/11/16 14:00 88 09/11/16 12:00 87 09/11/16 12:00 98.6 85 18 131/65 97 09/11/16 10:00 92 09/11/16 08:30 97 Nasal Cannula 3.00 09/11/16 08:00 98.8 91 15 142/84 98 09/11/16 08:00 68 09/11/16 07:00 96 Nasal Cannula 3.00 09/11/16 06:00 88 09/11/16 04:00 98.7 80 16 133/82 97 09/11/16 04:00 80 09/11/16 02:00 88 09/11/16 00:00 98.8 82 12 132/73 97 09/11/16 00:00 88 I/O 09/10/16 09/10/16 09/10/16 09/11/16 09/11/16 09/11/16 07:00 15:00 23:00 07:00 15:00 23:00 Intake Total 1710 ml 1452 ml 1592 ml 1107 ml 1338 ml Output Total 2514 ml 2052 ml 1374 ml 1330 ml 870 ml Balance -804 ml -600 ml 218 ml -223 ml 468 ml Intake Oral 0 ml 0 ml 0 ml 0 ml IV Total 1073 ml 945 ml 1085 ml 712 ml 915 ml Tube Feeding 367 ml 457 ml 457 ml 345 ml 373 ml Tube Irrigant 50 ml 50 ml 50 ml 50 ml Other 270 ml Output Urine Total 2500 ml 2000 ml 1350 ml 1300 ml 850 ml Drainage Total 14 ml 52 ml 24 ml 30 ml 20 ml # Bowel Movements 0 0 0 0 1 Result Diagram: 09/11/1624 09/11/1624 Objective Remarks GENERAL: WBWN AA male, mild sob SKIN: Warm and dry. HEAD: Normocephalic. EYES: No scleral icterus. No injection or drainage. NECK: Supple, trachea midline. No JVD or lymphadenopathy. CARDIOVASCULAR: Regular rate and rhythm without murmurs, gallops, or rubs. RESPIRATORY: Breath sounds equal bilaterally. No accessory muscle use. GASTROINTESTINAL: Abdomen soft, non-tender, nondistended. PEG tube MUSCULOSKELETAL: No cyanosis, or edema. BACK: Nontender without obvious deformity. No CVA tenderness. A/P Assessment and Plan Resp insuff, improved Right Basal infilt Atelactesis TBI MRSA Pn treated PLAN: Cont 02 Supplement with NC Aerosol nebs Abx per ID Cont TF Han Hernandez MD Sep 11, 2016 20:29
[2016-09-11] MEDS: SILVER SULFADIAZINE 1% CR 50 GM JAR TOPICAL SCH (21:00)
[2016-09-12] VITALS (13 sets, daily range): BP systolic 132–151; BP diastolic 70–99; PULSE 90–105; RESP 10–22; TEMP 98.2–99.3; O2SAT 93–98
[2016-09-12] MEDS ORDERED: PHARMACY ORDERED LAB XX ONE (01:45)
[2016-09-12] MEDS: SODIUM CHLOR 0.9% 1000 ML INJ 1,000 ML IV SCH ×2 (04:00→19:50)
[2016-09-12] MEDS: IMIPENEM/CILASTATIN INJ 500 MG in SODIUM CHLORIDE 0.9% INJ 100 ML IV SCH ×5 (06:00→18:32)
[2016-09-12] MEDS: ATENOLOL 50 MG TAB PEG SCH ×2 (08:41→19:51)
[2016-09-12] MEDS: levETIRAcetam 500 MG/5 ML UDC TUBE SCH ×2 (08:41→19:51)
[2016-09-12] MEDS: HYOSCYAMINE 0.125 MG TAB JT SCH ×4 (08:41→19:51)
[2016-09-12] MEDS: hydrALAZINE HCL 50 MG TAB JT SCH ×3 (08:41→18:31)
[2016-09-12] MEDS: BACLOFEN 10 MG TAB PEG SCH ×2 (08:41→19:51)
[2016-09-12] MEDS: CLARITHROMYCIN 500 MG TAB PO SCH ×2 (08:41→19:51)
[2016-09-12] MEDS: DILTIAZEM HCL 60 MG TAB JT SCH ×4 (08:41→19:51)
[2016-09-12] MEDS: chlorproMAZINE HCL 25 MG TAB PO PRN ×2 (08:41→16:21)
[2016-09-12] MEDS: SODIUM CHLORIDE 0.9% FLUSH 5 ML FLUSH FLUSH SCH ×2 (08:41→19:51)
--- NOTE | 2016-09-12 13:01 | HHI.NSPN ---
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 He had a left ventriculoperitoneal shunt which was removed secondary to wound dehiscence and had a right ventriculoperitoneal shunt placed. He is a chronic senior care resident and has been febrile the last few days and presents MRI is room for workup for for this fever. He had a urethral stricture which was dilated in the emergency room by urology and urinalysis reveals urinary tract infection. He also has a decubitus ulcer. Blood cultures are pending. His neurologic examination is baseline and CT of the head obtained reveals ventriculomegaly compared to the scan from a month ago. The patient had programmable valve place with a lower setting of 50 mm water. Shuntogram obtained reveals ventricular catheter being patent but the peritoneal catheter was not evaluated because patient did not cooperate and the plan is to have this further evaluated once more cooperate with IV access per special procedures. CSF from a shunt tap that does not reveal any organisms on Gram stain. CT of the abdomen reveals a small fluid collection around the shunt catheter of unclear significance. 08/24/16: Pt at his clinical baseline. Eyes open. occasionally focuses on my face. At times rolling eye movements. Not following commands. Flexion contractures of UEs and Extension contractures of LEs. Pt having high fevers today. Tmax of 103 at 8am. 08/25/16: Pt with eyes open. Right sided gaze preference. Not following commands. Not verbalizing. Pt at baseline neurologically. Pt continues to have fevers, T Max 103.4 at 2am. 08/26/16: Pt with eyes open. Tracking more today to both sides. Not following commands which is his baseline. Fever spikes yesterday today T max 100.1. 08/28/16: Pt examined on 08/28/16 delayed note entry. Pt awake with rolling eye movements, erythematous sclera, grunting, and appears more restlessness. 08/29/16: Pt with eyes open and upward gaze with rolling eye movements. Not focusing on face or tacking. Less grunting. Resolving injected sclera. Less restlessness than yesterday. Shunt is externalized and connected to a drainage bag. 08/30/16: Pt with eyes open and upward gaze. He does appear to be less agitated today with no grunting. He also focused on my face briefly which he didn't do yesterday. Distal COLLARETTE SEPARATOR shunt catheter is connected to a drainage bag and draining well. 09/02/16: Pt with eyes open and upward gaze and some rolling eye movements. No grunting or snoring noted by me at bedside. Not focusing on face or tracking. Distal COLLARETTE SEPARATOR shunt catheter is connected to drainage bag. 09/03/16: Pt with eyes open and upward gaze. No tracking. Not focusing on my face or tracking. Distal COLLARETTE SEPARATOR shunt catheter connected to drainage bag. 09/04/16: Pt with eyes open upward gaze. Not tracking. Distal COLLARETTE SEPARATOR shunt catheter connected to drainage bag with clear CSF. Pt Neurologically at baseline. 09/10/16: Pt with eyes open and upward gaze. Not tracking. Ventriculostomy in place at 5cm H20 with clear gold tinged CSF. Not following commands. Neurological baseline. 09/11/16: Pt with eyes open and upward gaze. Not focusing on face or tracking. Ventriculostomy drain at 5cm with clear gold tinged CSF. Not following commands. 09/12/16: pt opens eyes to voice. Not focusing or tracking. Ventriculostomy drain at 5cmH20 not draining. System Review Comments Not able to obtain given clinical status. Exam Results Vital Signs Date Time Temp Pulse Resp B/P Pulse Ox O2 Delivery O2 Flow Rate FiO2 09/12/16 10:00 104 09/12/16 08:00 99.2 22 151/99 93 09/12/16 08:00 Nasal Cannula 4.00 09/11/16 19:00 50 Intake and Output 09/11/16 09/11/16 09/12/16 08:00 16:00 00:00 Intake Total 1107 ml 1338 ml 1487 ml Output Total 1330 ml 870 ml 1040 ml Balance -223 ml 468 ml 447 ml Physical Examination Resp: CTA bilaterally. Heart: NSR no murmurs Abd: Soft positive bs Skin: No cyanosis or erythema. SCDs remain in place. Muscle: flexion contractures UEs Extension contractures LEs. Neuro: Pt opens eyes to voice. Not tracking or focusing on my face. Not following commands. Ventriculostomy drain at 5cm H20 not draining this morning. Using Betadine swabs the CSF port for cleaned. The drain was clamped to the chamber. I tried to obtain a CSF sample with sterile syringe but was unable to aspirate any fluid. I flushed the ventriculostomy drain and the drain was reopened and was now draining CSF. Lab, Micro, Other Results 09/11/16 09/11/16 09/12/16 15:00 23:00 07:00 Intake Total 1338 ml 1487 ml 1147 ml Output Total 870 ml 1040 ml 1800 ml Balance 468 ml 447 ml -653 ml Intake Oral 0 ml IV Total 915 ml 1487 ml 738 ml Tube Feeding 373 ml 359 ml Tube Irrigant 50 ml 50 ml Output Urine Total 850 ml 1000 ml 1800 ml Drainage Total 20 ml 40 ml 0 ml # Bowel Movements 1 0 Medical Decision Making Impression and Plan A: 36 year-old gentleman with severe 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 This appears that he has compensatory ventriculomegaly since the shunt pressure setting is at low level and his neurologic examination is baseline. COLLARETTE SEPARATOR shunt infection growing AFB. P: Continue with antibiotics Continue with medical care. Continue with CSF drainage Will obtain repeat CSF for gram stain and culture. Juanjo Oquendo Sep 12, 2016 13:01
--- NOTE | 2016-09-12 13:37 | HHI.IDPN ---
Note Infectious Disease Note Patient with eyes open. No tracking. Baseline non verbal. Ventriculostomy noted to be clogging up. To have placement of the lumbar spinal drain. CSF clear in external ventric. Afebrile. Had removal of BANDER HAND shunt 09/05/16. AFB identified as Mycobacterium abscessus. CSF from 08/29 has AFB. Repeat CSF AFB smear 09/01,09/05 positive. PAST MEDICAL HISTORY 1. Traumatic brain injury in October 2014, BANDER HAND shunt placement, 2. Seizure disorder. 3. PEG placement 4. History of tracheostomy 5. History of MRSA wound infection from the scalp 6. Bacteremia due to MRSA 7. History of ESBL E-coli UTI. 8. Recent BANDER HAND shunt malfunction and culture positive with Pseudomonas treated with a round of antibiotic. ALLERGIES NO KNOWN DRUG ALLERGIES. ANTIBIOTICS: Imipenem. Amikacin. Biaxin 09/04/16. OBJECTIVE: Vital Signs Date Time Temp Pulse Resp B/P Pulse Ox O2 Delivery O2 Flow Rate FiO2 09/12/16 10:00 104 09/12/16 08:00 101 09/12/16 08:00 99.2 100 22 151/99 93 09/12/16 08:00 Nasal Cannula 4.00 09/12/16 06:00 98 09/12/16 04:00 98.2 96 16 151/89 93 09/12/16 04:00 96 09/12/16 02:00 90 09/12/16 00:00 98.5 98 18 136/78 94 09/12/16 00:00 98 09/11/16 22:00 92 09/11/16 20:55 94 Nasal Cannula 4.00 09/11/16 20:00 88 09/11/16 20:00 98.7 92 14 143/82 93 09/11/16 19:00 95 Nasal Cannula 3.00 50 09/11/16 18:00 82 09/11/16 16:00 98.8 82 14 118/68 96 09/11/16 16:00 82 09/11/16 14:00 88 09/11/16 09/11/16 09/12/16 15:00 23:00 07:00 Intake Total 1338 ml 1487 ml 1147 ml Output Total 870 ml 1040 ml 1800 ml Balance 468 ml 447 ml -653 ml Intake Oral 0 ml IV Total 915 ml 1487 ml 738 ml Tube Feeding 373 ml 359 ml Tube Irrigant 50 ml 50 ml Output Urine Total 850 ml 1000 ml 1800 ml Drainage Total 20 ml 40 ml 0 ml # Bowel Movements 1 0 Laboratory Tests Test 09/11/16 05:24 White Blood Count 7.9 TH/MM3 Red Blood Count 4.16 MIL/MM3 Hemoglobin 11.3 GM/DL Hematocrit 35.7 % Mean Corpuscular Volume 85.7 FL Mean Corpuscular Hemoglobin 27.1 PG Mean Corpuscular Hemoglobin 31.6 % Concent Red Cell Distribution Width 17.7 % Platelet Count 326 TH/MM3 Mean Platelet Volume 6.8 FL Neutrophils (%) (Auto) 76.0 % Lymphocytes (%) (Auto) 11.8 % Monocytes (%) (Auto) 10.3 % Eosinophils (%) (Auto) 1.4 % Basophils (%) (Auto) 0.5 % Neutrophils # (Auto) 6.0 TH/MM3 Lymphocytes # (Auto) 0.9 TH/MM3 Monocytes # (Auto) 0.8 TH/MM3 Eosinophils # (Auto) 0.1 TH/MM3 Basophils # (Auto) 0.0 TH/MM3 CBC Comment DIFF FINAL Differential Comment Laboratory Tests Test 09/11/16 05:24 Sodium Level 136 MEQ/L Potassium Level 5.1 MEQ/L Chloride Level 94 MEQ/L Carbon Dioxide Level 32.5 MEQ/L Anion Gap 10 MEQ/L Blood Urea Nitrogen 12 MG/DL Creatinine 0.34 MG/DL Estimat Glomerular Filtration 360 ML/MIN Rate Random Glucose 110 MG/DL Calcium Level 9.2 MG/DL IMAGING: Chest X-Ray 09/08/16 0000 Signed Impressions: Service Date/Time: Friday, September 09, 2016 00:01 - CONCLUSION: 1. Ill- defined opacity projecting over the right upper lobe. Right upper lobe pneumonia versus overlying bandage/gauze.Please see above. 2. Mild bibasilar atelectasis. Joni Lay MD PHYSICAL EXAMINATION GENERAL: Moaning sounds. NECK: No adenopathy or swelling. LUNGS: Bilateral rhonchi. HEART: Regular rate and rhythm. Nl S1S2. ABDOMEN: Bowel sounds present, soft. EXTREMITIES: No clubbing or cyanosis or edema. NEUROLOGIC: Unable to fully assess. IMPRESSION 1. Fever. Persistent previous, now temp normal. BANDER HAND Shunt related infection. Mycobacteria abscessus. Also had Staph Haemolyticus on in one sample. Sepsis indicated By decreased BP, increased HR. Decreased mentation. High fever. 2. Cellulitis suggested by CT scan of the abdomen and pelvis which reveals myositis and cellulitis in the posterior tissues of the buttock and hip. No erythema present. 3. Candiduria. Treated. 4. Abnormal CXR suggesting pneumonia. RECOMMENDATIONS 1. Continue Amikacin. Pharmacy dosing. 2. Continue Imipenem. 3. Continue Biaxin to cover rapid growing AFB in CSF. 4. Follow repeat CSF to check for clearance today. This will need to be done every couple of days initially. 5. Removal of ventriculostomy when lumbar drain is placed. Above combination of antibiotics recommended but the infection may be difficult to clear since he need the external CSF drain. However with the BANDER HAND shunt having been removed there is better chance of clearance. Quique Mendez MD Sep 12, 2016 13:37
[2016-09-12 15:45] LABS: APTT (PATIENT) 24.3 SEC (24.3-30.1); PROTHROMBIN TIME - PATIENT 10.7 SEC (9.8-11.6)
[2016-09-12] MEDS: SODIUM CHLORID 0.9% IV SCH (16:21)
[2016-09-12] MEDS: AMIKACIN IV SCH (16:21)
[2016-09-12] MEDS ORDERED: fentaNYL CITRATE 250 MCG/5 ML AMP ONE (16:34)
[2016-09-12] MEDS ORDERED: LORazepam 2 MG/ML VIAL ONE (16:34)
--- NOTE | 2016-09-12 17:37 | PD.RAD ---
Post Procedure Progress Note Pre Procedure Diagnosis: (1) Infection of WIRE CHARGER (ventriculoperitoneal) shunt Post Procedure Diagnosis: (1) Infection of WIRE CHARGER (ventriculoperitoneal) shunt Procedure Date: Sep 12, 2016 Supervising Radiologist: Jem Alexander Proceduralist/Assist: Ni Castillo, RT(R)(), Nuzhat Byrne RT(R)(CV) Anesthesia: Local Plan of Activity Patient to Unit: Critical Care Patient Condition: Poor See PACS Report for procedural detail/treatment Spinal Procedure Lumbar Drain L2-L3 (tip at t10) Fluid Description: Clear, Yellow Jem Alexander MD Sep 12, 2016 17:37
--- NOTE | 2016-09-12 18:43 | HHI.PR ---
Subjective Remarks 36 YOAA male with TBI, Ch RF On NC Looks around, does'T follow No fever Tolerates TF no new complaint Objective Vital Signs Vital Signs Date Time Temp Pulse Resp B/P Pulse Ox O2 Delivery O2 Flow Rate FiO2 09/12/16 16:00 100 09/12/16 16:00 99.3 100 18 134/77 97 09/12/16 14:00 102 09/12/16 12:00 99.3 98 19 132/72 98 09/12/16 12:00 98 09/12/16 10:00 104 09/12/16 08:00 101 09/12/16 08:00 99.2 100 22 151/99 93 09/12/16 08:00 Nasal Cannula 4.00 09/12/16 06:00 98 09/12/16 04:00 98.2 96 16 151/89 93 09/12/16 04:00 96 09/12/16 02:00 90 09/12/16 00:00 98.5 98 18 136/78 94 09/12/16 00:00 98 09/11/16 22:00 92 09/11/16 20:55 94 Nasal Cannula 4.00 09/11/16 20:00 88 09/11/16 20:00 98.7 92 14 143/82 93 09/11/16 19:00 95 Nasal Cannula 3.00 50 I/O 09/11/16 09/11/16 09/11/16 09/12/16 09/12/16 09/12/16 07:00 15:00 23:00 07:00 15:00 23:00 Intake Total 1107 ml 1338 ml 1487 ml 1147 ml 1535 ml Output Total 1330 ml 870 ml 1040 ml 1800 ml 800 ml Balance -223 ml 468 ml 447 ml -653 ml 735 ml Intake Oral 0 ml 0 ml IV Total 712 ml 915 ml 1487 ml 738 ml 905 ml Tube Feeding 345 ml 373 ml 359 ml 430 ml Tube Irrigant 50 ml 50 ml 50 ml 200 ml Output Urine Total 1300 ml 850 ml 1000 ml 1800 ml 800 ml Drainage Total 30 ml 20 ml 40 ml 0 ml 0 ml # Bowel Movements 0 1 0 0 Result Diagram: 09/11/1652309/11/1624 Objective Remarks GENERAL: WBWN AA male, mild sob SKIN: Warm and dry. HEAD: Normocephalic. EYES: No scleral icterus. No injection or drainage. NECK: Supple, trachea midline. No JVD or lymphadenopathy. CARDIOVASCULAR: Regular rate and rhythm without murmurs, gallops, or rubs. RESPIRATORY: Breath sounds equal bilaterally. No accessory muscle use. GASTROINTESTINAL: Abdomen soft, non-tender, nondistended. PEG tube MUSCULOSKELETAL: No cyanosis, or edema. BACK: Nontender without obvious deformity. No CVA tenderness. A/P Assessment and Plan Resp insuff, improved Right Basal infilt Atelactesis TBI MRSA Pn treated PLAN: Cont 02 Supplement with NC Aerosol nebs Abx per ID Cont TF Han Hernandez MD Sep 12, 2016 18:43
--- NOTE | 2016-09-12 19:08 | HHI.PR ---
Subjective Remarks sp lumbar drain placement No reports of diarrhea Patient slightly tachycardic No fevers or redness reported Objective Vitals Vital Signs Date Time Temp Pulse Resp B/P Pulse Ox O2 Delivery O2 Flow Rate FiO2 09/12/16 18:00 92 09/12/16 16:00 100 09/12/16 16:00 99.3 100 18 134/77 97 09/12/16 14:00 102 09/12/16 12:00 99.3 98 19 132/72 98 09/12/16 12:00 98 09/12/16 10:00 104 09/12/16 08:00 101 09/12/16 08:00 99.2 100 22 151/99 93 09/12/16 08:00 Nasal Cannula 4.00 09/12/16 06:00 98 09/12/16 04:00 98.2 96 16 151/89 93 09/12/16 04:00 96 09/12/16 02:00 90 09/12/16 00:00 98.5 98 18 136/78 94 09/12/16 00:00 98 09/11/16 22:00 92 09/11/16 20:55 94 Nasal Cannula 4.00 09/11/16 20:00 88 09/11/16 20:00 98.7 92 14 143/82 93 I/O 09/11/16 09/11/16 09/11/16 09/12/16 09/12/16 09/12/16 07:00 15:00 23:00 07:00 15:00 23:00 Intake Total 1107 ml 1338 ml 1487 ml 1147 ml 1535 ml Output Total 1330 ml 870 ml 1040 ml 1800 ml 800 ml Balance -223 ml 468 ml 447 ml -653 ml 735 ml Intake Oral 0 ml 0 ml IV Total 712 ml 915 ml 1487 ml 738 ml 905 ml Tube Feeding 345 ml 373 ml 359 ml 430 ml Tube Irrigant 50 ml 50 ml 50 ml 200 ml Output Urine Total 1300 ml 850 ml 1000 ml 1800 ml 800 ml Drainage Total 30 ml 20 ml 40 ml 0 ml 0 ml # Bowel Movements 0 1 0 0 Result Diagram: 09/11/16 0524 09/11/16 0524 Imaging Last Impressions Chest X-Ray 09/08/16 0000 Signed Impressions: Service Date/Time: Friday, September 09, 2016 00:01 - CONCLUSION: 1. Ill- defined opacity projecting over the right upper lobe. Right upper lobe pneumonia versus overlying bandage/gauze.Please see above. 2. Mild bibasilar atelectasis. Joni Lay MD Brain MRI 09/03/16 0600 Signed Impressions: Service Date/Time: Saturday, September 03, 2016 11:54 - CONCLUSION: 1. Marked increase in ventricular size and compare with the prior study but no transependymal fluid migration. Obstructing communicating hydrocephalus is not excluded. There is no evidence of abscess. Jem Alexander MD Shunt Study (Imaging) 08/23/16 1514 Signed Impressions: Service Date/Time: Tuesday, August 23, 2016 15:14 - CONCLUSION: PLASTIC PANEL INSTALLER shunt tap for spinal fluid sampling as above Joni Sharpe MD Abdomen/Pelvis CT 08/23/16 0816 Signed Impressions: Service Date/Time: Tuesday, August 23, 2016 08:44 - CONCLUSION: Abnormal scan with multiple findings as outlined above Joni Sharpe MD Shunt Study 08/23/16 0000 Signed Impressions: Service Date/Time: Tuesday, August 23, 2016 14:07 - CONCLUSION: Shunt tubing is patent into the ventricular system. The downstream portion of the shunt to the peritoneal cavity was not evaluated. Joni Sharpe MD Head CT 08/23/16 0000 Signed Impressions: Service Date/Time: Tuesday, August 23, 2016 11:57 - CONCLUSION: 1. Interval significant increase in the size of the ventricles compared to the previous examination suggesting worsening hydrocephalus. Clinical correlation is recommended. 2. No significant change in the extensive encephalomalacia ( right worse than left) within the cerebral hemispheres. 3. No acute hemorrhage, midline shift or extraaxial fluid collections. Donavan Vidales MD Objective Remarks GENERAL: This is a chronically ill AA patient, in no apparent distress. SKIN: Cool and dry. Sacral/buttocks pressure ulcers present on admission HEAD: Atraumatic. Normocephalic. No temporal or scalp tenderness. EYES: Pupils equal round and reactive. Extraocular motions intact. No scleral icterus. No injection or drainage. ENT: Nose without bleeding, purulent drainage or septal hematoma. Throat without erythema, tonsillar hypertrophy or exudate. Uvula midline. Airway patent. NECK: Trach in place CARDIOVASCULAR: Regular rate and rhythm without murmurs, gallops, or rubs. RESPIRATORY: Clear to auscultation. Breath sounds equal bilaterally. No wheezes , rales, or rhonchi. GASTROINTESTINAL: Abdomen soft, grimacing on palpation of abdomen, nondistended. No guarding. MUSCULOSKELETAL: Contractures of extremities. NEUROLOGICAL: Awake, eyes opened, doesn't track. Nonverbal, will occasionally look around the room. Mental status at baseline. 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 S/P Ventricular peritoneal shunt externalization by Dr Franky Carreno 09/05/16 S/P Removal of ventriculoperitoneal shunt; placement of right occipital ventriculostomy by Dr Franky Carreno 09/12/16 Status post lumbar drain placement by IR Medications and IVs Current Medications Medications (Trade) Dose Ordered Sig/Yinka Route Start Time Stop Time Status Last Admin (Tenormin) 50 mg BID PEG 08/23/16 21:00 09/12/16 08:41 (Lioresal) 10 mg BID PEG 08/23/16 21:00 09/12/16 08:41 (Cardizem) 60 mg QID JT 08/23/16 13:00 09/12/16 18:31 (Duragesic 50 Mcg Patch.72 Hr) 1 patch Q72H T-DERMAL 08/23/16 12:00 09/10/16 12:58 (Apresoline) 50 mg TID JT 08/23/16 13:00 09/12/16 18:31 (Levsin) 0.125 mg QID JT 08/23/16 13:00 09/12/16 18:32 (Keppra Liq) 1,000 mg Q12HR TUBE 08/23/16 21:00 09/12/16 08:41 (Percocet 5-325 Mg) 1 tab Q6H PRN J-TUBE 08/23/16 10:30 09/01/16 12:37 (Percocet 5-325 Mg) 1 tab Q8HR JT 08/23/16 14:00 09/11/16 22:53 (Silvadene 1% Cream (50 Gm)) 1 applic HS TOPICAL 08/23/16 21:00 09/09/16 01:41 Miscellaneous Information 1 1 Q3D TD 08/26/16 12:00 09/10/16 12:00 (NS 1000 ml Inj) 1,000 ml @ 100 mls/hr Q10H IV 08/23/16 14:00 09/12/16 04:00 (NS Flush) 2 ml UNSCH PRN FLUSH 08/23/16 14:00 (NS Flush) 2 ml BID FLUSH 08/23/16 21:00 09/11/16 22:54 (Tylenol) 650 mg Q4H PRN PO 08/23/16 14:00 08/27/16 13:00 (Zofran Inj) 4 mg Q6H PRN IVP 08/23/16 14:00 09/08/16 23:28 (Compazine Supp) 25 mg Q12H PRN KS 08/23/16 14:00 (Dulcolax Supp) 10 mg DAILY PRN KS 08/23/16 14:00 (Milk Of Magnesia Liq) 30 ml Q12H PRN PO 08/23/16 14:00 (Senokot) 17.2 mg Q12H PRN PO 08/23/16 14:00 09/07/16 18:03 (Restoril) 15 mg HS PRN PO 08/23/16 14:00 (Motrin Liq) 200 mg Q6H PRN PO 08/24/16 10:45 08/30/16 22:46 (Thorazine) 25 mg Q6H PRN PO 08/30/16 09:00 09/12/16 16:21 Labetalol HCl 10 mg 10 mg Q4H PRN IV PUSH 08/31/16 23:00 09/08/16 16:40 (Keppra 1000 Mg Inj) 100 ml @ 400 mls/hr Q12HR PRN IV 09/01/16 21:42 09/08/16 23:32 Clarithromycin 500 mg 500 mg Q12HR PO 09/04/16 14:00 09/12/16 08:41 (Primaxin Inj/NS Inj) 100 ml @ 200 mls/hr Q6H IV 09/08/16 12:00 09/12/16 18:32 Acetaminophen 650 mg 650 mg Q6H PRN G-TUBE 09/10/16 15:05 Pharmacy Profile Note 0 ml @ 0 mls/hr UNSCH OTHER 09/11/16 14:00 (Amikin Inj/NS 500 ml Inj) 505.2 ml @ 250 mls/hr Q24H IV 09/11/16 17:00 09/12/16 16:21 A/P Problem List: (1) Sepsis ICD Code: A41.9 Status: Resolved Plan: Sepsis in the present admission. ID consulted Blood cultures positive for Staphylococcus hominis on 1 set on 08/23/16 CSF with culture with AFB on 09/01, 09/04/, 09/05. 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 CT abdomen and pelvis as above. Patient's PLASTIC PANEL INSTALLER shunt tip terminating in the right upper quadrant along the lateral aspect of the right lobe of the liver with low density area concerning for shunt complication, fluid loculation, catheter infection with adjacent hepatic parenchymal edema. Patient underwent left PLASTIC PANEL INSTALLER shunt removal on 07/26/16 \ (2) Shunt malfunction ICD Code: T85.618A Status: Acute Plan: Neurosurgery consulted. PLASTIC PANEL INSTALLER shunt externalization on 08/28 by , Status post removal of PLASTIC PANEL INSTALLER shunt a ventriculostomy placement due to progressive hydrocephalus. Status post lumbar drain placement by interventional radiology on 09/12 (3) Hydrocephalus ICD Code: G91.9 Status: Acute Plan: My of the brain showed marked increase in mechanical size when compared to prior study but no transependymal fluid migration. Obstructive communicating hydrocephalus was not excluded. No evidence of abscess. As above. (4) Infection of PLASTIC PANEL INSTALLER (ventriculoperitoneal) shunt ICD Code: T85.730A Status: Acute Plan: Shelley with antibiotics as per ID. Patient currently on imipenem and clarithromycin. Repeat CSF cultures and Gram stain pending (5) Intractable hiccups ICD Code: R06.6 Status: Resolved Plan: Status post treatment with Thorazine as needed. Now resolved. (6) Malfunctioning jejunostomy tube ICD Code: K94.13 Status: Resolved Plan: J-tube functioning well at this time. Continue throat flushing. (7) Urethral stricture ICD Code: N35.9 Status: Acute Plan: Patient with urethral stricture on admission. Patient with multiple urethral stricture at the particular passage of Falcon catheter on admission. Urethral stricture was dilated at the bedside without difficulty by urology Dr. Paiz. I maintain the Falcon catheter to gravity drainage. As per Dr. Paz' s instructions the patient's Falcon catheter to be continued for a minimum of 2 weeks. Assessment and Plan Problem Qualifiers (1) Sepsis: Qualified Code: A41.9 - Sepsis, due to unspecified organism Rosendo Moore MD Sep 12, 2016 19:08 J/tube malfunctioning at times. Needs thorough flushing. Patient has persistent , recurrent malfunctioning of J tube. Will give IV meds if can't use J tube. J tube was flushed consistently and is working now. Patient with bulbar urethral stricture that precluded passage of a Falcon catheter on admission. Urethral stricture was dilated at the bedside without difficulty by urology Dr Finn. Maintain Falcon catheter to gravity drainage. Do not discontinue Falcon catheter for a minimum of 2 weeks time per urology Dr Paiz. Aphasia/PEG tube dependent Restart home PEG tube feedings 2 chester HN at 55 ml/hour with 250ml Q6H water flush Anemia chronic no active signs of bleeding recheck CBC in a.m. DVT prophylaxis SCDs patient has had recent PLASTIC PANEL INSTALLER shunt removal tip culture negative. Rosendo Moore MD Sep 12, 2016 19:08
[2016-09-12] MEDS: SILVER SULFADIAZINE 1% CR 50 GM JAR TOPICAL SCH (19:53)
[2016-09-12] MEDS: oxyCODONE/ACETAMINOPHEN 5 MG/325 MG TAB JT SCH (21:07)
[2016-09-13] VITALS (12 sets, daily range): BP systolic 132–154; BP diastolic 79–90; PULSE 75–98; RESP 14–23; TEMP 98–98.9; O2SAT 97–99
[2016-09-13] MEDS: IMIPENEM/CILASTATIN INJ 500 MG in SODIUM CHLORIDE 0.9% INJ 100 ML IV SCH ×4 (00:24→18:02)
[2016-09-13] MEDS: oxyCODONE/ACETAMINOPHEN 5 MG/325 MG TAB JT SCH ×3 (05:03→20:43)
[2016-09-13] MEDS: SODIUM CHLORIDE 0.9% FLUSH 5 ML FLUSH FLUSH SCH ×2 (09:00→20:44)
--- NOTE | 2016-09-13 09:03 | HHI.NSPN ---
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 He had a left ventriculoperitoneal shunt which was removed secondary to wound dehiscence and had a right ventriculoperitoneal shunt placed. He is a chronic [facility] resident and has been febrile the last few days and presents MRI is room for workup for for this fever. He had a urethral stricture which was dilated in the emergency room by urology and urinalysis reveals urinary tract infection. He also has a decubitus ulcer. Blood cultures are pending. His neurologic examination is baseline and CT of the head obtained reveals ventriculomegaly compared to the scan from a month ago. The patient had programmable valve place with a lower setting of 50 mm water. Shuntogram obtained reveals ventricular catheter being patent but the peritoneal catheter was not evaluated because patient did not cooperate and the plan is to have this further evaluated once more cooperate with IV access per special procedures. CSF from a shunt tap that does not reveal any organisms on Gram stain. CT of the abdomen reveals a small fluid collection around the shunt catheter of unclear significance. 08/24/16: Pt at his clinical baseline. Eyes open. occasionally focuses on my face. At times rolling eye movements. Not following commands. Flexion contractures of UEs and Extension contractures of LEs. Pt having high fevers today. Tmax of 103 at 8am. 08/25/16: Pt with eyes open. Right sided gaze preference. Not following commands. Not verbalizing. Pt at baseline neurologically. Pt continues to have fevers, T Max 103.4 at 2am. 08/26/16: Pt with eyes open. Tracking more today to both sides. Not following commands which is his baseline. Fever spikes yesterday today T max 100.1. 08/28/16: Pt examined on 08/28/16 delayed note entry. Pt awake with rolling eye movements, erythematous sclera, grunting, and appears more restlessness. 08/29/16: Pt with eyes open and upward gaze with rolling eye movements. Not focusing on face or tacking. Less grunting. Resolving injected sclera. Less restlessness than yesterday. Shunt is externalized and connected to a drainage bag. 08/30/16: Pt with eyes open and upward gaze. He does appear to be less agitated today with no grunting. He also focused on my face briefly which he didn't do yesterday. Distal AUTOMATION TESTER shunt catheter is connected to a drainage bag and draining well. 09/02/16: Pt with eyes open and upward gaze and some rolling eye movements. No grunting or snoring noted by me at bedside. Not focusing on face or tracking. Distal AUTOMATION TESTER shunt catheter is connected to drainage bag. 09/03/16: Pt with eyes open and upward gaze. No tracking. Not focusing on my face or tracking. Distal AUTOMATION TESTER shunt catheter connected to drainage bag. 09/04/16: Pt with eyes open upward gaze. Not tracking. Distal AUTOMATION TESTER shunt catheter connected to drainage bag with clear CSF. Pt Neurologically at baseline. 09/10/16: Pt with eyes open and upward gaze. Not tracking. Ventriculostomy in place at 5cm H20 with clear gold tinged CSF. Not following commands. Neurological baseline. 09/11/16: Pt with eyes open and upward gaze. Not focusing on face or tracking. Ventriculostomy drain at 5cm with clear gold tinged CSF. Not following commands. 09/12/16: pt opens eyes to voice. Not focusing or tracking. Ventriculostomy drain at 5cmH20 not draining. 09/13/16: Pt with eyes open. Occasionally focuses on face very briefly then has upward gaze and rolling eye movements. Lumbar spinal drain placed last afternoon. Ventriculostomy drain in place. System Review Comments Not able to obtain given clinical condition. Exam Results Vital Signs Date Time Temp Pulse Resp B/P Pulse Ox O2 Delivery O2 Flow Rate FiO2 09/13/16 07:00 97 Nasal Cannula 4.00 09/13/16 06:00 92 09/13/16 04:00 98.9 15 154/86 09/11/16 19:00 50 Intake and Output 09/12/16 09/12/16 09/13/16 08:00 16:00 00:00 Intake Total 1147 ml 1535 ml 936 ml Output Total 1800 ml 800 ml 1570 ml Balance -653 ml 735 ml -634 ml Physical Examination Resp: CTA bilaterally. Heart: NSR no murmurs Abd: Soft positive bs Skin: No cyanosis or erythema. SCDs remain in place. Muscle: flexion contractures UEs Extension contractures LEs. Neuro: Pt opens eyes to voice. Not tracking. Focused intermittently but very briefly on my face. Not following commands. Ventriculostomy drain at 5cm H20 not draining this morning. Lumbar spinal drain in place draining well. Lab, Micro, Other Results Laboratory Tests Test 09/12/16 09/13/16 14:28 03:56 Prothrombin Time 10.7 SEC Prothromb Time International 1.0 RATIO Ratio Activated Partial 24.3 SEC Thromboplast Time Creatinine 0.34 MG/DL Estimat Glomerular Filtration 360 ML/MIN Rate 09/12/16 09/12/16 09/13/16 15:00 23:00 07:00 Intake Total 1535 ml 936 ml 1683 ml Output Total 800 ml 1570 ml 2165 ml Balance 735 ml -634 ml -482 ml IV Total 905 ml 722 ml 964 ml Tube Feeding 430 ml 94 ml 479 ml Tube Irrigant 200 ml Other 120 ml 240 ml Output Urine Total 800 ml 1550 ml 2150 ml Drainage Total 0 ml 20 ml 15 ml # Bowel Movements 0 0 0 Medical Decision Making Impression and Plan A: 36 year-old gentleman with severe traumatic brain injury in a chronic vegetative state and a [facility] resident. This appears that he has compensatory ventriculomegaly since the shunt pressure setting is at low level and his neurologic examination is baseline. AUTOMATION TESTER shunt infection growing AFB. P: Continue with antibiotics Continue with medical care. Continue with CSF drainage via lumbar spinal drain. Repeat CSF for gram stain and culture pending Addendum: The ventriculostomy exit site was cleaned with Betadine solution. Lidocaine 1% with epi 1.5 cc was used at the ventriculostomy exit site for local anesthesia. The ventriculostomy drain was removed. Sterile technique was used. Emerald were placed. No CSF drainage was noted. Juanjo Oquendo Sep 13, 2016 09:03
[2016-09-13] MEDS: levETIRAcetam 500 MG/5 ML UDC TUBE SCH ×2 (09:32→20:46)
[2016-09-13] MEDS: SODIUM CHLOR 0.9% 1000 ML INJ 1,000 ML IV SCH ×3 (09:33→20:44)
[2016-09-13] MEDS: CLARITHROMYCIN 500 MG TAB PO SCH ×2 (09:33→20:45)
[2016-09-13] MEDS: ATENOLOL 50 MG TAB PEG SCH ×2 (09:33→20:46)
[2016-09-13] MEDS: hydrALAZINE HCL 50 MG TAB JT SCH ×3 (09:33→18:02)
[2016-09-13] MEDS: BACLOFEN 10 MG TAB PEG SCH ×2 (09:33→20:45)
[2016-09-13] MEDS: HYOSCYAMINE 0.125 MG TAB JT SCH ×4 (09:33→20:44)
[2016-09-13] MEDS: DILTIAZEM HCL 60 MG TAB JT SCH ×4 (09:33→20:44)
--- NOTE | 2016-09-13 11:01 | HHI.PR ---
Subjective Remarks The patient is nonverbal Abdomen reports that patient had 2 large watery bowel movements. One last night and one this exam. Stable vital signs Objective Vitals Vital Signs Date Time Temp Pulse Resp B/P Pulse Ox O2 Delivery O2 Flow Rate FiO2 09/13/16 07:00 97 Nasal Cannula 4.00 09/13/16 06:00 92 09/13/16 04:00 98 09/13/16 04:00 98.9 98 15 154/86 99 09/13/16 02:00 96 09/13/16 00:00 96 09/13/16 00:00 98.5 96 16 142/79 97 09/12/16 22:33 97 Nasal Cannula 5.00 09/12/16 22:00 90 09/12/16 20:00 98.5 105 10 137/70 98 09/12/16 20:00 98 Nasal Cannula 4.00 09/12/16 20:00 98 Nasal Cannula 4.00 09/12/16 20:00 97 09/12/16 18:00 92 09/12/16 16:00 100 09/12/16 16:00 99.3 100 18 134/77 97 09/12/16 14:00 102 09/12/16 12:00 99.3 98 19 132/72 98 09/12/16 12:00 98 I/O 09/12/16 09/12/16 09/12/16 09/13/16 09/13/16 09/13/16 07:00 15:00 23:00 07:00 15:00 23:00 Intake Total 1147 ml 1535 ml 936 ml 1683 ml Output Total 1800 ml 800 ml 1570 ml 2165 ml Balance -653 ml 735 ml -634 ml -482 ml IV Total 738 ml 905 ml 722 ml 964 ml Tube Feeding 359 ml 430 ml 94 ml 479 ml Tube Irrigant 50 ml 200 ml Other 120 ml 240 ml Output Urine Total 1800 ml 800 ml 1550 ml 2150 ml Drainage Total 0 ml 0 ml 20 ml 15 ml # Bowel Movements 0 0 0 0 Result Diagram: 09/11/16 0524 09/13/16 0356 Imaging Last Impressions Lumbar Puncture Fluoroscopy 09/12/16 0000 Signed Impressions: Service Date/Time: September 17:05 - CONCLUSION: Uncomplicated lumbar drain placement as above. Jem Alexander MD Chest X-Ray 09/08/16 0000 Signed Impressions: Service Date/Time: Friday, September 09, 2016 00:01 - CONCLUSION: 1. Ill- defined opacity projecting over the right upper lobe. Right upper lobe pneumonia versus overlying bandage/gauze.Please see above. 2. Mild bibasilar atelectasis. Joni Lay MD Brain MRI 09/03/16 0600 Signed Impressions: Service Date/Time: Saturday, September 03, 2016 11:54 - CONCLUSION: 1. Marked increase in ventricular size and compare with the prior study but no transependymal fluid migration. Obstructing communicating hydrocephalus is not excluded. There is no evidence of abscess. Jem Alexander MD Shunt Study (Imaging) 08/23/16 1514 Signed Impressions: Service Date/Time: Tuesday, August 23, 2016 15:14 - CONCLUSION: FAMILY CONSUMER SCIENCE [employer] TEACHER shunt tap for spinal fluid sampling as above Joni Sharpe MD Abdomen/Pelvis CT 08/23/16 0816 Signed Impressions: Service Date/Time: Tuesday, August 23, 2016 08:44 - CONCLUSION: Abnormal scan with multiple findings as outlined above Joni Sharpe MD Shunt Study 08/23/16 0000 Signed Impressions: Service Date/Time: Tuesday, August 23, 2016 14:07 - CONCLUSION: Shunt tubing is patent into the ventricular system. The downstream portion of the shunt to the peritoneal cavity was not evaluated. Joni Sharpe MD Head CT 08/23/16 0000 Signed Impressions: Service Date/Time: Tuesday, August 23, 2016 11:57 - CONCLUSION: 1. Interval significant increase in the size of the ventricles compared to the previous examination suggesting worsening hydrocephalus. Clinical correlation is recommended. 2. No significant change in the extensive encephalomalacia ( right worse than left) within the cerebral hemispheres. 3. No acute hemorrhage, midline shift or extraaxial fluid collections. Donavan Vidales MD Objective Remarks GENERAL: This is a chronically ill AA patient, in no apparent distress. SKIN: Cool and dry. Sacral/buttocks pressure ulcers present on admission HEAD: Atraumatic. Normocephalic. No temporal or scalp tenderness. EYES: Pupils equal round and reactive. Extraocular motions intact. No scleral icterus. No injection or drainage. ENT: Nose without bleeding, purulent drainage or septal hematoma. Throat without erythema, tonsillar hypertrophy or exudate. Uvula midline. Airway patent. NECK: Trach in place CARDIOVASCULAR: Regular rate and rhythm without murmurs, gallops, or rubs. RESPIRATORY: Clear to auscultation. Breath sounds equal bilaterally. No wheezes , rales, or rhonchi. GASTROINTESTINAL: Abdomen soft, bowel sounds hyperactive, nontender, nondistended. MUSCULOSKELETAL: Contractures of extremities. NEUROLOGICAL: Awake, eyes opened, doesn't track. Nonverbal, will occasionally look around the room. Mental status at baseline. 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 S/P Ventricular peritoneal shunt externalization by Dr Franky Carreno 09/05/16 S/P Removal of ventriculoperitoneal shunt; placement of right occipital ventriculostomy by Dr Franky Carreno 09/12/16 Status post lumbar drain placement by IR Medications and IVs Current Medications Medications (Trade) Dose Ordered Sig/Yinka Route Start Time Stop Time Status Last Admin (Tenormin) 50 mg BID PEG 08/23/16 21:00 09/13/16 09:33 (Lioresal) 10 mg BID PEG 08/23/16 21:00 09/13/16 09:33 (Cardizem) 60 mg QID JT 08/23/16 13:00 09/13/16 18:02 (Duragesic 50 Mcg Patch.72 Hr) 1 patch Q72H T-DERMAL 08/23/16 12:00 09/13/16 12:53 (Apresoline) 50 mg TID JT 08/23/16 13:00 09/13/16 18:02 (Levsin) 0.125 mg QID JT 08/23/16 13:00 09/13/16 18:02 (Keppra Liq) 1,000 mg Q12HR TUBE 08/23/16 21:00 09/13/16 09:32 (Percocet 5-325 Mg) 1 tab Q6H PRN J-TUBE 08/23/16 10:30 09/01/16 12:37 (Percocet 5-325 Mg) 1 tab Q8HR JT 08/23/16 14:00 09/13/16 12:56 (Silvadene 1% Cream (50 Gm)) 1 applic HS TOPICAL 08/23/16 21:00 09/12/16 19:53 Miscellaneous Information 1 1 Q3D TD 08/26/16 12:00 09/13/16 12:00 (NS 1000 ml Inj) 1,000 ml @ 100 mls/hr Q10H IV 08/23/16 14:00 09/13/16 09:33 (NS Flush) 2 ml UNSCH PRN FLUSH 08/23/16 14:00 (NS Flush) 2 ml BID FLUSH 08/23/16 21:00 09/12/16 19:51 (Tylenol) 650 mg Q4H PRN PO 08/23/16 14:00 08/27/16 13:00 (Zofran Inj) 4 mg Q6H PRN IVP 08/23/16 14:00 09/08/16 23:28 (Compazine Supp) 25 mg Q12H PRN MT 08/23/16 14:00 (Dulcolax Supp) 10 mg DAILY PRN MT 08/23/16 14:00 (Milk Of Magnesia Liq) 30 ml Q12H PRN PO 08/23/16 14:00 (Senokot) 17.2 mg Q12H PRN PO 08/23/16 14:00 09/07/16 18:03 (Restoril) 15 mg HS PRN PO 08/23/16 14:00 (Motrin Liq) 200 mg Q6H PRN PO 08/24/16 10:45 08/30/16 22:46 (Thorazine) 25 mg Q6H PRN PO 08/30/16 09:00 09/13/16 18:46 Labetalol HCl 10 mg 10 mg Q4H PRN IV PUSH 08/31/16 23:00 09/08/16 16:40 (Keppra 1000 Mg Inj) 100 ml @ 400 mls/hr Q12HR PRN IV 09/01/16 21:42 09/08/16 23:32 Clarithromycin 500 mg 500 mg Q12HR PO 09/04/16 14:00 09/13/16 09:33 (Primaxin Inj/NS Inj) 100 ml @ 200 mls/hr Q6H IV 09/08/16 12:00 09/13/16 18:02 Acetaminophen 650 mg 650 mg Q6H PRN G-TUBE 09/10/16 15:05 Pharmacy Profile Note 0 ml @ 0 mls/hr UNSCH OTHER 09/11/16 14:00 (Amikin Inj/NS 500 ml Inj) 505.2 ml @ 250 mls/hr Q24H IV 09/11/16 17:00 09/13/16 15:56 Miscellaneous Information SPECIFIC LAB TO BE DRAWN:AMIKACIN TROUGH DATE TO... ONCE ONCE XX 09/14/16 16:00 09/14/16 16:01 Urinary Catheter: No A/P Problem List: (1) Sepsis ICD Code: A41.9 Status: Resolved Plan: Sepsis in the present admission. ID consulted Blood cultures positive for Staphylococcus hominis on 1 set on 08/23/16 CSF with culture with AFB on 09/01, 09/04/, 09/05. 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 CT abdomen and pelvis as above. Patient's FAMILY CON[employer]ER SCI[employer] TE[employer]ER shunt tip terminating in the right upper quadrant along the lateral aspect of the right lobe of the liver with low density area concerning for shunt complication, fluid loculation, catheter infection with adjacent hepatic parenchymal edema. Patient underwent left FAMILY CONSUMER SCI[employer] TEACHER shunt removal on 07/26/16 (2) Shunt malfunction ICD Code: T85.618A Status: Acute Plan: Neurosurgery consulted. FAMILY CONSUMER SCI[employer] TE[employer]ER shunt externalization on 08/28 by , Status post removal of FAMILY CONSUMER SCI[employer] TE[employer]ER shunt a ventriculostomy placement due to progressive hydrocephalus. Status post lumbar drain placement by interventional radiology on 09/12 Follow-up neurosurgery recommendations (3) Hydrocephalus ICD Code: G91.9 Status: Acute Plan: MRI of the brain showed marked increase in mechanical size when compared to prior study but no transependymal fluid migration. Obstructive communicating hydrocephalus was not excluded. No evidence of abscess. As above. (4) Infection of FAMILY CONSUMER SCIENCE FCS TEACHER (ventriculoperitoneal) shunt ICD Code: T85.730A Status: Acute Plan: Continue with antibiotics as per ID. Patient currently on imipenem and clarithromycin. Repeat CSF shunt fluid culture on 09/12/16, negative. Acid-fast pain, and mycobacterial culture pending. (5) Intractable hiccups ICD Code: R06.6 Status: Resolved Plan: Status post treatment with Thorazine as needed. Now resolved. (6) Malfunctioning jejunostomy tube ICD Code: K94.13 Status: Resolved Plan: J-tube functioning well at this time. Continue throat flushing. (7) Urethral stricture ICD Code: N35.9 Status: Acute Plan: Patient with urethral stricture on admission. Patient with multiple urethral stricture at the particular passage of Falcon catheter on admission. Urethral stricture was dilated at the bedside without difficulty by urology Dr. Paiz. I maintain the Falcon catheter to gravity drainage. As per Dr. Paz' s instructions the patient's Falcon catheter to be continued for a minimum of 2 weeks. (8) Diarrhea ICD Code: R19.7 Status: Acute Plan: Check stool for C. difficile. Assessment and Plan Problem Qualifiers (1) Sepsis: Qualified Code: A41.9 - Sepsis, due to unspecified organism (2) Infection of FAMILY CONSUMER SCIENCE [employer]CS TEACHER (ventriculoperitoneal) shunt: Qualified Code: T85.730D - Infection of FAMILY CONSUMER SCIENCE [employer]CS TEACHER (ventriculoperitoneal) shunt, subsequent encounter Rosendo Moore MD Sep 13, 2016 11:01
--- NOTE | 2016-09-13 11:12 | RADRPT ---
EXAM DATE/TIME: 09/12/2016 17:05 [facility] COMPARISON: LUMBAR DRAINAGE, June 21, 2016, 16:11. INDICATIONS : Ventriculostomy clogged MEDICAL HISTORY : !. TBI 2. seizure disorder 3. Decubitis ulcer 4. UTI 's SURGIAL HISTORY : 1. Trach 2. FOUNTAIN WAITRESS/WAITER shunt and multible malfuctions and infections 3. PEG ENCOUNTER: Initial ACUITY: 1 month PAIN SCORE: Non-responsive LUMBAR PUNCTURE TIME: 1724 hours FLUORO TIME: 3.8 minutes SEDATION TIME: 30 minutes LEVEL: Tip of lumbar drain was placed at T10 MEDICATION(S): 1.) 2 mg lorazepam (Ativan) IV 2.) 100 mcg fentanyl (Sublimaze) IV DEVICE(S): 1.) 5 Kinyarwanda lumbar drain catheter PROCEDURE : 1. Fluoroscopically guided lumbar drain placement. 2. Conscious sedation with continuous EKG and oximetry monitoring. The risks, benefits and alternatives to the procedure were explained and verbal and written consent w as obtained. The site was prepped in sterile fashion. Full sterile technique was used, including ca p, mask, sterile gloves and gown and a large sterile sheet. Hand hygiene and 2% chlorhexidine and/or betadine/alcohol prep was utilized per protocol for cutaneous antisepsis. The skin and subcutaneous tissues were infiltrated with local anesthetic solution. With fluoroscopic guidance the lumbar thecal sac was punctured with a 14 gauge Touhy needle and a lum bar drain was placed with its tip at the level as described above and the catheter was sutured in clyde ce. CSF was identified returning from the catheter at the termination of the procedure. Conscious sedation was performed with the prescribed dosages and duration as above. The patient tole rated the procedure well and there were no complications. EKG and oximetry remained stable throughou t the procedure. The patient was sent to post anesthesia recovery in stable condition. CONCLUSION: Uncomplicated lumbar drain placement as above. Jem Alexander MD on September 13, 2016 at 11:11 Board Certified Radiologist. This report was verified electronically.
[2016-09-13] MEDS ORDERED: LIDOCAINE 1%/EPINEPHrine 1:100,000 SOLN 30 ML VIAL INFIL ONE (11:15)
[2016-09-13] MEDS: REMOVE OLD PATCH TD SCH (12:00)
[2016-09-13] MEDS: fentaNYL 50 MCG/HR PATCH T-DERMAL SCH (12:53)
--- NOTE | 2016-09-13 13:03 | HHI.IDPN ---
Note Infectious Disease Note Patient with eyes open. Difficult to tell if any distress. No tracking. Having Hiccups again. Baseline non verbal. Afebrile. Has new lumbar spinal drain placed on 09/12/16. CSF looks clear. CSF from 08/29 has AFB. Repeat CSF AFB smear 09/01,09/05 positive. AFB identified as Mycobacterium abscessus. Had removal of NETWORK [employer]PERATIONS C[employer] TECHNICIAN shunt 09/05/16. External drain placed and then removed 09/12/16. PAST MEDICAL HISTORY 1. Traumatic brain injury in October 2014, NETWORK OPERATIONS C[employer] TECHNICIAN shunt placement, 2. Seizure disorder. 3. PEG placement 4. History of tracheostomy 5. History of MRSA wound infection from the scalp 6. Bacteremia due to MRSA 7. History of ESBL E-coli UTI. 8. Recent NETWORK [employer]PER[employer] C[employer] TECHNICIAN shunt malfunction and culture positive with Pseudomonas treated with a round of antibiotic. ALLERGIES NO KNOWN DRUG ALLERGIES. ANTIBIOTICS: Imipenem. Amikacin. Biaxin 09/04/16. OBJECTIVE: Vital Signs Date Time Temp Pulse Resp B/P Pulse Ox O2 Delivery O2 Flow Rate FiO2 09/13/16 10:00 85 09/13/16 08:00 96 09/13/16 08:00 98.6 92 18 142/89 98 09/13/16 07:00 97 Nasal Cannula 4.00 09/13/16 06:00 92 09/13/16 04:00 98 09/13/16 04:00 98.9 98 15 154/86 99 09/13/16 02:00 96 09/13/16 00:00 96 09/13/16 00:00 98.5 96 16 142/79 97 09/12/16 22:33 97 Nasal Cannula 5.00 09/12/16 22:00 90 09/12/16 20:00 98.5 105 10 137/70 98 09/12/16 20:00 98 Nasal Cannula 4.00 09/12/16 20:00 98 Nasal Cannula 4.00 09/12/16 20:00 97 09/12/16 18:00 92 09/12/16 16:00 100 09/12/16 16:00 99.3 100 18 134/77 97 09/12/16 14:00 102 09/12/16 09/12/16 09/13/16 15:00 23:00 07:00 Intake Total 1535 ml 936 ml 1683 ml Output Total 800 ml 1570 ml 2165 ml Balance 735 ml -634 ml -482 ml IV Total 905 ml 722 ml 964 ml Tube Feeding 430 ml 94 ml 479 ml Tube Irrigant 200 ml Other 120 ml 240 ml Output Urine Total 800 ml 1550 ml 2150 ml Drainage Total 0 ml 20 ml 15 ml # Bowel Movements 0 0 0 Laboratory Tests Test 09/13/16 03:56 Creatinine 0.34 MG/DL Estimat Glomerular Filtration 360 ML/MIN Rate Microbiology Date/Time Procedure Status Source Growth 09/12/16 13:33 Gram Stain - Final Resulted Cerebral Spinal Fluid Shunt Fluid 09/12/16 13:33 CSF Culture - Preliminary Resulted Cerebral Spinal Fluid Shunt Fluid NO GROWTH IN 24 HOURS. IMAGING: Chest X-Ray 09/08/16 0000 Signed Impressions: Service Date/Time: Friday, September 09, 2016 00:01 - CONCLUSION: 1. Ill- defined opacity projecting over the right upper lobe. Right upper lobe pneumonia versus overlying bandage/gauze.Please see above. 2. Mild bibasilar atelectasis. Joni Lay MD PHYSICAL EXAMINATION GENERAL: Non verbal. Not moaning. NECK: No adenopathy or swelling. LUNGS: Bilateral rhonchi. HEART: Regular rate and rhythm. Nl S1S2. ABDOMEN: Bowel sounds present, soft. No tenderness appreciated. EXTREMITIES: No clubbing or cyanosis or edema. NEUROLOGIC: Unable to fully assess. IMPRESSION 1. Fever. Persistent previous, now temp normal. NET[employer] TECHNICIAN Shunt related infection. Mycobacteria abscessus. Also had Staph Haemolyticus on in one sample. Sepsis indicated By decreased BP, increased HR. Decreased mentation. High fever. Temperature improved. 2. Cellulitis suggested by CT scan of the abdomen and pelvis which reveals myositis and cellulitis in the posterior tissues of the buttock and hip. No erythema present. Recieved course of Vancomycin. 3. Candiduria. Treated. 4. Abnormal CXR - pneumonia. Improved. RECOMMENDATIONS 1. Continue Amikacin. Pharmacy dosing. 2. Continue Imipenem. 3. Continue Biaxin. 4. Follow repeat CSF to check for clearance. D/W RN. Quique Mendez MD Sep 13, 2016 13:03
[2016-09-13] MEDS: chlorproMAZINE HCL 25 MG TAB PO PRN ×2 (13:20→18:46)
[2016-09-13] MEDS: SODIUM CHLORID 0.9% IV SCH (15:56)
[2016-09-13] MEDS: AMIKACIN IV SCH (15:56)
[2016-09-13 19:18] LABS: C. DIFF EPI 027 PRESUMPTIVE NEGATIVE (NEGATIVE)
[2016-09-13 19:25] LABS: C. DIFF TOXIN PCR POSITIVE (NEGATIVE)
--- NOTE | 2016-09-13 20:31 | HHI.PR ---
Subjective Remarks 36 YOAA male with TBI, Ch RF On NC Looks around, does'T follow No fever Tolerates TF Objective Vital Signs Vital Signs Date Time Temp Pulse Resp B/P Pulse Ox O2 Delivery O2 Flow Rate FiO2 09/13/16 19:00 96 Nasal Cannula 4.00 09/13/16 18:00 89 09/13/16 16:00 98.0 90 19 132/89 98 09/13/16 16:00 87 09/13/16 14:00 94 09/13/16 12:00 88 09/13/16 12:00 98.3 86 14 137/90 97 09/13/16 10:00 85 09/13/16 08:00 96 09/13/16 08:00 98.6 92 18 142/89 98 09/13/16 07:00 97 Nasal Cannula 4.00 09/13/16 06:00 92 09/13/16 04:00 98 09/13/16 04:00 98.9 98 15 154/86 99 09/13/16 02:00 96 09/13/16 00:00 96 09/13/16 00:00 98.5 96 16 142/79 97 09/12/16 22:33 97 Nasal Cannula 5.00 09/12/16 22:00 90 I/O 09/12/16 09/12/16 09/12/16 09/13/16 09/13/16 09/13/16 07:00 15:00 23:00 07:00 15:00 23:00 Intake Total 1147 ml 1535 ml 936 ml 1683 ml 1681 ml Output Total 1800 ml 800 ml 1570 ml 2165 ml 665 ml Balance -653 ml 735 ml -634 ml -482 ml 1016 ml IV Total 738 ml 905 ml 722 ml 964 ml 1008 ml Tube Feeding 359 ml 430 ml 94 ml 479 ml 423 ml Tube Irrigant 50 ml 200 ml Other 120 ml 240 ml 250 ml Output Urine Total 1800 ml 800 ml 1550 ml 2150 ml 650 ml Drainage Total 0 ml 0 ml 20 ml 15 ml 15 ml # Bowel Movements 0 0 0 0 1 Result Diagram: 09/11/16 0524 09/13/16 0356 Objective Remarks GENERAL: WBWN AA male, mild sob SKIN: Warm and dry. HEAD: Normocephalic. EYES: No scleral icterus. No injection or drainage. NECK: Supple, trachea midline. No JVD or lymphadenopathy. CARDIOVASCULAR: Regular rate and rhythm without murmurs, gallops, or rubs. RESPIRATORY: Breath sounds equal bilaterally. No accessory muscle use. GASTROINTESTINAL: Abdomen soft, non-tender, nondistended. PEG tube MUSCULOSKELETAL: No cyanosis, or edema. BACK: Nontender without obvious deformity. No CVA tenderness. A/P Assessment and Plan Resp insuff, improved Right Basal infilt Atelactesis TBI MRSA Pn treated PLAN: Cont 02 Supplement with NC Aerosol nebs Abx per ID Cont TF Han Hernandez MD Sep 13, 2016 20:31
[2016-09-13] MEDS: SILVER SULFADIAZINE 1% CR 50 GM JAR TOPICAL SCH (20:45)
[2016-09-13] MEDS: metroNIDAZOLE 500 MG TAB PEG SCH (20:46)
[2016-09-14] VITALS (14 sets, daily range): BP systolic 139–165; BP diastolic 86–96; PULSE 68–86; RESP 9–19; TEMP 97.5–98.3; O2SAT 91–100
[2016-09-14] MEDS: IMIPENEM/CILASTATIN INJ 500 MG in SODIUM CHLORIDE 0.9% INJ 100 ML IV SCH ×4 (00:49→17:26)
[2016-09-14] MEDS: chlorproMAZINE HCL 25 MG TAB PO PRN (00:50)
[2016-09-14 06:01] LABS: ALT (GPT) 33 U/L (12-78); ANION GAP 5 MEQ/L (5-15); AST (GOT) 17 U/L (15-37); BICARBONATE 31.6 MEQ/L (21.0-32.0); BLOOD UREA NITROGEN 10 MG/DL (7-18); CHLORIDE 92 MEQ/L (98-107); GLOMERULAR FILTRATION RATE 386 ML/MIN (>89); MAGNESIUM 1.8 MG/DL (1.5-2.5); SODIUM (NA) 129 MEQ/L (136-145)
[2016-09-14 06:04] LABS: ALKALINE PHOSPHATASE 134 U/L (45-117); TOTAL BILIRUBIN ADULT 0.2 MG/DL (0.2-1.0)
[2016-09-14] MEDS: oxyCODONE/ACETAMINOPHEN 5 MG/325 MG TAB JT SCH ×3 (06:36→21:23)
[2016-09-14] MEDS: metroNIDAZOLE 500 MG TAB PEG SCH ×3 (06:37→21:24)
[2016-09-14] MEDS: SODIUM CHLOR 0.9% 1000 ML INJ 1,000 ML IV SCH ×2 (06:37→17:16)
[2016-09-14 08:20] LABS: AUTOMATED NEUTROPHIL # 3.4 TH/MM3 (1.8-7.7); BASOPHIL % 0.6 % (0.0-2.0); EOSINOPHIL # 0.2 TH/MM3 (0-0.4); EOSINOPHIL % 2.8 % (0.0-4.0); HEMATOCRIT 32.4 % (39.0-51.0); HEMO FLAGS DIFF FINAL; LYMPH % 27.7 % (9.0-44.0); LYMPHOCYTE # 1.9 TH/MM3 (1.0-4.8); MEAN CELL VOLUME 84.9 FL (80.0-100.0); MEAN CORPUSCULAR HEMOGLOBIN 27.5 PG (27.0-34.0); MEAN CORPUSCULAR HGB CONC 32.3 % (32.0-36.0); NEUT % 49.9 % (16.0-70.0); PLATELET COUNT 231 TH/MM3 (150-450); RED BLOOD COUNT 3.82 MIL/MM3 (4.50-5.90); RED CELL DISTRIBUTION WIDTH 17.6 % (11.6-17.2); WHITE BLOOD COUNT 6.8 TH/MM3 (4.0-11.0)
[2016-09-14] MEDS: hydrALAZINE HCL 50 MG TAB JT SCH ×3 (09:00→17:26)
[2016-09-14] MEDS: HYOSCYAMINE 0.125 MG TAB JT SCH ×4 (09:00→21:21)
[2016-09-14] MEDS: DILTIAZEM HCL 60 MG TAB JT SCH ×4 (09:00→21:21)
[2016-09-14] MEDS: CLARITHROMYCIN 500 MG TAB PO SCH ×2 (09:00→21:22)
[2016-09-14] MEDS: ATENOLOL 50 MG TAB PEG SCH ×2 (09:00→21:22)
[2016-09-14] MEDS: BACLOFEN 10 MG TAB PEG SCH ×2 (09:00→21:22)
[2016-09-14] MEDS: levETIRAcetam 500 MG/5 ML UDC TUBE SCH ×2 (09:00→21:23)
[2016-09-14] MEDS: SODIUM CHLORIDE 0.9% FLUSH 5 ML FLUSH FLUSH SCH ×2 (09:00→21:00)
[2016-09-14] MEDS ORDERED: [UNRECOGNIZED DRUG - REMARK] XX ONE (16:00)
--- NOTE | 2016-09-14 17:57 | HHI.PR ---
Subjective Remarks 36 YOAA male with TBI, Ch RF On NC Looks around, does'T follow No fever Tolerates TF No new complaint Objective Vital Signs Vital Signs Date Time Temp Pulse Resp B/P Pulse Ox O2 Delivery O2 Flow Rate FiO2 09/14/16 16:00 98.3 76 11 143/90 91 09/14/16 16:00 76 09/14/16 14:00 86 09/14/16 12:00 82 09/14/16 12:00 98.0 82 9 147/96 100 09/14/16 10:00 80 09/14/16 08:00 82 09/14/16 08:00 97.9 82 13 142/92 100 09/14/16 07:00 96 Nasal Cannula 4.00 09/14/16 06:00 79 09/14/16 04:00 76 09/14/16 04:00 97.6 76 19 139/86 100 09/14/16 02:41 99 Nasal Cannula 3.00 09/14/16 02:00 83 09/14/16 00:00 97.5 76 14 142/89 96 09/14/16 00:00 80 09/13/16 22:00 75 09/13/16 21:43 17 09/13/16 20:00 98.2 85 23 137/86 97 09/13/16 20:00 85 09/13/16 19:00 96 Nasal Cannula 4.00 09/13/16 18:00 89 I/O 09/13/16 09/13/16 09/13/16 09/14/16 09/14/16 09/14/16 07:00 15:00 23:00 07:00 15:00 23:00 Intake Total 1683 ml 1681 ml 1735 ml 1310 ml 1471 ml Output Total 2165 ml 665 ml 1315 ml 560 ml 1505 ml Balance -482 ml 1016 ml 420 ml 750 ml -34 ml Intake Oral 0 ml 0 ml 0 ml IV Total 964 ml 1008 ml 1300 ml 850 ml 906 ml Tube Feeding 479 ml 423 ml 375 ml 400 ml 445 ml Tube Irrigant 120 ml Other 240 ml 250 ml 60 ml 60 ml Output Urine Total 2150 ml 650 ml 1300 ml 550 ml 1500 ml Stool Total 0 ml 0 ml 1 ml Drainage Total 15 ml 15 ml 15 ml 10 ml 4 ml # Voids 50 # Bowel Movements 0 1 Result Diagram: 09/14/16 0806 09/14/16 0525 Objective Remarks GENERAL: WBWN AA male, mild sob SKIN: Warm and dry. HEAD: Normocephalic. EYES: No scleral icterus. No injection or drainage. NECK: Supple, trachea midline. No JVD or lymphadenopathy. CARDIOVASCULAR: Regular rate and rhythm without murmurs, gallops, or rubs. RESPIRATORY: Breath sounds equal bilaterally. No accessory muscle use. GASTROINTESTINAL: Abdomen soft, non-tender, nondistended. PEG tube MUSCULOSKELETAL: No cyanosis, or edema. BACK: Nontender without obvious deformity. No CVA tenderness. A/P Assessment and Plan Resp insuff, improved Right Basal infilt Atelactesis TBI MRSA Pn treated PLAN: Cont 02 Supplement with NC Aerosol nebs Abx per ID Cont TF Han Hernandez MD Sep 14, 2016 17:57
--- NOTE | 2016-09-14 18:08 | HHI.PR ---
Subjective Remarks sodium trending down non verbal stable vital signs no fevers/chills reported As per RN diarrhea seem to be worsening patient seems to be grunting more often Objective Vitals Vital Signs Date Time Temp Pulse Resp B/P Pulse Ox O2 Delivery O2 Flow Rate FiO2 09/14/16 16:00 98.3 76 11 143/90 91 09/14/16 16:00 76 09/14/16 14:00 86 09/14/16 12:00 82 09/14/16 12:00 98.0 82 9 147/96 100 09/14/16 10:00 80 09/14/16 08:00 82 09/14/16 08:00 97.9 82 13 142/92 100 09/14/16 07:00 96 Nasal Cannula 4.00 09/14/16 06:00 79 09/14/16 04:00 76 09/14/16 04:00 97.6 76 19 139/86 100 09/14/16 02:41 99 Nasal Cannula 3.00 09/14/16 02:00 83 09/14/16 00:00 97.5 76 14 142/89 96 09/14/16 00:00 80 09/13/16 22:00 75 09/13/16 21:43 17 09/13/16 20:00 98.2 85 23 137/86 97 09/13/16 20:00 85 09/13/16 19:00 96 Nasal Cannula 4.00 09/13/16 18:00 89 I/O 09/13/16 09/13/16 09/13/16 09/14/16 09/14/16 09/14/16 07:00 15:00 23:00 07:00 15:00 23:00 Intake Total 1683 ml 1681 ml 1735 ml 1310 ml 1471 ml Output Total 2165 ml 665 ml 1315 ml 560 ml 1505 ml Balance -482 ml 1016 ml 420 ml 750 ml -34 ml Intake Oral 0 ml 0 ml 0 ml IV Total 964 ml 1008 ml 1300 ml 850 ml 906 ml Tube Feeding 479 ml 423 ml 375 ml 400 ml 445 ml Tube Irrigant 120 ml Other 240 ml 250 ml 60 ml 60 ml Output Urine Total 2150 ml 650 ml 1300 ml 550 ml 1500 ml Stool Total 0 ml 0 ml 1 ml Drainage Total 15 ml 15 ml 15 ml 10 ml 4 ml # Voids 50 # Bowel Movements 0 1 Result Diagram: 09/14/16 0806 09/14/16 0525 Imaging Last Impressions Lumbar Puncture Fluoroscopy 09/12/16 0000 Signed Impressions: Service Date/Time: September 17:05 - CONCLUSION: Uncomplicated lumbar drain placement as above. Jem Alexander MD Chest X-Ray 09/08/16 0000 Signed Impressions: Service Date/Time: Friday, September 09, 2016 00:01 - CONCLUSION: 1. Ill- defined opacity projecting over the right upper lobe. Right upper lobe pneumonia versus overlying bandage/gauze.Please see above. 2. Mild bibasilar atelectasis. Joni Lay MD Brain MRI 09/03/16 0600 Signed Impressions: Service Date/Time: Saturday, September 03, 2016 11:54 - CONCLUSION: 1. Marked increase in ventricular size and compare with the prior study but no transependymal fluid migration. Obstructing communicating hydrocephalus is not excluded. There is no evidence of abscess. Jem Alexander MD Shunt Study (Imaging) 08/23/16 1514 Signed Impressions: Service Date/Time: Tuesday, August 23, 2016 15:14 - CONCLUSION: POULTRY OFFAL ICER shunt tap for spinal fluid sampling as above Joni Sharpe MD Abdomen/Pelvis CT 08/23/16 0816 Signed Impressions: Service Date/Time: Tuesday, August 23, 2016 08:44 - CONCLUSION: Abnormal scan with multiple findings as outlined above Joni Sharpe MD Shunt Study 08/23/16 0000 Signed Impressions: Service Date/Time: Tuesday, August 23, 2016 14:07 - CONCLUSION: Shunt tubing is patent into the ventricular system. The downstream portion of the shunt to the peritoneal cavity was not evaluated. Joni Sharpe MD Head CT 08/23/16 0000 Signed Impressions: Service Date/Time: Tuesday, August 23, 2016 11:57 - CONCLUSION: 1. Interval significant increase in the size of the ventricles compared to the previous examination suggesting worsening hydrocephalus. Clinical correlation is recommended. 2. No significant change in the extensive encephalomalacia ( right worse than left) within the cerebral hemispheres. 3. No acute hemorrhage, midline shift or extraaxial fluid collections. Donavan Vidales MD Objective Remarks GENERAL: This is a chronically ill AA patient, in no apparent distress. SKIN: Cool and dry. Sacral/buttocks pressure ulcers present on admission HEAD: Atraumatic. Normocephalic. No temporal or scalp tenderness. EYES: Pupils equal round and reactive. Extraocular motions intact. No scleral icterus. No injection or drainage. ENT: Nose without bleeding, purulent drainage or septal hematoma. Throat without erythema, tonsillar hypertrophy or exudate. Uvula midline. Airway patent. NECK: Trach in place CARDIOVASCULAR: Regular rate and rhythm without murmurs, gallops, or rubs. RESPIRATORY: Bilateral coarse ronchi. Breath sounds equal bilaterally. No wheezes, rales. GASTROINTESTINAL: Abdomen soft, bowel sounds hyperactive, nontender, nondistended. MUSCULOSKELETAL: Contractures of extremities. NEUROLOGICAL: Awake, eyes opened, doesn't track. Nonverbal, will occasionally look around the room. Mental status at baseline. 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 S/P Ventricular peritoneal shunt externalization by Dr Franky Carreno 09/05/16 S/P Removal of ventriculoperitoneal shunt; placement of right occipital ventriculostomy by Dr Franky Carreno 09/12/16 Status post lumbar drain placement by IR Medications and IVs Current Medications Medications (Trade) Dose Ordered Sig/Yinka Route Start Time Stop Time Status Last Admin (Tenormin) 50 mg BID PEG 08/23/16 21:00 09/14/16 09:00 (Lioresal) 10 mg BID PEG 08/23/16 21:00 09/14/16 09:00 (Cardizem) 60 mg QID JT 08/23/16 13:00 09/14/16 17:25 (Duragesic 50 Mcg Patch.72 Hr) 1 patch Q72H T-DERMAL 08/23/16 12:00 09/13/16 12:53 (Apresoline) 50 mg TID JT 08/23/16 13:00 09/14/16 17:26 (Levsin) 0.125 mg QID JT 08/23/16 13:00 09/14/16 17:25 (Keppra Liq) 1,000 mg Q12HR TUBE 08/23/16 21:00 09/14/16 09:00 (Percocet 5-325 Mg) 1 tab Q6H PRN J-TUBE 08/23/16 10:30 09/01/16 12:37 (Percocet 5-325 Mg) 1 tab Q8HR JT 08/23/16 14:00 09/14/16 14:26 (Silvadene 1% Cream (50 Gm)) 1 applic HS TOPICAL 08/23/16 21:00 09/12/16 19:53 Miscellaneous Information 1 1 Q3D TD 08/26/16 12:00 09/13/16 12:00 (NS 1000 ml Inj) 1,000 ml @ 100 mls/hr Q10H IV 08/23/16 14:00 09/14/16 17:16 (NS Flush) 2 ml UNSCH PRN FLUSH 08/23/16 14:00 (NS Flush) 2 ml BID FLUSH 08/23/16 21:00 09/14/16 09:00 (Tylenol) 650 mg Q4H PRN PO 08/23/16 14:00 08/27/16 13:00 (Zofran Inj) 4 mg Q6H PRN IVP 08/23/16 14:00 09/08/16 23:28 (Compazine Supp) 25 mg Q12H PRN WA 08/23/16 14:00 (Dulcolax Supp) 10 mg DAILY PRN [place] 08/23/16 14:00 (Milk Of Magnesia Liq) 30 ml Q12H PRN PO 08/23/16 14:00 (Senokot) 17.2 mg Q12H PRN PO 08/23/16 14:00 09/07/16 18:03 (Restoril) 15 mg HS PRN PO 08/23/16 14:00 (Motrin Liq) 200 mg Q6H PRN PO 08/24/16 10:45 08/30/16 22:46 (Thorazine) 25 mg Q6H PRN PO 08/30/16 09:00 09/14/16 00:50 Labetalol HCl 10 mg 10 mg Q4H PRN IV PUSH 08/31/16 23:00 09/08/16 16:40 (Keppra 1000 Mg Inj) 100 ml @ 400 mls/hr Q12HR PRN IV 09/01/16 21:42 09/08/16 23:32 Clarithromycin 500 mg 500 mg Q12HR PO 09/04/16 14:00 09/14/16 09:00 (Primaxin Inj/NS Inj) 100 ml @ 200 mls/hr Q6H IV 09/08/16 12:00 09/14/16 17:26 Acetaminophen 650 mg 650 mg Q6H PRN G-TUBE 09/10/16 15:05 Pharmacy Profile Note 0 ml @ 0 mls/hr UNSCH OTHER 09/11/16 14:00 (Amikin Inj/NS 500 ml Inj) 505.2 ml @ 250 mls/hr Q24H IV 09/11/16 17:00 09/13/16 15:56 (Flagyl) 500 mg Q8HR PEG 09/13/16 22:00 09/14/16 14:25 Urinary Catheter: No Vascular Central Line Catheter: No A/P Problem List: (1) Sepsis ICD Code: A41.9 Status: Resolved (2) Shunt malfunction ICD Code: T85.618A Status: Acute (3) Hydrocephalus ICD Code: G91.9 Status: Acute (4) Infection of POULTRY OFFAL ICER (ventriculoperitoneal) shunt ICD Code: T85.730A Status: Acute (5) Intractable hiccups ICD Code: R06.6 Status: Resolved (6) Malfunctioning jejunostomy tube ICD Code: K94.13 Status: Resolved (7) Urethral stricture ICD Code: N35.9 Status: Acute (8) Diarrhea ICD Code: R19.7 Status: Acute (9) Hyponatremia ICD Code: E87.1 Status: Acute Plan: Patient's sodium dropped from 136 on 09/11 to 129 today. DC IV normal saline. 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 Will check urine and serum osmolality. Continue to monitor BMP. Assessment and Plan (1) Sepsis Plan: Sepsis present on admission ID consulted Blood cultures positive for Staphylococcus hominis on 1 set on 08/23/16 CSF with culture with AFB on 09/01, 09/04/, 09/05. 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 CT abdomen and pelvis as above. Patient's POULTRY OFFAL ICER shunt tip terminating in the right upper quadrant along the lateral aspect of the right lobe of the liver with low density area concerning for shunt complication, fluid loculation, catheter infection with adjacent hepatic parenchymal edema. Patient underwent left POULTRY OFFAL ICER shunt removal on 07/26/16 (2) Shunt malfunction Plan: Neurosurgery consulted. POULTRY OFFAL ICER shunt externalization on 08/28 by , Status post removal of POULTRY OFFAL ICER shunt a ventriculostomy placement due to progressive hydrocephalus. Status post lumbar drain placement by interventional radiology on 09/12 2 Lp drain working and draining csf. Follow-up neurosurgery recommendations (3) Hydrocephalus Plan: MRI of the brain showed marked increase in mechanical size when compared to prior study but no transependymal fluid migration. Obstructive communicating hydrocephalus was not excluded. No evidence of abscess. As above. 09/14 fu neurosurgery recommendations. (4) Infection of POULTRY OFFAL ICER (ventriculoperitoneal) shunt Plan: Continue with antibiotics as per ID. Patient currently on imipenem and clarithromycin. Repeat CSF shunt fluid culture on 09/12/16, negative. Acid-fast pain, and mycobacterial culture pending. 09/14 antibiotics as per ID. (5) Intractable hiccups Plan: Status post treatment with Thorazine as needed. Now resolved. (6) Malfunctioning jejunostomy tube Plan: J-tube functioning well at this time. Continue throat flushing. (7) Urethral stricture Plan: Patient with urethral stricture on admission. Patient with multiple urethral stricture at the particular passage of Falcon catheter on admission. Urethral stricture was dilated at the bedside without difficulty by urology Dr. Paiz. I maintain the Falcon catheter to gravity drainage. As per Dr. Paz' s instructions the patient's Falcon catheter to be continued for a minimum of 2 weeks. (8) Diarrhea Plan: C diff toxin PCR (+) - started the patient on oral metronidazole ---> continue. 2/4 Continue flagyl via PEG and add Lactobacillus acidophilus QID via PEG. Place [place]. Diarrhea seems worst as per RN report. Fu ID recommendations. Problem Qualifiers (1) Sepsis: Qualified Code: A41.9 - Sepsis, due to unspecified organism (2) Infection of POULTRY OFFAL ICER (ventriculoperitoneal) shunt: Qualified Code: T85.730D - Infection of POULTRY OFFAL ICER (ventriculoperitoneal) shunt, subsequent encounter Rosendo Moore MD Sep 14, 2016 18:08
--- NOTE | 2016-09-14 19:50 | HHI.IDPN ---
Note Infectious Disease Note Patient with eyes open. Difficult to tell if any distress. Starring straight up to ceiling. No tracking. Baseline non verbal. Afebrile. Has new lumbar spinal drain placed on 09/12/16. CSF looks clear. Positive c diff stools. CSF from 08/29 has AFB. Repeat CSF AFB smear 09/01,09/05 positive. AFB identified as Mycobacterium abscessus. Had removal of PIN PUSHER shunt 09/05/16. External drain placed and then removed 09/12/16. PAST MEDICAL HISTORY 1. Traumatic brain injury in October 2014, PIN PUSHER shunt placement, 2. Seizure disorder. 3. PEG placement 4. History of tracheostomy 5. History of MRSA wound infection from the scalp 6. Bacteremia due to MRSA 7. History of ESBL E-coli UTI. 8. Recent PIN PUSHER shunt malfunction and culture positive with Pseudomonas treated with a round of antibiotic. ALLERGIES NO KNOWN DRUG ALLERGIES. ANTIBIOTICS: Imipenem. Amikacin. Biaxin 09/04/16. Flagyl. OBJECTIVE: Vital Signs Date Time Temp Pulse Resp B/P Pulse Ox O2 Delivery O2 Flow Rate FiO2 09/14/16 18:00 76 09/14/16 16:00 98.3 76 11 143/90 91 09/14/16 16:00 76 09/14/16 14:00 86 09/14/16 12:00 82 09/14/16 12:00 98.0 82 9 147/96 100 09/14/16 10:00 80 09/14/16 08:00 82 09/14/16 08:00 97.9 82 13 142/92 100 09/14/16 07:00 96 Nasal Cannula 4.00 09/14/16 06:00 79 09/14/16 04:00 76 09/14/16 04:00 97.6 76 19 139/86 100 09/14/16 02:41 99 Nasal Cannula 3.00 09/14/16 02:00 83 09/14/16 00:00 97.5 76 14 142/89 96 09/14/16 00:00 80 09/13/16 22:00 75 09/13/16 21:43 17 09/13/16 20:00 98.2 85 23 137/86 97 09/13/16 20:00 85 09/13/16 09/13/16 09/14/16 15:00 23:00 07:00 Intake Total 1681 ml 1735 ml 1310 ml Output Total 665 ml 1315 ml 560 ml Balance 1016 ml 420 ml 750 ml Intake Oral 0 ml 0 ml IV Total 1008 ml 1300 ml 850 ml Tube Feeding 423 ml 375 ml 400 ml Other 250 ml 60 ml 60 ml Output Urine Total 650 ml 1300 ml 550 ml Stool Total 0 ml 0 ml Drainage Total 15 ml 15 ml 10 ml # Bowel Movements 1 Laboratory Tests Test 09/14/16 08:06 White Blood Count 6.8 TH/MM3 Red Blood Count 3.82 MIL/MM3 Hemoglobin 10.5 GM/DL Hematocrit 32.4 % Mean Corpuscular Volume 84.9 FL Mean Corpuscular Hemoglobin 27.5 PG Mean Corpuscular Hemoglobin 32.3 % Concent Red Cell Distribution Width 17.6 % Platelet Count 231 TH/MM3 Mean Platelet Volume 6.7 FL Neutrophils (%) (Auto) 49.9 % Lymphocytes (%) (Auto) 27.7 % Monocytes (%) (Auto) 19.0 % Eosinophils (%) (Auto) 2.8 % Basophils (%) (Auto) 0.6 % Neutrophils # (Auto) 3.4 TH/MM3 Lymphocytes # (Auto) 1.9 TH/MM3 Monocytes # (Auto) 1.3 TH/MM3 Eosinophils # (Auto) 0.2 TH/MM3 Basophils # (Auto) 0.0 TH/MM3 CBC Comment DIFF FINAL Differential Comment Laboratory Tests Test 09/13/16 09/14/16 03:56 05:25 Creatinine 0.34 MG/DL 0.32 MG/DL Estimat Glomerular Filtration 360 ML/MIN 386 ML/MIN Rate Sodium Level 129 MEQ/L Potassium Level 5.0 MEQ/L Chloride Level 92 MEQ/L Carbon Dioxide Level 31.6 MEQ/L Anion Gap 5 MEQ/L Blood Urea Nitrogen 10 MG/DL Random Glucose 114 MG/DL Calcium Level 8.9 MG/DL Phosphorus Level 2.5 MG/DL Magnesium Level 1.8 MG/DL Total Bilirubin 0.2 MG/DL Aspartate Amino Transf 17 U/L (AST/SGOT) Alanine Aminotransferase 33 U/L (ALT/SGPT) Alkaline Phosphatase 134 U/L Total Protein 7.1 GM/DL Albumin 3.3 GM/DL Microbiology Date/Time Procedure Status Source Growth 09/12/16 13:33 Gram Stain - Final Resulted Cerebral Spinal Fluid Shunt Fluid 09/12/16 13:33 CSF Culture - Preliminary Resulted Cerebral Spinal Fluid Shunt Fluid NO GROWTH IN 48 HOURS. 09/13/16 15:04 Acid Fast Stain Received Cerebral Spinal Fluid Shunt Fluid Pending 09/13/16 15:04 Mycobacterial Culture Received Cerebral Spinal Fluid Shunt Fluid Pending 09/13/16 15:04 Cancelled Cerebral Spinal Fluid Shunt Fluid IMAGING: Chest X-Ray 09/08/16 0000 Signed Impressions: Service Date/Time: Friday, September 09, 2016 00:01 - CONCLUSION: 1. Ill- defined opacity projecting over the right upper lobe. Right upper lobe pneumonia versus overlying bandage/gauze.Please see above. 2. Mild bibasilar atelectasis. Joni Lay MD PHYSICAL EXAMINATION GENERAL: Non verbal. Calm and quiet. NECK: No adenopathy or swelling. LUNGS: Bilateral rhonchi. HEART: Regular rate and rhythm. Nl S1S2. ABDOMEN: Bowel sounds present, soft. No tenderness appreciated. EXTREMITIES: No clubbing or cyanosis or edema. NEUROLOGIC: Unable to fully assess. IMPRESSION 1. Fever. Persistent previous, now temp normal. PIN PUSHER Shunt related infection. Mycobacteria abscessus. Also had Staph Haemolyticus on in one sample. Sepsis indicated By decreased BP, increased HR. Decreased mentation. High fever. Temperature improved. 2. Cellulitis suggested by CT scan of the abdomen and pelvis which reveals myositis and cellulitis in the posterior tissues of the buttock and hip. No erythema present. Received course of Vancomycin. 3. Candiduria. Treated. 4. Abnormal CXR - pneumonia. Improved. 5. C diff colitis. RECOMMENDATIONS 1. Continue Amikacin. Pharmacy dosing. 2. Continue Imipenem. 3. Continue Biaxin. 4. Follow repeat CSF to check for clearance. 5. Continue Flagyl for c. diff. Quique Mendez MD Sep 14, 2016 19:50
[2016-09-14] MEDS: SILVER SULFADIAZINE 1% CR 50 GM JAR TOPICAL SCH (21:00)
[2016-09-14] MEDS: LACTOBACILLUS ACIDOPHILUS 1 GM PACKET PEG SCH (21:21)
[2016-09-15] VITALS (14 sets, daily range): BP systolic 133–172; BP diastolic 83–93; PULSE 65–96; RESP 15–30; TEMP 97.6–99.2; O2SAT 95–100
[2016-09-15] MEDS: IMIPENEM/CILASTATIN INJ 500 MG in SODIUM CHLORIDE 0.9% INJ 100 ML IV SCH ×5 (02:53→23:20)
[2016-09-15 05:38] LABS: ANION GAP 4 MEQ/L (5-15); AST (GOT) 38 U/L (15-37); BICARBONATE 31.1 MEQ/L (21.0-32.0); CHLORIDE 87 MEQ/L (98-107); GLOMERULAR FILTRATION RATE 327 ML/MIN (>89); MAGNESIUM 1.6 MG/DL (1.5-2.5); POTASSIUM 5.5 MEQ/L (3.5-5.1)
[2016-09-15 05:47] LABS: ALKALINE PHOSPHATASE 147 U/L (45-117); ALT (GPT) 38 U/L (12-78); TOTAL BILIRUBIN ADULT 0.4 MG/DL (0.2-1.0)
[2016-09-15 05:48] LABS: BLOOD UREA NITROGEN 11 MG/DL (7-18)
[2016-09-15 05:52] LABS: SODIUM (NA) 122 MEQ/L (136-145)
[2016-09-15 06:07] LABS: AUTOMATED NEUTROPHIL # 7.7 TH/MM3 (1.8-7.7); BASOPHIL # 0.1 TH/MM3 (0-0.2); EOSINOPHIL # 0.1 TH/MM3 (0-0.4); EOSINOPHIL % 1.2 % (0.0-4.0); HEMATOCRIT 34.7 % (39.0-51.0); HEMO FLAGS DIFF FINAL; LYMPH % 13.3 % (9.0-44.0); LYMPHOCYTE # 1.4 TH/MM3 (1.0-4.8); MEAN CELL VOLUME 83.2 FL (80.0-100.0); MEAN CORPUSCULAR HEMOGLOBIN 27.8 PG (27.0-34.0); MEAN CORPUSCULAR HGB CONC 33.4 % (32.0-36.0); MONO % 9.4 % (0.0-8.0); NEUT % 75.1 % (16.0-70.0); PLATELET COUNT 264 TH/MM3 (150-450); RED BLOOD COUNT 4.17 MIL/MM3 (4.50-5.90); RED CELL DISTRIBUTION WIDTH 17.4 % (11.6-17.2); WHITE BLOOD COUNT 10.3 TH/MM3 (4.0-11.0)
[2016-09-15] MEDS: ONDANSETRON HCL 4 MG/2 ML VIAL IVP PRN (06:46)
[2016-09-15] MEDS: metroNIDAZOLE 500 MG TAB PEG SCH ×3 (06:48→21:03)
[2016-09-15] MEDS: oxyCODONE/ACETAMINOPHEN 5 MG/325 MG TAB JT SCH ×3 (06:48→21:04)
[2016-09-15] MEDS: RESP: ALBUTEROL 2.5 MG/IPRATROPIUM 0.5 MG NEB (SCH) NEB ×2 (08:27→19:50)
--- NOTE | 2016-09-15 09:05 | HHI.PR ---
Subjective Remarks Called earlier around 7:30 by RN because patient vomited earlier this morning at around 6 AM Sodium dropped further to 122 as per RN report patient still has diarrhea patient also dessated and is on a NRB mas now patient is non verbal no fevers or chills reported reported by RN frothy fluid in mouth. patient also agitated Objective Vitals Vital Signs Date Time Temp Pulse Resp B/P Pulse Ox O2 Delivery O2 Flow Rate FiO2 09/15/16 08:27 100 Non-Rebreather 15.00 100 09/15/16 06:00 75 09/15/16 04:00 99.2 67 15 150/90 98 09/15/16 02:00 68 09/15/16 00:00 65 09/15/16 00:00 97.6 65 20 145/93 100 09/14/16 22:00 68 09/14/16 21:23 98 Nasal Cannula 3.00 09/14/16 20:00 74 09/14/16 20:00 74 11 165/90 99 09/14/16 19:00 14 Nasal Cannula 3.00 09/14/16 18:00 76 09/14/16 16:00 98.3 76 11 143/90 91 09/14/16 16:00 76 09/14/16 14:00 86 09/14/16 12:00 82 09/14/16 12:00 98.0 82 9 147/96 100 09/14/16 10:00 80 I/O 09/14/16 09/14/16 09/14/16 09/15/16 09/15/16 09/15/16 07:00 15:00 23:00 07:00 15:00 23:00 Intake Total 1310 ml 1471 ml 810 ml 1020 ml Output Total 560 ml 1505 ml 5 ml 602 ml Balance 750 ml -34 ml 805 ml 418 ml Intake Oral 0 ml 0 ml 0 ml 0 ml IV Total 850 ml 906 ml 350 ml 600 ml Tube Feeding 400 ml 445 ml 340 ml 300 ml Tube Irrigant 120 ml Other 60 ml 120 ml 120 ml Output Urine Total 550 ml 1500 ml 600 ml Stool Total 0 ml 1 ml Drainage Total 10 ml 4 ml 5 ml 2 ml # Voids 50 4 5 # Bowel Movements 3 5 Result Diagram: 09/15/16 0458 09/15/16 0458 Imaging Last Impressions Lumbar Puncture Fluoroscopy 09/12/16 0000 Signed Impressions: Service Date/Time: September 17:05 - CONCLUSION: Uncomplicated lumbar drain placement as above. Jem Alexander MD Chest X-Ray 09/08/16 0000 Signed Impressions: Service Date/Time: Friday, September 09, 2016 00:01 - CONCLUSION: 1. Ill- defined opacity projecting over the right upper lobe. Right upper lobe pneumonia versus overlying bandage/gauze.Please see above. 2. Mild bibasilar atelectasis. Joni Lay MD Brain MRI 09/03/16 0600 Signed Impressions: Service Date/Time: Saturday, September 03, 2016 11:54 - CONCLUSION: 1. Marked increase in ventricular size and compare with the prior study but no transependymal fluid migration. Obstructing communicating hydrocephalus is not excluded. There is no evidence of abscess. Jem Alexander MD Shunt Study (Imaging) 08/23/16 1514 Signed Impressions: Service Date/Time: Tuesday, August 23, 2016 15:14 - CONCLUSION: CNC SERVICE TECHNICIAN shunt tap for spinal fluid sampling as above Joni Sharpe MD Abdomen/Pelvis CT 08/23/16 0816 Signed Impressions: Service Date/Time: Tuesday, August 23, 2016 08:44 - CONCLUSION: Abnormal scan with multiple findings as outlined above Joni Sharpe MD Shunt Study 08/23/16 0000 Signed Impressions: Service Date/Time: Tuesday, August 23, 2016 14:07 - CONCLUSION: Shunt tubing is patent into the ventricular system. The downstream portion of the shunt to the peritoneal cavity was not evaluated. Joni Sharpe MD Head CT 08/23/16 0000 Signed Impressions: Service Date/Time: Tuesday, August 23, 2016 11:57 - CONCLUSION: 1. Interval significant increase in the size of the ventricles compared to the previous examination suggesting worsening hydrocephalus. Clinical correlation is recommended. 2. No significant change in the extensive encephalomalacia ( right worse than left) within the cerebral hemispheres. 3. No acute hemorrhage, midline shift or extraaxial fluid collections. Donavan Vidales MD Objective Remarks GENERAL: This is a chronically ill AA patient, in moderate respiratory distress , agitated. SKIN: Cool and dry. Sacral/buttocks pressure ulcers present on admission HEAD: Atraumatic. Normocephalic. No temporal or scalp tenderness. EYES: Pupils equal round and reactive. Extraocular motions intact. No scleral icterus. No injection or drainage. ENT: Nose without bleeding, purulent drainage or septal hematoma. Throat without erythema, tonsillar hypertrophy or exudate. Uvula midline. Airway patent. Frothy yellowish/red fluid observed in the patient's mouth. NECK: Trach in place CARDIOVASCULAR: Regular rate and rhythm without murmurs, gallops, or rubs. RESPIRATORY: Bilateral coarse ronchi. Breath sounds equal bilaterally. No wheezes, rales. GASTROINTESTINAL: Abdomen soft, bowel sounds hyperactive, nontender, nondistended. MUSCULOSKELETAL: Contractures of extremities. NEUROLOGICAL: Awake, eyes opened, doesn't track. Nonverbal, will occasionally look around the room. Mental status at baseline. 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 S/P Ventricular peritoneal shunt externalization by Dr Franky Carreno 09/05/16 S/P Removal of ventriculoperitoneal shunt; placement of right occipital ventriculostomy by Dr Franky Carreno 09/12/16 Status post lumbar drain placement by IR Medications and IVs Current Medications Medications (Trade) Dose Ordered Sig/Yinka Route Start Time Stop Time Status Last Admin (Tenormin) 50 mg BID PEG 08/23/16 21:00 09/14/16 21:22 (Lioresal) 10 mg BID PEG 08/23/16 21:00 09/14/16 21:22 (Cardizem) 60 mg QID JT 08/23/16 13:00 09/14/16 21:21 (Duragesic 50 Mcg Patch.72 Hr) 1 patch Q72H T-DERMAL 08/23/16 12:00 09/13/16 12:53 (Apresoline) 50 mg TID JT 08/23/16 13:00 09/14/16 17:26 (Levsin) 0.125 mg QID JT 08/23/16 13:00 09/14/16 21:21 (Keppra Liq) 1,000 mg Q12HR TUBE 08/23/16 21:00 09/14/16 21:23 (Percocet 5-325 Mg) 1 tab Q6H PRN J-TUBE 08/23/16 10:30 09/01/16 12:37 (Percocet 5-325 Mg) 1 tab Q8HR JT 08/23/16 14:00 09/15/16 06:48 (Silvadene 1% Cream (50 Gm)) 1 applic HS TOPICAL 08/23/16 21:00 09/12/16 19:53 Miscellaneous Information 1 Q3D TD 08/26/16 12:00 09/13/16 12:00 (NS Flush) 2 ml UNSCH PRN FLUSH 08/23/16 14:00 (NS Flush) 2 ml BID FLUSH 08/23/16 21:00 09/14/16 09:00 (Tylenol) 650 mg Q4H PRN PO 08/23/16 14:00 08/27/16 13:00 (Zofran Inj) 4 mg Q6H PRN IVP 08/23/16 14:00 09/15/16 06:46 (Compazine Supp) 25 mg Q12H PRN [place] 08/23/16 14:00 (Dulcolax Supp) 10 mg DAILY PRN [place] 08/23/16 14:00 (Milk Of Magnesia Liq) 30 ml Q12H PRN PO 08/23/16 14:00 (Senokot) 17.2 mg Q12H PRN PO 08/23/16 14:00 09/07/16 18:03 (Restoril) 15 mg HS PRN PO 08/23/16 14:00 (Motrin Liq) 200 mg Q6H PRN PO 08/24/16 10:45 08/30/16 22:46 (Thorazine) 25 mg Q6H PRN PO 08/30/16 09:00 09/14/16 00:50 Labetalol HCl 10 mg 10 mg Q4H PRN IV PUSH 08/31/16 23:00 09/08/16 16:40 (Keppra 1000 Mg Inj) 100 ml @ 400 mls/hr Q12HR PRN IV 09/01/16 21:42 09/08/16 23:32 Clarithromycin 500 mg 500 mg Q12HR PO 09/04/16 14:00 09/14/16 21:22 (Primaxin Inj/NS Inj) 100 ml @ 200 mls/hr Q6H IV 09/08/16 12:00 09/15/16 06:47 Acetaminophen 650 mg 650 mg Q6H PRN G-TUBE 09/10/16 15:05 Pharmacy Profile Note 0 ml @ 0 mls/hr UNSCH OTHER 09/11/16 14:00 (Amikin Inj/NS 500 ml Inj) 505.2 ml @ 250 mls/hr Q24H IV 09/11/16 17:00 09/13/16 15:56 (Flagyl) 500 mg Q8HR PEG 09/13/16 22:00 09/15/16 06:48 Lactobacillus Acidophilus 1 gm 1 gm QID PEG 09/14/16 21:00 09/14/16 21:21 (Sodium Chloride 23.4% Inj/NS 1000 ml Inj) 1,047 ml @ 40 mls/hr Q24H IV 09/15/16 08:45 UNV (Sodium Chloride) 1 gm TID PEG 09/15/16 09:00 UNV Urinary Catheter: No Vascular Central Line Catheter: No A/P Problem List: (1) Sepsis ICD Code: A41.9 Status: Resolved (2) Shunt malfunction ICD Code: T85.618A Status: Acute (3) Hydrocephalus ICD Code: G91.9 Status: Acute (4) Infection of CNC SERVICE TECHNICIAN (ventriculoperitoneal) shunt ICD Code: T85.730A Status: Acute (5) Intractable hiccups ICD Code: R06.6 Status: Resolved (6) Malfunctioning jejunostomy tube ICD Code: K94.13 Status: Resolved (7) Urethral stricture ICD Code: N35.9 Status: Acute (8) Diarrhea ICD Code: R19.7 Status: Acute (9) Hyponatremia ICD Code: E87.1 Status: Acute Plan: Patient's sodium dropped from 136 on 09/11 to 129 today. DC IV normal saline. 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 Will check urine and serum osmolality. Continue to monitor BMP. 09/15 Worsening hyponatremia, now at a critical low level of 122. Normal saline was not discontinued overnight, instructed her in earlier 724 to discontinue. I will start the patient on 2% normal saline with sodium chloride tablets 1 g via PEG 3 times a day. BMP to monitor sodium every 6 hours. Sodium should not raise by more than 10 points in the first 24 hours. (10) Vomiting ICD Code: R11.10 Status: Acute Plan: Patient reportedly had projectile vomiting overnight. Hold PEG tube feedings for now. Zofran as needed for nausea or vomiting. Vomiting could be secondary to symptoms due to acute hyponatremia. Management of hyponatremia detailed above. Check CT scan of the head. (11) Hypoxemia ICD Code: R09.02 Status: Acute Plan: Suspect aspiration pneumonia. Patient already on antibiotics that will cover for this. I will set the patient and DuoNeb's every 6 hours scheduled. Check a chest x- ray stat. Supplemental O2 to keep oxygen saturation more than 92%, the patient currently on nonrebreather mask. Check ABG. (12) Agitation ICD Code: R45.1 Status: Acute Plan: Patient agitated, looks uncomfortable. Rx Ativan 0.5 mg IV every 6 hours as needed for agitation. Assessment and Plan (1) Sepsis Plan: Sepsis present on admission ID consulted Blood cultures positive for Staphylococcus hominis on 1 set on 08/23/16 CSF with culture with AFB on 09/01, 09/04/, 09/05. 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 CT abdomen and pelvis as above. Patient's CNC SERVICE TECHNICIAN shunt tip terminating in the right upper quadrant along the lateral aspect of the right lobe of the liver with low density area concerning for shunt complication, fluid loculation, catheter infection with adjacent hepatic parenchymal edema. Patient underwent left CNC SERVICE TECHNICIAN shunt removal on 07/26/16 (2) Shunt malfunction Plan: Neurosurgery consulted. CNC SERVICE TECHNICIAN shunt externalization on 08/28 by , Status post removal of CNC SERVICE TECHNICIAN shunt a ventriculostomy placement due to progressive hydrocephalus. Status post lumbar drain placement by interventional radiology on 09/12 09/14 Lp drain working and draining csf. Follow-up neurosurgery recommendations (3) Hydrocephalus Plan: MRI of the brain showed marked increase in mechanical size when compared to prior study but no transependymal fluid migration. Obstructive communicating hydrocephalus was not excluded. No evidence of abscess. As above. / fu neurosurgery recommendations. (4) Infection of CNC SERVICE TECHNICIAN (ventriculoperitoneal) shunt Plan: Continue with antibiotics as per ID. Patient currently on imipenem and clarithromycin. Repeat CSF shunt fluid culture on 09/12/16, negative. Acid-fast pain, and mycobacterial culture pending. 09/14 antibiotics as per ID. 09/15 Patient on Amikacin (pharmacy dosing), Biaxin and Imipenem. (5) Intractable hiccups Plan: Status post treatment with Thorazine as needed. Now resolved. (6) Malfunctioning jejunostomy tube Plan: J-tube functioning well at this time. Continue throat flushing. (7) Urethral stricture Plan: Patient with urethral stricture on admission. Patient with multiple urethral stricture at the particular passage of Falcon catheter on admission. Urethral stricture was dilated at the bedside without difficulty by urology Dr. Paiz. I maintain the Falcon catheter to gravity drainage. As per Dr. Paz' s instructions the patient's Falcon catheter to be continued for a minimum of 2 weeks. (8) Diarrhea Plan: C diff toxin PCR (+) - started the patient on oral metronidazole ---> continue. 09/14 Continue flagyl via PEG and add Lactobacillus acidophilus QID via PEG. 09/15 patient still has diarrhea, significant diarrhea. Continue Flagyl via PEG and Lactobacillus acidophilus 4 times a day. Apparently the patient's rectal tone is not good, Dignishield was removed. 09/15/16 the case has been discussed in detail with RN. I also discussed the patient with Dr. Smyth in case intensivists are required later. She agrees with the plan. 45 minutes of critical care time spent with the patient. Problem Qualifiers (1) Sepsis: Qualified Code: A41.9 - Sepsis, due to unspecified organism (2) Infection of CNC SERVICE TECHNICIAN (ventriculoperitoneal) shunt: Qualified Code: T85.730D - Infection of CNC SERVICE TECHNICIAN (ventriculoperitoneal) shunt, subsequent encounter (3) Vomiting: Qualified Code: R11.12 - Projectile vomiting, presence of nausea not specified Rosendo Moore MD Sep 15, 2016 09:04
[2016-09-15] MEDS: levETIRAcetam 500 MG/5 ML UDC TUBE SCH ×2 (09:18→21:06)
[2016-09-15] MEDS: CLARITHROMYCIN 500 MG TAB PO SCH ×2 (09:19→21:04)
[2016-09-15] MEDS: DILTIAZEM HCL 60 MG TAB JT SCH ×4 (09:19→21:04)
[2016-09-15] MEDS: BACLOFEN 10 MG TAB PEG SCH ×2 (09:19→21:03)
[2016-09-15] MEDS: SODIUM CHLORIDE 1 GRAM TAB PEG SCH ×3 (09:19→17:43)
[2016-09-15] MEDS: SODIUM CHLORIDE 0.9% FLUSH 5 ML FLUSH FLUSH SCH ×2 (09:19→21:05)
[2016-09-15] MEDS: hydrALAZINE HCL 50 MG TAB JT SCH ×3 (09:19→17:41)
[2016-09-15] MEDS: ATENOLOL 50 MG TAB PEG SCH ×2 (09:19→21:03)
[2016-09-15] MEDS: HYOSCYAMINE 0.125 MG TAB JT SCH ×4 (09:19→21:03)
[2016-09-15] MEDS: LORazepam 2 MG/ML VIAL IV PUSH PRN (09:28)
[2016-09-15] MEDS: LACTOBACILLUS ACIDOPHILUS 1 GM PACKET PEG SCH ×4 (09:30→21:00)
[2016-09-15] MEDS: SODIUM CHLORIDE 23.4% INJ 188 MEQ in SODIUM CHLOR 0.9% 1000 ML INJ 1,000 ML IV SCH (09:45)
--- NOTE | 2016-09-15 09:52 | RADRPT ---
EXAM DATE/TIME: 09/15/2016 09:01 [facility] COMPARISON: CHEST SINGLE AP, September 09, 2016, 0:01. INDICATIONS : Shortness of breath. MEDICAL HISTORY : Hypertension. SURGICAL HISTORY : Shunt. Tracheostomy. ENCOUNTER: Initial ACUITY: 1 day PAIN SCORE: Non-responsive. LOCATION: Bilateral chest FINDINGS: A single view of the chest demonstrates the lungs to be symmetrically aerated without evidence of mas s, infiltrate or effusion. The cardiomediastinal contours are unremarkable. Osseous structures are intact. Clips overlie the right upper chest. CONCLUSION: No acute disease. Juanjo Briscoe MD on September 15, 2016 at 9:50 Board Certified Radiologist. This report was verified electronically.
[2016-09-15 11:29] LABS: BLOOD GAS BASE EXCESS 6.1 mmol/L (-2-2); BLOOD GAS HCO3 31 mmol/L (22-26); BLOOD GAS METHEMOGLOBIN 0.8 % (0-2); BLOOD GAS O2 HGB SATURATION 95 % (90-100); BLOOD GAS OXYGEN CONTENT 15.3 Vol % (12.0-20.0); BLOOD GAS PCO2 50 mmHg (38-42); BLOOD GAS PO2 88 mmHg (61-120); BLOOD GAS TOTAL HGB 11.4 G/DL (12.0-16.0); CRITICAL VALUE NO; TEMP CORR TO 98.6
[2016-09-15 11:30] LABS: DRAW SITE RT FEMORAL; FIO2 100 %; LITER FLOW 15 L/M; NUMBER OF ARTERIAL PUNCTURES 1; OXYGEN DEVICE NEBU MASK
[2016-09-15 11:31] LABS: STAT NO
[2016-09-15 12:50] LABS: BICARBONATE 33.3 MEQ/L (21.0-32.0); POTASSIUM 4.5 MEQ/L (3.5-5.1)
[2016-09-15] MEDS: chlorproMAZINE HCL 25 MG TAB PO PRN (13:02)
--- NOTE | 2016-09-15 16:26 | HHI.PR ---
Subjective Remarks 36 YOAA male with TBI, Ch RF On NC Looks around, does'T follow No fever Tolerates TF Developed SOB ABG compensated Resp acidosis CXR no infilt Objective Vital Signs Vital Signs Date Time Temp Pulse Resp B/P Pulse Ox O2 Delivery O2 Flow Rate FiO2 09/15/16 08:27 100 Non-Rebreather 15.00 100 09/15/16 08:00 73 09/15/16 08:00 100 Partial Non-Rebreather 4.00 Humidified 09/15/16 08:00 99.2 92 30 172/89 95 09/15/16 06:00 75 09/15/16 04:00 99.2 67 15 150/90 98 09/15/16 02:00 68 09/15/16 00:00 65 09/15/16 00:00 97.6 65 20 145/93 100 09/14/16 22:00 68 09/14/16 21:23 98 Nasal Cannula 3.00 09/14/16 20:00 74 09/14/16 20:00 74 11 165/90 99 09/14/16 19:00 14 Nasal Cannula 3.00 09/14/16 18:00 76 I/O 09/14/16 09/14/16 09/14/16 09/15/16 09/15/16 09/15/16 07:00 15:00 23:00 07:00 15:00 23:00 Intake Total 1310 ml 1471 ml 810 ml 1020 ml Output Total 560 ml 1505 ml 5 ml 602 ml Balance 750 ml -34 ml 805 ml 418 ml Intake Oral 0 ml 0 ml 0 ml 0 ml IV Total 850 ml 906 ml 350 ml 600 ml Tube Feeding 400 ml 445 ml 340 ml 300 ml Tube Irrigant 120 ml Other 60 ml 120 ml 120 ml Output Urine Total 550 ml 1500 ml 600 ml Stool Total 0 ml 1 ml Drainage Total 10 ml 4 ml 5 ml 2 ml # Voids 50 4 5 # Bowel Movements 3 5 Result Diagram: 09/15/16 0458 09/15/16 1119 Objective Remarks GENERAL: WBWN AA male, mild sob SKIN: Warm and dry. HEAD: Normocephalic. EYES: No scleral icterus. No injection or drainage. NECK: Supple, trachea midline. No JVD or lymphadenopathy. CARDIOVASCULAR: Regular rate and rhythm without murmurs, gallops, or rubs. RESPIRATORY: Breath sounds equal bilaterally. No accessory muscle use. GASTROINTESTINAL: Abdomen soft, non-tender, nondistended. PEG tube MUSCULOSKELETAL: No cyanosis, or edema. BACK: Nontender without obvious deformity. No CVA tenderness. A/P Assessment and Plan Resp insuff, improved Right Basal infilt Atelactesis TBI MRSA Pn treated PLAN: Wean 02 to keep sat >90% Aerosol nebs Abx per ID Cont TF DW pt's mother at [facility],Han Hastings MD Sep 15, 2016 16:26
[2016-09-15] MEDS: AMIKACIN IV SCH ×2 (17:00→17:41)
[2016-09-15] MEDS: SODIUM CHLORID 0.9% IV SCH ×2 (17:00→17:41)
[2016-09-15] MEDS: SILVER SULFADIAZINE 1% CR 50 GM JAR TOPICAL SCH (21:00)
[2016-09-15] MEDS: BELLADONNA ALKALOIDS/OPIUM 60 MG SUPP RECTAL SCH ×2 (21:02→23:20)
[2016-09-16] VITALS (14 sets, daily range): BP systolic 109–141; BP diastolic 66–87; PULSE 61–80; RESP 14–23; TEMP 97.5–99.1; O2SAT 98–100
[2016-09-16] MEDS: RESP: ALBUTEROL 2.5 MG/IPRATROPIUM 0.5 MG NEB (SCH) NEB ×4 (03:56→21:22)
[2016-09-16 04:15] LABS: AUTOMATED NEUTROPHIL # 5.1 TH/MM3 (1.8-7.7); BASOPHIL % 0.4 % (0.0-2.0); EOSINOPHIL # 0.1 TH/MM3 (0-0.4); EOSINOPHIL % 0.7 % (0.0-4.0); HEMO FLAGS DIFF FINAL; LYMPH % 17.5 % (9.0-44.0); LYMPHOCYTE # 1.3 TH/MM3 (1.0-4.8); MEAN CELL VOLUME 83.6 FL (80.0-100.0); MEAN CORPUSCULAR HEMOGLOBIN 27.8 PG (27.0-34.0); MEAN CORPUSCULAR HGB CONC 33.3 % (32.0-36.0); MONO % 13.9 % (0.0-8.0); NEUT % 67.5 % (16.0-70.0); PLATELET COUNT 215 TH/MM3 (150-450); RED BLOOD COUNT 3.83 MIL/MM3 (4.50-5.90); RED CELL DISTRIBUTION WIDTH 17.7 % (11.6-17.2); WHITE BLOOD COUNT 7.5 TH/MM3 (4.0-11.0)
[2016-09-16 05:06] LABS: ALKALINE PHOSPHATASE 110 U/L (45-117); ALT (GPT) 35 U/L (12-78); ANION GAP 5 MEQ/L (5-15); AST (GOT) 17 U/L (15-37); BLOOD UREA NITROGEN 10 MG/DL (7-18); CHLORIDE 93 MEQ/L (98-107); GLOMERULAR FILTRATION RATE 433 ML/MIN (>89); MAGNESIUM 1.7 MG/DL (1.5-2.5); POTASSIUM 4.2 MEQ/L (3.5-5.1); SODIUM (NA) 131 MEQ/L (136-145); TOTAL BILIRUBIN ADULT 0.3 MG/DL (0.2-1.0)
[2016-09-16] MEDS: IMIPENEM/CILASTATIN INJ 500 MG in SODIUM CHLORIDE 0.9% INJ 100 ML IV SCH ×3 (06:00→17:50)
[2016-09-16] MEDS: BELLADONNA ALKALOIDS/OPIUM 60 MG SUPP RECTAL SCH ×2 (06:03→11:35)
[2016-09-16] MEDS: oxyCODONE/ACETAMINOPHEN 5 MG/325 MG TAB JT SCH ×3 (06:03→21:30)
[2016-09-16] MEDS: metroNIDAZOLE 500 MG TAB PEG SCH ×3 (06:03→21:30)
[2016-09-16] MEDS: ATENOLOL 50 MG TAB PEG SCH ×2 (09:14→21:30)
[2016-09-16] MEDS: SODIUM CHLORIDE 1 GRAM TAB PEG SCH ×3 (09:14→17:49)
[2016-09-16] MEDS: CLARITHROMYCIN 500 MG TAB PO SCH ×2 (09:14→21:30)
[2016-09-16] MEDS: HYOSCYAMINE 0.125 MG TAB JT SCH ×4 (09:14→21:30)
[2016-09-16] MEDS: levETIRAcetam 500 MG/5 ML UDC TUBE SCH ×2 (09:14→21:29)
[2016-09-16] MEDS: DILTIAZEM HCL 60 MG TAB JT SCH ×4 (09:14→21:30)
[2016-09-16] MEDS: BACLOFEN 10 MG TAB PEG SCH ×2 (09:14→21:30)
[2016-09-16] MEDS: hydrALAZINE HCL 50 MG TAB JT SCH ×3 (09:14→17:53)
[2016-09-16] MEDS: SODIUM CHLORIDE 0.9% FLUSH 5 ML FLUSH FLUSH SCH ×2 (09:15→21:00)
[2016-09-16] MEDS: LACTOBACILLUS ACIDOPHILUS 1 GM PACKET PEG SCH ×4 (09:15→21:00)
--- NOTE | 2016-09-16 09:22 | HHI.NSPN ---
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 He had a left ventriculoperitoneal shunt which was removed secondary to wound dehiscence and had a right ventriculoperitoneal shunt placed. He is a chronic detention resident and has been febrile the last few days and presents MRI is room for workup for for this fever. He had a urethral stricture which was dilated in the emergency room by urology and urinalysis reveals urinary tract infection. He also has a decubitus ulcer. Blood cultures are pending. His neurologic examination is baseline and CT of the head obtained reveals ventriculomegaly compared to the scan from a month ago. The patient had programmable valve place with a lower setting of 50 mm water. Shuntogram obtained reveals ventricular catheter being patent but the peritoneal catheter was not evaluated because patient did not cooperate and the plan is to have this further evaluated once more cooperate with IV access per special procedures. CSF from a shunt tap that does not reveal any organisms on Gram stain. CT of the abdomen reveals a small fluid collection around the shunt catheter of unclear significance. 08/24/16: Pt at his clinical baseline. Eyes open. occasionally focuses on my face. At times rolling eye movements. Not following commands. Flexion contractures of UEs and Extension contractures of LEs. Pt having high fevers today. Tmax of 103 at 8am. 08/25/16: Pt with eyes open. Right sided gaze preference. Not following commands. Not verbalizing. Pt at baseline neurologically. Pt continues to have fevers, T Max 103.4 at 2am. 08/26/16: Pt with eyes open. Tracking more today to both sides. Not following commands which is his baseline. Fever spikes yesterday today T max 100.1. 08/28/16: Pt examined on 08/28/16 delayed note entry. Pt awake with rolling eye movements, erythematous sclera, grunting, and appears more restlessness. 08/29/16: Pt with eyes open and upward gaze with rolling eye movements. Not focusing on face or tacking. Less grunting. Resolving injected sclera. Less restlessness than yesterday. Shunt is externalized and connected to a drainage bag. 08/30/16: Pt with eyes open and upward gaze. He does appear to be less agitated today with no grunting. He also focused on my face briefly which he didn't do yesterday. Distal RIGGER CHIEF shunt catheter is connected to a drainage bag and draining well. 09/02/16: Pt with eyes open and upward gaze and some rolling eye movements. No grunting or snoring noted by me at bedside. Not focusing on face or tracking. Distal RIGGER CHIEF shunt catheter is connected to drainage bag. 09/03/16: Pt with eyes open and upward gaze. No tracking. Not focusing on my face or tracking. Distal RIGGER CHIEF shunt catheter connected to drainage bag. 09/04/16: Pt with eyes open upward gaze. Not tracking. Distal RIGGER CHIEF shunt catheter connected to drainage bag with clear CSF. Pt Neurologically at baseline. 09/10/16: Pt with eyes open and upward gaze. Not tracking. Ventriculostomy in place at 5cm H20 with clear gold tinged CSF. Not following commands. Neurological baseline. 09/11/16: Pt with eyes open and upward gaze. Not focusing on face or tracking. Ventriculostomy drain at 5cm with clear gold tinged CSF. Not following commands. 09/12/16: pt opens eyes to voice. Not focusing or tracking. Ventriculostomy drain at 5cmH20 not draining. 09/13/16: Pt with eyes open. Occasionally focuses on face very briefly then has upward gaze and rolling eye movements. Lumbar spinal drain placed last afternoon. Ventriculostomy drain in place. 09/16/16: Pt with eyes open and upward gaze. Not focusing on face or tracking. Lumbar drain in place reported this morning not draining. System Review Comments Not able to obtain given clinical condition. Exam Results Vital Signs Date Time Temp Pulse Resp B/P Pulse Ox O2 Delivery O2 Flow Rate FiO2 09/16/16 06:00 70 09/16/16 04:00 99.1 16 124/75 100 09/15/16 19:50 Non-Rebreather 15.00 100 Intake and Output 09/15/16 09/15/16 09/16/16 08:00 16:00 00:00 Intake Total 1020 ml 354 ml 1281 ml Output Total 602 ml 400 ml 308 ml Balance 418 ml -46 ml 973 ml Physical Examination Resp: CTA bilaterally. Heart: NSR no murmurs Abd: Soft positive bs Skin: No cyanosis or erythema. SCDs remain in place. Muscle: flexion contractures UEs Extension contractures LEs. Not following for muscle testing. Neuro: Pt with eyes open. Not tracking. Not focusing on my face or responding to voice at all. Not following commands. Lumbar spinal drain in place reported this morning not draining. Lab, Micro, Other Results Laboratory Tests Test 09/15/16 09/15/16 09/15/16 09/16/16 11:17 11:19 17:45 03:33 Blood Gas Puncture Site RT FEMORAL Blood Gas Patient Temperature 98.6 Blood Gas HCO3 31 mmol/L Blood Gas Base Excess 6.1 mmol/L Blood Gas Oxygen Saturation 95 % Arterial Blood pH 7.40 Arterial Blood Partial 50 mmHg Pressure CO2 Arterial Blood Partial 88 mmHg Pressure O2 Arterial Blood Oxygen Content 15.3 Vol % Arterial Blood 1.0 % Carboxyhemoglobin Arterial Blood Methemoglobin 0.8 % Blood Gas Hemoglobin 11.4 G/DL Oxygen Delivery Device NEBU MASK Blood Gas Liter Flow 15 L/M Blood Gas Inspired Oxygen 100 % Sodium Level 123 MEQ/L 125 MEQ/L 131 MEQ/L Potassium Level 4.5 MEQ/L 4.2 MEQ/L Chloride Level 86 MEQ/L 93 MEQ/L Carbon Dioxide Level 33.3 MEQ/L 33.0 MEQ/L Anion Gap 4 MEQ/L 5 MEQ/L Blood Urea Nitrogen 13 MG/DL 10 MG/DL Creatinine 0.40 MG/DL 0.29 MG/DL Estimat Glomerular Filtration 298 ML/MIN 433 ML/MIN Rate Random Glucose 94 MG/DL 83 MG/DL Calcium Level 9.2 MG/DL 9.6 MG/DL White Blood Count 7.5 TH/MM3 Red Blood Count 3.83 MIL/MM3 Hemoglobin 10.7 GM/DL Hematocrit 32.0 % Mean Corpuscular Volume 83.6 FL Mean Corpuscular Hemoglobin 27.8 PG Mean Corpuscular Hemoglobin 33.3 % Concent Red Cell Distribution Width 17.7 % Platelet Count 215 TH/MM3 Mean Platelet Volume 7.1 FL Neutrophils (%) (Auto) 67.5 % Lymphocytes (%) (Auto) 17.5 % Monocytes (%) (Auto) 13.9 % Eosinophils (%) (Auto) 0.7 % Basophils (%) (Auto) 0.4 % Neutrophils # (Auto) 5.1 TH/MM3 Lymphocytes # (Auto) 1.3 TH/MM3 Monocytes # (Auto) 1.0 TH/MM3 Eosinophils # (Auto) 0.1 TH/MM3 Basophils # (Auto) 0.0 TH/MM3 CBC Comment DIFF FINAL Differential Comment Phosphorus Level 3.2 MG/DL Magnesium Level 1.7 MG/DL Total Bilirubin 0.3 MG/DL Aspartate Amino Transf 17 U/L (AST/SGOT) Alanine Aminotransferase 35 U/L (ALT/SGPT) Alkaline Phosphatase 110 U/L Total Protein 6.7 GM/DL Albumin 3.3 GM/DL 09/15/16 09/15/16 09/16/16 15:00 23:00 07:00 Intake Total 354 ml 1281 ml 1082 ml Output Total 400 ml 308 ml 1000 ml Balance -46 ml 973 ml 82 ml Intake Oral 0 ml 0 ml 0 ml IV Total 234 ml 1181 ml 982 ml Tube Feeding 0 ml 0 ml 0 ml Other 120 ml 100 ml 100 ml Output Urine Total 400 ml 300 ml 1000 ml Drainage Total 0 ml 8 ml 0 ml # Voids 2 1 1 # Bowel Movements 1 0 0 Medical Decision Making Impression and Plan A: 36 year-old gentleman with severe traumatic brain injury in a chronic vegetative state and a detention resident. This appears that he has compensatory ventriculomegaly since the shunt pressure setting is at low level and his neurologic examination is baseline. RIGGER CHIEF shunt infection growing AFB. P: Continue with antibiotics Continue with medical care. Continue with CSF drainage via lumbar spinal drain. We will have specials re evaluate the lumbar drain and likely replace since it is not draining. Juanjo Oquendo Sep 16, 2016 09:22
[2016-09-16] MEDS: REMOVE OLD PATCH TD SCH (11:35)
[2016-09-16] MEDS: fentaNYL 50 MCG/HR PATCH T-DERMAL SCH (11:35)
[2016-09-16] MEDS: SODIUM CHLORIDE 23.4% INJ 188 MEQ in SODIUM CHLOR 0.9% 1000 ML INJ 1,000 ML IV SCH (12:08)
[2016-09-16] MEDS ORDERED: ATROPINE SULFATE 1 MG/10 ML SYRINGE ONE (14:34)
[2016-09-16] MEDS ORDERED: EPINEPHrine HCL (1:10,000) 1 MG/10 ML SYRINGE ONE (14:34)
[2016-09-16] MEDS ORDERED: LIDOCAINE HCL 2% 100 MG/5 ML SYRINGE ONE (14:34)
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
[2016-09-16] MEDS ORDERED: IOHEXOL 350 MG/ML 50 ML BTL (for RAD DIAG) ONE (15:58)
[2016-09-16] MEDS: SODIUM CHLORID 0.9% IV SCH (16:46)
[2016-09-16] MEDS: AMIKACIN IV SCH (16:46)
[2016-09-16] MEDS ORDERED: BELLADONNA ALKALOIDS/OPIUM 60 MG SUPP RECTAL PRN (17:45)
--- NOTE | 2016-09-16 19:14 | HHI.PR ---
Subjective Remarks 36 YOAA male with TBI, Ch RF On NC Looks around, does'T follow No fever Tolerates TF back on NC, breathing better Objective Vital Signs Vital Signs Date Time Temp Pulse Resp B/P Pulse Ox O2 Delivery O2 Flow Rate FiO2 09/16/16 16:00 98.3 66 23 139/86 100 09/16/16 12:00 68 09/16/16 12:00 97.5 68 14 141/87 100 09/16/16 10:03 98 Nasal Cannula 3.00 09/16/16 10:00 78 09/16/16 08:00 100 Partial Non-Rebreather Humidified 09/16/16 08:00 68 09/16/16 08:00 97.5 68 14 141/87 100 09/16/16 06:00 70 09/16/16 04:00 99.1 80 16 124/75 100 09/16/16 04:00 80 09/16/16 02:00 74 09/16/16 00:00 98.8 76 15 109/66 100 09/16/16 00:00 76 09/15/16 22:00 84 09/15/16 20:00 99.0 72 18 133/88 100 09/15/16 20:00 70 09/15/16 19:50 100 Non-Rebreather 15.00 100 I/O 09/15/16 09/15/16 09/15/16 09/16/16 09/16/16 09/16/16 07:00 15:00 23:00 07:00 15:00 23:00 Intake Total 1020 ml 354 ml 1281 ml 1082 ml 1224 ml Output Total 602 ml 400 ml 308 ml 1000 ml 1000 ml Balance 418 ml -46 ml 973 ml 82 ml 224 ml Intake Oral 0 ml 0 ml 0 ml 0 ml 0 ml IV Total 600 ml 234 ml 1181 ml 982 ml 1164 ml Tube Feeding 300 ml 0 ml 0 ml 0 ml 0 ml Other 120 ml 120 ml 100 ml 100 ml 60 ml Output Urine Total 600 ml 400 ml 300 ml 1000 ml 1000 ml Drainage Total 2 ml 0 ml 8 ml 0 ml 0 ml # Voids 5 2 1 1 1 # Bowel Movements 5 1 0 0 0 Result Diagram: 09/16/16 0333 09/16/16 1418 Objective Remarks GENERAL: WBWN AA male, mild sob SKIN: Warm and dry. HEAD: Normocephalic. EYES: No scleral icterus. No injection or drainage. NECK: Supple, trachea midline. No JVD or lymphadenopathy. CARDIOVASCULAR: Regular rate and rhythm without murmurs, gallops, or rubs. RESPIRATORY: Breath sounds equal bilaterally. No accessory muscle use. GASTROINTESTINAL: Abdomen soft, non-tender, nondistended. PEG tube MUSCULOSKELETAL: No cyanosis, or edema. BACK: Nontender without obvious deformity. No CVA tenderness. A/P Assessment and Plan Resp insuff, improved Right Basal infilt Atelactesis TBI MRSA Pn treated PLAN: Wean 02 to keep sat >90% Aerosol nebs Abx per ID Cont TF Han Hernandez MD Sep 16, 2016 19:14
[2016-09-16] MEDS: SILVER SULFADIAZINE 1% CR 50 GM JAR TOPICAL SCH (21:00)
--- NOTE | 2016-09-16 22:56 | HHI.PR ---
Subjective Remarks Follow up for TBI, hyponatremia. Mr. Syed is non-verbal. Per RN, he is doing well. No fever, chills. Sodium improved on 2% sodium chloride. Objective Vitals Vital Signs Date Time Temp Pulse Resp B/P Pulse Ox O2 Delivery O2 Flow Rate FiO2 09/16/16 20:00 72 09/16/16 20:00 98.4 68 14 134/74 100 09/16/16 19:00 Nasal Cannula 3.00 09/16/16 18:00 Nasal Cannula 3.00 09/16/16 18:00 64 09/16/16 16:00 Nasal Cannula 3.00 09/16/16 16:00 98.3 66 23 139/86 100 09/16/16 16:00 66 09/16/16 14:00 61 09/16/16 14:00 Nasal Cannula 3.00 09/16/16 12:00 68 09/16/16 12:00 97.5 68 14 141/87 100 09/16/16 10:03 98 Nasal Cannula 3.00 09/16/16 10:00 78 09/16/16 08:00 100 Partial Non-Rebreather Humidified 09/16/16 08:00 68 09/16/16 08:00 97.5 68 14 141/87 100 09/16/16 06:00 70 09/16/16 04:00 99.1 80 16 124/75 100 09/16/16 04:00 80 09/16/16 02:00 74 09/16/16 00:00 98.8 76 15 109/66 100 09/16/16 00:00 76 I/O 09/15/16 09/15/16 09/15/16 09/16/16 09/16/16 09/16/16 07:00 15:00 23:00 07:00 15:00 23:00 Intake Total 1020 ml 354 ml 1281 ml 1082 ml 1224 ml Output Total 602 ml 400 ml 308 ml 1000 ml 1000 ml Balance 418 ml -46 ml 973 ml 82 ml 224 ml Intake Oral 0 ml 0 ml 0 ml 0 ml 0 ml IV Total 600 ml 234 ml 1181 ml 982 ml 1164 ml Tube Feeding 300 ml 0 ml 0 ml 0 ml 0 ml Other 120 ml 120 ml 100 ml 100 ml 60 ml Output Urine Total 600 ml 400 ml 300 ml 1000 ml 1000 ml Drainage Total 2 ml 0 ml 8 ml 0 ml 0 ml # Voids 5 2 1 1 1 # Bowel Movements 5 1 0 0 0 Result Diagram: 09/16/16 0333 09/16/16 1418 Imaging Last Impressions Chest X-Ray 09/15/16 0000 Signed Impressions: Service Date/Time: Thursday, September 15, 2016 09:01 - CONCLUSION: No acute disease. Juanjo Briscoe MD Lumbar Puncture Fluoroscopy 09/12/16 0000 Signed Impressions: Service Date/Time: September 17:05 - CONCLUSION: Uncomplicated lumbar drain placement as above. Jem Alexander MD Brain MRI 09/03/16 0600 Signed Impressions: Service Date/Time: Saturday, September 03, 2016 11:54 - CONCLUSION: 1. Marked increase in ventricular size and compare with the prior study but no transependymal fluid migration. Obstructing communicating hydrocephalus is not excluded. There is no evidence of abscess. Jem Alexander MD Shunt Study (Imaging) 08/23/16 1514 Signed Impressions: Service Date/Time: Tuesday, August 23, 2016 15:14 - CONCLUSION: EXECUTIVE DIRECTOR CONTRACT SHOP shunt tap for spinal fluid sampling as above Joni Sharpe MD Abdomen/Pelvis CT 08/23/16 0816 Signed Impressions: Service Date/Time: Tuesday, August 23, 2016 08:44 - CONCLUSION: Abnormal scan with multiple findings as outlined above Joni Sharpe MD Shunt Study 08/23/16 0000 Signed Impressions: Service Date/Time: Tuesday, August 23, 2016 14:07 - CONCLUSION: Shunt tubing is patent into the ventricular system. The downstream portion of the shunt to the peritoneal cavity was not evaluated. Joni Sharpe MD Head CT 08/23/16 0000 Signed Impressions: Service Date/Time: Tuesday, August 23, 2016 11:57 - CONCLUSION: 1. Interval significant increase in the size of the ventricles compared to the previous examination suggesting worsening hydrocephalus. Clinical correlation is recommended. 2. No significant change in the extensive encephalomalacia ( right worse than left) within the cerebral hemispheres. 3. No acute hemorrhage, midline shift or extraaxial fluid collections. Donavan Vidales MD Objective Remarks GENERAL: Chronically ill male. Non verbal. SKIN: Warm and dry. HEAD: Normocephalic. EYES: No scleral icterus. No injection or drainage. NECK: Supple, trachea midline. No JVD or lymphadenopathy. CARDIOVASCULAR: Regular rate and rhythm without murmurs, gallops, or rubs. RESPIRATORY: Breath sounds equal bilaterally. No accessory muscle use. GASTROINTESTINAL: Abdomen soft, non-tender, nondistended. MUSCULOSKELETAL: No cyanosis, or edema. BACK: Nontender without obvious deformity. No CVA tenderness. 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 S/P Ventricular peritoneal shunt externalization by Dr Franky Carreno 09/05/16 S/P Removal of ventriculoperitoneal shunt; placement of right occipital ventriculostomy by Dr Franky Carreno 09/12/16 Status post lumbar drain placement by IR A/P Problem List: (1) Sepsis ICD Code: A41.9 Status: Resolved (2) Shunt malfunction ICD Code: T85.618A Status: Acute (3) Hydrocephalus ICD Code: G91.9 Status: Acute (4) Infection of EXECUTIVE DIRECTOR CONTRACT SHOP (ventriculoperitoneal) shunt ICD Code: T85.730A Status: Acute (5) Intractable hiccups ICD Code: R06.6 Status: Resolved (6) Malfunctioning jejunostomy tube ICD Code: K94.13 Status: Resolved (7) Urethral stricture ICD Code: N35.9 Status: Acute (8) Hyponatremia ICD Code: E87.1 Status: Acute Assessment and Plan Mr. Syed is a 36 year old male with a history of severe TBI who presented to the ED on 08/23/2016 due to fever that started 3-4 days prior to this admission. Patient was recently treated for EXECUTIVE DIRECTOR CONTRACT SHOP shunt infection and EXECUTIVE DIRECTOR CONTRACT SHOP shunt was revised. Neurosurgery evaluated patient and he was found to have compensatory ventriculomegaly. Patient underwent EXECUTIVE DIRECTOR CONTRACT SHOP shunt externalization on and removal of EXECUTIVE DIRECTOR CONTRACT SHOP shunt and placement of right occipital ventriculostomy on 09/05/2016. ID has been following this patient as well. - Sepsis (decreased heart rate, tachycardia, decreased mentation, fever on admission). - EXECUTIVE DIRECTOR CONTRACT SHOP shunt related infection - Mycobacteria abscessus, another sample grew staph Haemolyticus. - C. Diff colitis. - ID following. Currently on Amikacin, Imipenem, Biaxin. Continue flagyl for C. Diff. - CBC, BMP every 2-3 days. - Shunt malfunction - EXECUTIVE DIRECTOR CONTRACT SHOP shunt externalization on 08/[address] Jaleel Carreno. - Status post removal of EXECUTIVE DIRECTOR CONTRACT SHOP shunt a ventriculostomy placement due to progressive hydrocephalus. - Status post lumbar drain placement by interventional radiology on 09/12/2016 - Follow neurosurgery recommendations - hyponatremia - Currently on 2% saline. Na improved. Will d/c 2% NaCl since the correction is already adequate. - Na 122 --> 132. - Chronic respiratory failure - Continue DuoNeb. - O2 to keep O2 sat > 90%. - Nutrition - Continue tube feed. Full code. Problem Qualifiers (1) Sepsis: Qualified Code: A41.9 - Sepsis, due to unspecified organism (2) Infection of EXECUTIVE DIRECTOR CONTRACT SHOP (ventriculoperitoneal) shunt: Qualified Code: T85.730D - Infection of EXECUTIVE DIRECTOR CONTRACT SHOP (ventriculoperitoneal) shunt, subsequent encounter Nurys Alva DO Sep 16, 2016 22:56
[2016-09-17] VITALS (13 sets, daily range): BP systolic 111–140; BP diastolic 61–72; PULSE 66–94; RESP 8–13; TEMP 97.6–98.2; O2SAT 97–100
[2016-09-17] MEDS: IMIPENEM/CILASTATIN INJ 500 MG in SODIUM CHLORIDE 0.9% INJ 100 ML IV SCH ×5 (00:34→23:56)
[2016-09-17 03:59] LABS: BICARBONATE 26.6 MEQ/L (21.0-32.0); POTASSIUM 5.7 MEQ/L (3.5-5.1)
[2016-09-17] MEDS: RESP: ALBUTEROL 2.5 MG/IPRATROPIUM 0.5 MG NEB (SCH) NEB ×4 (05:06→21:43)
[2016-09-17] MEDS: metroNIDAZOLE 500 MG TAB PEG SCH ×3 (05:21→21:47)
[2016-09-17] MEDS: oxyCODONE/ACETAMINOPHEN 5 MG/325 MG TAB JT SCH ×3 (05:21→21:47)
[2016-09-17] MEDS: CLARITHROMYCIN 500 MG TAB PO SCH ×2 (08:56→20:34)
[2016-09-17] MEDS: ATENOLOL 50 MG TAB PEG SCH ×2 (08:56→20:35)
[2016-09-17] MEDS: levETIRAcetam 500 MG/5 ML UDC TUBE SCH ×2 (08:56→20:34)
[2016-09-17] MEDS: BACLOFEN 10 MG TAB PEG SCH ×2 (08:56→20:35)
[2016-09-17] MEDS: HYOSCYAMINE 0.125 MG TAB JT SCH ×4 (08:56→20:34)
[2016-09-17] MEDS: SODIUM CHLORIDE 1 GRAM TAB PEG SCH ×3 (08:57→17:14)
[2016-09-17] MEDS: DILTIAZEM HCL 60 MG TAB JT SCH ×4 (08:57→20:34)
[2016-09-17] MEDS: LACTOBACILLUS ACIDOPHILUS 1 GM PACKET PEG SCH ×4 (08:57→20:35)
[2016-09-17] MEDS: hydrALAZINE HCL 50 MG TAB JT SCH ×3 (08:57→17:14)
[2016-09-17] MEDS: SODIUM CHLORIDE 0.9% FLUSH 5 ML FLUSH FLUSH SCH ×2 (08:57→20:35)
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
--- NOTE | 2016-09-17 13:14 | HHI.IDPN ---
Note Infectious Disease Note Lumbar drain to be replaced today. Current drain without output. Suspected to be clogged. Patient with eyes open. Has periods of apnea. No distress. No tracking. Baseline non verbal. Afebrile. Has new lumbar spinal drain placed on 09/12/16. CSF looks clear. Positive c diff stools. CSF from 08/29 has AFB. Repeat CSF AFB smear 09/01,09/05 positive. AFB identified as Mycobacterium abscessus. Had removal of REPEAT PHOTOCOMPOSING MACHINE OPERATOR shunt 09/05/16. External drain placed and then removed 09/12/16. PAST MEDICAL HISTORY 1. 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 Seizure disorder. 3. PEG placement 4. History of tracheostomy 5. History of MRSA wound infection from the scalp 6. Bacteremia due to MRSA 7. History of ESBL E-coli UTI. 8. Recent REPEAT PHOTOCOMPOSING MACHINE OPERATOR shunt malfunction and culture positive with Pseudomonas treated with a round of antibiotic. ALLERGIES NO KNOWN DRUG ALLERGIES. ANTIBIOTICS: Imipenem. Amikacin. Biaxin 09/04/16. Flagyl. OBJECTIVE: Vital Signs Date Time Temp Pulse Resp B/P Pulse Ox O2 Delivery O2 Flow Rate FiO2 09/17/16 12:00 70 09/17/16 12:00 97.6 70 11 136/69 100 09/17/16 10:00 94 09/17/16 09:59 97 Nasal Cannula 3.00 09/17/16 08:00 97.9 70 8 130/68 100 09/17/16 08:00 70 09/17/16 07:00 97 09/17/16 06:00 68 09/17/16 04:00 70 09/17/16 04:00 98.0 70 12 132/72 100 09/17/16 02:00 66 09/17/16 00:00 69 09/17/16 00:00 98.2 69 10 111/61 100 09/16/16 22:00 77 09/16/16 21:20 99 Nasal Cannula 3.00 09/16/16 20:00 72 09/16/16 20:00 98.4 68 14 134/74 100 09/16/16 19:00 Nasal Cannula 3.00 09/16/16 18:00 Nasal Cannula 3.00 09/16/16 18:00 64 09/16/16 16:00 Nasal Cannula 3.00 09/16/16 16:00 98.3 66 23 139/86 100 09/16/16 16:00 66 09/16/16 14:00 61 09/16/16 14:00 Nasal Cannula 3.00 09/16/16 09/16/16 09/17/16 15:00 23:00 07:00 Intake Total 1224 ml 947 ml 750 ml Output Total 1000 ml 1100 ml 900 ml Balance 224 ml -153 ml -150 ml Intake Oral 0 ml 0 ml 0 ml IV Total 1164 ml 805 ml 513 ml Tube Feeding 0 ml 42 ml 137 ml Other 60 ml 100 ml 100 ml Output Urine Total 1000 ml 1100 ml 900 ml Drainage Total 0 ml 0 ml 0 ml # Voids 1 # Bowel Movements 0 0 0 Laboratory Tests Test 09/16/16 03:33 White Blood Count 7.5 TH/MM3 Red Blood Count 3.83 MIL/MM3 Hemoglobin 10.7 GM/DL Hematocrit 32.0 % Mean Corpuscular Volume 83.6 FL Mean Corpuscular Hemoglobin 27.8 PG Mean Corpuscular Hemoglobin 33.3 % Concent Red Cell Distribution Width 17.7 % Platelet Count 215 TH/MM3 Mean Platelet Volume 7.1 FL Neutrophils (%) (Auto) 67.5 % Lymphocytes (%) (Auto) 17.5 % Monocytes (%) (Auto) 13.9 % Eosinophils (%) (Auto) 0.7 % Basophils (%) (Auto) 0.4 % Neutrophils # (Auto) 5.1 TH/MM3 Lymphocytes # (Auto) 1.3 TH/MM3 Monocytes # (Auto) 1.0 TH/MM3 Eosinophils # (Auto) 0.1 TH/MM3 Basophils # (Auto) 0.0 TH/MM3 CBC Comment DIFF FINAL Differential Comment Laboratory Tests Test 09/15/16 09/16/16 09/16/16 09/16/16 17:45 03:33 14:18 22:15 Sodium Level 125 MEQ/L 131 MEQ/L 132 MEQ/L 129 MEQ/L Potassium Level 4.2 MEQ/L Chloride Level 93 MEQ/L Carbon Dioxide Level 33.0 MEQ/L Anion Gap 5 MEQ/L Blood Urea Nitrogen 10 MG/DL Creatinine 0.29 MG/DL Estimat Glomerular Filtration 433 ML/MIN Rate Random Glucose 83 MG/DL Calcium Level 9.6 MG/DL Phosphorus Level 3.2 MG/DL Magnesium Level 1.7 MG/DL Total Bilirubin 0.3 MG/DL Aspartate Amino Transf 17 U/L (AST/SGOT) Alanine Aminotransferase 35 U/L (ALT/SGPT) Alkaline Phosphatase 110 U/L Total Protein 6.7 GM/DL Albumin 3.3 GM/DL Test 09/17/16 09/17/16 03:16 09:10 Sodium Level 129 MEQ/L 129 MEQ/L Potassium Level 5.7 MEQ/L Chloride Level 93 MEQ/L Carbon Dioxide Level 26.6 MEQ/L Anion Gap 9 MEQ/L Blood Urea Nitrogen 9 MG/DL Creatinine 0.30 MG/DL Estimat Glomerular Filtration 416 ML/MIN Rate Random Glucose 93 MG/DL Calcium Level 9.0 MG/DL Microbiology Date/Time Procedure Status Source Growth 09/12/16 13:33 Gram Stain - Final Resulted Cerebral Spinal Fluid Shunt Fluid 09/12/16 13:33 CSF Culture - Preliminary Resulted Cerebral Spinal Fluid Shunt Fluid NO GROWTH IN 48 HOURS. 09/13/16 15:04 Acid Fast Stain Received Cerebral Spinal Fluid Shunt Fluid Pending 09/13/16 15:04 Mycobacterial Culture Received Cerebral Spinal Fluid Shunt Fluid Pending 09/13/16 15:04 Cancelled Cerebral Spinal Fluid Shunt Fluid IMAGING: Chest X-Ray 09/08/16 0000 Signed Impressions: Service Date/Time: Friday, September 09, 2016 00:01 - CONCLUSION: 1. Ill- defined opacity projecting over the right upper lobe. Right upper lobe pneumonia versus overlying bandage/gauze.Please see above. 2. Mild bibasilar atelectasis. Joni Lay MD PHYSICAL EXAMINATION GENERAL: Non verbal. Calm. No distress. NECK: No adenopathy or swelling. LUNGS: Bilateral rhonchi persist. HEART: Regular rate and rhythm. Nl S1S2. ABDOMEN: Bowel sounds present, soft. No tenderness appreciated. EXTREMITIES: No clubbing or cyanosis or edema. NEUROLOGIC: Unable to fully assess. SKIN: No rash. IMPRESSION 1. Fever. Persistent previous, now temp normal. REPEAT PHOTOCOMPOSING MACHINE OPERATOR Shunt related infection. Mycobacteria abscessus. Also had Staph Haemolyticus on in one sample. Sepsis indicated By decreased BP, increased HR. Decreased mentation. High fever. Temperature improved. 2. Cellulitis suggested by CT scan of the abdomen and pelvis which reveals myositis and cellulitis in the posterior tissues of the buttock and hip. No erythema present. Received course of Vancomycin. 3. Candiduria. Treated. 4. Pneumonia. Treated. 5. C diff colitis. RECOMMENDATIONS 1. Continue Amikacin. Pharmacy dosing. 2. Continue Imipenem. 3. Continue Biaxin. 4. Follow repeat CSF to check for clearance. CSF from 2 no AFB seen. Micro asked to check into sensitivity on the mycobacteria. 5. Continue Flagyl for c. diff. Quique Mendez MD Sep 17, 2016 13:14
--- NOTE | 2016-09-17 15:40 | PD.RAD ---
Post Procedure Progress Note Pre Procedure Diagnosis: (1) Brain edema Post Procedure Diagnosis: (1) Brain edema Procedure Date: Sep 17, 2016 Supervising Radiologist: Jem Alexander Proceduralist/Assist: Tunde Calle, RT(R), Nuzhat Byrne RT(R)(CV), Lexy Hernandez RT(R)() Anesthesia: Local Plan of Activity Patient to Unit: Critical Care Patient Condition: Poor See PACS Report for procedural detail/treatment Spinal Procedure Lumbar Drain L3-L4 (tip at T12) Fluid Description: Bloody Jem Alexander MD Sep 17, 2016 15:40
--- NOTE | 2016-09-17 16:42 | RADRPT ---
EXAM DATE/TIME: 09/17/2016 14:38 [facility] COMPARISON: LUMBAR DRAINAGE, September 12, 2016, 17:05. INDICATIONS : Ventriculostomy clogged MEDICAL HISTORY : 1. TBI 2. seizure disorder 3. Decubitis ulcer 4. UTI 's SURGIAL HISTORY : 1. Trach 2. HOOKER OFF shunt and multible malfuctions and infections 3. PEG ENCOUNTER: Initial ACUITY: 1 day PAIN SCORE: 0/10 Right buttock LUMBAR PUNCTURE TIME: 1504 hours FLUORO TIME: 4.2 minutes CONTRAST: 2 cc Omnipaque (iohexol) 300 LEVEL: Tip of lumbar drain was placed at T12, punctured at the L3-L4 level. DEVICE(S): 1.) 5 [place] lumbar drain catheter PROCEDURE : 1. Fluoroscopically guided lumbar drain placement. 2. Conscious sedation with continuous EKG and oximetry monitoring. The risks, benefits and alternatives to the procedure were explained and verbal and written consent w as obtained. The site was prepped in sterile fashion. Full sterile technique was used, including ca p, mask, sterile gloves and gown and a large sterile sheet. Hand hygiene and 2% chlorhexidine and/or betadine/alcohol prep was utilized per protocol for cutaneous antisepsis. The skin and subcutaneous tissues were infiltrated with local anesthetic solution. With fluoroscopic guidance the lumbar thecal sac was punctured with a 14 gauge Touhy needle and a lum bar drain was placed with its tip at the level as described above and the catheter was sutured in clyde ce. CSF was identified returning from the catheter at the termination of the procedure. Conscious sedation was performed with the prescribed dosages and duration as above. The patient tole rated the procedure well and there were no complications. EKG and oximetry remained stable throughou t the procedure. The patient was sent to post anesthesia recovery in stable condition. CONCLUSION: Uncomplicated lumbar drain placement as above. Jem Alexander MD on September 17, 2016 at 16:39 Board Certified Radiologist. This report was verified electronically.
[2016-09-17] MEDS: AMIKACIN IV SCH (17:14)
[2016-09-17] MEDS: SODIUM CHLORID 0.9% IV SCH (17:14)
--- NOTE | 2016-09-17 19:32 | HHI.PR ---
Subjective Remarks Follow up for severe TBI, shunt malfunction, C. Diff colitis. 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 No fever, chills. Lumbar drain is not draining well. Neurosurgery will request IR to take a look at this. Objective Vitals Vital Signs Date Time Temp Pulse Resp B/P Pulse Ox O2 Delivery O2 Flow Rate FiO2 09/17/16 16:00 97.7 75 10 136/67 99 09/17/16 16:00 79 09/17/16 14:00 72 09/17/16 12:00 70 09/17/16 12:00 97.6 70 11 136/69 100 09/17/16 10:00 94 09/17/16 09:59 97 Nasal Cannula 3.00 09/17/16 08:00 97.9 70 8 130/68 100 09/17/16 08:00 70 09/17/16 07:00 97 09/17/16 06:00 68 09/17/16 04:00 70 09/17/16 04:00 98.0 70 12 132/72 100 09/17/16 02:00 66 09/17/16 00:00 69 09/17/16 00:00 98.2 69 10 111/61 100 09/16/16 22:00 77 09/16/16 21:20 99 Nasal Cannula 3.00 09/16/16 20:00 72 09/16/16 20:00 98.4 68 14 134/74 100 I/O 09/16/16 09/16/16 09/16/16 09/17/16 09/17/16 09/17/16 07:00 15:00 23:00 07:00 15:00 23:00 Intake Total 1082 ml 1224 ml 947 ml 750 ml 869 ml Output Total 1000 ml 1000 ml 1100 ml 900 ml 500 ml Balance 82 ml 224 ml -153 ml -150 ml 369 ml Intake Oral 0 ml 0 ml 0 ml 0 ml IV Total 982 ml 1164 ml 805 ml 513 ml 596 ml Tube Feeding 0 ml 0 ml 42 ml 137 ml 273 ml Other 100 ml 60 ml 100 ml 100 ml Output Urine Total 1000 ml 1000 ml 1100 ml 900 ml 500 ml Drainage Total 0 ml 0 ml 0 ml 0 ml # Voids 1 1 # Bowel Movements 0 0 0 0 Result Diagram: 09/16/16 0333 09/17/16 6239 Objective Remarks GENERAL: Chronically ill male. Non verbal. SKIN: Warm and dry. HEAD: Normocephalic. EYES: No scleral icterus. No injection or drainage. NECK: Supple, trachea midline. No JVD or lymphadenopathy. CARDIOVASCULAR: Regular rate and rhythm without murmurs, gallops, or rubs. RESPIRATORY: Breath sounds equal bilaterally. No accessory muscle use. GASTROINTESTINAL: Abdomen soft, non-tender, nondistended. MUSCULOSKELETAL: No cyanosis, or edema. BACK: Nontender without obvious deformity. No CVA tenderness. 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 S/P Ventricular peritoneal shunt externalization by Dr Franky Carreno 09/05/16 S/P Removal of ventriculoperitoneal shunt; placement of right occipital ventriculostomy by Dr Franky Carreno 09/12/16 Status post lumbar drain placement by IR A/P Problem List: (1) Sepsis ICD Code: A41.9 Status: Resolved (2) Shunt malfunction ICD Code: T85.618A Status: Acute (3) Hydrocephalus ICD Code: G91.9 Status: Acute (4) Infection of PERINATAL SOCIAL WORKER (ventriculoperitoneal) shunt ICD Code: T85.730A Status: Acute (5) Intractable hiccups ICD Code: R06.6 Status: Resolved (6) Malfunctioning jejunostomy tube ICD Code: K94.13 Status: Resolved (7) Urethral stricture ICD Code: N35.9 Status: Acute (8) Hyponatremia ICD Code: E87.1 Status: Acute Assessment and Plan Mr. Syed is a 36 year old male with a history of severe TBI who presented to the ED on 08/23/2016 due to fever that started 3-4 days prior to this admission. Patient was recently treated for PERINATAL SOCIAL WORKER shunt infection and PERINATAL SOCIAL WORKER shunt was revised. Neurosurgery evaluated patient and he was found to have compensatory ventriculomegaly. Patient underwent PERINATAL SOCIAL WORKER shunt externalization on and removal of PERINATAL SOCIAL WORKER shunt and placement of right occipital ventriculostomy on 09/05/2016. ID has been following this patient as well. - Sepsis (decreased heart rate, tachycardia, decreased mentation, fever on admission). - PERINATAL SOCIAL WORKER shunt related infection - Mycobacteria abscessus, another sample grew staph Haemolyticus. - C. Diff colitis. - ID following. Currently on Amikacin, Imipenem, Biaxin. Continue flagyl for C. Diff. - CBC, BMP every 2-3 days. - Shunt malfunction - PERINATAL SOCIAL WORKER shunt externalization on 08/[address] Jaleel Carreno. - Status post removal of PERINATAL SOCIAL WORKER shunt a ventriculostomy placement due to progressive hydrocephalus. - Status post lumbar drain placement by interventional radiology on 09/12/2016 - Follow neurosurgery recommendations - IR placed a new Lumbar drain on 09/17/2016. - hyponatremia - Currently on 2% saline. Na improved. 2% NaCl discontinued. - Na 122 --> 132--> 129. - Chronic respiratory failure - Continue DuoNeb. - O2 to keep O2 sat > 90%. - Nutrition - Continue tube feed. Full code. Problem Qualifiers (1) Sepsis: Qualified Code: A41.9 - Sepsis, due to unspecified organism (2) Infection of PERINATAL SOCIAL WORKER (ventriculoperitoneal) shunt: Qualified Code: T85.730D - Infection of PERINATAL SOCIAL WORKER (ventriculoperitoneal) shunt, subsequent encounter Nurys Alva DO Sep 17, 2016 19:32
--- NOTE | 2016-09-17 20:07 | HHI.PR ---
Subjective Remarks 36 YOAA male with TBI, Ch RF On NC Looks around, does'T follow No fever TF on hold due to thich tracheal secretions Objective Vital Signs Vital Signs Date Time Temp Pulse Resp B/P Pulse Ox O2 Delivery O2 Flow Rate FiO2 09/17/16 16:00 97.7 75 10 136/67 99 09/17/16 16:00 79 09/17/16 14:00 72 09/17/16 12:00 70 09/17/16 12:00 97.6 70 11 136/69 100 09/17/16 10:00 94 09/17/16 09:59 97 Nasal Cannula 3.00 09/17/16 08:00 97.9 70 8 130/68 100 09/17/16 08:00 70 09/17/16 07:00 97 09/17/16 06:00 68 09/17/16 04:00 70 09/17/16 04:00 98.0 70 12 132/72 100 09/17/16 02:00 66 09/17/16 00:00 69 09/17/16 00:00 98.2 69 10 111/61 100 09/16/16 22:00 77 09/16/16 21:20 99 Nasal Cannula 3.00 I/O 09/16/16 09/16/16 09/16/16 09/17/16 09/17/16 09/17/16 07:00 15:00 23:00 07:00 15:00 23:00 Intake Total 1082 ml 1224 ml 947 ml 750 ml 869 ml Output Total 1000 ml 1000 ml 1100 ml 900 ml 500 ml Balance 82 ml 224 ml -153 ml -150 ml 369 ml Intake Oral 0 ml 0 ml 0 ml 0 ml IV Total 982 ml 1164 ml 805 ml 513 ml 596 ml Tube Feeding 0 ml 0 ml 42 ml 137 ml 273 ml Other 100 ml 60 ml 100 ml 100 ml Output Urine Total 1000 ml 1000 ml 1100 ml 900 ml 500 ml Drainage Total 0 ml 0 ml 0 ml 0 ml # Voids 1 1 # Bowel Movements 0 0 0 0 Result Diagram: 09/16/16 0333 09/17/16 1043 Objective Remarks GENERAL: WBWN AA male, mild sob SKIN: Warm and dry. HEAD: Normocephalic. EYES: No scleral icterus. No injection or drainage. NECK: Supple, trachea midline. No JVD or lymphadenopathy. CARDIOVASCULAR: Regular rate and rhythm without murmurs, gallops, or rubs. RESPIRATORY: Breath sounds equal bilaterally. No accessory muscle use. GASTROINTESTINAL: Abdomen soft, non-tender, nondistended. PEG tube MUSCULOSKELETAL: No cyanosis, or edema. BACK: Nontender without obvious deformity. No CVA tenderness. A/P Assessment and Plan Resp insuff, improved Right Basal infilt Atelactesis TBI MRSA Pn treated PLAN: Wean 02 to keep sat >90% Aerosol nebs Abx per ID Han Hernandez MD Sep 17, 2016 20:07
[2016-09-17] MEDS: SILVER SULFADIAZINE 1% CR 50 GM JAR TOPICAL SCH (21:00)
[2016-09-18] VITALS (13 sets, daily range): BP systolic 122–164; BP diastolic 76–97; PULSE 62–109; RESP 10–22; TEMP 95.2–99.2; O2SAT 95–100
[2016-09-18] MEDS: RESP: ALBUTEROL 2.5 MG/IPRATROPIUM 0.5 MG NEB (SCH) NEB ×4 (04:10→19:57)
[2016-09-18] MEDS: metroNIDAZOLE 500 MG TAB PEG SCH ×3 (05:15→23:22)
[2016-09-18] MEDS: oxyCODONE/ACETAMINOPHEN 5 MG/325 MG TAB JT SCH ×3 (05:16→23:23)
[2016-09-18] MEDS: IMIPENEM/CILASTATIN INJ 500 MG in SODIUM CHLORIDE 0.9% INJ 100 ML IV SCH ×4 (05:16→23:30)
[2016-09-18] MEDS: SODIUM CHLORIDE 0.9% FLUSH 5 ML FLUSH FLUSH SCH ×2 (09:00→21:33)
[2016-09-18] MEDS: levETIRAcetam 500 MG/5 ML UDC TUBE SCH ×2 (09:46→21:33)
[2016-09-18] MEDS: hydrALAZINE HCL 50 MG TAB JT SCH ×3 (09:47→17:21)
[2016-09-18] MEDS: ATENOLOL 50 MG TAB PEG SCH ×2 (09:47→21:32)
[2016-09-18] MEDS: CLARITHROMYCIN 500 MG TAB PO SCH ×2 (09:47→21:32)
[2016-09-18] MEDS: BACLOFEN 10 MG TAB PEG SCH ×2 (09:47→21:32)
[2016-09-18] MEDS: SODIUM CHLORIDE 1 GRAM TAB PEG SCH ×3 (09:47→17:21)
[2016-09-18] MEDS: DILTIAZEM HCL 60 MG TAB JT SCH ×4 (09:47→21:32)
[2016-09-18] MEDS: HYOSCYAMINE 0.125 MG TAB JT SCH ×4 (09:47→21:32)
[2016-09-18] MEDS: LACTOBACILLUS ACIDOPHILUS 1 GM PACKET PEG SCH ×4 (09:47→21:00)
--- NOTE | 2016-09-18 16:51 | HHI.PR ---
Subjective Remarks 36 YOAA male with TBI, Ch RF On NC Looks around, does'T follow No fever TF restarted Mother at BS Objective Vital Signs Vital Signs Date Time Temp Pulse Resp B/P Pulse Ox O2 Delivery O2 Flow Rate FiO2 09/18/16 14:00 102 09/18/16 12:00 99.2 109 22 148/82 98 09/18/16 12:00 109 09/18/16 10:00 88 09/18/16 08:19 95 Nasal Cannula 2.00 09/18/16 08:00 Nasal Cannula 3.00 09/18/16 08:00 98.3 92 18 145/82 97 09/18/16 08:00 83 09/18/16 06:00 73 09/18/16 04:00 95.2 75 11 135/83 100 09/18/16 04:00 71 09/18/16 02:00 62 09/18/16 00:00 75 09/18/16 00:00 97.9 75 10 122/77 96 09/17/16 22:00 87 09/17/16 21:36 97 Nasal Cannula 2.00 09/17/16 20:00 75 09/17/16 20:00 98.0 90 13 140/67 100 09/17/16 19:00 100 Nasal Cannula 3.00 I/O 09/17/16 09/17/16 09/17/16 09/18/16 09/18/16 09/18/16 07:00 15:00 23:00 07:00 15:00 23:00 Intake Total 750 ml 869 ml 823 ml 459 ml 1015 ml Output Total 900 ml 500 ml 600 ml 350 ml 410 ml Balance -150 ml 369 ml 223 ml 109 ml 605 ml Intake Oral 0 ml IV Total 513 ml 596 ml 719 ml 289 ml 347 ml Tube Feeding 137 ml 273 ml 44 ml 70 ml 278 ml Other 100 ml 60 ml 100 ml 390 ml Output Urine Total 900 ml 500 ml 600 ml 350 ml 400 ml Drainage Total 0 ml 0 ml 0 ml 10 ml # Bowel Movements 0 0 0 Result Diagram: 09/16/16 0333 09/18/16 1040 Objective Remarks GENERAL: WBWN AA male, mild sob SKIN: Warm and dry. HEAD: Normocephalic. EYES: No scleral icterus. No injection or drainage. NECK: Supple, trachea midline. No JVD or lymphadenopathy. CARDIOVASCULAR: Regular rate and rhythm without murmurs, gallops, or rubs. RESPIRATORY: Breath sounds equal bilaterally. No accessory muscle use. GASTROINTESTINAL: Abdomen soft, non-tender, nondistended. PEG tube MUSCULOSKELETAL: No cyanosis, or edema. BACK: Nontender without obvious deformity. No CVA tenderness. A/P Assessment and Plan Resp insuff, improved Right Basal infilt Atelactesis TBI MRSA Pn treated PLAN: Wean 02 to keep sat >90% Aerosol nebs Abx per ID TF Han Hernandez MD Sep 18, 2016 16:51
[2016-09-18] MEDS: AMIKACIN IV SCH (17:22)
[2016-09-18] MEDS: SODIUM CHLORID 0.9% IV SCH (17:22)
[2016-09-18] MEDS: SILVER SULFADIAZINE 1% CR 50 GM JAR TOPICAL SCH (21:00)
--- NOTE | 2016-09-18 22:46 | HHI.PR ---
Subjective Remarks Follow up for TBI, MACHINES TECHNICIAN shunt malfunction. Mr. Syed remains non-verbal. Mother at bedside. Per nursing, patient has been having a lot of secretion from the nose. Mother is concerned about the new lumbar drain that was placed on 2016. Objective Vitals Vital Signs Date Time Temp Pulse Resp B/P Pulse Ox O2 Delivery O2 Flow Rate FiO2 09/18/16 22:00 86 09/18/16 20:00 90 09/18/16 20:00 98.7 100 22 164/76 97 09/18/16 19:00 99 Nasal Cannula 3.00 09/18/16 18:00 90 09/18/16 16:00 86 09/18/16 16:00 98.9 80 15 134/97 100 09/18/16 14:00 102 09/18/16 12:00 99.2 109 22 148/82 98 09/18/16 12:00 109 09/18/16 10:00 88 09/18/16 08:19 95 Nasal Cannula 2.00 09/18/16 08:00 Nasal Cannula 3.00 09/18/16 08:00 98.3 92 18 145/82 97 09/18/16 08:00 83 09/18/16 06:00 73 09/18/16 04:00 95.2 75 11 135/83 100 09/18/16 04:00 71 09/18/16 02:00 62 09/18/16 00:00 75 09/18/16 00:00 97.9 75 10 122/77 96 I/O 09/17/16 09/17/16 09/17/16 09/18/16 09/18/16 09/18/16 07:00 15:00 23:00 07:00 15:00 23:00 Intake Total 750 ml 869 ml 823 ml 459 ml 1015 ml Output Total 900 ml 500 ml 600 ml 350 ml 410 ml Balance -150 ml 369 ml 223 ml 109 ml 605 ml Intake Oral 0 ml IV Total 513 ml 596 ml 719 ml 289 ml 347 ml Tube Feeding 137 ml 273 ml 44 ml 70 ml 278 ml Other 100 ml 60 ml 100 ml 390 ml Output Urine Total 900 ml 500 ml 600 ml 350 ml 400 ml Drainage Total 0 ml 0 ml 0 ml 10 ml # Bowel Movements 0 0 0 Result Diagram: 09/16/16 0333 09/18/162019 Imaging Last Impressions Lumbar Puncture Fluoroscopy 09/17/16 0000 Signed Impressions: Service Date/Time: Saturday, September 17, 2016 14:38 - CONCLUSION: Uncomplicated lumbar drain placement as above. Jem Alexander MD Chest X-Ray 09/15/16 0000 Signed Impressions: Service Date/Time: Thursday, September 15, 2016 09:01 - CONCLUSION: No acute disease. Juanjo Briscoe MD Brain MRI 09/03/16 0600 Signed Impressions: Service Date/Time: Saturday, September 03, 2016 11:54 - CONCLUSION: 1. Marked increase in ventricular size and compare with the prior study but no transependymal fluid migration. Obstructing communicating hydrocephalus is not excluded. There is no evidence of abscess. Jem Alexander MD Shunt Study (Imaging) 08/23/16 1514 Signed Impressions: Service Date/Time: Tuesday, August 23, 2016 15:14 - CONCLUSION: MACHINES TECHNICIAN shunt tap for spinal fluid sampling as above Joni Sharpe MD Abdomen/Pelvis CT 08/23/16 0816 Signed Impressions: Service Date/Time: Tuesday, August 23, 2016 08:44 - CONCLUSION: Abnormal scan with multiple findings as outlined above Joni Sharpe MD Shunt Study 08/23/16 0000 Signed Impressions: Service Date/Time: Tuesday, August 23, 2016 14:07 - CONCLUSION: Shunt tubing is patent into the ventricular system. The downstream portion of the shunt to the peritoneal cavity was not evaluated. Joni Sharpe MD Head CT 08/23/16 0000 Signed Impressions: Service Date/Time: Tuesday, August 23, 2016 11:57 - CONCLUSION: 1. Interval significant increase in the size of the ventricles compared to the previous examination suggesting worsening hydrocephalus. Clinical correlation is recommended. 2. No significant change in the extensive encephalomalacia ( right worse than left) within the cerebral hemispheres. 3. No acute hemorrhage, midline shift or extraaxial fluid collections. Donavan Vidales MD Objective Remarks GENERAL: Chronically ill male. Non verbal. SKIN: Warm and dry. HEAD: Normocephalic. EYES: No scleral icterus. No injection or drainage. NECK: Supple, trachea midline. No JVD or lymphadenopathy. CARDIOVASCULAR: Regular rate and rhythm without murmurs, gallops, or rubs. RESPIRATORY: Breath sounds equal bilaterally. No accessory muscle use. GASTROINTESTINAL: Abdomen soft, non-tender, nondistended. MUSCULOSKELETAL: No cyanosis, or edema. 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 S/P Ventricular peritoneal shunt externalization by Dr Franky Carreno 09/05/16 S/P Removal of ventriculoperitoneal shunt; placement of right occipital ventriculostomy by Dr Franky Carreno 09/12/16 Status post lumbar drain placement by IR A/P Problem List: (1) Sepsis ICD Code: A41.9 Status: Resolved (2) Shunt malfunction ICD Code: T85.618A Status: Acute (3) Hydrocephalus ICD Code: G91.9 Status: Acute (4) Infection of MACHINES TECHNICIAN (ventriculoperitoneal) shunt ICD Code: T85.730A Status: Acute (5) Intractable hiccups ICD Code: R06.6 Status: Resolved (6) Malfunctioning jejunostomy tube ICD Code: K94.13 Status: Resolved (7) Urethral stricture ICD Code: N35.9 Status: Acute (8) Hyponatremia ICD Code: E87.1 Status: Acute Assessment and Plan Mr. Syed is a 36 year old male with a history of severe TBI who presented to the ED on 08/23/2016 due to fever that started 3-4 days prior to this admission. Patient was recently treated for MACHINES TECHNICIAN shunt infection and MACHINES TECHNICIAN shunt was revised. Neurosurgery evaluated patient and he was found to have compensatory ventriculomegaly. Patient underwent MACHINES TECHNICIAN shunt externalization on and removal of MACHINES TECHNICIAN shunt and placement of right occipital ventriculostomy on 09/05/2016. ID has been following this patient as well. - Sepsis (decreased heart rate, tachycardia, decreased mentation, fever on admission). - MACHINES TECHNICIAN shunt related infection - Mycobacteria abscessus, another sample grew staph Haemolyticus. - C. Diff colitis. - ID following. Currently on Amikacin, Imipenem, Biaxin. Continue flagyl for C. Diff. - CBC, BMP on 09/19/2016 - Shunt malfunction - MACHINES TECHNICIAN shunt externalization on 08/[address] Jaleel Carreno. - Status post removal of MACHINES TECHNICIAN shunt a ventriculostomy placement due to progressive hydrocephalus. - Status post lumbar drain placement by interventional radiology on 09/12/2016 - Follow neurosurgery recommendations - IR placed a new Lumbar drain on 09/17/2016. Will discuss with Neurosurgery or IR regarding lumbar drain. - hyponatremia - Currently on 2% saline. Na improved. 2% NaCl discontinued. - Na 122 --> 132--> 129. - Chronic respiratory failure - Continue DuoNeb. - O2 to keep O2 sat > 90%. - Nutrition - Continue tube feed. Full code. Problem Qualifiers (1) Sepsis: Qualified Code: A41.9 - Sepsis, due to unspecified organism (2) Infection of MACHINES TECHNICIAN (ventriculoperitoneal) shunt: Qualified Code: T85.730D - Infection of MACHINES TECHNICIAN (ventriculoperitoneal) shunt, subsequent encounter Nurys Alva DO Sep 18, 2016 22:46
[2016-09-18] MEDS: ACETAMINOPHEN 325 MG TAB G-TUBE PRN (23:23)
[2016-09-19] VITALS (14 sets, daily range): BP systolic 90–160; BP diastolic 56–81; PULSE 77–110; RESP 10–26; TEMP 97.5–98.6; O2SAT 95–100
[2016-09-19] MEDS: SODIUM CHLOR 0.9% 1000 ML INJ 1,000 ML IV SCH ×3 (00:45→20:15)
[2016-09-19] MEDS: LORazepam 2 MG/ML VIAL IV PUSH PRN (00:46)
--- NOTE | 2016-09-19 00:57 | RADRPT ---
EXAM DATE/TIME: 09/19/2016 00:39 [facility] COMPARISON: CHEST SINGLE AP, September 15, 2016, 9:01. INDICATIONS : Congestion. MEDICAL HISTORY : Hypertension. SURGICAL HISTORY : Shunt Tracheostomy ENCOUNTER: Subsequent ACUITY: 1 month PAIN SCORE: Non-responsive. LOCATION: Bilateral chest FINDINGS: A single view of the chest demonstrates the lungs to be symmetrically aerated without evidence of mas s, infiltrate or effusion. The cardiomediastinal contours are unremarkable. Osseous structures are intact. CONCLUSION: No acute disease. Eran Truong MD on September 19, 2016 at 0:55 Board Certified Radiologist. This report was verified electronically.
[2016-09-19 01:17] LABS: BLOOD, URINE MOD (NEG); CALCIUM OXALATE CRYSTALS,URINE OCC /hpf; COMMENT (UR) CATH-CULTURE IND; CULTURE IF INDICATED CATH CULTURE IND; GLUCOSE,URINE NEG (NEG); KETONE, URINE NEG (NEG); MUCUS URINE FEW /lpf (OCC); NITRITE,URINE NEG (NEG); SQUAMOUS EPITHELIAL CELL URINE <1 /hpf (0-5); URINE COLOR YELLOW (YELLW/STRAW)
[2016-09-19 01:27] LABS: AUTOMATED NEUTROPHIL # 8.4 TH/MM3 (1.8-7.7); BASOPHIL % 0.4 % (0.0-2.0); EOSINOPHIL % 0.3 % (0.0-4.0); HEMATOCRIT 33.7 % (39.0-51.0); HEMO FLAGS DIFF FINAL; LYMPH % 8.8 % (9.0-44.0); LYMPHOCYTE # 0.9 TH/MM3 (1.0-4.8); MEAN CELL VOLUME 83.2 FL (80.0-100.0); MEAN CORPUSCULAR HEMOGLOBIN 29.2 PG (27.0-34.0); MEAN CORPUSCULAR HGB CONC 35.1 % (32.0-36.0); MONO % 11.8 % (0.0-8.0); NEUT % 78.7 % (16.0-70.0); PLATELET COUNT 236 TH/MM3 (150-450); RED BLOOD COUNT 4.05 MIL/MM3 (4.50-5.90); RED CELL DISTRIBUTION WIDTH 17.5 % (11.6-17.2); WHITE BLOOD COUNT 10.7 TH/MM3 (4.0-11.0)
[2016-09-19] MEDS: RESP: ALBUTEROL 2.5 MG/IPRATROPIUM 0.5 MG NEB (SCH) NEB ×4 (04:41→21:48)
[2016-09-19] MEDS: metroNIDAZOLE 500 MG TAB PEG SCH ×3 (06:02→20:14)
[2016-09-19] MEDS: IMIPENEM/CILASTATIN INJ 500 MG in SODIUM CHLORIDE 0.9% INJ 100 ML IV SCH ×3 (06:03→18:04)
[2016-09-19] MEDS: oxyCODONE/ACETAMINOPHEN 5 MG/325 MG TAB JT SCH ×3 (06:03→20:15)
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
[2016-09-19 08:53] LABS: AUTOMATED NEUTROPHIL # 13.2 TH/MM3 (1.8-7.7); BASOPHIL # 0.1 TH/MM3 (0-0.2); BASOPHIL % 0.6 % (0.0-2.0); EOSINOPHIL # 0.1 TH/MM3 (0-0.4); EOSINOPHIL % 0.5 % (0.0-4.0); LYMPH % 10.2 % (9.0-44.0); LYMPHOCYTE # 1.8 TH/MM3 (1.0-4.8); MONO % 14.4 % (0.0-8.0); NEUT % 74.3 % (16.0-70.0)
[2016-09-19 09:07] LABS: BICARBONATE 31.4 MEQ/L (21.0-32.0); POTASSIUM 4.8 MEQ/L (3.5-5.1)
[2016-09-19] MEDS: HYOSCYAMINE 0.125 MG TAB JT SCH ×4 (09:11→20:14)
[2016-09-19] MEDS: DILTIAZEM HCL 60 MG TAB JT SCH ×4 (09:11→20:14)
[2016-09-19] MEDS: SODIUM CHLORIDE 1 GRAM TAB PEG SCH ×3 (09:11→17:24)
[2016-09-19] MEDS: BACLOFEN 10 MG TAB PEG SCH ×2 (09:11→20:14)
[2016-09-19] MEDS: hydrALAZINE HCL 50 MG TAB JT SCH ×3 (09:11→17:24)
[2016-09-19] MEDS: LACTOBACILLUS ACIDOPHILUS 1 GM PACKET PEG SCH ×4 (09:11→20:13)
[2016-09-19] MEDS: SODIUM CHLORIDE 0.9% FLUSH 5 ML FLUSH FLUSH SCH ×2 (09:11→21:00)
[2016-09-19] MEDS: ATENOLOL 50 MG TAB PEG SCH ×2 (09:12→20:13)
[2016-09-19] MEDS: CLARITHROMYCIN 500 MG TAB PO SCH ×2 (09:12→20:13)
[2016-09-19] MEDS: levETIRAcetam 500 MG/5 ML UDC TUBE SCH ×2 (09:12→20:13)
[2016-09-19] MEDS: SENNOSIDES 8.6 MG TAB PO PRN (09:17)
[2016-09-19 09:22] LABS: HEMATOCRIT 37.6 % (39.0-51.0); MEAN CELL VOLUME 83.1 FL (80.0-100.0); MEAN CORPUSCULAR HEMOGLOBIN 27.7 PG (27.0-34.0); MEAN CORPUSCULAR HGB CONC 33.3 % (32.0-36.0); RED BLOOD COUNT 4.52 MIL/MM3 (4.50-5.90); RED CELL DISTRIBUTION WIDTH 17.9 % (11.6-17.2); WHITE BLOOD COUNT 18.2 TH/MM3 (4.0-11.0)
[2016-09-19 09:23] LABS: HEMO FLAGS AUTO DIFF; PLATELET COUNT 248 TH/MM3 (150-450)
[2016-09-19 09:25] LABS: BANDS 1 % (0-6); NEUTROPHIL # MANUAL DIFF 12.6 TH/MM3 (1.8-7.7); POLYS (SEG NEUTROPHILS) 68 % (16-70); WBC DIFF SAMPLE 100
[2016-09-19 09:26] LABS: PLATELET ESTIMATE SMEAR NORMAL (NORMAL); PLATELET MORPHOLOGY NORMAL (NORMAL); SCAN/DIFF FINAL DIFF MANUAL
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
[2016-09-19] MEDS: fentaNYL 50 MCG/HR PATCH T-DERMAL SCH (12:21)
[2016-09-19] MEDS: REMOVE OLD PATCH TD SCH (12:21)
[2016-09-19] MEDS: MAGNESIUM HYDROXIDE SUSP 30 ML CUP PO PRN (12:22)
[2016-09-19] MEDS: chlorproMAZINE HCL 25 MG TAB PO PRN (13:35)
[2016-09-19] MEDS: SODIUM CHLORID 0.9% IV SCH (15:57)
[2016-09-19] MEDS: AMIKACIN IV SCH (15:57)
--- NOTE | 2016-09-19 19:49 | HHI.PR ---
Subjective Remarks 36 YOAA male with TBI, Ch RF On NC Looks around, does'T follow No fever Tolerates TF Objective Vital Signs Vital Signs Date Time Temp Pulse Resp B/P Pulse Ox O2 Delivery O2 Flow Rate FiO2 09/19/16 18:00 82 09/19/16 16:00 81 09/19/16 16:00 97.5 81 10 114/67 100 09/19/16 14:00 91 09/19/16 12:00 85 09/19/16 12:00 97.6 85 14 126/81 100 09/19/16 10:00 101 09/19/16 08:12 98 Nasal Cannula 2.00 09/19/16 08:00 98.6 92 16 145/76 100 09/19/16 08:00 92 09/19/16 07:30 100 Nasal Cannula 2.00 Humidified 09/19/16 06:00 90 09/19/16 04:00 79 09/19/16 04:00 98.4 79 15 126/80 100 09/19/16 02:00 77 09/19/16 00:00 98.6 110 26 160/70 95 09/19/16 00:00 110 09/18/16 22:00 86 09/18/16 20:00 90 09/18/16 20:00 98.7 100 22 164/76 97 I/O 09/18/16 09/18/16 09/18/16 09/19/16 09/19/16 09/19/16 07:00 15:00 23:00 07:00 15:00 23:00 Intake Total 459 ml 1015 ml 1090 ml 720 ml 1128 ml 30 ml Output Total 350 ml 410 ml 700 ml 905 ml 410 ml Balance 109 ml 605 ml 390 ml -185 ml 718 ml 30 ml IV Total 289 ml 347 ml 640 ml 620 ml 868 ml Tube Feeding 70 ml 278 ml 350 ml 0 ml Other 100 ml 390 ml 100 ml 100 ml 260 ml 30 ml Output Urine Total 350 ml 400 ml 700 ml 900 ml 400 ml Drainage Total 0 ml 10 ml 0 ml 5 ml 10 ml # Bowel Movements 0 0 0 0 Result Diagram: 09/19/16 0816 09/19/16 1635 Objective Remarks GENERAL: WBWN AA male, mild sob SKIN: Warm and dry. HEAD: Normocephalic. EYES: No scleral icterus. No injection or drainage. NECK: Supple, trachea midline. No JVD or lymphadenopathy. CARDIOVASCULAR: Regular rate and rhythm without murmurs, gallops, or rubs. RESPIRATORY: Breath sounds equal bilaterally. No accessory muscle use. GASTROINTESTINAL: Abdomen soft, non-tender, nondistended. PEG tube MUSCULOSKELETAL: No cyanosis, or edema. BACK: Nontender without obvious deformity. No CVA tenderness. A/P Assessment and Plan Resp insuff, improved Right Basal infilt Atelactesis TBI MRSA Pn treated PLAN: Wean 02 to keep sat >90% Aerosol nebs Abx per ID TF Han Hernandez MD Sep 19, 2016 19:49
[2016-09-19] MEDS: SILVER SULFADIAZINE 1% CR 50 GM JAR TOPICAL SCH (21:00)
[2016-09-20] VITALS (14 sets, daily range): BP systolic 109–142; BP diastolic 66–86; PULSE 66–146; RESP 12–20; TEMP 97.6–99.7; O2SAT 92–100
[2016-09-20] MEDS: IMIPENEM/CILASTATIN INJ 500 MG in SODIUM CHLORIDE 0.9% INJ 100 ML IV SCH ×4 (00:11→17:09)
[2016-09-20] MEDS: RESP: ALBUTEROL 2.5 MG/IPRATROPIUM 0.5 MG NEB (SCH) NEB ×4 (03:34→20:43)
[2016-09-20] MEDS: metroNIDAZOLE 500 MG TAB PEG SCH ×3 (05:17→22:00)
[2016-09-20] MEDS: oxyCODONE/ACETAMINOPHEN 5 MG/325 MG TAB JT SCH ×3 (05:18→22:00)
[2016-09-20] MEDS: chlorproMAZINE HCL 25 MG TAB PO PRN ×2 (05:56→12:07)
[2016-09-20] MEDS: LORazepam 2 MG/ML VIAL IV PUSH PRN (06:33)
[2016-09-20] MEDS: DILTIAZEM HCL 60 MG TAB JT SCH ×4 (06:48→21:00)
[2016-09-20] MEDS: LABETALOL HCL 100 MG/20 ML VIAL IV PUSH PRN (06:48)
[2016-09-20] MEDS: LACTOBACILLUS ACIDOPHILUS 1 GM PACKET PEG SCH ×4 (08:23→21:00)
[2016-09-20] MEDS: SODIUM CHLORIDE 1 GRAM TAB PEG SCH ×3 (08:23→17:10)
[2016-09-20] MEDS: CLARITHROMYCIN 500 MG TAB PO SCH ×2 (08:23→21:00)
[2016-09-20] MEDS: hydrALAZINE HCL 50 MG TAB JT SCH ×3 (08:23→17:09)
[2016-09-20] MEDS: ATENOLOL 50 MG TAB PEG SCH ×2 (08:23→21:00)
[2016-09-20] MEDS: HYOSCYAMINE 0.125 MG TAB JT SCH ×4 (08:23→21:00)
[2016-09-20] MEDS: BACLOFEN 10 MG TAB PEG SCH ×2 (08:24→21:00)
[2016-09-20] MEDS: SODIUM CHLORIDE 0.9% FLUSH 5 ML FLUSH FLUSH SCH ×2 (08:24→21:00)
[2016-09-20] MEDS: levETIRAcetam 500 MG/5 ML UDC TUBE SCH ×2 (08:24→21:00)
[2016-09-20] MEDS: SODIUM CHLOR 0.9% 1000 ML INJ 1,000 ML IV SCH ×2 (08:28→17:00)
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
[2016-09-20] MEDS ORDERED: RESP: ALBUTEROL 2.5 MG/IPRATROPIUM 0.5 MG NEB (SCH) NEB ONE (08:45)
[2016-09-20] MEDS ORDERED: DILTIAZEM HCL 25 MG/5 ML VIAL IV ONE (08:45)
--- NOTE | 2016-09-20 09:51 | RADRPT ---
EXAM DATE/TIME: 09/20/2016 09:00 [facility] COMPARISON: CHEST SINGLE AP, September 19, 2016, 0:39. INDICATIONS: Cough and congestion. MEDICAL HISTORY: Hypertension. SURGICAL HISTORY: Shunt. Tracheostomy. ENCOUNTER: Subsequent ACUITY: 1 month PAIN SCORE: Non-responsive. LOCATION: Bilateral chest FINDINGS: Bibasilar patchiness is noted consistent with atelectasis and/or mild infiltrate. The heart is stabl e. CONCLUSION: 1. Bibasilar patchiness consistent with atelectasis and/or infiltrate. Donavan Vidales MD on September 20, 2016 at 9:47 Board Certified Radiologist. This report was verified electronically.
--- NOTE | 2016-09-20 09:52 | HHI.NSPN ---
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 He had a left ventriculoperitoneal shunt which was removed secondary to wound dehiscence and had a right ventriculoperitoneal shunt placed. He is a chronic care home resident and has been febrile the last few days and presents MRI is room for workup for for this fever. He had a urethral stricture which was dilated in the emergency room by urology and urinalysis reveals urinary tract infection. He also has a decubitus ulcer. Blood cultures are pending. His neurologic examination is baseline and CT of the head obtained reveals ventriculomegaly compared to the scan from a month ago. The patient had programmable valve place with a lower setting of 50 mm water. Shuntogram obtained reveals ventricular catheter being patent but the peritoneal catheter was not evaluated because patient did not cooperate and the plan is to have this further evaluated once more cooperate with IV access per special procedures. CSF from a shunt tap that does not reveal any organisms on Gram stain. CT of the abdomen reveals a small fluid collection around the shunt catheter of unclear significance. 08/24/16: Pt at his clinical baseline. Eyes open. occasionally focuses on my face. At times rolling eye movements. Not following commands. Flexion contractures of UEs and Extension contractures of LEs. Pt having high fevers today. Tmax of 103 at 8am. 08/25/16: Pt with eyes open. Right sided gaze preference. Not following commands. Not verbalizing. Pt at baseline neurologically. Pt continues to have fevers, T Max 103.4 at 2am. 08/26/16: Pt with eyes open. Tracking more today to both sides. Not following commands which is his baseline. Fever spikes yesterday today T max 100.1. 08/28/16: Pt examined on 08/28/16 delayed note entry. Pt awake with rolling eye movements, erythematous sclera, grunting, and appears more restlessness. 08/29/16: Pt with eyes open and upward gaze with rolling eye movements. Not focusing on face or tacking. Less grunting. Resolving injected sclera. Less restlessness than yesterday. Shunt is externalized and connected to a drainage bag. 08/30/16: Pt with eyes open and upward gaze. He does appear to be less agitated today with no grunting. He also focused on my face briefly which he didn't do yesterday. Distal DISEASE CASE MANAGER shunt catheter is connected to a drainage bag and draining well. 09/02/16: Pt with eyes open and upward gaze and some rolling eye movements. No grunting or snoring noted by me at bedside. Not focusing on face or tracking. Distal DISEASE CASE MANAGER shunt catheter is connected to drainage bag. 09/03/16: Pt with eyes open and upward gaze. No tracking. Not focusing on my face or tracking. Distal DISEASE CASE MANAGER shunt catheter connected to drainage bag. 09/04/16: Pt with eyes open upward gaze. Not tracking. Distal DISEASE CASE MANAGER shunt catheter connected to drainage bag with clear CSF. Pt Neurologically at baseline. 09/10/16: Pt with eyes open and upward gaze. Not tracking. Ventriculostomy in place at 5cm H20 with clear gold tinged CSF. Not following commands. Neurological baseline. 09/11/16: Pt with eyes open and upward gaze. Not focusing on face or tracking. Ventriculostomy drain at 5cm with clear gold tinged CSF. Not following commands. 09/12/16: pt opens eyes to voice. Not focusing or tracking. Ventriculostomy drain at 5cmH20 not draining. 09/13/16: Pt with eyes open. Occasionally focuses on face very briefly then has upward gaze and rolling eye movements. Lumbar spinal drain placed last afternoon. Ventriculostomy drain in place. 09/16/16: Pt with eyes open and upward gaze. Not focusing on face or tracking. Lumbar drain in place reported this morning not draining. 09/17/16: Pt with eyes open and upward gaze. Not focusing on my face or tracking. Lumbar drain was evaluated by specials yesterday and was reportedly irrigated and worked but is again obstructed today. 09/18/16: Delayed note entry. Pt seen and examined on 09/18/16. Pt with eyes open. Upward gaze. Not tracking or focusing on face. Lumbar drain is draining very little felt to be secondary to low pressure. 09/19/16: Pt with eyes open. Blank stare. Not tracking. Not following commands. Lumbar drain with minimal drainage but occasionally a drop. 09/20/16: Pt with eyes open, blank stare at ceiling. Not tracking or focusing on my face. (Juanjo Oquendo) System Review Comments Not able to obtain given clinical condition. (Juanjo Oquendo) Exam Results Vital Signs Date Time Temp Pulse Resp B/P Pulse Ox O2 Delivery O2 Flow Rate FiO2 09/20/16 06:00 146 09/20/16 04:00 97.6 20 136/73 99 09/19/16 21:48 Nasal Cannula 2.00 Intake and Output 09/19/16 09/19/16 09/20/16 08:00 16:00 00:00 Intake Total 720 ml 1128 ml 1307 ml Output Total 905 ml 410 ml 400 ml Balance -185 ml 718 ml 907 ml (Juanjo Oquendo) Physical Examination Resp: Coarse bs bilaterally. Heart: mild tachycardia. No murmurs. Abd: Soft positive bs Skin: No cyanosis or erythema. SCDs remain in place. Muscle: flexion contractures UEs Extension contractures LEs. Not following for muscle testing. Neuro: Pt with eyes open, upward gaze, blank stare. Not tracking. Not focusing on my face or responding to voice at all. Not following commands. Lumbar spinal drain in place with minimal drainage likely from low pressure. 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 This appears that he has compensatory ventriculomegaly since the shunt pressure setting is at low level and his neurologic examination is baseline. DISEASE CASE MANAGER shunt infection growing AFB. P: Continue with antibiotics Continue with medical care. Continue with CSF drainage via lumbar spinal drain. (Juanjo Oquendo) Attending Statement The exam, history, and the medical decision-making described in the above note were completed with the assistance of the mid-level provider. I reviewed and agree with the findings presented. I attest that I had a [id number] encounter with the patient on the same day, and personally performed and documented my assessment and findings in the medical record. Overall no change in neurologic examination with the lumbar drain intermittently draining small amount of CSF. It appears that his ICPs are low and he has compensatory ventriculomegaly and may not require DISEASE CASE MANAGER shunt. (Franky Carreno MD) Juanjo Oquendo Sep 20, 2016 09:52 Franky Carreno MD Sep 20, 2016 17:01
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
[2016-09-20] MEDS: SODIUM CHLORID 0.9% IV SCH (17:09)
[2016-09-20] MEDS: AMIKACIN IV SCH (17:09)
--- NOTE | 2016-09-20 18:04 | HHI.PR ---
Subjective Remarks 36 YOAA male with TBI, Ch RF On NC Looks around, does't follow No fever Tolerates TF On Two LNC Objective Vital Signs Vital Signs Date Time Temp Pulse Resp B/P Pulse Ox O2 Delivery O2 Flow Rate FiO2 09/20/16 14:21 14 09/20/16 09:59 96 Nasal Cannula 2.00 09/20/16 08:00 144 09/20/16 07:00 95 Nasal Cannula 2.00 09/20/16 06:00 146 09/20/16 04:00 97.6 110 20 136/73 99 09/20/16 04:00 110 09/20/16 02:00 88 09/20/16 00:00 90 09/20/16 00:00 97.7 90 16 109/66 100 09/19/16 22:00 94 09/19/16 21:48 100 Nasal Cannula 2.00 09/19/16 20:00 97.5 92 17 90/56 100 09/19/16 20:00 98 Nasal Cannula 2.00 09/19/16 20:00 92 I/O 09/19/16 09/19/16 09/19/16 09/20/16 09/20/16 09/20/16 07:00 15:00 23:00 07:00 15:00 23:00 Intake Total 720 ml 1128 ml 1307 ml 1102 ml Output Total 905 ml 410 ml 400 ml 288 ml Balance -185 ml 718 ml 907 ml 814 ml IV Total 620 ml 868 ml 1043 ml 914 ml Tube Feeding 0 ml 59 ml 88 ml Other 100 ml 260 ml 205 ml 100 ml Output Urine Total 900 ml 400 ml 400 ml 278 ml Drainage Total 5 ml 10 ml 10 ml # Bowel Movements 0 0 0 Result Diagram: 09/19/16 0816 09/20/16 1438 Objective Remarks GENERAL: WBWN AA male, mild sob SKIN: Warm and dry. HEAD: Normocephalic. EYES: No scleral icterus. No injection or drainage. NECK: Supple, trachea midline. No JVD or lymphadenopathy. CARDIOVASCULAR: Regular rate and rhythm without murmurs, gallops, or rubs. RESPIRATORY: Breath sounds equal bilaterally. No accessory muscle use. GASTROINTESTINAL: Abdomen soft, non-tender, nondistended. PEG tube MUSCULOSKELETAL: No cyanosis, or edema. BACK: Nontender without obvious deformity. No CVA tenderness. A/P Assessment and Plan Resp insuff, improved Right Basal infilt Atelactesis TBI MRSA Pn treated PLAN: Wean 02 to keep sat >90% Aerosol nebs Abx per ID TF Stable Pulm, avaialable prn over weekend. Han Hernandez MD Sep 20, 2016 18:04
--- NOTE | 2016-09-20 20:27 | EKG ---
Date Performed: 09/20/2016 Time Performed: 08:41:18 PTAGE: 36 years EKG: Sinus tachycardia. Nonspecific T wave change. When compared to previous tracing, heart rate is faster, and T Waves are now somewhat more pronounced anterolaterally. Abnormal ECG PREVIOUS TRACING : 08/23/2016 09.25.25 DOCTOR: Moy Ornelas Interpretating Date/Time 09/20/2016 20:26:57
[2016-09-20] MEDS: SILVER SULFADIAZINE 1% CR 50 GM JAR TOPICAL SCH (21:00)
[2016-09-21] VITALS (14 sets, daily range): BP systolic 109–145; BP diastolic 43–86; PULSE 66–118; RESP 10–24; TEMP 96.4–102.2; O2SAT 91–100
[2016-09-21] MEDS: SODIUM CHLOR 0.9% 1000 ML INJ 1,000 ML IV SCH ×3 (03:00→23:00)
[2016-09-21] MEDS: RESP: ALBUTEROL 2.5 MG/IPRATROPIUM 0.5 MG NEB (SCH) NEB ×4 (03:31→22:11)
[2016-09-21] MEDS: metroNIDAZOLE 500 MG TAB PEG SCH ×3 (06:00→22:00)
[2016-09-21] MEDS: oxyCODONE/ACETAMINOPHEN 5 MG/325 MG TAB JT SCH ×3 (06:00→22:00)
[2016-09-21] MEDS: IMIPENEM/CILASTATIN INJ 500 MG in SODIUM CHLORIDE 0.9% INJ 100 ML IV SCH ×5 (06:00→18:00)
[2016-09-21] MEDS: ACETAMINOPHEN 325 MG TAB G-TUBE PRN (06:42)
[2016-09-21] MEDS: SODIUM CHLORIDE 0.9% FLUSH 5 ML FLUSH FLUSH SCH ×2 (08:35→20:09)
[2016-09-21] MEDS: hydrALAZINE HCL 50 MG TAB JT SCH ×3 (08:35→18:21)
[2016-09-21] MEDS: LACTOBACILLUS ACIDOPHILUS 1 GM PACKET PEG SCH ×4 (08:35→20:09)
[2016-09-21] MEDS: levETIRAcetam 500 MG/5 ML UDC TUBE SCH ×2 (08:35→20:08)
[2016-09-21] MEDS: SODIUM CHLORIDE 1 GRAM TAB PEG SCH ×3 (08:35→18:21)
[2016-09-21] MEDS: CLARITHROMYCIN 500 MG TAB PO SCH ×2 (08:36→20:09)
[2016-09-21] MEDS: HYOSCYAMINE 0.125 MG TAB JT SCH ×4 (08:36→20:08)
[2016-09-21] MEDS: ATENOLOL 50 MG TAB PEG SCH ×2 (08:36→20:09)
[2016-09-21] MEDS: DILTIAZEM HCL 60 MG TAB JT SCH ×4 (08:36→20:08)
[2016-09-21] MEDS: BACLOFEN 10 MG TAB PEG SCH ×2 (08:36→20:09)
[2016-09-21] MEDS: IBUPROFEN SUSP 100 MG/5 ML UDC PO PRN (12:42)
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
[2016-09-21] MEDS ORDERED: HYOSCYAMINE 0.5 MG/ML AMP IVP ONE (13:30)
--- NOTE | 2016-09-21 13:57 | HHI.NSPN ---
History Chief Complaint: n/a Interval History Low grade fevers but stable after externalization of the shunt at the chest. EVD put out 121 cc of xanthochromic CSF. CSF is still negative and a distal shuntogram is planned. 09/01/16 He has no fevers and the CSF is still clear but he still has some abdominal tenderness. 09/09/16 CSF draing 100 cc in 24 hr. 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 MRI was negative for abcess 09/21/16 He is tachypneic and coughing today. Secretions are copious and thick,. He was ghosh cultured today for a fever to 102.2 Review of Systems General: Positive for: fever, chills Respiratory: Positive for: shortness of breath, cough, sputum Exam Results Vital Signs Date Time Temp Pulse Resp B/P Pulse Ox O2 Delivery O2 Flow Rate FiO2 09/21/16 12:00 102.2 116 22 143/43 98 09/21/16 07:28 Nasal Cannula 5.00 Intake and Output 09/20/16 09/20/16 09/21/16 08:00 16:00 00:00 Intake Total 1102 ml 828 ml 1143 ml Output Total 288 ml 550 ml 805 ml Balance 814 ml 278 ml 338 ml Physical Examination Resp: Coarse bs bilaterally. Heart: mild tachycardia. No murmurs. Abd: Soft positive bs Skin: No cyanosis or erythema. SCDs remain in place. Muscle: flexion contractures UEs Extension contractures LEs. Not following for muscle testing. Neuro: Pt with eyes open, upward gaze, blank stare. Not tracking. Not focusing on my face or responding to voice at all. Not following commands. Lumbar spinal drain in place with bloody cloudy drainage Lab, Micro, Other Results Last Impressions Chest X-Ray 09/20/16 0000 Signed Impressions: Service Date/Time: Tuesday, September 20, 2016 09:00 - CONCLUSION: 1. Bibasilar patchiness consistent with atelectasis and/or infiltrate. Donavan Vidales MD Lumbar Puncture Fluoroscopy 09/17/16 0000 Signed Impressions: Service Date/Time: Saturday, September 17, 2016 14:38 - CONCLUSION: Uncomplicated lumbar drain placement as above. Jem Alexander MD Lumbar Puncture 09/16/16 0000 Signed Impressions: Service Date/Time: Friday, September 16, 2016 15:12 - CONCLUSION: Patent lumbar drain Jem Alexander MD Brain MRI 09/03/16 0600 Signed Impressions: Service Date/Time: Saturday, September 03, 2016 11:54 - CONCLUSION: 1. Marked increase in ventricular size and compare with the prior study but no transependymal fluid migration. Obstructing communicating hydrocephalus is not excluded. There is no evidence of abscess. Jem Alexander MD Shunt Study (Imaging) 08/23/16 1514 Signed Impressions: Service Date/Time: Tuesday, August 23, 2016 15:14 - CONCLUSION: RELAY REPAIRER shunt tap for spinal fluid sampling as above Joni Sharpe MD Abdomen/Pelvis CT 08/23/16 0816 Signed Impressions: Service Date/Time: Tuesday, August 23, 2016 08:44 - CONCLUSION: Abnormal scan with multiple findings as outlined above Joni Sharpe MD Shunt Study 08/23/16 0000 Signed Impressions: Service Date/Time: Tuesday, August 23, 2016 14:07 - CONCLUSION: Shunt tubing is patent into the ventricular system. The downstream portion of the shunt to the peritoneal cavity was not evaluated. Joni Sharpe MD Head CT 08/23/16 0000 Signed Impressions: Service Date/Time: Tuesday, August 23, 2016 11:57 - CONCLUSION: 1. Interval significant increase in the size of the ventricles compared to the previous examination suggesting worsening hydrocephalus. Clinical correlation is recommended. 2. No significant change in the extensive encephalomalacia ( right worse than left) within the cerebral hemispheres. 3. No acute hemorrhage, midline shift or extraaxial fluid collections. Donavan Vidales MD Microbiology Date/Time Procedure Status Source Growth 09/19/16 00:45 Urine Culture - Preliminary Resulted Urine Catheterized Urine Yeast-Id To Follow 09/19/16 01:00 Gram Stain - Final Resulted Sputum Expectorated Sputum 09/19/16 01:00 Sputum Culture - Preliminary Resulted Pseudomonas Species 09/19/16 01:15 Aerobic Blood Culture - Preliminary Resulted Blood Peripheral NO GROWTH IN 2 DAYS 09/19/16 01:15 Anaerobic Blood Culture - Final Resulted Blood Peripheral QNS - SEE AEROBE REPORT 09/19/16 11:10 Aerobic Blood Culture - Preliminary Resulted Blood Peripheral NO GROWTH IN 2 DAYS 09/19/16 11:10 Anaerobic Blood Culture - Preliminary Resulted Blood Peripheral NO GROWTH IN 2 DAYS 09/21/16 12:30 Acid Fast Stain Received Cerebral Spinal Fluid Shunt Fluid Pending 09/21/16 12:30 Mycobacterial Culture Received Cerebral Spinal Fluid Shunt Fluid Pending 09/21/16 12:30 Gram Stain Received Cerebral Spinal Fluid Shunt Fluid Pending 09/21/16 12:30 CSF Culture Received Cerebral Spinal Fluid Shunt Fluid Pending Medical Decision Making Impression and Plan 36 year old gentleman with repeated shunt malfunctions/infections. On lumbar drainage followed by ID. Septic work up is continued. CSF sent again today for culture and AFB stains. The mother was at bedside and her questions were answered. Total Minutes: 10 Denton Cavazos Sep 21, 2016 13:57
[2016-09-21] MEDS: SCOPOLAMINE 1.5 MG PATCH TD SCH (14:07)
--- NOTE | 2016-09-21 15:24 | RADRPT ---
EXAM DATE/TIME: 09/21/2016 14:38 [facility] COMPARISON: CHEST SINGLE AP, April 24, 2015, 9:37. INDICATIONS : Rule out pneumonia. MEDICAL HISTORY : Hypertension. SURGICAL HISTORY : Shunt. Tracheostomy. ENCOUNTER: Subsequent ACUITY: 1 month PAIN SCORE: Non-responsive. LOCATION: Chest. FINDINGS: A single view of the chest demonstrates chronic opacity in the upper lobe similar to 2015. No new inf iltrate or effusion. Heart size upper limits normal. CONCLUSION: 1. Chronic density in the upper right lung, probably scarring. No new infiltrate compared with multip le prior examinations. Zaheer Hayward MD on September 21, 2016 at 15:19 Board Certified Radiologist. This report was verified electronically.
[2016-09-21] MEDS: ONDANSETRON HCL 4 MG/2 ML VIAL IVP PRN (16:32)
[2016-09-21] MEDS: SODIUM CHLORID 0.9% IV SCH (17:00)
[2016-09-21] MEDS: AMIKACIN IV SCH (17:00)
[2016-09-21 19:50] LABS: BASOPHIL % 0.3 % (0.0-2.0); EOSINOPHIL # 0.1 TH/MM3 (0-0.4); EOSINOPHIL % 0.7 % (0.0-4.0); HEMATOCRIT 34.2 % (39.0-51.0); LYMPH % 15.4 % (9.0-44.0); LYMPHOCYTE # 1.5 TH/MM3 (1.0-4.8); MEAN CELL VOLUME 85.6 FL (80.0-100.0); MEAN CORPUSCULAR HEMOGLOBIN 28.6 PG (27.0-34.0); MEAN CORPUSCULAR HGB CONC 33.4 % (32.0-36.0); MONO % 12.5 % (0.0-8.0); NEUT % 71.1 % (16.0-70.0); PLATELET COUNT 157 TH/MM3 (150-450); RED BLOOD COUNT 3.99 MIL/MM3 (4.50-5.90); RED CELL DISTRIBUTION WIDTH 17.7 % (11.6-17.2); WHITE BLOOD COUNT 9.9 TH/MM3 (4.0-11.0)
[2016-09-21 19:53] LABS: HEMO FLAGS DIFF FINAL
[2016-09-21] MEDS: SILVER SULFADIAZINE 1% CR 50 GM JAR TOPICAL SCH (20:09)
[2016-09-21 20:22] LABS: BICARBONATE 28.5 MEQ/L (21.0-32.0)
[2016-09-22] VITALS (16 sets, daily range): BP systolic 118–154; BP diastolic 59–80; PULSE 72–110; RESP 10–24; TEMP 95.8–98.6; O2SAT 99–100
[2016-09-22 04:17] LABS: AUTOMATED NEUTROPHIL # 12.1 TH/MM3 (1.8-7.7); BASOPHIL # 0.1 TH/MM3 (0-0.2); BASOPHIL % 0.6 % (0.0-2.0); EOSINOPHIL # 0.2 TH/MM3 (0-0.4); EOSINOPHIL % 1.1 % (0.0-4.0); HEMATOCRIT 33.8 % (39.0-51.0); LYMPH % 17.3 % (9.0-44.0); MEAN CELL VOLUME 83.2 FL (80.0-100.0); MEAN CORPUSCULAR HEMOGLOBIN 27.2 PG (27.0-34.0); MEAN CORPUSCULAR HGB CONC 32.7 % (32.0-36.0); PLATELET COUNT 256 TH/MM3 (150-450); RED BLOOD COUNT 4.06 MIL/MM3 (4.50-5.90); RED CELL DISTRIBUTION WIDTH 17.7 % (11.6-17.2); WHITE BLOOD COUNT 17.5 TH/MM3 (4.0-11.0)
[2016-09-22 04:18] LABS: HEMO FLAGS AUTO DIFF
[2016-09-22 04:39] LABS: BICARBONATE 26.1 MEQ/L (21.0-32.0); MAGNESIUM 1.7 MG/DL (1.5-2.5)
[2016-09-22 04:51] LABS: SCAN/DIFF AUTO DIFF CONFIRMED
[2016-09-22] MEDS: IMIPENEM/CILASTATIN INJ 500 MG in SODIUM CHLORIDE 0.9% INJ 100 ML IV SCH ×5 (06:00→17:19)
[2016-09-22] MEDS: metroNIDAZOLE 500 MG TAB PEG SCH ×3 (06:00→22:00)
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
[2016-09-22] MEDS: SODIUM CHLORIDE 0.9% FLUSH 5 ML FLUSH FLUSH SCH ×2 (09:00→20:37)
[2016-09-22] MEDS: RESP: ALBUTEROL 2.5 MG/IPRATROPIUM 0.5 MG NEB (SCH) NEB ×3 (09:33→20:43)
[2016-09-22] MEDS: LACTOBACILLUS ACIDOPHILUS 1 GM PACKET PEG SCH ×4 (10:15→20:38)
[2016-09-22] MEDS: CLARITHROMYCIN 500 MG TAB PO SCH ×2 (10:16→20:38)
[2016-09-22] MEDS: hydrALAZINE HCL 50 MG TAB JT SCH ×3 (10:16→18:30)
[2016-09-22] MEDS: SODIUM CHLORIDE 1 GRAM TAB PEG SCH ×3 (10:16→18:31)
[2016-09-22] MEDS: HYOSCYAMINE 0.125 MG TAB JT SCH ×4 (10:16→20:38)
[2016-09-22] MEDS: fentaNYL 50 MCG/HR PATCH T-DERMAL SCH (10:16)
[2016-09-22] MEDS: BACLOFEN 10 MG TAB PEG SCH ×2 (10:17→20:38)
[2016-09-22] MEDS: levETIRAcetam 500 MG/5 ML UDC TUBE SCH ×2 (10:17→20:38)
[2016-09-22] MEDS: DILTIAZEM HCL 60 MG TAB JT SCH ×4 (10:17→20:37)
[2016-09-22] MEDS: SODIUM CHLOR 0.9% 1000 ML INJ 1,000 ML IV SCH ×2 (10:18→20:36)
[2016-09-22] MEDS: ATENOLOL 50 MG TAB PEG SCH ×2 (10:19→20:38)
--- NOTE | 2016-09-22 10:52 | HHI.NSPN ---
History Chief Complaint: n/a Interval History Low grade fevers but stable after externalization of the shunt at the chest. EVD put out 121 cc of xanthochromic CSF. CSF is still negative and a distal shuntogram is planned. 09/01/16 He has no fevers and the CSF is still clear but he still has some abdominal tenderness. 09/09/16 CSF draing 100 cc in 24 hr. 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 MRI was negative for abcess 09/21/16 He is tachypneic and coughing today. Secretions are copious and thick,. He was ghosh cultured today for a fever to 102.2 09/22/16 The fevers have improved. LD with minimal bloody drainage. CSF cx pending from yesterday. He is now more restful after the fever improved. Review of Systems General: Negative for: fever, chills, insomnia Exam Results Vital Signs Date Time Temp Pulse Resp B/P Pulse Ox O2 Delivery O2 Flow Rate FiO2 09/22/16 09:33 99 Nasal Cannula 4.00 09/22/16 06:00 110 09/22/16 04:00 98.4 22 154/72 Intake and Output 09/21/16 09/21/16 09/22/16 08:00 16:00 00:00 Intake Total 808 ml 838 ml 1055 ml Output Total 350 ml 335 ml 250 ml Balance 458 ml 503 ml 805 ml Physical Examination Resp: Coarse bs bilaterally. Heart: mild tachycardia. No murmurs. Abd: Soft Skin: No cyanosis or erythema. SCDs remain in place. Muscle: flexion contractures UEs Extension contractures LEs. Not following for muscle testing. Neuro: Pt with eyes are closed, restful, appears more comfortable. Lumbar spinal drain in place with bloody cloudy drainage Lab, Micro, Other Results Microbiology Date/Time Procedure Status Source Growth 09/19/16 11:10 Aerobic Blood Culture - Preliminary Resulted Blood Peripheral NO GROWTH IN 2 DAYS 09/19/16 11:10 Anaerobic Blood Culture - Preliminary Resulted Blood Peripheral NO GROWTH IN 2 DAYS 09/21/16 12:30 Acid Fast Stain Received Cerebral Spinal Fluid Shunt Fluid Pending 09/21/16 12:30 Mycobacterial Culture Received Cerebral Spinal Fluid Shunt Fluid Pending 09/21/16 12:30 Gram Stain - Final Resulted Cerebral Spinal Fluid Shunt Fluid 09/21/16 12:30 CSF Culture - Preliminary Resulted Cerebral Spinal Fluid Shunt Fluid NO GROWTH IN 24 HOURS. 09/21/16 19:00 Aerobic Blood Culture Received Blood Peripheral Pending 09/21/16 19:00 Anaerobic Blood Culture Received Blood Peripheral Pending 09/21/16 19:15 Aerobic Blood Culture Received Blood Peripheral Pending 09/21/16 19:15 Anaerobic Blood Culture Received Blood Peripheral Pending Medical Decision Making Impression and Plan 36 year old gentleman with repeated shunt malfunctions/infections. On lumbar drainage followed by ID. Septic work up is continued. CSF sent again today for culture and AFB stains. The mother is aware and comfort measures implemented with good response to NSAIDs and temperature control. 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 Total Minutes: 10 Denton Cavazos Sep 22, 2016 10:52
[2016-09-22] MEDS: REMOVE OLD PATCH TD SCH (11:50)
[2016-09-22] MEDS: oxyCODONE/ACETAMINOPHEN 5 MG/325 MG TAB JT SCH ×3 (13:48→22:00)
--- NOTE | 2016-09-22 15:04 | HHI.IDPN ---
Subjective Subjective Remarks ID [id number] cover for Dr Rayo chart reviewed This is a 36-year-old male a resident of a [place] [facility] facility receiving treatment for M. abscessus ADVERTISING ACCOUNT EXECUTIVE shunt infx Fever yday up to 102 Trrach secreitions growing mult PSAE strains , MDRO S only gent/tobra Heavy endotracheal secretions reported but no new infiltrate on CXR Today fever resolved CSF (chunt fluid) neg @ 1 day - form L drain BC also neg @ 1 day Antibiotics biaxin amikacin primaxiin flagyl Lines Line sites with no e/o infection Past Medical History 1. 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 Seizure disorder. 3. J tube placement 4. History of tracheostomy 5. History of MRSA wound infection from the scalp 6. Bacteremia due to MRSA 7. History of ESBL E-coli UTI. 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 Vital Signs Date Time Temp Pulse Resp B/P Pulse Ox O2 Delivery O2 Flow Rate FiO2 09/22/16 14:00 72 09/22/16 12:00 82 09/22/16 12:00 95.8 82 10 124/63 100 09/22/16 10:00 86 09/22/16 09:33 99 Nasal Cannula 4.00 09/22/16 08:00 93 09/22/16 08:00 98.6 94 14 120/69 100 09/22/16 07:00 100 Nasal Cannula 2.00 09/22/16 06:00 110 09/22/16 04:00 108 09/22/16 04:00 98.4 108 22 154/72 100 09/22/16 02:00 86 09/22/16 00:00 98 09/22/16 00:00 98.6 98 24 118/80 100 09/21/16 22:11 100 Nasal Cannula 4.00 09/21/16 22:00 92 09/21/16 20:00 100 Nasal Cannula 2.00 09/21/16 20:00 90 09/21/16 20:00 98.6 90 14 145/69 99 09/21/16 18:00 66 09/21/16 16:00 74 09/21/16 16:00 96.4 74 11 109/64 98 09/21/16 09/21/16 09/22/16 15:00 23:00 07:00 Intake Total 838 ml 1055 ml 996 ml Output Total 335 ml 250 ml 250 ml Balance 503 ml 805 ml 746 ml IV Total 758 ml 975 ml 916 ml Tube Feeding 0 ml 0 ml 0 ml Other 80 ml 80 ml 80 ml Output Urine Total 325 ml 250 ml 250 ml Drainage Total 10 ml 0 ml 0 ml # Bowel Movements 0 0 0 . Laboratory Tests Test 09/21/16 09/22/16 19:15 03:46 White Blood Count 9.9 TH/MM3 17.5 TH/MM3 Red Blood Count 3.99 MIL/MM3 4.06 MIL/MM3 Hemoglobin 11.4 GM/DL 11.0 GM/DL Hematocrit 34.2 % 33.8 % Mean Corpuscular Volume 85.6 FL 83.2 FL Mean Corpuscular Hemoglobin 28.6 PG 27.2 PG Mean Corpuscular Hemoglobin 33.4 % 32.7 % Concent Red Cell Distribution Width 17.7 % 17.7 % Platelet Count 157 TH/MM3 256 TH/MM3 Mean Platelet Volume 7.6 FL 7.8 FL Neutrophils (%) (Auto) 71.1 % 69.0 % Lymphocytes (%) (Auto) 15.4 % 17.3 % Monocytes (%) (Auto) 12.5 % 12.0 % Eosinophils (%) (Auto) 0.7 % 1.1 % Basophils (%) (Auto) 0.3 % 0.6 % Neutrophils # (Auto) 7.0 TH/MM3 12.1 TH/MM3 Lymphocytes # (Auto) 1.5 TH/MM3 3.0 TH/MM3 Monocytes # (Auto) 1.2 TH/MM3 2.1 TH/MM3 Eosinophils # (Auto) 0.1 TH/MM3 0.2 TH/MM3 Basophils # (Auto) 0.0 TH/MM3 0.1 TH/MM3 CBC Comment DIFF FINAL AUTO DIFF Differential Comment AUTO DIFF CONFIRMED Laboratory Tests Test 09/20/16 09/21/16 09/21/16 09/21/16 20:55 03:50 11:39 19:15 Sodium Level 132 MEQ/L 133 MEQ/L 133 MEQ/L 134 MEQ/L Creatinine 0.31 MG/DL 0.38 MG/DL Estimat Glomerular Filtration 401 ML/MIN 317 ML/MIN Rate Potassium Level 4.0 MEQ/L Chloride Level 95 MEQ/L Carbon Dioxide Level 28.5 MEQ/L Anion Gap 11 MEQ/L Blood Urea Nitrogen 12 MG/DL Random Glucose 75 MG/DL Calcium Level 9.1 MG/DL Test 09/22/16 09/22/16 03:46 12:25 Sodium Level 135 MEQ/L 135 MEQ/L Potassium Level 5.0 MEQ/L Chloride Level 96 MEQ/L Carbon Dioxide Level 26.1 MEQ/L Anion Gap 13 MEQ/L Blood Urea Nitrogen 14 MG/DL Creatinine 0.39 MG/DL Estimat Glomerular Filtration 307 ML/MIN Rate Random Glucose 61 MG/DL Calcium Level 9.3 MG/DL Magnesium Level 1.7 MG/DL Microbiology Date/Time Procedure Status Source Growth 09/21/16 12:30 Acid Fast Stain Received Cerebral Spinal Fluid Shunt Fluid Pending 09/21/16 12:30 Mycobacterial Culture Received Cerebral Spinal Fluid Shunt Fluid Pending 09/21/16 12:30 Gram Stain - Final Resulted Cerebral Spinal Fluid Shunt Fluid 09/21/16 12:30 CSF Culture - Preliminary Resulted Cerebral Spinal Fluid Shunt Fluid NO GROWTH IN 24 HOURS. 09/21/16 19:00 Aerobic Blood Culture - Preliminary Resulted Blood Peripheral NO GROWTH IN 1 DAY 09/21/16 19:00 Anaerobic Blood Culture - Preliminary Resulted Blood Peripheral NO GROWTH IN 1 DAY 09/21/16 19:15 Aerobic Blood Culture - Preliminary Resulted Blood Peripheral NO GROWTH IN 1 DAY 09/21/16 19:15 Anaerobic Blood Culture - Preliminary Resulted Blood Peripheral NO GROWTH IN 1 DAY Imaging Last Impressions Chest X-Ray 09/21/16 0000 Signed Impressions: Service Date/Time: Wednesday, September 21, 2016 14:38 - CONCLUSION: 1. Chronic density in the upper right lung, probably scarring. No new infiltrate compared with multiple prior examinations. Zaheer Hayward MD Lumbar Puncture Fluoroscopy 09/17/16 0000 Signed Impressions: Service Date/Time: Saturday, September 17, 2016 14:38 - CONCLUSION: Uncomplicated lumbar drain placement as above. Jem Alexander MD Lumbar Puncture 09/16/16 0000 Signed Impressions: Service Date/Time: Friday, September 16, 2016 15:12 - CONCLUSION: Patent lumbar drain Jem Alexander MD Brain MRI 09/03/16 0600 Signed Impressions: Service Date/Time: Saturday, September 03, 2016 11:54 - CONCLUSION: 1. Marked increase in ventricular size and compare with the prior study but no transependymal fluid migration. Obstructing communicating hydrocephalus is not excluded. There is no evidence of abscess. Jem Alexander MD Shunt Study (Imaging) 08/23/16 1514 Signed Impressions: Service Date/Time: Tuesday, August 23, 2016 15:14 - CONCLUSION: ADVERTISING ACCOUNT EXECUTIVE shunt tap for spinal fluid sampling as above Joni Sharpe MD Abdomen/Pelvis CT 08/23/16 0816 Signed Impressions: Service Date/Time: Tuesday, August 23, 2016 08:44 - CONCLUSION: Abnormal scan with multiple findings as outlined above Joni Sharpe MD Shunt Study 08/23/16 0000 Signed Impressions: Service Date/Time: Tuesday, August 23, 2016 14:07 - CONCLUSION: Shunt tubing is patent into the ventricular system. The downstream portion of the shunt to the peritoneal cavity was not evaluated. Joni Sharpe MD Head CT 08/23/16 0000 Signed Impressions: Service Date/Time: Tuesday, August 23, 2016 11:57 - CONCLUSION: 1. Interval significant increase in the size of the ventricles compared to the previous examination suggesting worsening hydrocephalus. Clinical correlation is recommended. 2. No significant change in the extensive encephalomalacia ( right worse than left) within the cerebral hemispheres. 3. No acute hemorrhage, midline shift or extraaxial fluid collections. Donavan Vidales MD Physical Exam CONSTITUTIONAL/GENERAL: This is an adequately nourished patient, posturing TUBES/LINES/DRAINS: L drain in place with serosang SCF SKIN: No jaundice, rashes, or lesions.Skin temperature appropriate. Not diaphoretic. HEAD: incisions clean EYES: Pupils equal and round and reactive. Extraocular motions intact. No scleral icterus. No injection or drainage. Fundi not examined. ENT: Oral mucosae without visible erythema, exudates, masses, or lesions. NECK: Trachea midline. Supple, nontender. CARDIOVASCULAR: Regular rate and rhythm without murmurs, gallops, or rubs. No JVD. Peripheral pulses symmetric. RESPIRATORY/CHEST: Symmetric, + labored respirations. Sacattered rhonchi to auscultation. GASTROINTESTINAL: Abdomen soft, non-tender, nondistended. No hepato-splenomegaly , or palpable masses. No guarding. Bowel sounds present. GENITOURINARY: Without palpable bladder distension. Falcon catheter in place with clear yellow urine MUSCULOSKELETAL: Extremities without clubbing, cyanosis, or edema.No mottling or clubbing. NEUROLOGICAL: awake; unresponsive; posturing; not folllowing commands, not tracking PSYCHIATRIC: unable to assess Assessment & Plan Remarks IMPRESSION 1. Fever. Persistent previous, now temp normal. ADVERTISING ACCOUNT EXECUTIVE Shunt related infection. Mycobacteria abscessus. - sensitivities P - CSF neg since 09/12 Also had Staph Haemolyticus on in one sample. Sepsis indicated By decreased BP, increased HR. Decreased mentation. High fever. Temperature improved. 2. Cellulitis suggested by CT scan of the abdomen and pelvis which reveals myositis and cellulitis in the posterior tissues of the buttock and hip. No erythema present. Received course of Vancomycin. 3. Candiduria. Treated. 4. Pneumonia. Growing MDRO PSAE which is only S to tobra/gent 5. C diff colitis. - clinically resolved; no diarrhea 6. New fever, now hypthermia ? sepsis - BC neg at 1 and 3 days RECOMMENDATIONS 1. Continue Amikacin+ Imipenem + Biaxin for M abscessus ADVERTISING ACCOUNT EXECUTIVE shunt infx, ventriculuitis 2. start Zerbaxa 1.5 gm q 8 hrs for suspected PNA 2/2 MDRO PSAE 3. ADD SUSCEPTIBILITY TESTING FOR AVYCAZ, ZERBAXA AND COLISTIN on sputum PSAE isolate 4. monitor repeat CSF to check for clearance. CSF from 2/3 no AFB seen. 5. Continue Flagyl for c. diff. 6. Monitor blood cultures. 7. repeat CXR 8 add micafungin untill bll clx back 9. add vancomycin untill bll clx back dw Dr Mayte ramirez microlab dw Lauryn Irizarry MD Sep 22, 2016 15:04
[2016-09-22] MEDS ORDERED: Vancomycin Consult Pharmacy 1 EA IV SCH (16:30)
[2016-09-22] MEDS ORDERED: MICAFUNGIN INJ 150 MG in SODIUM CHLORIDE 0.9% INJ 100 ML IV SCH (17:00)
[2016-09-22] MEDS: SODIUM CHLORID 0.9% IV SCH (17:19)
[2016-09-22] MEDS: AMIKACIN IV SCH (17:19)
[2016-09-22] MEDS: CEFTOLOZANE-TAZOBACTAM INJ 1,500 MG in SODIUM CHLORIDE 0.9% INJ 100 ML IV SCH (18:00)
[2016-09-22] MEDS ORDERED: VANCOMYCIN INJ 1,400 MG in SODIUM CHLORID 0.9% 500 ML INJ 500 ML IV SCH (20:00)
[2016-09-22] MEDS: MICAFUNGIN INJ 150 MG in SODIUM CHLORIDE 0.9% INJ 100 ML IV SCH (20:37)
[2016-09-22] MEDS: SILVER SULFADIAZINE 1% CR 50 GM JAR TOPICAL SCH (20:38)
[2016-09-22] MEDS: VANCOMYCIN INJ 1,400 MG in SODIUM CHLORID 0.9% 500 ML INJ 500 ML IV SCH (21:00)
[2016-09-23] VITALS (15 sets, daily range): BP systolic 109–119; BP diastolic 57–70; PULSE 64–124; RESP 10–36; TEMP 95.7–100.4; O2SAT 92–100
[2016-09-23] MEDS: CEFTOLOZANE-TAZOBACTAM INJ 1,500 MG in SODIUM CHLORIDE 0.9% INJ 100 ML IV SCH ×3 (02:00→17:35)
[2016-09-23] MEDS: VANCOMYCIN INJ 1,400 MG in SODIUM CHLORID 0.9% 500 ML INJ 500 ML IV SCH ×2 (05:00→13:20)
[2016-09-23] MEDS: SODIUM CHLOR 0.9% 1000 ML INJ 1,000 ML IV SCH ×2 (05:00→15:30)
[2016-09-23 05:55] LABS: AUTOMATED NEUTROPHIL # 4.3 TH/MM3 (1.8-7.7); BASOPHIL % 0.7 % (0.0-2.0); EOSINOPHIL # 0.2 TH/MM3 (0-0.4); EOSINOPHIL % 2.5 % (0.0-4.0); HEMATOCRIT 33.2 % (39.0-51.0); HEMO FLAGS DIFF FINAL; LYMPH % 21.2 % (9.0-44.0); LYMPHOCYTE # 1.4 TH/MM3 (1.0-4.8); MEAN CELL VOLUME 86.2 FL (80.0-100.0); MEAN CORPUSCULAR HEMOGLOBIN 28.6 PG (27.0-34.0); MEAN CORPUSCULAR HGB CONC 33.2 % (32.0-36.0); MONO % 12.5 % (0.0-8.0); NEUT % 63.1 % (16.0-70.0); PLATELET COUNT 266 TH/MM3 (150-450); RED BLOOD COUNT 3.86 MIL/MM3 (4.50-5.90); RED CELL DISTRIBUTION WIDTH 17.8 % (11.6-17.2); WHITE BLOOD COUNT 6.8 TH/MM3 (4.0-11.0)
[2016-09-23] MEDS: metroNIDAZOLE 500 MG TAB PEG SCH ×3 (06:00→22:17)
[2016-09-23] MEDS: IMIPENEM/CILASTATIN INJ 500 MG in SODIUM CHLORIDE 0.9% INJ 100 ML IV SCH ×6 (06:00→22:54)
[2016-09-23] MEDS: oxyCODONE/ACETAMINOPHEN 5 MG/325 MG TAB JT SCH ×3 (06:00→22:54)
[2016-09-23 06:26] LABS: BICARBONATE 26.6 MEQ/L (21.0-32.0); MAGNESIUM 1.5 MG/DL (1.5-2.5); POTASSIUM 4.1 MEQ/L (3.5-5.1)
[2016-09-23] MEDS: ONDANSETRON HCL 4 MG/2 ML VIAL IVP PRN (07:00)
[2016-09-23] MEDS: LORazepam 2 MG/ML VIAL IV PUSH PRN (08:03)
[2016-09-23] MEDS: LACTOBACILLUS ACIDOPHILUS 1 GM PACKET PEG SCH ×4 (09:00→20:08)
[2016-09-23] MEDS: SODIUM CHLORIDE 0.9% FLUSH 5 ML FLUSH FLUSH SCH ×2 (09:00→20:08)
--- NOTE | 2016-09-23 09:20 | HHI.NSPN ---
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 He had a left ventriculoperitoneal shunt which was removed secondary to wound dehiscence and had a right ventriculoperitoneal shunt placed. He is a chronic intermediate resident and has been febrile the last few days and presents MRI is room for workup for for this fever. He had a urethral stricture which was dilated in the emergency room by urology and urinalysis reveals urinary tract infection. He also has a decubitus ulcer. Blood cultures are pending. His neurologic examination is baseline and CT of the head obtained reveals ventriculomegaly compared to the scan from a month ago. The patient had programmable valve place with a lower setting of 50 mm water. Shuntogram obtained reveals ventricular catheter being patent but the peritoneal catheter was not evaluated because patient did not cooperate and the plan is to have this further evaluated once more cooperate with IV access per special procedures. CSF from a shunt tap that does not reveal any organisms on Gram stain. CT of the abdomen reveals a small fluid collection around the shunt catheter of unclear significance. 08/24/16: Pt at his clinical baseline. Eyes open. occasionally focuses on my face. At times rolling eye movements. Not following commands. Flexion contractures of UEs and Extension contractures of LEs. Pt having high fevers today. Tmax of 103 at 8am. 08/25/16: Pt with eyes open. Right sided gaze preference. Not following commands. Not verbalizing. Pt at baseline neurologically. Pt continues to have fevers, T Max 103.4 at 2am. 08/26/16: Pt with eyes open. Tracking more today to both sides. Not following commands which is his baseline. Fever spikes yesterday today T max 100.1. 08/28/16: Pt examined on 08/28/16 delayed note entry. Pt awake with rolling eye movements, erythematous sclera, grunting, and appears more restlessness. 08/29/16: Pt with eyes open and upward gaze with rolling eye movements. Not focusing on face or tacking. Less grunting. Resolving injected sclera. Less restlessness than yesterday. Shunt is externalized and connected to a drainage bag. 08/30/16: Pt with eyes open and upward gaze. He does appear to be less agitated today with no grunting. He also focused on my face briefly which he didn't do yesterday. Distal INTERIOR DESIGN CONSULTANT shunt catheter is connected to a drainage bag and draining well. 09/02/16: Pt with eyes open and upward gaze and some rolling eye movements. No grunting or snoring noted by me at bedside. Not focusing on face or tracking. Distal INTERIOR DESIGN CONSULTANT shunt catheter is connected to drainage bag. 09/03/16: Pt with eyes open and upward gaze. No tracking. Not focusing on my face or tracking. Distal INTERIOR DESIGN CONSULTANT shunt catheter connected to drainage bag. 09/04/16: Pt with eyes open upward gaze. Not tracking. Distal INTERIOR DESIGN CONSULTANT shunt catheter connected to drainage bag with clear CSF. Pt Neurologically at baseline. 09/10/16: Pt with eyes open and upward gaze. Not tracking. Ventriculostomy in place at 5cm H20 with clear gold tinged CSF. Not following commands. Neurological baseline. 09/11/16: Pt with eyes open and upward gaze. Not focusing on face or tracking. Ventriculostomy drain at 5cm with clear gold tinged CSF. Not following commands. 09/12/16: pt opens eyes to voice. Not focusing or tracking. Ventriculostomy drain at 5cmH20 not draining. 09/13/16: Pt with eyes open. Occasionally focuses on face very briefly then has upward gaze and rolling eye movements. Lumbar spinal drain placed last afternoon. Ventriculostomy drain in place. 09/16/16: Pt with eyes open and upward gaze. Not focusing on face or tracking. Lumbar drain in place reported this morning not draining. 09/17/16: Pt with eyes open and upward gaze. Not focusing on my face or tracking. Lumbar drain was evaluated by specials yesterday and was reportedly irrigated and worked but is again obstructed today. 09/18/16: Delayed note entry. Pt seen and examined on 09/18/16. Pt with eyes open. Upward gaze. Not tracking or focusing on face. Lumbar drain is draining very little felt to be secondary to low pressure. 09/19/16: Pt with eyes open. Blank stare. Not tracking. Not following commands. Lumbar drain with minimal drainage but occasionally a drop. 09/20/16: Pt with eyes open, blank stare at ceiling. Not tracking or focusing on my face. 09/23/16: Pt with eyes open. blank stare. He is on his side. Not tracking or focusing on face. Lumbar drain in place. System Review Comments Not able to obtain given clinical condition. Exam Results Vital Signs Date Time Temp Pulse Resp B/P Pulse Ox O2 Delivery O2 Flow Rate FiO2 09/23/16 08:33 96 Nasal Cannula 6.00 09/23/16 06:00 89 09/23/16 04:00 97.0 18 118/70 Intake and Output 09/22/16 09/22/16 09/23/16 08:00 16:00 00:00 Intake Total 996 ml 450 ml 1393 ml Output Total 250 ml 300 ml 400 ml Balance 746 ml 150 ml 993 ml Physical Examination Resp: Coarse bs bilaterally. Heart: mild tachycardia. No murmurs. Abd: Soft Positive bs. Skin: No cyanosis or erythema. SCDs remain in place. Muscle: flexion contractures UEs Extension contractures LEs. Not following for muscle testing. Neuro: Pt with eyes open and blank stare, Lumbar spinal drain in place. Not following commands. Not tracking or focusing. Pupils 4mm bilaterally. Lab, Micro, Other Results Laboratory Tests Test 09/22/16 09/22/16 09/23/16 09/23/16 12:25 17:19 00:04 05:40 Sodium Level 135 MEQ/L 137 MEQ/L 138 MEQ/L 137 MEQ/L White Blood Count 6.8 TH/MM3 Red Blood Count 3.86 MIL/MM3 Hemoglobin 11.0 GM/DL Hematocrit 33.2 % Mean Corpuscular Volume 86.2 FL Mean Corpuscular Hemoglobin 28.6 PG Mean Corpuscular Hemoglobin 33.2 % Concent Red Cell Distribution Width 17.8 % Platelet Count 266 TH/MM3 Mean Platelet Volume 6.5 FL Neutrophils (%) (Auto) 63.1 % Lymphocytes (%) (Auto) 21.2 % Monocytes (%) (Auto) 12.5 % Eosinophils (%) (Auto) 2.5 % Basophils (%) (Auto) 0.7 % Neutrophils # (Auto) 4.3 TH/MM3 Lymphocytes # (Auto) 1.4 TH/MM3 Monocytes # (Auto) 0.9 TH/MM3 Eosinophils # (Auto) 0.2 TH/MM3 Basophils # (Auto) 0.0 TH/MM3 CBC Comment DIFF FINAL Differential Comment Potassium Level 4.1 MEQ/L Chloride Level 99 MEQ/L Carbon Dioxide Level 26.6 MEQ/L Anion Gap 11 MEQ/L Blood Urea Nitrogen 8 MG/DL Creatinine 0.44 MG/DL Estimat Glomerular Filtration 267 ML/MIN Rate Random Glucose 69 MG/DL Calcium Level 9.2 MG/DL Magnesium Level 1.5 MG/DL 09/22/16 09/22/16 09/23/16 15:00 23:00 07:00 Intake Total 450 ml 1393 ml 1448 ml Output Total 300 ml 400 ml 1400 ml Balance 150 ml 993 ml 48 ml IV Total 350 ml 1293 ml 1348 ml Tube Feeding 0 ml 0 ml 0 ml Other 100 ml 100 ml 100 ml Output Urine Total 300 ml 400 ml 1400 ml Drainage Total 0 ml 0 ml 0 ml # Bowel Movements 0 0 0 Medical Decision Making Impression and Plan A: 36 year-old gentleman with severe traumatic brain injury in a chronic vegetative state and a intermediate resident. This appears that he has compensatory ventriculomegaly since the shunt pressure setting is at low level and his neurologic examination is baseline. INTERIOR DESIGN CONSULTANT shunt infection growing AFB. P: Continue with antibiotics Continue with medical care. Continue with CSF drainage via lumbar spinal drain. Juanjo Oquendo Sep 23, 2016 09:20
[2016-09-23] MEDS: CLARITHROMYCIN 500 MG TAB PO SCH ×2 (09:30→20:08)
[2016-09-23] MEDS: levETIRAcetam 500 MG/5 ML UDC TUBE SCH ×2 (09:30→20:09)
[2016-09-23] MEDS: SODIUM CHLORIDE 1 GRAM TAB PEG SCH ×3 (09:30→17:32)
[2016-09-23] MEDS: hydrALAZINE HCL 50 MG TAB JT SCH ×3 (09:30→17:32)
[2016-09-23] MEDS: ATENOLOL 50 MG TAB PEG SCH ×2 (09:30→20:08)
[2016-09-23] MEDS: HYOSCYAMINE 0.125 MG TAB JT SCH ×4 (09:30→20:08)
[2016-09-23] MEDS: IBUPROFEN SUSP 100 MG/5 ML UDC PO PRN (09:30)
[2016-09-23] MEDS: BACLOFEN 10 MG TAB PEG SCH ×2 (09:30→20:08)
[2016-09-23] MEDS: DILTIAZEM HCL 60 MG TAB JT SCH ×4 (09:30→20:08)
--- NOTE | 2016-09-23 13:29 | HHI.IDPN ---
Note Infectious Disease Note Patient is sedated. Appears to be moaning. No apnea currently. No distress. No loose stools noted. Baseline non verbal. Afebrile. Has new lumbar spinal drain placed on 09/12/16. CSF looks clear. CSF from 08/29 has AFB. Repeat CSF AFB smear 09/01,09/05 positive. AFB identified as Mycobacterium abscessus. Had removal of BROWNFIELD REDEVELOPMENT SITE MANAGER shunt 09/05/16. External drain placed and then removed 09/12/16. PAST MEDICAL HISTORY 1. 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 Seizure disorder. 3. PEG placement 4. History of tracheostomy 5. History of MRSA wound infection from the scalp 6. Bacteremia due to MRSA 7. History of ESBL E-coli UTI. 8. Recent BROWNFIELD REDEVELOPMENT SITE MANAGER shunt malfunction and culture positive with Pseudomonas treated with a round of antibiotic. ALLERGIES NO KNOWN DRUG ALLERGIES. ANTIBIOTICS: Imipenem. Amikacin. Biaxin 09/04/16. Flagyl. OBJECTIVE: Vital Signs Date Time Temp Pulse Resp B/P Pulse Ox O2 Delivery O2 Flow Rate FiO2 09/20/16 09:59 96 Nasal Cannula 2.00 09/20/16 08:00 144 09/20/16 06:00 146 09/20/16 04:00 97.6 110 20 136/73 99 09/20/16 04:00 110 09/20/16 02:00 88 09/20/16 00:00 90 09/20/16 00:00 97.7 90 16 109/66 100 09/19/16 22:00 94 09/19/16 21:48 100 Nasal Cannula 2.00 09/19/16 20:00 97.5 92 17 90/56 100 09/19/16 20:00 98 Nasal Cannula 2.00 09/19/16 20:00 92 09/19/16 18:00 82 09/19/16 16:00 81 09/19/16 16:00 97.5 81 10 114/67 100 09/19/16 09/19/16 09/20/16 15:00 23:00 07:00 Intake Total 1128 ml 1307 ml 1102 ml Output Total 410 ml 400 ml 288 ml Balance 718 ml 907 ml 814 ml IV Total 868 ml 1043 ml 914 ml Tube Feeding 59 ml 88 ml Other 260 ml 205 ml 100 ml Output Urine Total 400 ml 400 ml 278 ml Drainage Total 10 ml 10 ml # Bowel Movements 0 0 Laboratory Tests Test 09/19/16 09/19/16 01:15 08:16 White Blood Count 10.7 TH/MM3 18.2 TH/MM3 Red Blood Count 4.05 MIL/MM3 4.52 MIL/MM3 Hemoglobin 11.8 GM/DL 12.5 GM/DL Hematocrit 33.7 % 37.6 % Mean Corpuscular Volume 83.2 FL 83.1 FL Mean Corpuscular Hemoglobin 29.2 PG 27.7 PG Mean Corpuscular Hemoglobin 35.1 % 33.3 % Concent Red Cell Distribution Width 17.5 % 17.9 % Platelet Count 236 TH/MM3 248 TH/MM3 Mean Platelet Volume 7.0 FL 7.9 FL Neutrophils (%) (Auto) 78.7 % 74.3 % Lymphocytes (%) (Auto) 8.8 % 10.2 % Monocytes (%) (Auto) 11.8 % 14.4 % Eosinophils (%) (Auto) 0.3 % 0.5 % Basophils (%) (Auto) 0.4 % 0.6 % Neutrophils # (Auto) 8.4 TH/MM3 13.2 TH/MM3 Lymphocytes # (Auto) 0.9 TH/MM3 1.8 TH/MM3 Monocytes # (Auto) 1.3 TH/MM3 2.6 TH/MM3 Eosinophils # (Auto) 0.0 TH/MM3 0.1 TH/MM3 Basophils # (Auto) 0.0 TH/MM3 0.1 TH/MM3 CBC Comment DIFF FINAL AUTO DIFF Differential Comment FINAL DIFF MANUAL Differential Total Cells 100 Counted Neutrophils % (Manual) 68 % Band Neutrophils % 1 % Lymphocytes % 14 % Monocytes % 17 % Neutrophils # (Manual) 12.6 TH/MM3 Platelet Estimate NORMAL Platelet Morphology Comment NORMAL Hematology Comments Laboratory Tests Test 09/18/16 09/18/16 09/19/16 09/19/16 16:15 20:20 01:15 03:14 Sodium Level 129 MEQ/L 129 MEQ/L 130 MEQ/L Lactic Acid Level 0.9 mmol/L Test 09/19/16 09/19/16 09/19/16 09/19/16 08:16 11:10 16:35 23:03 Sodium Level 129 MEQ/L 129 MEQ/L 128 MEQ/L 132 MEQ/L Potassium Level 4.8 MEQ/L Chloride Level 89 MEQ/L Carbon Dioxide Level 31.4 MEQ/L Anion Gap 9 MEQ/L Blood Urea Nitrogen 10 MG/DL Creatinine 0.38 MG/DL Estimat Glomerular Filtration 317 ML/MIN Rate Random Glucose 72 MG/DL Calcium Level 9.5 MG/DL Test 09/20/16 09/20/16 09/20/16 03:23 09:50 14:38 Sodium Level 131 MEQ/L 132 MEQ/L 133 MEQ/L Microbiology Date/Time Procedure Status Source Growth 09/19/16 00:45 Urine Culture - Preliminary Resulted Urine Catheterized Urine Yeast-Id To Follow 09/19/16 01:00 Gram Stain - Final Resulted Sputum Expectorated Sputum 09/19/16 01:00 Sputum Culture Resulted Sputum Expectorated Sputum Pending 09/19/16 01:15 Aerobic Blood Culture - Preliminary Resulted Blood Peripheral NO GROWTH IN 1 DAY 09/19/16 01:15 Anaerobic Blood Culture - Final Resulted Blood Peripheral QNS - SEE AEROBE REPORT 09/19/16 11:10 Aerobic Blood Culture - Preliminary Resulted Blood Peripheral NO GROWTH IN 1 DAY 09/19/16 11:10 Anaerobic Blood Culture - Preliminary Resulted Blood Peripheral NO GROWTH IN 1 DAY IMAGING: Chest X-Ray 09/20/16 0000 Signed Impressions: Service Date/Time: Tuesday, September 20, 2016 09:00 - CONCLUSION: 1. Bibasilar patchiness consistent with atelectasis and/or infiltrate. Donavan Vidales MD Chest X-Ray 09/19/16 0000 Signed Impressions: Service Date/Time: September 00:39 - CONCLUSION: No acute disease. Eran Truong MD Chest X-Ray 09/08/16 0000 Signed Impressions: Service Date/Time: Friday, September 09, 2016 00:01 - CONCLUSION: 1. Ill- defined opacity projecting over the right upper lobe. Right upper lobe pneumonia versus overlying bandage/gauze.Please see above. 2. Mild bibasilar atelectasis. Joni Lay MD PHYSICAL EXAMINATION GENERAL: Non verbal. Calm. No distress. NECK: No adenopathy or swelling. LUNGS: Bilateral rhonchi. HEART: Regular rate and rhythm. Nl S1S2. TITI heard at LSB. ABDOMEN: Bowel sounds present, soft. No tenderness appreciated. EXTREMITIES: No clubbing or cyanosis or edema. NEUROLOGIC: Unable to fully assess. SKIN: No rash. IMPRESSION 1. Fever. Persistent previous, now temp normal. [employer]OWN[employer] REDEVELOPMENT SITE MANAGER Shunt related infection. Mycobacteria abscessus. Also had Staph Haemolyticus on in one sample. Sepsis indicated By decreased BP, increased HR. Decreased mentation. High fever. Temperature improved. 2. Cellulitis suggested by CT scan of the abdomen and pelvis which reveals myositis and cellulitis in the posterior tissues of the buttock and hip. No erythema present. Received course of Vancomycin. 3. Candiduria. Treated. 4. Pneumonia. Treated. Now with bilateral infiltrates. Aspiration likely. 5. C diff colitis. RECOMMENDATIONS 1. Continue Amikacin. Pharmacy dosing. 2. Continue Imipenem. Should cover for aspiration. 3. Continue Biaxin. 4. Follow repeat CSF to check for clearance. CSF from 2/ no AFB seen. 5. Continue Flagyl for c. diff. 6. Monitor cultures. No need to treat yeast in urine. < 100,000 colonies. Quique Mendez MD Sep 23, 2016 13:29
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
[2016-09-23] MEDS ORDERED: ACETAMINOPHEN 1000 MG/100 ML VIAL IV PRN (15:00)
[2016-09-23] MEDS: AMIKACIN IV SCH (16:03)
[2016-09-23] MEDS: SODIUM CHLORID 0.9% IV SCH (16:03)
[2016-09-23] MEDS ORDERED: PHARMACY ORDERED LAB XX ONE (17:45)
[2016-09-23] MEDS: SILVER SULFADIAZINE 1% CR 50 GM JAR TOPICAL SCH (20:09)
--- NOTE | 2016-09-23 20:32 | HHI.PR ---
Subjective Remarks 36 YOAA male with TBI, Ch RF On NC Looks around, does't follow Tolerates TF On Two LNC Had low grade fever, better now Objective Vital Signs Vital Signs Date Time Temp Pulse Resp B/P Pulse Ox O2 Delivery O2 Flow Rate FiO2 09/23/16 18:00 77 09/23/16 16:00 95.7 09/23/16 16:00 72 09/23/16 16:00 95.7 72 12 116/57 100 09/23/16 14:00 79 09/23/16 12:00 81 09/23/16 12:00 99.1 81 20 109/62 100 09/23/16 10:00 116 09/23/16 08:33 96 Nasal Cannula 6.00 09/23/16 08:00 124 09/23/16 08:00 100.4 124 36 119/70 92 09/23/16 07:30 90 Nasal Cannula 6.00 09/23/16 07:00 90 Nasal Cannula 2.00 09/23/16 06:00 89 09/23/16 04:00 64 09/23/16 04:00 97.0 79 18 118/70 98 09/23/16 02:00 64 09/23/16 00:00 64 09/23/16 00:00 97.5 64 10 113/59 100 09/22/16 22:00 80 09/22/16 20:47 100 Nasal Cannula 4.00 I/O 09/22/16 09/22/16 09/22/16 09/23/16 09/23/16 09/23/16 07:00 15:00 23:00 07:00 15:00 23:00 Intake Total 996 ml 450 ml 1393 ml 1448 ml 835 ml Output Total 250 ml 300 ml 400 ml 1400 ml 325 ml Balance 746 ml 150 ml 993 ml 48 ml 510 ml IV Total 916 ml 350 ml 1293 ml 1348 ml 745 ml Tube Feeding 0 ml 0 ml 0 ml 0 ml 0 ml Other 80 ml 100 ml 100 ml 100 ml 90 ml Output Urine Total 250 ml 300 ml 400 ml 1400 ml 325 ml Drainage Total 0 ml 0 ml 0 ml 0 ml 0 ml # Bowel Movements 0 0 0 0 0 Result Diagram: 09/23/16 0540 09/23/16 1620 Objective Remarks GENERAL: WBWN AA male, mild sob SKIN: Warm and dry. HEAD: Normocephalic. EYES: No scleral icterus. No injection or drainage. NECK: Supple, trachea midline. No JVD or lymphadenopathy. CARDIOVASCULAR: Regular rate and rhythm without murmurs, gallops, or rubs. RESPIRATORY: Breath sounds equal bilaterally. No accessory muscle use. GASTROINTESTINAL: Abdomen soft, non-tender, nondistended. PEG tube MUSCULOSKELETAL: No cyanosis, or edema. BACK: Nontender without obvious deformity. No CVA tenderness. A/P Assessment and Plan Resp insuff, improved Right Basal infilt Atelactesis TBI MRSA Pn treated PLAN: Wean 02 to keep sat >90% Aerosol nebs Abx per ID TF Han Hernandez MD Sep 23, 2016 20:32
[2016-09-23] MEDS: MICAFUNGIN INJ 150 MG in SODIUM CHLORIDE 0.9% INJ 100 ML IV SCH (22:17)
[2016-09-24] VITALS (14 sets, daily range): BP systolic 90–126; BP diastolic 54–66; PULSE 68–101; RESP 12–17; TEMP 95.7–98.2; O2SAT 95–100
[2016-09-24] MEDS: SODIUM CHLOR 0.9% 1000 ML INJ 1,000 ML IV SCH ×3 (01:00→21:00)
[2016-09-24] MEDS: VANCOMYCIN INJ 1,400 MG in SODIUM CHLORID 0.9% 500 ML INJ 500 ML IV SCH ×2 (01:00→10:08)
[2016-09-24] MEDS: CEFTOLOZANE-TAZOBACTAM INJ 1,500 MG in SODIUM CHLORIDE 0.9% INJ 100 ML IV SCH ×2 (02:32→12:52)
[2016-09-24] MEDS: IBUPROFEN SUSP 100 MG/5 ML UDC PO PRN (02:32)
[2016-09-24] MEDS: LORazepam 2 MG/ML VIAL IV PUSH PRN (02:32)
[2016-09-24] MEDS: HYOSCYAMINE 0.5 MG/ML AMP IVP PRN (04:40)
[2016-09-24] MEDS: metroNIDAZOLE 500 MG TAB PEG SCH ×3 (04:56→22:00)
[2016-09-24] MEDS: oxyCODONE/ACETAMINOPHEN 5 MG/325 MG TAB JT SCH ×4 (04:56→22:00)
[2016-09-24] MEDS: IMIPENEM/CILASTATIN INJ 500 MG in SODIUM CHLORIDE 0.9% INJ 100 ML IV SCH ×3 (04:56→17:31)
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
[2016-09-24] MEDS: ATENOLOL 50 MG TAB PEG SCH ×2 (10:08→21:00)
[2016-09-24] MEDS: CLARITHROMYCIN 500 MG TAB PO SCH ×2 (10:08→21:00)
[2016-09-24] MEDS: DILTIAZEM HCL 60 MG TAB JT SCH ×4 (10:08→21:00)
[2016-09-24] MEDS: levETIRAcetam 500 MG/5 ML UDC TUBE SCH ×2 (10:08→21:00)
[2016-09-24] MEDS: hydrALAZINE HCL 50 MG TAB JT SCH ×3 (10:09→18:28)
[2016-09-24] MEDS: BACLOFEN 10 MG TAB PEG SCH ×2 (10:09→21:00)
[2016-09-24] MEDS: SODIUM CHLORIDE 0.9% FLUSH 5 ML FLUSH FLUSH SCH ×2 (10:09→21:00)
[2016-09-24] MEDS: SODIUM CHLORIDE 1 GRAM TAB PEG SCH ×3 (10:09→18:28)
[2016-09-24] MEDS: HYOSCYAMINE 0.125 MG TAB JT SCH ×4 (10:09→21:00)
[2016-09-24] MEDS: LACTOBACILLUS ACIDOPHILUS 1 GM PACKET PEG SCH ×4 (10:10→21:00)
[2016-09-24] MEDS: REMOVE OLD PATCH T-DERMAL SCH (13:07)
[2016-09-24] MEDS: SCOPOLAMINE 1.5 MG PATCH TD SCH (13:07)
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
[2016-09-24] MEDS: AMIKACIN IV SCH (17:31)
[2016-09-24] MEDS: SODIUM CHLORID 0.9% IV SCH (17:31)
--- NOTE | 2016-09-24 19:13 | HHI.PR ---
Subjective Remarks 36 YOAA male with TBI, Ch RF On NC Looks around, does't follow Tolerates TF On Two LNC Objective Vital Signs Vital Signs Date Time Temp Pulse Resp B/P Pulse Ox O2 Delivery O2 Flow Rate FiO2 09/24/16 18:00 70 09/24/16 16:30 95.7 09/24/16 16:00 68 09/24/16 16:00 96.1 68 16 112/55 99 09/24/16 14:00 79 09/24/16 12:00 76 09/24/16 12:00 97.5 76 13 109/59 99 09/24/16 10:00 76 09/24/16 08:20 98 Nasal Cannula 2.00 09/24/16 08:00 74 09/24/16 08:00 97.9 74 13 126/61 98 09/24/16 07:00 98 Nasal Cannula 2.00 09/24/16 06:00 87 09/24/16 04:00 83 09/24/16 04:00 98.2 83 17 118/66 95 09/24/16 02:00 101 09/24/16 00:00 76 09/24/16 00:00 98.2 76 12 120/57 100 09/23/16 22:00 80 09/23/16 20:48 100 Nasal Cannula 4.00 09/23/16 20:00 72 09/23/16 20:00 97.2 83 14 118/61 97 09/23/16 20:00 97 Nasal Cannula 4.00 09/23/16 19:16 83 I/O 09/23/16 09/23/16 09/23/16 09/24/16 09/24/16 09/24/16 07:00 15:00 23:00 07:00 15:00 23:00 Intake Total 1448 ml 835 ml 1676 ml 1005 ml 1203 ml Output Total 1400 ml 325 ml 550 ml 750 ml 1528 ml Balance 48 ml 510 ml 1126 ml 255 ml -325 ml Intake Oral 0 ml IV Total 1348 ml 745 ml 1586 ml 915 ml 1103 ml Tube Feeding 0 ml 0 ml 0 ml 0 ml 0 ml Other 100 ml 90 ml 90 ml 90 ml 100 ml Output Urine Total 1400 ml 325 ml 550 ml 750 ml 1525 ml Drainage Total 0 ml 0 ml 0 ml 0 ml 3 ml # Bowel Movements 0 0 0 0 0 Result Diagram: 09/23/16 0540 09/24/16 1155 Objective Remarks GENERAL: WBWN AA male, mild sob SKIN: Warm and dry. HEAD: Normocephalic. EYES: No scleral icterus. No injection or drainage. NECK: Supple, trachea midline. No JVD or lymphadenopathy. CARDIOVASCULAR: Regular rate and rhythm without murmurs, gallops, or rubs. RESPIRATORY: Breath sounds equal bilaterally. No accessory muscle use. GASTROINTESTINAL: Abdomen soft, non-tender, nondistended. PEG tube MUSCULOSKELETAL: No cyanosis, or edema. BACK: Nontender without obvious deformity. No CVA tenderness. A/P Assessment and Plan Resp insuff, improved Right Basal infilt Atelactesis TBI MRSA Pn treated PLAN: Wean 02 to keep sat >90% Aerosol nebs Abx per ID TF Han Hernandez MD Sep 24, 2016 19:13
[2016-09-24] MEDS: SILVER SULFADIAZINE 1% CR 50 GM JAR TOPICAL SCH (21:00)
[2016-09-24] MEDS: RESP: TOBRAMYCIN SULFATE 300 MG/5 ML NEB NEB SCH (22:22)
[2016-09-25] VITALS (13 sets, daily range): BP systolic 106–139; BP diastolic 57–81; PULSE 66–112; RESP 11–28; TEMP 97–101.4; O2SAT 94–100
[2016-09-25] MEDS: oxyCODONE/ACETAMINOPHEN 5 MG/325 MG TAB JT SCH ×3 (06:00→20:58)
[2016-09-25] MEDS: IMIPENEM/CILASTATIN INJ 500 MG in SODIUM CHLORIDE 0.9% INJ 100 ML IV SCH ×5 (06:00→17:35)
[2016-09-25] MEDS: metroNIDAZOLE 500 MG TAB PEG SCH ×3 (06:00→20:58)
[2016-09-25] MEDS: SODIUM CHLOR 0.9% 1000 ML INJ 1,000 ML IV SCH ×2 (07:00→17:00)
[2016-09-25] MEDS: RESP: TOBRAMYCIN SULFATE 300 MG/5 ML NEB NEB SCH ×2 (08:00→19:58)
[2016-09-25] MEDS: SODIUM CHLORIDE 0.9% FLUSH 5 ML FLUSH FLUSH SCH ×2 (09:00→20:59)
[2016-09-25] MEDS: levETIRAcetam 500 MG/5 ML UDC TUBE SCH ×2 (09:50→20:57)
[2016-09-25] MEDS: BACLOFEN 10 MG TAB PEG SCH ×2 (09:50→20:58)
[2016-09-25] MEDS: DILTIAZEM HCL 60 MG TAB JT SCH ×4 (09:50→20:58)
[2016-09-25] MEDS: ATENOLOL 50 MG TAB PEG SCH ×2 (09:50→20:58)
[2016-09-25] MEDS: LACTOBACILLUS ACIDOPHILUS 1 GM PACKET PEG SCH ×4 (09:50→20:59)
[2016-09-25] MEDS: SODIUM CHLORIDE 1 GRAM TAB PEG SCH ×3 (09:50→19:04)
[2016-09-25] MEDS: CLARITHROMYCIN 500 MG TAB PO SCH ×2 (09:50→20:58)
[2016-09-25] MEDS: HYOSCYAMINE 0.125 MG TAB JT SCH ×4 (09:50→20:58)
[2016-09-25] MEDS: hydrALAZINE HCL 50 MG TAB JT SCH ×3 (09:50→19:03)
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
[2016-09-25] MEDS: REMOVE OLD PATCH TD SCH (12:37)
[2016-09-25] MEDS: fentaNYL 50 MCG/HR PATCH T-DERMAL SCH (12:37)
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
[2016-09-25] MEDS: ONDANSETRON HCL 4 MG/2 ML VIAL IVP PRN (14:34)
[2016-09-25] MEDS: HYOSCYAMINE 0.5 MG/ML AMP IVP PRN (14:35)
[2016-09-25] MEDS: SODIUM CHLORID 0.9% IV SCH (17:35)
[2016-09-25] MEDS: AMIKACIN IV SCH (17:35)
--- NOTE | 2016-09-25 18:47 | HHI.IDPN ---
Note Infectious Disease Note Patient with eyes open but looking towards top of head. Low grade fever. Lumbar drain removed. Had removal of ASSISTANT PRODUCTION MANAGER shunt 09/05/16. External drain placed and then removed 09/12/16. Had lumbar spinal drain placed on 09/12/16. CSF AFB negative x 2. CSF from 08/29 had AFB. Repeat CSF AFB smear 09/01,09/05 positive. AFB identified as Mycobacterium abscessus. PAST MEDICAL HISTORY 1. Traumatic brain injury in October 2014, ASSISTANT PRODUCTION MANAGER shunt placement, 2. Seizure disorder. 3. PEG placement 4. History of tracheostomy 5. History of MRSA wound infection from the scalp 6. Bacteremia due to MRSA 7. History of ESBL E-coli UTI. 8. Recent ASSISTANT PRODUCTION MANAGER shunt malfunction and culture positive with Pseudomonas treated with a round of antibiotic. ALLERGIES NO KNOWN DRUG ALLERGIES. ANTIBIOTICS: Imipenem. Amikacin. Biaxin 09/04/16. Flagyl. OBJECTIVE: Vital Signs Date Time Temp Pulse Resp B/P Pulse Ox O2 Delivery O2 Flow Rate FiO2 09/25/16 16:00 112 09/25/16 16:00 100.4 112 28 117/71 97 09/25/16 14:00 96 09/25/16 12:00 98.4 91 18 127/69 97 09/25/16 12:00 91 09/25/16 10:00 88 09/25/16 08:00 97.0 66 11 115/66 100 09/25/16 08:00 100 Nasal Cannula 2.00 09/25/16 08:00 85 09/25/16 07:00 99 Nasal Cannula 2.00 09/25/16 06:00 74 09/25/16 04:00 96 09/25/16 04:00 98.7 98 14 139/81 94 09/25/16 02:00 100 09/25/16 00:00 96 09/25/16 00:00 99.7 96 24 107/73 97 09/24/16 22:00 74 09/24/16 20:00 97.9 84 16 90/54 98 09/24/16 20:00 98 Nasal Cannula 2.00 09/24/16 20:00 74 09/24/16 09/24/16 09/25/16 15:00 23:00 07:00 Intake Total 1203 ml 1375 ml 841 ml Output Total 1528 ml 1200 ml 1000 ml Balance -325 ml 175 ml -159 ml IV Total 1103 ml 1375 ml 841 ml Tube Feeding 0 ml Other 100 ml Output Urine Total 1525 ml 1200 ml 1000 ml Drainage Total 3 ml 0 ml 0 ml # Bowel Movements 0 0 0 Laboratory Tests Test 09/23/16 09/24/16 09/24/16 09/24/16 22:44 03:17 11:55 20:15 Sodium Level 141 MEQ/L 142 MEQ/L 138 MEQ/L 144 MEQ/L Test 09/25/16 09/25/16 09/25/16 09/25/16 02:44 04:54 10:39 15:55 Sodium Level 143 MEQ/L 142 MEQ/L 142 MEQ/L Creatinine 0.66 MG/DL Estimat Glomerular Filtration 167 ML/MIN Rate IMAGING: Chest X-Ray 09/21/16 0000 Signed Impressions: Service Date/Time: Wednesday, September 21, 2016 14:38 - CONCLUSION: 1. Chronic density in the upper right lung, probably scarring. No new infiltrate compared with multiple prior examinations. Zaheer Hayward MD Chest X-Ray 09/20/16 0000 Signed Impressions: Service Date/Time: Tuesday, September 20, 2016 09:00 - CONCLUSION: 1. Bibasilar patchiness consistent with atelectasis and/or infiltrate. Donavan Vidales MD Chest X-Ray 09/19/16 0000 Signed Impressions: Service Date/Time: September 00:39 - CONCLUSION: No acute disease. Eran Truong MD Chest X-Ray 09/08/16 0000 Signed Impressions: Service Date/Time: Friday, September 09, 2016 00:01 - CONCLUSION: 1. Ill- defined opacity projecting over the right upper lobe. Right upper lobe pneumonia versus overlying bandage/gauze.Please see above. 2. Mild bibasilar atelectasis. Joni Lay MD PHYSICAL EXAMINATION GENERAL: No distress. Difficult to assess. Not tracking. NECK: No adenopathy or swelling. LUNGS: Bilateral rhonchi same. HEART: Regular rate and rhythm. Nl S1S2. TITI at LSB. ABDOMEN: Bowel sounds present, soft. EXTREMITIES: No clubbing,cyanosis or edema. NEUROLOGIC: Unable to fully assess. SKIN: No visible rash. IMPRESSION 1. Prior fever - ASSISTANT PRODUCTION MANAGER Shunt related infection. Mycobacteria abscessus. CSF now without AFB on smear. Also had Staph Haemolyticus on in one sample. Given the patient's condition and level of responsiveness at baseline, it will be difficult to assess response to treatment of the ventricular shunt mycobacterial infection. The CSF culture indicate clearance, however some treatment guidelines requires course of 2 to 8 weeks of intravenous antibiotics plus a macrolide followed by oral antibiotic x 6 to 12 months. I have asked for sensitivity to be performed on the organism to guide antibiotic choice but has not yet received the report. Sepsis indicated By decreased BP, increased HR. Decreased mentation. High fever. Temperature improved. 2. Cellulitis suggested by CT scan of the abdomen and pelvis which reveals myositis and cellulitis in the posterior tissues of the buttock and hip. No erythema present. Treated - Received course of Vancomycin. 3. Candiduria. Treated. 4. Pneumonia. Treated. Now with bilateral infiltrates. Aspiration likely. 5. C diff colitis - Being treated and stable. 6. Fever. PNA vs treacheobronchitis. - pseudomonas resistant. 7. Skin rash ? drug related. better after stopping ceftalozane/Tazo. RECOMMENDATIONS 1. Continue Amikacin. Pharmacy dosing. Would give until 10/11/15. The dosing can be given 3 x weekly. 2. Continue Imipenem IV until 10/10/16. 3. Continue Biaxin x 6months. 4. Continue Flagyl for c. diff. while on the IV antibiotics. 5. Tobramycin nebulized bid for pseudomonas until 09/30/16. 6. Follow the sensitivity of the mycobacteria with micro. Quique Mendez MD Sep 25, 2016 18:47
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
[2016-09-25] MEDS: SILVER SULFADIAZINE 1% CR 50 GM JAR TOPICAL SCH (20:59)
[2016-09-26] VITALS (14 sets, daily range): BP systolic 94–120; BP diastolic 55–80; PULSE 59–110; RESP 12–32; TEMP 96.1–100.2; O2SAT 97–100
[2016-09-26] MEDS: HYOSCYAMINE 0.5 MG/ML AMP IVP PRN (02:30)
[2016-09-26] MEDS: SODIUM CHLOR 0.9% 1000 ML INJ 1,000 ML IV SCH ×3 (03:00→23:00)
[2016-09-26] MEDS: IMIPENEM/CILASTATIN INJ 500 MG in SODIUM CHLORIDE 0.9% INJ 100 ML IV SCH ×6 (06:00→23:45)
[2016-09-26] MEDS: metroNIDAZOLE 500 MG TAB PEG SCH ×3 (06:00→20:48)
[2016-09-26] MEDS: oxyCODONE/ACETAMINOPHEN 5 MG/325 MG TAB JT SCH ×3 (06:00→20:49)
[2016-09-26] MEDS: LACTOBACILLUS ACIDOPHILUS 1 GM PACKET PEG SCH ×4 (08:26→20:49)
[2016-09-26] MEDS: levETIRAcetam 500 MG/5 ML UDC TUBE SCH ×2 (08:27→20:48)
[2016-09-26] MEDS: SODIUM CHLORIDE 1 GRAM TAB PEG SCH ×3 (08:27→18:00)
[2016-09-26] MEDS: CLARITHROMYCIN 500 MG TAB PO SCH ×2 (08:27→20:48)
[2016-09-26] MEDS: BACLOFEN 10 MG TAB PEG SCH ×2 (08:27→20:48)
[2016-09-26] MEDS: hydrALAZINE HCL 50 MG TAB JT SCH ×3 (08:27→18:00)
[2016-09-26] MEDS: ATENOLOL 50 MG TAB PEG SCH ×2 (08:27→20:48)
[2016-09-26] MEDS: HYOSCYAMINE 0.125 MG TAB JT SCH ×4 (08:27→20:48)
[2016-09-26] MEDS: DILTIAZEM HCL 60 MG TAB JT SCH ×4 (09:00→20:49)
[2016-09-26] MEDS: SODIUM CHLORIDE 0.9% FLUSH 5 ML FLUSH FLUSH SCH ×2 (09:00→20:49)
[2016-09-26] MEDS: RESP: TOBRAMYCIN SULFATE 300 MG/5 ML NEB NEB SCH ×2 (09:50→20:32)
--- NOTE | 2016-09-26 11:33 | RADRPT ---
EXAM DATE/TIME: 09/26/2016 11:00 [place] COMPARISON: CHEST SINGLE AP, September 21, 2016, 14:38. INDICATIONS : Obstruction. MEDICAL HISTORY : Hypertension. SURGICAL HISTORY : Shunt. Tracheostomy. ENCOUNTER: Subsequent ACUITY: 4 - 6 months PAIN SCORE: Non-responsive. LOCATION: Bilateral abdomen. FINDINGS: The exam is somewhat limited as the arm across the belly. Patient is rigid in the arm could not be mo sam. The bowel gas pattern is within normal limits. Visualized bony structures are grossly intact. CONCLUSION: 1. Benign-appearing bowel gas pattern. Erik Esqueda MD on September 26, 2016 at 11:31 Board Certified Radiologist. This report was verified electronically.
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
--- NOTE | 2016-09-26 13:34 | HHI.IDPN ---
Note Infectious Disease Note Patient with eyes open but looking towards top of head. Sweating. Fever this am. Having vomiting episodes. No longer has lumbar drain. Had removal of MISSILEMAN shunt 09/05/16. External drain placed and then removed 09/12/16. Had lumbar spinal drain placed on 09/12/16. CSF AFB negative x 2. CSF from 08/29 had AFB. Repeat CSF AFB smear 09/01,09/05 positive. AFB identified as Mycobacterium abscessus. PAST MEDICAL HISTORY 1. Traumatic brain injury in October 2014, MISSILEMAN shunt placement, 2. Seizure disorder. 3. PEG placement 4. History of tracheostomy 5. History of MRSA wound infection from the scalp 6. Bacteremia due to MRSA 7. History of ESBL E-coli UTI. 8. Recent MISSILEMAN shunt malfunction and culture positive with Pseudomonas treated with a round of antibiotic. ALLERGIES NO KNOWN DRUG ALLERGIES. ANTIBIOTICS: Imipenem. Amikacin. Biaxin 09/04/16. Flagyl. OBJECTIVE: Vital Signs Date Time Temp Pulse Resp B/P Pulse Ox O2 Delivery O2 Flow Rate FiO2 09/26/16 10:00 82 09/26/16 09:55 98 Nasal Cannula 2.00 09/26/16 08:00 98.8 100 32 114/64 100 09/26/16 08:00 100 Nasal Cannula 2.00 09/26/16 08:00 100 09/26/16 06:00 100 09/26/16 04:00 102 09/26/16 04:00 98.6 96 14 104/57 100 09/26/16 02:00 84 09/26/16 00:00 96.1 59 12 94/55 97 09/26/16 00:00 88 09/25/16 22:00 80 09/25/16 20:02 98 Nasal Cannula 2.00 09/25/16 20:00 100 Nasal Cannula 2.00 09/25/16 20:00 88 09/25/16 20:00 101.4 88 12 106/57 100 09/25/16 18:00 106 09/25/16 16:00 112 09/25/16 16:00 100.4 112 28 117/71 97 09/25/16 14:00 96 Laboratory Tests Test 09/24/16 09/25/16 09/25/16 09/25/16 20:15 02:44 04:54 10:39 Sodium Level 144 MEQ/L 143 MEQ/L 142 MEQ/L Creatinine 0.66 MG/DL Estimat Glomerular Filtration 167 ML/MIN Rate Test 09/25/16 09/25/16 09/26/16 15:55 20:42 03:35 Sodium Level 142 MEQ/L 143 MEQ/L 145 MEQ/L IMAGING: Chest X-Ray 09/21/16 0000 Signed Impressions: Service Date/Time: Wednesday, September 21, 2016 14:38 - CONCLUSION: 1. Chronic density in the upper right lung, probably scarring. No new infiltrate compared with multiple prior examinations. Zaheer Hayward MD Chest X-Ray 09/20/16 0000 Signed Impressions: Service Date/Time: Tuesday, September 20, 2016 09:00 - CONCLUSION: 1. Bibasilar patchiness consistent with atelectasis and/or infiltrate. Donavan Vidales MD Chest X-Ray 09/19/16 0000 Signed Impressions: Service Date/Time: September 00:39 - CONCLUSION: No acute disease. Eran Truong MD Chest X-Ray 09/08/16 0000 Signed Impressions: Service Date/Time: Friday, September 09, 2016 00:01 - CONCLUSION: 1. Ill- defined opacity projecting over the right upper lobe. Right upper lobe pneumonia versus overlying bandage/gauze.Please see above. 2. Mild bibasilar atelectasis. Joni Lay MD PHYSICAL EXAMINATION GENERAL: No distress. Difficult to assess. Not tracking. NECK: No adenopathy or swelling. LUNGS: Coarse bilateral rhonchi. HEART: Regular rate and rhythm. Nl S1S2. TITI at LSB. ABDOMEN: Bowel sounds present, soft. EXTREMITIES: No clubbing,cyanosis or edema. NEUROLOGIC: Unable to fully assess. SKIN: No visible rash. IMPRESSION 1. Prior fever - MISSILEMAN Shunt related infection. Mycobacteria abscessus. CSF now without AFB on smear. Also had Staph Haemolyticus on in one sample. Given the patient's condition and level of responsiveness at baseline, it will be difficult to assess response to treatment of the ventricular shunt mycobacterial infection. The CSF culture indicate clearance, however some treatment guidelines requires course of 2 to 8 weeks of intravenous antibiotics plus a macrolide followed by oral antibiotic x 6 to 12 months. I have asked for sensitivity to be performed on the organism to guide antibiotic choice but has not yet received the report. Sepsis indicated By decreased BP, increased HR. Decreased mentation. High fever. Temperature improved. 2. Cellulitis suggested by CT scan of the abdomen and pelvis which reveals myositis and cellulitis in the posterior tissues of the buttock and hip. No erythema present. Treated - Received course of Vancomycin. 3. Candiduria. Treated. 4. Pneumonia. Treated. Now with bilateral infiltrates. Aspiration likely. 5. C diff colitis - Being treated and stable. 6. Fever. PNA vs treacheobronchitis. - pseudomonas resistant. 7. Skin rash ? drug related. better after stopping ceftalozane/Tazo. 9. New fever. RECOMMENDATIONS 1. Continue Amikacin. Pharmacy dosing. Would give until 10/11/15. The dosing can be given 3 x weekly. 2. Continue Imipenem IV until 10/10/16. 3. Continue Biaxin x 6months. 4. Continue Flagyl for c. diff. while on the IV antibiotics. 5. Tobramycin nebulized bid for pseudomonas until 09/30/16. 6. Follow the sensitivity of the mycobacteria with micro. 7. Send cow urine culture. 8. Check CBC. Quique Mendez MD Sep 26, 2016 13:34
[2016-09-26] MEDS ORDERED: PHARMACY ORDERED LAB XX ONE (16:45)
[2016-09-26] MEDS: AMIKACIN IV SCH (17:00)
[2016-09-26] MEDS: SODIUM CHLORID 0.9% IV SCH (17:00)
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
[2016-09-26] MEDS ORDERED: METHYLNALTREXONE BROMIDE 12 MG/0.6 ML VIAL SQ ONE (17:45)
[2016-09-26] MEDS: POLYETHYLENE GLYCOL 17 GM PKG PO SCH (17:45)
[2016-09-26] MEDS: LORazepam 2 MG/ML VIAL IV PUSH PRN (18:23)
[2016-09-26 18:45] LABS: BLOOD, URINE MOD (NEG); CALCIUM OXALATE CRYSTALS,URINE RARE /hpf; GLUCOSE,URINE NEG (NEG); KETONE, URINE 150 mg/dL (NEG); MUCUS URINE FEW /lpf (OCC); NITRITE,URINE NEG (NEG); PH, URINE 6.5 (5.0-8.5); SQUAMOUS EPITHELIAL CELL URINE 1 /hpf (0-5); URINE COLOR YELLOW (YELLW/STRAW)
[2016-09-26 18:46] LABS: COMMENT (UR) CATH-CULTURE IND; CULTURE IF INDICATED CATH CULTURE IND
[2016-09-26] MEDS: SILVER SULFADIAZINE 1% CR 50 GM JAR TOPICAL SCH (20:49)
[2016-09-27] VITALS (14 sets, daily range): BP systolic 94–125; BP diastolic 59–81; PULSE 75–124; RESP 10–28; TEMP 96.4–101.3; O2SAT 93–100
[2016-09-27] MEDS: LORazepam 2 MG/ML VIAL IV PUSH PRN ×4 (02:26→22:32)
[2016-09-27 04:53] LABS: AUTOMATED NEUTROPHIL # 3.1 TH/MM3 (1.8-7.7); BASOPHIL % 0.8 % (0.0-2.0); EOSINOPHIL # 0.3 TH/MM3 (0-0.4); EOSINOPHIL % 5.1 % (0.0-4.0); HEMATOCRIT 30.1 % (39.0-51.0); HEMO FLAGS DIFF FINAL; LYMPHOCYTE # 1.4 TH/MM3 (1.0-4.8); MEAN CELL VOLUME 87.7 FL (80.0-100.0); MEAN CORPUSCULAR HEMOGLOBIN 28.9 PG (27.0-34.0); MONO % 16.2 % (0.0-8.0); NEUT % 53.9 % (16.0-70.0); PLATELET COUNT 243 TH/MM3 (150-450); RED BLOOD COUNT 3.43 MIL/MM3 (4.50-5.90); RED CELL DISTRIBUTION WIDTH 18.3 % (11.6-17.2); WHITE BLOOD COUNT 5.7 TH/MM3 (4.0-11.0)
[2016-09-27 05:04] LABS: BICARBONATE 30.7 MEQ/L (21.0-32.0); MAGNESIUM 1.5 MG/DL (1.5-2.5)
[2016-09-27 05:06] LABS: POTASSIUM 2.8 MEQ/L (3.5-5.1)
[2016-09-27] MEDS: IMIPENEM/CILASTATIN INJ 500 MG in SODIUM CHLORIDE 0.9% INJ 100 ML IV SCH ×2 (05:32→17:27)
[2016-09-27] MEDS: metroNIDAZOLE 500 MG TAB PEG SCH ×3 (05:32→22:33)
[2016-09-27] MEDS: oxyCODONE/ACETAMINOPHEN 5 MG/325 MG TAB JT SCH ×3 (05:32→22:33)
[2016-09-27] MEDS ORDERED: POTASSIUM CL 40 MEQ/30 ML LIQ UDC PO ONE (06:00)
[2016-09-27] MEDS: MAGNESIUM HYDROXIDE SUSP 30 ML CUP PO PRN (07:59)
[2016-09-27] MEDS: LACTOBACILLUS ACIDOPHILUS 1 GM PACKET PEG SCH ×4 (07:59→19:31)
[2016-09-27] MEDS: POLYETHYLENE GLYCOL 17 GM PKG PO SCH (07:59)
[2016-09-27] MEDS: CLARITHROMYCIN 500 MG TAB PO SCH ×2 (08:00→19:31)
[2016-09-27] MEDS: hydrALAZINE HCL 50 MG TAB JT SCH ×3 (08:00→17:28)
[2016-09-27] MEDS: HYOSCYAMINE 0.125 MG TAB JT SCH ×4 (08:00→19:32)
[2016-09-27] MEDS: BACLOFEN 10 MG TAB PEG SCH ×2 (08:00→19:32)
[2016-09-27] MEDS: RESP: TOBRAMYCIN SULFATE 300 MG/5 ML NEB NEB SCH ×2 (08:00→20:29)
[2016-09-27] MEDS: levETIRAcetam 500 MG/5 ML UDC TUBE SCH ×2 (08:00→19:31)
[2016-09-27] MEDS: DILTIAZEM HCL 60 MG TAB JT SCH ×4 (08:00→19:32)
[2016-09-27] MEDS: ATENOLOL 50 MG TAB PEG SCH ×2 (08:00→19:31)
[2016-09-27] MEDS: SODIUM CHLORIDE 1 GRAM TAB PEG SCH ×3 (08:00→17:27)
[2016-09-27] MEDS: SODIUM CHLORIDE 0.9% FLUSH 5 ML FLUSH FLUSH SCH ×2 (09:00→19:32)
[2016-09-27] MEDS: SODIUM CHLOR 0.9% 1000 ML INJ 1,000 ML IV SCH ×2 (09:00→19:00)
[2016-09-27] MEDS: SCOPOLAMINE 1.5 MG PATCH TD SCH (11:57)
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
[2016-09-27] MEDS: REMOVE OLD PATCH T-DERMAL SCH (13:30)
--- NOTE | 2016-09-27 14:36 | HHI.IDPN ---
Note Infectious Disease Note Patient with eyes open but looking towards top of head and rolling some. Sweating profusely. High temp. Gurgling upper airway noises. posturing with upper extremities. Had removal of LAY OUT HELPER shunt 09/05/16. External drain placed and then removed 09/12/16. Had lumbar spinal drain placed on 09/12/16. No longer has lumbar drain. CSF from 08/29 had AFB. Repeat CSF AFB smear 09/01,09/05 positive. AFB identified as Mycobacterium abscessus. PAST MEDICAL HISTORY 1. Traumatic brain injury in October 2014, LAY OUT HELPER shunt placement, 2. Seizure disorder. 3. PEG placement 4. History of tracheostomy 5. History of MRSA wound infection from the scalp 6. Bacteremia due to MRSA 7. History of ESBL E-coli UTI. 8. Recent LAY OUT HELPER shunt malfunction and culture positive with Pseudomonas treated with a round of antibiotic. ALLERGIES NO KNOWN DRUG ALLERGIES. ANTIBIOTICS: Imipenem. Amikacin. Biaxin 09/04/16. Flagyl. Tobra nebulized. OBJECTIVE: Vital Signs Date Time Temp Pulse Resp B/P Pulse Ox O2 Delivery O2 Flow Rate FiO2 09/27/16 10:00 86 09/27/16 09:15 99 Nasal Cannula 3.00 09/27/16 08:00 78 09/27/16 08:00 96.4 78 10 123/66 99 09/27/16 07:00 99 Nasal Cannula 2.00 Humidified 09/27/16 06:37 16 09/27/16 06:00 75 09/27/16 04:00 97.2 76 13 105/64 96 09/27/16 04:00 76 09/27/16 02:00 90 09/27/16 00:00 97.0 86 12 94/59 100 09/27/16 00:00 86 09/26/16 22:00 84 09/26/16 20:32 100 Nasal Cannula 3.00 09/26/16 20:00 98 09/26/16 20:00 100.2 98 29 120/69 98 09/26/16 19:00 100 Nasal Cannula 2.00 Humidified 09/26/16 18:00 110 09/26/16 16:00 84 09/26/16 16:00 97.9 84 21 118/80 100 09/26/16 09/26/16 09/27/16 14:59 22:59 06:59 Intake Total 991 ml 1282 ml 991 ml Output Total 350 ml 350 ml 350 ml Balance 641 ml 932 ml 641 ml IV Total 871 ml 1002 ml 931 ml Other 120 ml 280 ml 60 ml Output Urine Total 350 ml 350 ml 350 ml # Bowel Movements 0 0 1 Laboratory Tests Test 09/27/16 04:26 White Blood Count 5.7 TH/MM3 Red Blood Count 3.43 MIL/MM3 Hemoglobin 9.9 GM/DL Hematocrit 30.1 % Mean Corpuscular Volume 87.7 FL Mean Corpuscular Hemoglobin 28.9 PG Mean Corpuscular Hemoglobin 33.0 % Concent Red Cell Distribution Width 18.3 % Platelet Count 243 TH/MM3 Mean Platelet Volume 6.4 FL Neutrophils (%) (Auto) 53.9 % Lymphocytes (%) (Auto) 24.0 % Monocytes (%) (Auto) 16.2 % Eosinophils (%) (Auto) 5.1 % Basophils (%) (Auto) 0.8 % Neutrophils # (Auto) 3.1 TH/MM3 Lymphocytes # (Auto) 1.4 TH/MM3 Monocytes # (Auto) 0.9 TH/MM3 Eosinophils # (Auto) 0.3 TH/MM3 Basophils # (Auto) 0.0 TH/MM3 CBC Comment DIFF FINAL Differential Comment IMAGING: Chest X-Ray 09/21/16 0000 Signed Impressions: Service Date/Time: Wednesday, September 21, 2016 14:38 - CONCLUSION: 1. Chronic density in the upper right lung, probably scarring. No new infiltrate compared with multiple prior examinations. Zaheer Hayward MD Chest X-Ray 09/20/16 0000 Signed Impressions: Service Date/Time: Tuesday, September 20, 2016 09:00 - CONCLUSION: 1. Bibasilar patchiness consistent with atelectasis and/or infiltrate. Donavan Vidales MD Chest X-Ray 09/19/16 0000 Signed Impressions: Service Date/Time: September 00:39 - CONCLUSION: No acute disease. Eran Truong MD Chest X-Ray 09/08/16 0000 Signed Impressions: Service Date/Time: Friday, September 09, 2016 00:01 - CONCLUSION: 1. Ill- defined opacity projecting over the right upper lobe. Right upper lobe pneumonia versus overlying bandage/gauze.Please see above. 2. Mild bibasilar atelectasis. Joni Lay MD PHYSICAL EXAMINATION GENERAL: No distress. Difficult to assess. Not tracking. NECK: No adenopathy or swelling. LUNGS: Coarse bilateral rhonchi. HEART: Regular rate and rhythm. Nl S1S2. TITI at LSB. ABDOMEN: Bowel sounds present, soft. EXTREMITIES: No clubbing,cyanosis or edema. NEUROLOGIC: Unable to fully assess. Appears to be posturing. SKIN: No visible rash. IMPRESSION 1. Prior fever - LAY OUT HELPER Shunt related infection. Mycobacteria abscessus. CSF now without AFB on smear x 2. Also had Staph Haemolyticus on in one sample. Given the patient's condition and level of responsiveness at baseline, it will be difficult to assess response to treatment of the ventricular shunt mycobacterial infection. The CSF culture indicate clearance, however some treatment guidelines requires course of 2 to 8 weeks of intravenous antibiotics plus a macrolide followed by oral antibiotic x 6 to 12 months. I have asked for sensitivity to be performed. Report is pending. Sepsis indicated By decreased BP, increased HR. Decreased mentation. High fever. Temperature improved. 2. Cellulitis suggested by CT scan of the abdomen and pelvis which reveals myositis and cellulitis in the posterior tissues of the buttock and hip. No erythema present. Treated - Received course of Vancomycin. 3. Candiduria. Treated. 4. Pneumonia. Treated. Now with bilateral infiltrates. Aspiration likely. 5. C diff colitis - Being treated and stable. 6. Fever. PNA vs treacheobronchitis. - pseudomonas resistant. 7. Skin rash ? drug related. better after stopping ceftalozane/Tazo. 9. New fever. RECOMMENDATIONS 1. Add Vancomycin. 2. Tobramycin nebulized bid for pseudomonas until 09/30/16. 3. Continue Amikacin. Pharmacy dosing. Would give until 10/11/15. The dosing can be given 3 x weekly. 4. Continue Imipenem IV until 10/10/16. 5. Continue Biaxin x 6months. 6. Continue Flagyl for c. diff. while on the IV antibiotics. 7. Follow the sensitivity of the mycobacteria with micro. 8. Follow urine culture. 9. Send new sputum culture. 10. Send new blood culture. Quique Mendez MD Sep 27, 2016 14:36
[2016-09-27] MEDS ORDERED: Vancomycin Consult Pharmacy 1 EA OTHER SCH (14:45)
--- NOTE | 2016-09-27 14:47 | HHI.GIFU ---
Subjective Remarks patient with very thick secretions, nurse by bed side suctioning, reports he had a small liquidly stool last night. TF on hold, he received miralax, Relistor X one time, Dulcolax, Senokot (Baljit Tracy) Objective Vitals I&O Vital Signs Date Time Temp Pulse Resp B/P Pulse Ox O2 Delivery O2 Flow Rate FiO2 09/27/16 10:00 86 09/27/16 09:15 99 Nasal Cannula 3.00 09/27/16 08:00 78 09/27/16 08:00 96.4 78 10 123/66 99 09/27/16 07:00 99 Nasal Cannula 2.00 Humidified 09/27/16 06:37 16 09/27/16 06:00 75 09/27/16 04:00 97.2 76 13 105/64 96 09/27/16 04:00 76 09/27/16 02:00 90 09/27/16 00:00 97.0 86 12 94/59 100 09/27/16 00:00 86 09/26/16 22:00 84 09/26/16 20:32 100 Nasal Cannula 3.00 09/26/16 20:00 98 09/26/16 20:00 100.2 98 29 120/69 98 09/26/16 19:00 100 Nasal Cannula 2.00 Humidified 09/26/16 18:00 110 09/26/16 16:00 84 09/26/16 16:00 97.9 84 21 118/80 100 I/O 09/26/16 09/26/16 09/26/16 09/27/16 09/27/16 09/27/16 07:00 15:00 23:00 07:00 15:00 23:00 Intake Total 977 ml 991 ml 1282 ml 991 ml Output Total 1250 ml 350 ml 350 ml 350 ml Balance -273 ml 641 ml 932 ml 641 ml IV Total 917 ml 871 ml 1002 ml 931 ml Other 60 ml 120 ml 280 ml 60 ml Output Urine Total 1250 ml 350 ml 350 ml 350 ml # Bowel Movements 0 0 0 1 Laboratory Laboratory Tests Test 09/26/16 09/26/16 09/27/16 17:56 18:17 04:26 Amikacin Level Trough 1.2 Urine Color YELLOW Urine Turbidity HAZY Urine pH 6.5 Urine Specific [place] 1.018 Urine Protein 30 Urine Glucose (UA) NEG Urine Ketones 150 Urine Occult Blood MOD Urine Nitrite NEG Urine Bilirubin NEG Urine Urobilinogen 8.0 Urine Leukocyte Esterase SMALL Urine RBC Urine WBC 24 Urine Squamous Epithelial 1 Cells Urine Calcium Oxalate Crystals RARE Urine Mucus FEW Urine Yeast (Budding) MANY Microscopic Urinalysis Comment CATH-CULTURE IND White Blood Count 5.7 Red Blood Count 3.43 Hemoglobin 9.9 Hematocrit 30.1 Mean Corpuscular Volume 87.7 Mean Corpuscular Hemoglobin 28.9 Mean Corpuscular Hemoglobin 33.0 Concent Red Cell Distribution Width 18.3 Platelet Count 243 Mean Platelet Volume 6.4 Neutrophils (%) (Auto) 53.9 Lymphocytes (%) (Auto) 24.0 Monocytes (%) (Auto) 16.2 Eosinophils (%) (Auto) 5.1 Basophils (%) (Auto) 0.8 Neutrophils # (Auto) 3.1 Lymphocytes # (Auto) 1.4 Monocytes # (Auto) 0.9 Eosinophils # (Auto) 0.3 Basophils # (Auto) 0.0 CBC Comment DIFF FINAL Differential Comment Sodium Level 146 Potassium Level 2.8 Chloride Level 102 Carbon Dioxide Level 30.7 Anion Gap 13 Blood Urea Nitrogen 5 Creatinine 0.59 Estimat Glomerular Filtration 191 Rate Random Glucose 70 Calcium Level 8.6 Magnesium Level 1.5 Date/Time Procedure Status Source Growth 09/26/16 18:17 Urine Culture - Preliminary Resulted Urine Catheterized Urine NO GROWTH IN 24 HOURS. Imaging Last Impressions Abdomen X-Ray 09/26/16 0000 Signed Impressions: Service Date/Time: September 11:00 - CONCLUSION: 1. Benign-appearing bowel gas pattern. Erik Esqueda MD Chest X-Ray 09/21/16 0000 Signed Impressions: Service Date/Time: Wednesday, September 21, 2016 14:38 - CONCLUSION: 1. Chronic density in the upper right lung, probably scarring. No new infiltrate compared with multiple prior examinations. Zaheer Hayward MD Lumbar Puncture Fluoroscopy 09/17/16 0000 Signed Impressions: Service Date/Time: Saturday, September 17, 2016 14:38 - CONCLUSION: Uncomplicated lumbar drain placement as above. Jem Alexander MD Lumbar Puncture 09/16/16 0000 Signed Impressions: Service Date/Time: Friday, September 16, 2016 15:12 - CONCLUSION: Patent lumbar drain Jem Alexander MD Brain MRI 09/03/16 0600 Signed Impressions: Service Date/Time: Saturday, September 03, 2016 11:54 - CONCLUSION: 1. Marked increase in ventricular size and compare with the prior study but no transependymal fluid migration. Obstructing communicating hydrocephalus is not excluded. There is no evidence of abscess. Jem Alexander MD Shunt Study (Imaging) 08/23/16 1514 Signed Impressions: Service Date/Time: Tuesday, August 23, 2016 15:14 - CONCLUSION: ACCESS CLINICIAN shunt tap for spinal fluid sampling as above Joni Sharpe MD Abdomen/Pelvis CT 08/23/16 0816 Signed Impressions: Service Date/Time: Tuesday, August 23, 2016 08:44 - CONCLUSION: Abnormal scan with multiple findings as outlined above Joni Sharpe MD Shunt Study 08/23/16 0000 Signed Impressions: Service Date/Time: Tuesday, August 23, 2016 14:07 - CONCLUSION: Shunt tubing is patent into the ventricular system. The downstream portion of the shunt to the peritoneal cavity was not evaluated. Joni Sharpe MD Head CT 08/23/16 0000 Signed Impressions: Service Date/Time: Tuesday, August 23, 2016 11:57 - CONCLUSION: 1. Interval significant increase in the size of the ventricles compared to the previous examination suggesting worsening hydrocephalus. Clinical correlation is recommended. 2. No significant change in the extensive encephalomalacia ( right worse than left) within the cerebral hemispheres. 3. No acute hemorrhage, midline shift or extraaxial fluid collections. Donavan Vidales MD Physical Exam HEENT: normocephalic; atraumatic; no jaundice. CHEST: Course breath sounds, trach CARDIAC: Regular rate and rhythm ABDOMEN: Soft, nondistended, nontender; no hepatosplenomegaly; bowel sounds are present in all four quadrants.J tube in place EXTREMITIES: Gen. edema, bilateral foot drop WATER PROOFER: Lethargic, nonverbal (Baljit Tracy CONTENT COORDINATOR) Assessment and Plan Plan ASSESSMENT: - Constipation x 10 days, inability to tolerate TF. one small liquid stool last night. He was given Relistor, Senokot and MOM, Dulcolax suppository he is on a Fentanyl patch and Baclofen and gets Percocet on a prn basis Abdomen X-Ray (2/16/17)----> 1. Benign-appearing bowel gas pattern. Clinically, he is not really distended, although he has decreased bowel sounds. He has a J tube that is clamped. - CDiff Colitis (09/13), on Flagyl. Has not had bowel movement since 09/16, although there is no significant distention on exam and he has a benign kub. - ACCESS CLINICIAN shunt malfunction with mycobacteria abscessus, s/p removal 09/05/16. Abx per ID. - PNA vs. Tracheobronchitis. Abx per primary. - Anemia. slight drop today HH 9.9/30.1 - FEN. Pt has a J tube, but TF has been on hold secondary to not being able to tolerate with constipation. PLAN: - NPO - Miralax via J tube daily - Trial of Mag-citrate - one more dose of Relistor 12mg sq - Monitor stool output - Supportive care - Further recommendations to follow based on results of above - Pt seen and examined by Dr. Sauceda and myself and this note is written on her behalf (Baljit Tracy) Physician Comments agree with above if not better ct abdomen/pelvis (Nati Sauceda MD) Baljit Tracy Sep 27, 2016 14:47 Nati Sauceda MD Sep 27, 2016 15:34
[2016-09-27] MEDS ORDERED: MAGNESIUM CITRATE SOLN 300 ML BTL PO ONE (15:00)
--- NOTE | 2016-09-27 15:07 | HHI.NSPN ---
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 He had a left ventriculoperitoneal shunt which was removed secondary to wound dehiscence and had a right ventriculoperitoneal shunt placed. He is a chronic alf resident and has been febrile the last few days and presents MRI is room for workup for for this fever. He had a urethral stricture which was dilated in the emergency room by urology and urinalysis reveals urinary tract infection. He also has a decubitus ulcer. Blood cultures are pending. His neurologic examination is baseline and CT of the head obtained reveals ventriculomegaly compared to the scan from a month ago. The patient had programmable valve place with a lower setting of 50 mm water. Shuntogram obtained reveals ventricular catheter being patent but the peritoneal catheter was not evaluated because patient did not cooperate and the plan is to have this further evaluated once more cooperate with IV access per special procedures. CSF from a shunt tap that does not reveal any organisms on Gram stain. CT of the abdomen reveals a small fluid collection around the shunt catheter of unclear significance. 08/24/16: Pt at his clinical baseline. Eyes open. occasionally focuses on my face. At times rolling eye movements. Not following commands. Flexion contractures of UEs and Extension contractures of LEs. Pt having high fevers today. Tmax of 103 at 8am. 08/25/16: Pt with eyes open. Right sided gaze preference. Not following commands. Not verbalizing. Pt at baseline neurologically. Pt continues to have fevers, T Max 103.4 at 2am. 08/26/16: Pt with eyes open. Tracking more today to both sides. Not following commands which is his baseline. Fever spikes yesterday today T max 100.1. 08/28/16: Pt examined on 08/28/16 delayed note entry. Pt awake with rolling eye movements, erythematous sclera, grunting, and appears more restlessness. 08/29/16: Pt with eyes open and upward gaze with rolling eye movements. Not focusing on face or tacking. Less grunting. Resolving injected sclera. Less restlessness than yesterday. Shunt is externalized and connected to a drainage bag. 08/30/16: Pt with eyes open and upward gaze. He does appear to be less agitated today with no grunting. He also focused on my face briefly which he didn't do yesterday. Distal TANK CALIBRATOR shunt catheter is connected to a drainage bag and draining well. 09/02/16: Pt with eyes open and upward gaze and some rolling eye movements. No grunting or snoring noted by me at bedside. Not focusing on face or tracking. Distal TANK CALIBRATOR shunt catheter is connected to drainage bag. 09/03/16: Pt with eyes open and upward gaze. No tracking. Not focusing on my face or tracking. Distal TANK CALIBRATOR shunt catheter connected to drainage bag. 09/04/16: Pt with eyes open upward gaze. Not tracking. Distal TANK CALIBRATOR shunt catheter connected to drainage bag with clear CSF. Pt Neurologically at baseline. 09/10/16: Pt with eyes open and upward gaze. Not tracking. Ventriculostomy in place at 5cm H20 with clear gold tinged CSF. Not following commands. Neurological baseline. 09/11/16: Pt with eyes open and upward gaze. Not focusing on face or tracking. Ventriculostomy drain at 5cm with clear gold tinged CSF. Not following commands. 09/12/16: pt opens eyes to voice. Not focusing or tracking. Ventriculostomy drain at 5cmH20 not draining. 09/13/16: Pt with eyes open. Occasionally focuses on face very briefly then has upward gaze and rolling eye movements. Lumbar spinal drain placed last afternoon. Ventriculostomy drain in place. 09/16/16: Pt with eyes open and upward gaze. Not focusing on face or tracking. Lumbar drain in place reported this morning not draining. 09/17/16: Pt with eyes open and upward gaze. Not focusing on my face or tracking. Lumbar drain was evaluated by specials yesterday and was reportedly irrigated and worked but is again obstructed today. 09/18/16: Delayed note entry. Pt seen and examined on 09/18/16. Pt with eyes open. Upward gaze. Not tracking or focusing on face. Lumbar drain is draining very little felt to be secondary to low pressure. 09/19/16: Pt with eyes open. Blank stare. Not tracking. Not following commands. Lumbar drain with minimal drainage but occasionally a drop. 09/20/16: Pt with eyes open, blank stare at ceiling. Not tracking or focusing on my face. 09/23/16: Pt with eyes open. blank stare. He is on his side. Not tracking or focusing on face. Lumbar drain in place. 09/25/16: Pt with eyes open. [place] stare. No tracking or focusing on face. Pts respiratory sounds better to auscultation after suctioned. 09/27/16: Pt got Ativan for increased contractures in extremities. Pt diaphoretic. Pupils 3mm bilaterally. Not following commands. (Juanjo Oquendo) System Review Comments Not able to obtain given pts clinical status. (Juanjo Oquendo) Exam Results Vital Signs Date Time Temp Pulse Resp B/P Pulse Ox O2 Delivery O2 Flow Rate FiO2 09/27/16 10:00 86 09/27/16 09:15 99 Nasal Cannula 3.00 09/27/16 08:00 96.4 10 123/66 Intake and Output 09/26/16 09/26/16 09/27/16 08:00 16:00 00:00 Intake Total 977 ml 991 ml 1282 ml Output Total 1250 ml 350 ml 350 ml Balance -273 ml 641 ml 932 ml (Juanjo Oquendo) Physical Examination Resp: Coarse bs bilaterally, with some improvement. Heart: mild tachycardia. No murmurs. Abd: Soft Positive bs. Skin: No cyanosis or erythema. SCDs remain in place. Muscle: flexion contractures UEs Extension contractures LEs. Not following for muscle testing. Neuro: Pt with eyes closed. Not following commands. Not tracking or focusing. Pupils 4mm bilaterally reactive bilaterally. (Juanjo Oquendo) Lab, Micro, Other Results Laboratory Tests Test 09/26/16 09/26/16 09/27/16 17:56 18:17 04:26 Amikacin Level Trough 1.2 Urine Color YELLOW Urine Turbidity HAZY Urine pH 6.5 Urine Specific [place] 1.018 Urine Protein 30 mg/dL Urine Glucose (UA) NEG mg/dL Urine Ketones 150 mg/dL Urine Occult Blood MOD Urine Nitrite NEG Urine Bilirubin NEG Urine Urobilinogen 8.0 MG/DL Urine Leukocyte Esterase SMALL Urine RBC /hpf Urine WBC 24 /hpf Urine Squamous Epithelial 1 /hpf Cells Urine Calcium Oxalate Crystals RARE /hpf Urine Mucus FEW /lpf Urine Yeast (Budding) MANY Microscopic Urinalysis Comment CATH-CULTURE IND White Blood Count 5.7 TH/MM3 Red Blood Count 3.43 MIL/MM3 Hemoglobin 9.9 GM/DL Hematocrit 30.1 % Mean Corpuscular Volume 87.7 FL Mean Corpuscular Hemoglobin 28.9 PG Mean Corpuscular Hemoglobin 33.0 % Concent Red Cell Distribution Width 18.3 % Platelet Count 243 TH/MM3 Mean Platelet Volume 6.4 FL Neutrophils (%) (Auto) 53.9 % Lymphocytes (%) (Auto) 24.0 % Monocytes (%) (Auto) 16.2 % Eosinophils (%) (Auto) 5.1 % Basophils (%) (Auto) 0.8 % Neutrophils # (Auto) 3.1 TH/MM3 Lymphocytes # (Auto) 1.4 TH/MM3 Monocytes # (Auto) 0.9 TH/MM3 Eosinophils # (Auto) 0.3 TH/MM3 Basophils # (Auto) 0.0 TH/MM3 CBC Comment DIFF FINAL Differential Comment Sodium Level 146 MEQ/L Potassium Level 2.8 MEQ/L Chloride Level 102 MEQ/L Carbon Dioxide Level 30.7 MEQ/L Anion Gap 13 MEQ/L Blood Urea Nitrogen 5 MG/DL Creatinine 0.59 MG/DL Estimat Glomerular Filtration 191 ML/MIN Rate Random Glucose 70 MG/DL Calcium Level 8.6 MG/DL Magnesium Level 1.5 MG/DL 09/26/16 09/26/16 09/27/16 15:00 23:00 07:00 Intake Total 991 ml 1282 ml 991 ml Output Total 350 ml 350 ml 350 ml Balance 641 ml 932 ml 641 ml IV Total 871 ml 1002 ml 931 ml Other 120 ml 280 ml 60 ml Output Urine Total 350 ml 350 ml 350 ml # Bowel Movements 0 0 1 (Juanjo Oquendo) Medical Decision Making Impression and Plan A: 36 year-old gentleman with severe traumatic brain injury in a chronic vegetative state and a alf resident. This appears that he has compensatory ventriculomegaly since the shunt pressure setting is at low level and his neurologic examination is baseline. TANK CALIBRATOR shunt infection growing AFB. P: Continue with antibiotics Continue with medical care. Dr. Carreno recommended Ativan and Morphine prn for his increased contractures/agitation and pts mother states he appears more comfortable. ( Juanjo Oquendo) Attending Statement The exam, history, and the medical decision-making described in the above note were completed with the assistance of the mid-level provider. I reviewed and agree with the findings presented. I attest that I had a [id number] encounter with the patient on the same day, and personally performed and documented my assessment and findings in the medical record. Discussed at length with the mother and it is our opinion that the patient's ventriculomegaly is likely compensatory given that the every time we have placed the TANK CALIBRATOR shunt or lumbar drain or ventriculostomy the pressures have been low with a very minimal drainage. Over the past couple weeks the lumbar drain usually had about 10 cc or so output today with no change in his overall vegetative neurologic examination. Discussed the option of replacing either TANK CALIBRATOR shunt or lumbar drain with the realization that this may not change his overall outcome and also risk recurrent infection. She wants to hold off on any further CSF drainage procedures but would like to continue with supportive care and keeping him comfortable. (Franky Carreno MD) Juanjo Oquendo Sep 27, 2016 15:07 Franky Carreno MD Sep 27, 2016 16:11
[2016-09-27] MEDS ORDERED: METHYLNALTREXONE BROMIDE 12 MG/0.6 ML VIAL SQ ONE (16:00)
[2016-09-27] MEDS: VANCOMYCIN INJ 2,000 MG in SODIUM CHLORID 0.9% 500 ML INJ 500 ML IV SCH (17:09)
[2016-09-27] MEDS: MORPHINE SULFATE 4 MG/ML INJ IV PUSH PRN ×2 (17:27→20:26)
[2016-09-27] MEDS: SODIUM CHLORID 0.9% IV SCH (17:27)
[2016-09-27] MEDS: AMIKACIN IV SCH (17:27)
--- NOTE | 2016-09-27 19:04 | HHI.PR ---
Subjective Remarks 36 YOAA male with TBI, Ch RF On NC Looks around, does't follow Tolerates TF On Two LNC has fever, gets agitated Objective Vital Signs Vital Signs Date Time Temp Pulse Resp B/P Pulse Ox O2 Delivery O2 Flow Rate FiO2 09/27/16 16:00 96 09/27/16 16:00 99.3 96 28 117/68 95 09/27/16 14:00 124 09/27/16 12:00 101.3 120 26 125/81 93 09/27/16 12:00 120 09/27/16 10:00 86 09/27/16 09:15 99 Nasal Cannula 3.00 09/27/16 08:00 78 09/27/16 08:00 96.4 78 10 123/66 99 09/27/16 07:00 99 Nasal Cannula 2.00 Humidified 09/27/16 06:37 16 09/27/16 06:00 75 09/27/16 04:00 97.2 76 13 105/64 96 09/27/16 04:00 76 09/27/16 02:00 90 09/27/16 00:00 97.0 86 12 94/59 100 09/27/16 00:00 86 09/26/16 22:00 84 09/26/16 20:32 100 Nasal Cannula 3.00 09/26/16 20:00 98 09/26/16 20:00 100.2 98 29 120/69 98 I/O 09/26/16 09/26/16 09/26/16 09/27/16 09/27/16 09/27/16 07:00 15:00 23:00 07:00 15:00 23:00 Intake Total 977 ml 991 ml 1282 ml 991 ml 935 ml Output Total 1250 ml 350 ml 350 ml 350 ml 450 ml Balance -273 ml 641 ml 932 ml 641 ml 485 ml IV Total 917 ml 871 ml 1002 ml 931 ml 815 ml Other 60 ml 120 ml 280 ml 60 ml 120 ml Output Urine Total 1250 ml 350 ml 350 ml 350 ml 450 ml # Bowel Movements 0 0 0 1 0 Result Diagram: 09/27/166 09/27/16425 Objective Remarks GENERAL: WBWN AA male, mild sob SKIN: Warm and dry. HEAD: Normocephalic. EYES: No scleral icterus. No injection or drainage. NECK: Supple, trachea midline. No JVD or lymphadenopathy. CARDIOVASCULAR: Regular rate and rhythm without murmurs, gallops, or rubs. RESPIRATORY: Breath sounds equal bilaterally. No accessory muscle use. GASTROINTESTINAL: Abdomen soft, non-tender, nondistended. PEG tube MUSCULOSKELETAL: No cyanosis, or edema. BACK: Nontender without obvious deformity. No CVA tenderness. 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 Han Hernandez MD Sep 27, 2016 19:03
[2016-09-27] MEDS: SILVER SULFADIAZINE 1% CR 50 GM JAR TOPICAL SCH (19:32)
[2016-09-28] VITALS (14 sets, daily range): BP systolic 96–115; BP diastolic 47–70; PULSE 69–114; RESP 13–25; TEMP 96.4–101.2; O2SAT 95–100
[2016-09-28] MEDS: IMIPENEM/CILASTATIN INJ 500 MG in SODIUM CHLORIDE 0.9% INJ 100 ML IV SCH ×5 (00:37→23:58)
[2016-09-28] MEDS: SODIUM CHLOR 0.9% 1000 ML INJ 1,000 ML IV SCH ×2 (05:00→17:00)
[2016-09-28] MEDS: oxyCODONE/ACETAMINOPHEN 5 MG/325 MG TAB JT SCH ×3 (05:15→21:37)
[2016-09-28] MEDS: metroNIDAZOLE 500 MG TAB PEG SCH ×3 (05:15→22:58)
[2016-09-28] MEDS: VANCOMYCIN INJ 2,000 MG in SODIUM CHLORID 0.9% 500 ML INJ 500 ML IV SCH ×2 (05:15→19:56)
[2016-09-28] MEDS: CHOLESTYRAMINE 4 GM PACKET PO SCH ×4 (05:40→22:58)
[2016-09-28] MEDS: MORPHINE SULFATE 4 MG/ML INJ IV PUSH PRN ×3 (05:42→11:40)
[2016-09-28] MEDS: RESP: TOBRAMYCIN SULFATE 300 MG/5 ML NEB NEB SCH ×2 (08:19→19:41)
[2016-09-28] MEDS: BACLOFEN 10 MG TAB PEG SCH ×3 (08:39→20:14)
[2016-09-28] MEDS: hydrALAZINE HCL 50 MG TAB JT SCH ×3 (08:39→18:48)
[2016-09-28] MEDS: ATENOLOL 50 MG TAB PEG SCH ×2 (08:39→19:42)
[2016-09-28] MEDS: HYOSCYAMINE 0.125 MG TAB JT SCH ×4 (08:39→19:41)
[2016-09-28] MEDS: DILTIAZEM HCL 60 MG TAB JT SCH ×5 (08:40→20:27)
[2016-09-28] MEDS: SODIUM CHLORIDE 1 GRAM TAB PEG SCH ×3 (08:40→18:00)
[2016-09-28] MEDS: CLARITHROMYCIN 500 MG TAB PO SCH ×2 (08:40→19:41)
[2016-09-28] MEDS: LACTOBACILLUS ACIDOPHILUS 1 GM PACKET PEG SCH ×4 (08:40→19:41)
[2016-09-28] MEDS: levETIRAcetam 500 MG/5 ML UDC TUBE SCH ×2 (08:40→19:41)
[2016-09-28] MEDS: POLYETHYLENE GLYCOL 17 GM PKG PO SCH (08:40)
[2016-09-28] MEDS: SODIUM CHLORIDE 0.9% FLUSH 5 ML FLUSH FLUSH SCH ×2 (09:00→19:42)
[2016-09-28] MEDS: LORazepam 2 MG/ML VIAL IV PUSH PRN ×2 (09:43→23:59)
[2016-09-28] MEDS: fentaNYL 50 MCG/HR PATCH T-DERMAL SCH (11:40)
[2016-09-28] MEDS: REMOVE OLD PATCH TD SCH (11:40)
[2016-09-28] MEDS ORDERED: FLUCONAZOLE 200 MG PREMIX BAG 100 ML IV SCH (15:00)
--- NOTE | 2016-09-28 15:04 | HHI.IDPN ---
Subjective Subjective Remarks ID X cover for Dr Rayo chart reviewed This is a 36-year-old male a resident of a [facility] facility receiving treatment for M. abscessus and Staph Hemolyticus GROUNDS WORKER shunt infx Temps Tc 101.2 F Trach secreitions white to yellow, frequent suctioning. CXR with no infiltrates. RN reports patient did not have BM and vomited and aspirated yday. growing mult PSAE strains , MDRO S only gent/tobra BC also neg @ 1 day No rash Antibiotics biaxin amikacin primaxin flagyl Zerbaxa Also on Keppra for seizures. Lines Line sites with no e/o infection Past Medical History 1. Traumatic brain injury in October 2014, GROUNDS WORKER shunt placement, 2. Seizure disorder. 3. J tube placement 4. History of tracheostomy 5. History of MRSA wound infection from the scalp 6. Bacteremia due to MRSA 7. History of ESBL E-coli UTI. 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 Vital Signs Date Time Temp Pulse Resp B/P Pulse Ox O2 Delivery O2 Flow Rate FiO2 09/28/16 14:00 69 09/28/16 12:00 113 09/28/16 12:00 101.2 113 25 115/58 95 09/28/16 10:00 114 09/28/16 08:35 100 Nasal Cannula 2.00 09/28/16 08:00 98.4 80 16 103/57 99 09/28/16 08:00 80 09/28/16 07:00 99 Nasal Cannula 2.00 Humidified 09/28/16 06:00 84 09/28/16 05:54 9 09/28/16 05:54 9 09/28/16 04:00 95 09/28/16 04:00 98.8 95 13 114/70 100 09/28/16 02:00 95 09/28/16 00:00 98.8 80 22 103/59 100 09/28/16 00:00 80 09/27/16 22:00 96 09/27/16 20:29 100 Nasal Cannula 2.00 09/27/16 20:00 97 09/27/16 20:00 98.8 97 16 110/60 100 09/27/16 19:00 100 Nasal Cannula 2.00 Humidified 09/27/16 18:00 100 09/27/16 16:00 96 09/27/16 16:00 99.3 96 28 117/68 95 09/27/16 09/27/16 09/28/16 15:00 23:00 07:00 Intake Total 935 ml 1853 ml 1830 ml Output Total 450 ml 400 ml 450 ml Balance 485 ml 1453 ml 1380 ml IV Total 815 ml 1573 ml 1530 ml Other 120 ml 280 ml 300 ml Output Urine Total 450 ml 400 ml 450 ml # Bowel Movements 0 1 1 . Laboratory Tests Test 09/27/16 04:26 White Blood Count 5.7 TH/MM3 Red Blood Count 3.43 MIL/MM3 Hemoglobin 9.9 GM/DL Hematocrit 30.1 % Mean Corpuscular Volume 87.7 FL Mean Corpuscular Hemoglobin 28.9 PG Mean Corpuscular Hemoglobin 33.0 % Concent Red Cell Distribution Width 18.3 % Platelet Count 243 TH/MM3 Mean Platelet Volume 6.4 FL Neutrophils (%) (Auto) 53.9 % Lymphocytes (%) (Auto) 24.0 % Monocytes (%) (Auto) 16.2 % Eosinophils (%) (Auto) 5.1 % Basophils (%) (Auto) 0.8 % Neutrophils # (Auto) 3.1 TH/MM3 Lymphocytes # (Auto) 1.4 TH/MM3 Monocytes # (Auto) 0.9 TH/MM3 Eosinophils # (Auto) 0.3 TH/MM3 Basophils # (Auto) 0.0 TH/MM3 CBC Comment DIFF FINAL Differential Comment Laboratory Tests Test 09/27/16 04:26 Sodium Level 146 MEQ/L Potassium Level 2.8 MEQ/L Chloride Level 102 MEQ/L Carbon Dioxide Level 30.7 MEQ/L Anion Gap 13 MEQ/L Blood Urea Nitrogen 5 MG/DL Creatinine 0.59 MG/DL Estimat Glomerular Filtration 191 ML/MIN Rate Random Glucose 70 MG/DL Calcium Level 8.6 MG/DL Magnesium Level 1.5 MG/DL Microbiology Date/Time Procedure Status Source Growth 09/26/16 18:17 Urine Culture - Preliminary Resulted Urine Catheterized Urine Yeast Species 09/27/16 14:30 Gram Stain - Final Resulted Sputum Nasal Tracheal Aspirate 09/27/16 14:30 Sputum Culture - Preliminary Resulted Gram Negative [place] 09/27/16 16:55 Aerobic Blood Culture - Preliminary Resulted Blood Peripheral NO GROWTH IN 1 DAY 09/27/16 16:55 Anaerobic Blood Culture - Preliminary Resulted Blood Peripheral NO GROWTH IN 1 DAY 09/27/16 17:00 Aerobic Blood Culture - Preliminary Resulted Blood Peripheral NO GROWTH IN 1 DAY 09/27/16 17:00 Anaerobic Blood Culture - Preliminary Resulted Blood Peripheral NO GROWTH IN 1 DAY Imaging Last Impressions Chest X-Ray 09/21/16 0000 Signed Impressions: Service Date/Time: Wednesday, September 21, 2016 14:38 - CONCLUSION: 1. Chronic density in the upper right lung, probably scarring. No new infiltrate compared with multiple prior examinations. Zaheer Hayward MD Lumbar Puncture Fluoroscopy 09/17/16 0000 Signed Impressions: Service Date/Time: Saturday, September 17, 2016 14:38 - CONCLUSION: Uncomplicated lumbar drain placement as above. Jem Alexander MD Lumbar Puncture 09/16/16 0000 Signed Impressions: Service Date/Time: Friday, September 16, 2016 15:12 - CONCLUSION: Patent lumbar drain Jme Alexander MD Brain MRI 09/03/16 0600 Signed Impressions: Service Date/Time: Saturday, September 03, 2016 11:54 - CONCLUSION: 1. Marked increase in ventricular size and compare with the prior study but no transependymal fluid migration. Obstructing communicating hydrocephalus is not excluded. There is no evidence of abscess. Jem Alexander MD Shunt Study (Imaging) 08/23/16 1514 Signed Impressions: Service Date/Time: Tuesday, August 23, 2016 15:14 - CONCLUSION: GROUNDS WORKER shunt tap for spinal fluid sampling as above Joni Sharpe MD Abdomen/Pelvis CT 08/23/16 0816 Signed Impressions: Service Date/Time: Tuesday, August 23, 2016 08:44 - CONCLUSION: Abnormal scan with multiple findings as outlined above Joni Sharpe MD Shunt Study 08/23/16 0000 Signed Impressions: Service Date/Time: Tuesday, August 23, 2016 14:07 - CONCLUSION: Shunt tubing is patent into the ventricular system. The downstream portion of the shunt to the peritoneal cavity was not evaluated. Joni Sharpe MD Head CT 08/23/16 0000 Signed Impressions: Service Date/Time: Tuesday, August 23, 2016 11:57 - CONCLUSION: 1. Interval significant increase in the size of the ventricles compared to the previous examination suggesting worsening hydrocephalus. Clinical correlation is recommended. 2. No significant change in the extensive encephalomalacia ( right worse than left) within the cerebral hemispheres. 3. No acute hemorrhage, midline shift or extraaxial fluid collections. Donavan Vidales MD Physical Exam CONSTITUTIONAL/GENERAL: This is an adequately nourished patient, posturing SKIN: No jaundice, rashes, or lesions.Skin temperature appropriate. Not diaphoretic. HEAD: incisions clean EYES: Pupils equal and round and reactive. Extraocular motions intact. No scleral icterus. No injection or drainage. Fundi not examined. ENT: Oral mucosae without visible erythema, exudates, masses, or lesions. NECK: Trachea midline. Supple, nontender. CARDIOVASCULAR: Regular rate and rhythm without murmurs, gallops, or rubs. No JVD. Peripheral pulses symmetric. RESPIRATORY/CHEST: Symmetric, + labored respirations. Scattered rhonchi to auscultation. GASTROINTESTINAL: Abdomen soft, non-tender, nondistended. No hepato-splenomegaly , or palpable masses. No guarding. Bowel sounds present. GENITOURINARY: Without palpable bladder distension. Miranda catheter in place with clear yellow urine MUSCULOSKELETAL: Extremities without clubbing, cyanosis, or edema.No mottling or clubbing. NEUROLOGICAL: awake; unresponsive; posturing; not following commands, not tracking, grunting noises. PSYCHIATRIC: unable to assess Assessment & Plan Remarks IMPRESSION Sepsis indicated By decreased BP, increased HR. Decreased mentation. High fever/ Persistent fevers: New infection likely aspiration PNA in health care setting, prior MDR PSAE, Verenice Cath associated UTI (miranda cannot be changed, pt has stricture but its a possibility), Drug fever, resistant M.abscessus infection. GROUNDS WORKER Shunt related infection. Mycobacteria abscessus. - sensitivities P - CSF neg since 09/12 Also had Staph Haemolyticus on in one sample. Verenice cath associated UTI. aspiration PNA in health care setting, prior MDR PSAE Possible drug fever given eosinophilia: DDX Antibiotics and Keppra. RECOMMENDATIONS Continue Amikacin+ Imipenem + Biaxin for M abscessus GROUNDS WORKER shunt infection, ventriculitis Continue Zerbaxa 1.5 gm q 8 hrs for suspected PNA 2/2 MDRO PSAE given aspiration would treat for 5 days then stop if no infiltrate. Continue Tobramycin nebs would recommend changing stop date to add few more days. Continue Vanco IV (if BCX and sputum cultures negative consider holding Vanco IV and seeing if drug fever. Eosinophils are high pt could have drug fever. Monitor repeat CSF to check for clearance. CSF from 2/3 no AFB seen. Continue Flagyl for c. diff. Monitor blood cultures. Check CBC with diff, CMP, CRP, check urine eosinophils. Check CXR ? Pneumonia. Check lactic acid. Start Diflucan for possible Evrenice cath associated UTI. Miranda change requires Urologist as pt has strictures. Follow cultures Follow clinically and check CXR. ashley RN Time spent in excess of 40 mins. Chart review, micro culture review ( M.Abscessus still pending) d.w Mom in room the fever differential and plan for today. She was thankful of care provided. Ginny Quezada MD Sep 28, 2016 15:04 Ginny Quezada MD Sep 28, 2016 15:04
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
--- NOTE | 2016-09-28 16:07 | RADRPT ---
EXAM DATE/TIME: 09/28/2016 15:15 [facility] COMPARISON: CHEST SINGLE AP, September 21, 2016, 14:38. INDICATIONS : Evaluate lung status. MEDICAL HISTORY : Hypertension. SURGICAL HISTORY : Shunt. Tracheostomy. ENCOUNTER: Initial ACUITY: 1 day PAIN SCORE: Non-responsive. LOCATION: Bilateral chest FINDINGS: A single view of the chest demonstrates mild left-sided airspace disease, probably dependent atelecta sis or infiltrate increased from September 21 comparison. No significant effusion right lung relativel y clear. No pneumothorax. CONCLUSION: 1. Hazy airspace disease left lung, probably dependent atelectasis or consolidation. Right lung relat ively clear. Zaheer Hayward MD on September 28, 2016 at 16:02 Board Certified Radiologist. This report was verified electronically.
[2016-09-28] MEDS: AMIKACIN IV SCH (17:05)
[2016-09-28] MEDS: SODIUM CHLORID 0.9% IV SCH (17:05)
[2016-09-28] MEDS: FLUCONAZOLE 200 MG PREMIX BAG 100 ML IV SCH (19:42)
[2016-09-28] MEDS: SILVER SULFADIAZINE 1% CR 50 GM JAR TOPICAL SCH (19:42)
[2016-09-28 20:58] LABS: AUTOMATED NEUTROPHIL # 3.6 TH/MM3 (1.8-7.7); BASOPHIL % 0.5 % (0.0-2.0); EOSINOPHIL % 0.9 % (0.0-4.0); HEMATOCRIT 35.4 % (39.0-51.0); HEMO FLAGS DIFF FINAL; LYMPH % 16.2 % (9.0-44.0); LYMPHOCYTE # 0.8 TH/MM3 (1.0-4.8); MEAN CELL VOLUME 88.5 FL (80.0-100.0); MEAN CORPUSCULAR HGB CONC 31.7 % (32.0-36.0); MONO % 12.7 % (0.0-8.0); NEUT % 69.7 % (16.0-70.0); PLATELET COUNT 236 TH/MM3 (150-450); RED CELL DISTRIBUTION WIDTH 17.8 % (11.6-17.2); WHITE BLOOD COUNT 5.2 TH/MM3 (4.0-11.0)
[2016-09-28 21:29] LABS: ANION GAP 9 MEQ/L (5-15); AST (GOT) 20 U/L (15-37); BICARBONATE 34.8 MEQ/L (21.0-32.0); BLOOD UREA NITROGEN 4 MG/DL (7-18); CHLORIDE 106 MEQ/L (98-107); GLOMERULAR FILTRATION RATE 140 ML/MIN (>89); POTASSIUM 3.1 MEQ/L (3.5-5.1); SODIUM (NA) 150 MEQ/L (136-145)
[2016-09-28] MEDS ORDERED: SODIUM CHLOR 0.9% 1000 ML INJ 1,000 ML IV ONE (21:30)
[2016-09-28 21:32] LABS: ALKALINE PHOSPHATASE 76 U/L (45-117); ALT (GPT) 21 U/L (12-78); TOTAL BILIRUBIN ADULT 0.4 MG/DL (0.2-1.0)
[2016-09-28] MEDS: DEXTROSE 5% IN WATE 1000ML INJ 1,000 ML IV SCH (22:58)
[2016-09-29] VITALS (15 sets, daily range): BP systolic 100–141; BP diastolic 58–77; PULSE 64–111; RESP 12–23; TEMP 97.7–100.1; O2SAT 100
[2016-09-29] MEDS: MORPHINE SULFATE 4 MG/ML INJ IV PUSH PRN ×3 (03:08→18:04)
[2016-09-29] MEDS: LORazepam 2 MG/ML VIAL IV PUSH PRN ×3 (03:49→14:23)
[2016-09-29] MEDS: HYOSCYAMINE 0.5 MG/ML AMP IVP PRN (03:50)
[2016-09-29] MEDS: VANCOMYCIN INJ 2,000 MG in SODIUM CHLORID 0.9% 500 ML INJ 500 ML IV SCH ×2 (04:05→04:30)
[2016-09-29] MEDS ORDERED: PHARMACY ORDERED LAB XX ONE (04:45)
[2016-09-29 05:18] LABS: BICARBONATE 31.1 MEQ/L (21.0-32.0); MAGNESIUM 1.6 MG/DL (1.5-2.5); POTASSIUM 3.1 MEQ/L (3.5-5.1)
[2016-09-29 05:19] LABS: VANCOMYCIN TROUGH 27.8 MCG/ML (5.0-10.0)
[2016-09-29] MEDS: metroNIDAZOLE 500 MG TAB PEG SCH ×3 (06:05→21:05)
[2016-09-29] MEDS: oxyCODONE/ACETAMINOPHEN 5 MG/325 MG TAB JT SCH ×3 (06:05→21:04)
[2016-09-29] MEDS: IMIPENEM/CILASTATIN INJ 500 MG in SODIUM CHLORIDE 0.9% INJ 100 ML IV SCH ×3 (06:05→17:41)
[2016-09-29] MEDS: CHOLESTYRAMINE 4 GM PACKET PO SCH ×3 (06:05→17:41)
[2016-09-29] MEDS: SODIUM CHLORIDE 0.9% FLUSH 5 ML FLUSH FLUSH SCH ×2 (08:57→20:30)
[2016-09-29] MEDS: ATENOLOL 50 MG TAB PEG SCH ×2 (08:58→21:04)
[2016-09-29] MEDS: hydrALAZINE HCL 50 MG TAB JT SCH ×3 (08:58→17:41)
[2016-09-29] MEDS: DILTIAZEM HCL 60 MG TAB JT SCH ×4 (08:58→20:30)
[2016-09-29] MEDS: POLYETHYLENE GLYCOL 17 GM PKG PO SCH (09:00)
[2016-09-29] MEDS: levETIRAcetam 500 MG/5 ML UDC TUBE SCH ×2 (09:09→20:28)
[2016-09-29] MEDS: HYOSCYAMINE 0.125 MG TAB JT SCH ×4 (09:10→20:29)
[2016-09-29] MEDS: LACTOBACILLUS ACIDOPHILUS 1 GM PACKET PEG SCH ×4 (09:10→20:29)
[2016-09-29] MEDS: CLARITHROMYCIN 500 MG TAB PO SCH ×2 (09:10→20:29)
[2016-09-29] MEDS: BACLOFEN 10 MG TAB PEG SCH ×2 (09:11→20:29)
[2016-09-29] MEDS: RESP: TOBRAMYCIN SULFATE 300 MG/5 ML NEB NEB SCH ×2 (10:14→19:36)
[2016-09-29] MEDS: DEXTROSE 5% IN WATE 1000ML INJ 1,000 ML IV SCH (10:40)
[2016-09-29] MEDS: POTASSIUM CL 40 MEQ/30 ML LIQ UDC PO SCH (15:33)
[2016-09-29] MEDS: MAGNESIUM SULFATE 1 GM PREMIX 100 ML IV SCH (15:33)
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
--- NOTE | 2016-09-29 15:53 | HHI.GIFU ---
Subjective Remarks Resting in bed. Per nurse, has had multiple loose/liquid bowel movements. No n /v. (Vilma Almanza) Objective Vitals I&O Vital Signs Date Time Temp Pulse Resp B/P Pulse Ox O2 Delivery O2 Flow Rate FiO2 09/29/16 12:00 95 09/29/16 12:00 97.7 91 20 105/61 100 09/29/16 10:15 100 Nasal Cannula 2.00 09/29/16 10:00 85 09/29/16 08:00 98.1 88 20 100/60 100 09/29/16 08:00 87 09/29/16 07:00 99 Nasal Cannula 2.00 Humidified 09/29/16 06:00 98 09/29/16 04:00 99.0 110 15 109/69 100 09/29/16 04:00 110 09/29/16 03:27 17 09/29/16 02:00 78 09/29/16 00:00 98.4 83 23 102/58 100 09/29/16 00:00 83 09/28/16 22:00 78 09/28/16 20:00 78 09/28/16 20:00 96.4 78 17 96/47 100 09/28/16 19:40 100 Nasal Cannula 2.00 09/28/16 19:00 99 Nasal Cannula 2.00 Humidified 09/28/16 18:00 77 09/28/16 16:00 98.9 98 16 99/52 99 09/28/16 16:00 98 I/O 09/28/16 09/28/16 09/28/16 09/29/16 09/29/16 09/29/16 07:00 15:00 23:00 07:00 15:00 23:00 Intake Total 1830 ml 1172 ml 1641 ml 2084 ml Output Total 450 ml 700 ml 1200 ml 850 ml Balance 1380 ml 472 ml 441 ml 1234 ml IV Total 1530 ml 1172 ml 1441 ml 1884 ml Other 300 ml 200 ml 200 ml Output Urine Total 450 ml 700 ml 1200 ml 850 ml # Bowel Movements 1 0 0 3 Laboratory Laboratory Tests Test 09/28/16 09/28/16 09/29/16 17:56 20:45 04:16 Lactic Acid Level 0.5 White Blood Count 5.2 Red Blood Count 4.00 Hemoglobin 11.2 Hematocrit 35.4 Mean Corpuscular Volume 88.5 Mean Corpuscular Hemoglobin 28.0 Mean Corpuscular Hemoglobin 31.7 Concent Red Cell Distribution Width 17.8 Platelet Count 236 Mean Platelet Volume 6.2 Neutrophils (%) (Auto) 69.7 Lymphocytes (%) (Auto) 16.2 Monocytes (%) (Auto) 12.7 Eosinophils (%) (Auto) 0.9 Basophils (%) (Auto) 0.5 Neutrophils # (Auto) 3.6 Lymphocytes # (Auto) 0.8 Monocytes # (Auto) 0.7 Eosinophils # (Auto) 0.0 Basophils # (Auto) 0.0 CBC Comment DIFF FINAL Differential Comment Sodium Level 150 150 Potassium Level 3.1 3.1 Chloride Level 106 109 Carbon Dioxide Level 34.8 31.1 Anion Gap 9 10 Blood Urea Nitrogen 4 4 Creatinine 0.77 0.67 Estimat Glomerular Filtration 140 165 Rate Random Glucose 97 81 Calcium Level 8.2 8.6 Total Bilirubin 0.4 Aspartate Amino Transf 20 (AST/SGOT) Alanine Aminotransferase 21 (ALT/SGPT) Alkaline Phosphatase 76 C-Reactive Protein 5.60 Total Protein 6.3 Albumin 2.8 Magnesium Level 1.6 Vancomycin Level Trough 27.8 Date/Time Procedure Status Source Growth 09/27/16 17:00 Aerobic Blood Culture - Preliminary Resulted Blood Peripheral NO GROWTH IN 2 DAYS 09/27/16 17:00 Anaerobic Blood Culture - Preliminary Resulted Blood Peripheral NO GROWTH IN 2 DAYS 09/27/16 14:30 Gram Stain - Final Complete Sputum Nasal Tracheal Aspirate 09/27/16 14:30 Sputum Culture - Final Complete Pseudomonas Aeruginosa 09/26/16 18:17 Urine Culture - Final Complete Urine Catheterized Urine Torulopsis Verenice Imaging Last Impressions Chest X-Ray 09/28/16 0000 Signed Impressions: Service Date/Time: Wednesday, September 28, 2016 15:15 - CONCLUSION: 1. Hazy airspace disease left lung, probably dependent atelectasis or consolidation. Right lung relatively clear. Zahere Hayward MD Abdomen X-Ray 09/26/16 0000 Signed Impressions: Service Date/Time: September 11:00 - CONCLUSION: 1. Benign-appearing bowel gas pattern. Erik Esqueda MD Lumbar Puncture Fluoroscopy 09/17/16 0000 Signed Impressions: Service Date/Time: Saturday, September 17, 2016 14:38 - CONCLUSION: Uncomplicated lumbar drain placement as above. Jem Alexander MD Lumbar Puncture 09/16/16 0000 Signed Impressions: Service Date/Time: Friday, September 16, 2016 15:12 - CONCLUSION: Patent lumbar drain Jem Alexander MD Brain MRI 09/03/16 0600 Signed Impressions: Service Date/Time: Saturday, September 03, 2016 11:54 - CONCLUSION: 1. Marked increase in ventricular size and compare with the prior study but no transependymal fluid migration. Obstructing communicating hydrocephalus is not excluded. There is no evidence of abscess. Jem Alexander MD Shunt Study (Imaging) 08/23/16 1514 Signed Impressions: Service Date/Time: Tuesday, August 23, 2016 15:14 - CONCLUSION: UX ENGINEER shunt tap for spinal fluid sampling as above Joni Sharpe MD Abdomen/Pelvis CT 08/23/16 0816 Signed Impressions: Service Date/Time: Tuesday, August 23, 2016 08:44 - CONCLUSION: Abnormal scan with multiple findings as outlined above Joni Sharpe MD Shunt Study 08/23/16 0000 Signed Impressions: Service Date/Time: Tuesday, August 23, 2016 14:07 - CONCLUSION: Shunt tubing is patent into the ventricular system. The downstream portion of the shunt to the peritoneal cavity was not evaluated. Joni Sharpe MD Head CT 08/23/16 0000 Signed Impressions: Service Date/Time: Tuesday, August 23, 2016 11:57 - CONCLUSION: 1. Interval significant increase in the size of the ventricles compared to the previous examination suggesting worsening hydrocephalus. Clinical correlation is recommended. 2. No significant change in the extensive encephalomalacia ( right worse than left) within the cerebral hemispheres. 3. No acute hemorrhage, midline shift or extraaxial fluid collections. Donavan Vidales MD Physical Exam HEENT: Normocephalic; atraumatic; no jaundice. CHEST: Course breath sounds, trach CARDIAC: RRR ABDOMEN: Soft, nondistended, nontender; no hepatosplenomegaly; bowel sounds are present in all four quadrants.J tube in place EXTREMITIES: Gen. 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 S/P Relistor on (09/26, 09/27 ), S/P Magnesium citrate (09/27), Miralax, Senokot, and MOM, Dulcolax suppository he is on a Fentanyl patch and Baclofen and gets Percocet on a prn basis. Abdomen X-Ray (09/26/16)----> 1. Benign-appearing bowel gas pattern. No abdominal distention. No n/v. (+) Multiple bowel movements. He has a J tube that is clamped. - CDiff Colitis (09/13), on Flagyl. Has not had bowel movement since 09/16, although there is no significant distention on exam and he has a benign kub. - UX ENGINEER shunt malfunction with mycobacteria abscessus, s/p removal 09/05/16. Abx per ID. - PNA vs. Tracheobronchitis. Abx per primary. - Anemia. HH 11.2/35.4. - FEN. Pt has a J tube, but TF has been on hold secondary to not being able to tolerate with constipation. PLAN: - Start TwoCal HN at 20cc/hr and slowly advance to goal rate 55 ml/hr as tolerated - Cont. Miralax - Cont. Senokot - Consider stopping cholestyramine, as this may be contributing to constipation - will defer to primary as it was ordered by their service - Monitor stool output - S/P Relistor last (09/27) - S/P Magnesium Citrate (09/27) - Supportive care - Further recommendations to follow based on results of above - Pt seen and examined by Dr. Sauceda and myself and this note is written on her behalf (Vilma Almanza) Physician Comments seen, examined agree with above gi will sign off, call us as needed (Nati Sauceda MD) Vilma Almanza Sep 29, 2016 15:53 Nati Sauceda MD Sep 29, 2016 18:26
[2016-09-29] MEDS: SODIUM CHLORID 0.9% IV SCH (17:41)
[2016-09-29] MEDS: AMIKACIN IV SCH (17:41)
[2016-09-29 20:28] LABS: BICARBONATE 30.5 MEQ/L (21.0-32.0); POTASSIUM 3.7 MEQ/L (3.5-5.1)
[2016-09-29] MEDS: FLUCONAZOLE 200 MG PREMIX BAG 100 ML IV SCH (20:29)
[2016-09-29] MEDS: SILVER SULFADIAZINE 1% CR 50 GM JAR TOPICAL SCH (20:31)
[2016-09-29] MEDS ORDERED: ATROPINE SULFATE 1 MG/ML VIAL ONE ×2 (22:45→22:47)
[2016-09-29] MEDS ORDERED: ROCURONIUM INJ 50 MG/5 ML VIAL ONE (22:54)
--- NOTE | 2016-09-29 23:08 | PD.PROCEDR ---
Procedure Note Procedure Date: 09/29/16 Procedure: Cardiopulmonary resucitation Indication: PEA cardiac arrest Details of procedure: I was called to patients bedside and patient was being bagged by RT and bradycardic in 40s. Given atropine 1 mg IV and noted patient did not have a pulse. CPR was initiated. Per ACLS protocol pt received CPR, manual bag-valve ventilation via ETT, epinephrine x2, CaCl2 x1, bicarb x2, NS I liter IV. After 8 minutes resuscitation patient had ROSC. BP 186/122 with pulse 150s. Mary Barkley MD Sep 29, 2016 23:08 Mary Barkley MD Sep 29, 2016 23:08
--- NOTE | 2016-09-29 23:59 | PD.PROCEDR ---
Procedure Note Procedure DATE: CENTRAL LINE PLACEMENT: Left internal jugular vein. Ultrasound-guided INDICATION: Central venous access CONSENT: Procedure was done emergently as patient is in shock following respiratory arrest. DESCRIPTION OF THE PROCEDURE The patient was placed in supine position mild Trendelenburg. The skin was cleansed with Chloraprep 4. Additional barrier precautions included large sterile drape, sterile gloves, sterile gown, face mask, and hat. 1 % lidocaine was used for local anesthesia. Right subclavian site was avoided as there is a pustule supraclavicular on the right side. Initially attempted 4 at left subclavian site, unsuccessfully. Did perform ultrasound of left subclavian and it appeared to be a diminutive vessel so directed attention to left IJ site. Under direct ultrasound guidance and on single attempt, the vein was accessed with an introducer needle. The guide wire was advanced and the tract was dilated. Using Seldinger technique a 7 Qatari 20 cm antimicrobial coated triple -lumen catheter was advanced to a depth of 18 centimeters. The guide wire was removed. All ports had good return of dark venous blood and flushed easily with saline. The central line was secured with 2.0 silk. A sterile dressing with antibiotic disc was applied. ESTIMATED BLOOD LOSS: Minimal COMPLICATIONS: No apparent complications. STAT chest x-ray demonstrated satisfactory central venous line position without apparent complication Mary Barkley MD Sep 29, 2016 23:59
[2016-09-30] VITALS (18 sets, daily range): BP systolic 88–139; BP diastolic 54–97; PULSE 74–100; RESP 12–14; TEMP 97.4–100.3; O2SAT 100
[2016-09-30] MEDS ORDERED: NOREPINEPHRINE-DEXTROSE DRIP 250 ML IV SCH
[2016-09-30] MEDS ORDERED: TERBUTALINE INJ 1 MG/ML AMP SQ PRN
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
--- NOTE | 2016-09-30 00:44 | RADRPT ---
EXAM DATE/TIME: 09/30/2016 00:13 [facility] COMPARISON: CHEST SINGLE AP, September 28, 2016, 15:15. INDICATIONS : Shortness of breath. MEDICAL HISTORY : Hypertension. SURGICAL HISTORY : Shunt. ENCOUNTER: Subsequent ACUITY: 1 month PAIN SCORE: Non-responsive. LOCATION: Bilateral chest FINDINGS: ET tube and left internal jugular central line are well placed. The heart size is normal. Mild patchy density in the left perihilar region and in the right upper lung. CONCLUSION: 1. Tubes and lines in good position. 2. Left perihilar and right upper lung consolidation or atelectasis. Joni Villegas MD on September 30, 2016 at 0:41 Board Certified Radiologist. This report was verified electronically.
[2016-09-30] MEDS ORDERED: MIDAZOLAM HCL 2 MG/2 ML VIAL IV PUSH ONE (01:00)
[2016-09-30] MEDS ORDERED: ROCURONIUM INJ 50 MG/5 ML VIAL IV ONE ×2 (01:00→05:30)
[2016-09-30 01:27] LABS: AUTOMATED NEUTROPHIL # 3.2 TH/MM3 (1.8-7.7); BASOPHIL % 0.5 % (0.0-2.0); EOSINOPHIL # 0.1 TH/MM3 (0-0.4); EOSINOPHIL % 2.2 % (0.0-4.0); HEMATOCRIT 26.5 % (39.0-51.0); HEMO FLAGS DIFF FINAL; LYMPHOCYTE # 0.6 TH/MM3 (1.0-4.8); MEAN CELL VOLUME 85.6 FL (80.0-100.0); MEAN CORPUSCULAR HEMOGLOBIN 28.5 PG (27.0-34.0); MEAN CORPUSCULAR HGB CONC 33.3 % (32.0-36.0); MONO % 7.1 % (0.0-8.0); NEUT % 75.2 % (16.0-70.0); PLATELET COUNT 257 TH/MM3 (150-450); RED CELL DISTRIBUTION WIDTH 17.7 % (11.6-17.2); WHITE BLOOD COUNT 4.3 TH/MM3 (4.0-11.0)
[2016-09-30 02:06] LABS: ALKALINE PHOSPHATASE 73 U/L (45-117); ALT (GPT) 21 U/L (12-78); ANION GAP 9 MEQ/L (5-15); AST (GOT) 25 U/L (15-37); BICARBONATE 32.8 MEQ/L (21.0-32.0); BLOOD UREA NITROGEN 4 MG/DL (7-18); CHLORIDE 107 MEQ/L (98-107); GLOMERULAR FILTRATION RATE 142 ML/MIN (>89); MAGNESIUM 1.8 MG/DL (1.5-2.5); SODIUM (NA) 149 MEQ/L (136-145); TOTAL BILIRUBIN ADULT 0.4 MG/DL (0.2-1.0)
[2016-09-30 02:07] LABS: POTASSIUM 2.6 MEQ/L (3.5-5.1)
[2016-09-30 02:10] LABS: BLOOD GAS BASE EXCESS 8.7 mmol/L (-2-2); BLOOD GAS CARBOXYHEMOGLOBIN 1.2 % (0-4); BLOOD GAS HCO3 32 mmol/L (22-26); BLOOD GAS METHEMOGLOBIN 0.7 % (0-2); BLOOD GAS O2 HGB SATURATION 98 % (90-100); BLOOD GAS OXYGEN CONTENT 13.5 Vol % (12.0-20.0); BLOOD GAS PCO2 41 mmHg (38-42); BLOOD GAS PO2 171 mmHg (61-120); BLOOD GAS TOTAL HGB 9.6 G/DL (12.0-16.0); CRITICAL VALUE YES; OXYGEN DEVICE VENTILATOR; TEMP CORR TO 98.6
[2016-09-30 02:11] LABS: DRAW SITE LT RADIAL; FIO2 50 %; NUMBER OF ARTERIAL PUNCTURES 1; STAT YES; ULNAR PULSE PRESENT; VENT SETTINGS PRVC/AC
[2016-09-30] MEDS ORDERED: MAGNESIUM OXIDE 400 MG TAB PO PRN (02:30)
[2016-09-30] MEDS ORDERED: POTASSIUM PHOSPHATE MONOBASIC 500 MG TAB PO/TUBE PRN (02:30)
[2016-09-30] MEDS ORDERED: MAGNESIUM SULFATE INJ 2 GM in SODIUM CHLORIDE 0.9% INJ 96 ML IV PRN (02:30)
[2016-09-30] MEDS ORDERED: POTASSIUM CHLOR 20 MEQ PREMIX 100 ML IV PRN ×2 (02:30)
[2016-09-30] MEDS ORDERED: POTASSIUM PHOSPHATE INJ 30 MMOL in SODIUM CHLOR 0.9% 250 ML INJ 250 ML IV PRN (02:30)
[2016-09-30] MEDS ORDERED: POTASSIUM CHLOR 40 MEQ PREMIX 100 ML IV PRN (02:30)
[2016-09-30] MEDS ORDERED: POTASSIUM PHOSPHATE MONOBASIC 500 MG TAB PO PRN (02:30)
[2016-09-30] MEDS ORDERED: MAGNESIUM SULFATE INJ 4 GM in SODIUM CHLORIDE 0.9% INJ 92 ML IV PRN (02:30)
[2016-09-30] MEDS ORDERED: POTASSIUM CL 40 MEQ/30 ML LIQ UDC PO/TUBE PRN ×2 (02:30)
[2016-09-30] MEDS ORDERED: SODIUM PHOSPHATE INJ 30 MMOL in SODIUM CHLOR 0.9% 250 ML INJ 240 ML IV PRN (02:30)
[2016-09-30] MEDS: PANTOPRAZOLE SODIUM 40 MG VIAL IV PUSH SCH (02:30)
[2016-09-30] MEDS: fentaNYL DRIP 250 ML IV SCH ×2 (02:30→21:55)
[2016-09-30] MEDS: DEXTROSE 5% IN WATE 1000ML INJ 1,000 ML IV SCH (02:31)
[2016-09-30] MEDS: LACTATED RINGER'S 1000 ML INJ 1,000 ML IV SCH ×3 (02:32→20:41)
[2016-09-30] MEDS: POTASSIUM CHLOR 40 MEQ PREMIX 100 ML IV PRN ×2 (03:17→11:32)
[2016-09-30] MEDS: IMIPENEM/CILASTATIN INJ 500 MG in SODIUM CHLORIDE 0.9% INJ 100 ML IV SCH ×5 (03:17→23:14)
[2016-09-30] MEDS: CHOLESTYRAMINE 4 GM PACKET PO SCH ×4 (03:18→18:17)
[2016-09-30] MEDS ORDERED: ATROPINE SULFATE 1 MG/10 ML SYRINGE ONE (03:33)
[2016-09-30] MEDS ORDERED: LIDOCAINE HCL 2% 100 MG/5 ML SYRINGE ONE (03:33)
[2016-09-30] MEDS ORDERED: EPINEPHrine HCL (1:10,000) 1 MG/10 ML SYRINGE ONE (03:33)
[2016-09-30] MEDS ORDERED: IOHEXOL 350 MG/ML 10 ML VIAL (for RAD DIAG) IV ONE (04:06)
--- NOTE | 2016-09-30 04:25 | RADRPT ---
EXAM DATE/TIME: 09/30/2016 04:03 [facility] COMPARISON: No previous studies available for comparison. INDICATIONS : Respiratory distress. IV CONTRAST: 80 cc Omnipaque 350 (iohexol) IV RADIATION DOSE: 23.34 CTDIvol (mGy) MEDICAL HISTORY : Seizures. Hypertension. Diabetes mellitus type 2.CVA. SURGICAL HISTORY : J Tube. ENCOUNTER: Initial ACUITY: 1 day PAIN SCALE: 0/10 LOCATION: chest TECHNIQUE: Volumetric scanning of the chest was performed using a pulmonary embolism protocol MIP images were re constructed. Using automated exposure control and adjustment of the mA and/or kV according to patien t size, radiation dose was kept as low as reasonably achievable to obtain optimal diagnostic quality images. FINDINGS: PULMONARY ARTERIES: No filling defects are seen in the pulmonary arteries through the segmental level. LUNGS: There is increased parenchymal density in the posterior mid and lower lungs bilaterally. PLEURAE: Minimal bilateral effusions are seen being worse on the right. MEDIASTINUM: There is good visualization of the great vessels of the middle mediastinum. No evidence of mediastin al or hilar adenopathy/mass. MUSCULOSKELETAL: Within normal limits for patient age. MISCELLANEOUS: The visualized upper abdominal organs demonstrate no acute abnormality. CONCLUSION: 1. No pulmonary embolus. 2. Bilateral mild areas of increased parenchymal density in the posterior lungs likely related to con solidation or atelectasis. Joni Villegas MD on September 30, 2016 at 4:22 Board Certified Radiologist. This report was verified electronically.
[2016-09-30] MEDS ORDERED: NOREPINEPHRINE 4 MG/4 ML AMP IV ONE (05:00)
[2016-09-30] MEDS ORDERED: EPINEPHrine HCL (1:10,000) 1 MG/10 ML SYRINGE IV ONE (05:00)
[2016-09-30] MEDS ORDERED: SODIUM BICARBONATE 8.4% INJ 50 MEQ/50 ML SYR IV ONE (05:00)
[2016-09-30] MEDS ORDERED: MIDAZOLAM HCL 2 MG/2 ML VIAL IV PUSH PRN (05:30)
[2016-09-30] MEDS: metroNIDAZOLE 500 MG TAB PEG SCH ×3 (05:35→21:54)
[2016-09-30] MEDS: ENOXAPARIN SODIUM 40 MG/0.4 ML SYRINGE SQ SCH (05:36)
[2016-09-30] MEDS: oxyCODONE/ACETAMINOPHEN 5 MG/325 MG TAB JT SCH ×3 (06:00→21:46)
[2016-09-30] MEDS: RESP: TOBRAMYCIN SULFATE 300 MG/5 ML NEB NEB SCH ×2 (07:18→22:21)
--- NOTE | 2016-09-30 07:51 | PD.PROCEDR ---
Procedure Note Procedure PROCEDURE NOTE PROCEDURE: Endotracheal intubation INDICATION: Acute respiratory arrest DETAILS OF PROCEDURE: CPR is ongoing and patient was bagged with 100% FiO2 via [id number]. Initially planned intubation with 4.0 MAC but handle in the airway cart had no batteries. Immediately called for Glidescope that was brought to bedside. Laryngoscopy was performed with a 4.0 Glidescope laryngoscope blade and a grade I Cormack-Lehane view was obtained. On single attempt a size .0 endotracheal tube was visualized passing through the cords. Correct placement was confirmed with colorimetric CO2 detector. Breath sounds were equal bilaterally. No sounds auscultated over the stomach. The endotracheal tube was secured with a commercial tube dsouza at a depth of 24 at the lips. The patient was connected to the ventilator. The patient tolerated the procedure well without any apparent complication. Stat chest x-ray was ordered and demonstrated satisfactory ETT position without apparent competition.. Mary Barkley MD Sep 30, 2016 07:51
[2016-09-30] MEDS: POLYETHYLENE GLYCOL 17 GM PKG PO SCH (08:10)
[2016-09-30] MEDS: SODIUM CHLORIDE 0.9% FLUSH 5 ML FLUSH FLUSH SCH ×2 (08:28→20:39)
[2016-09-30] MEDS: CLARITHROMYCIN 500 MG TAB PO SCH ×2 (08:28→20:41)
[2016-09-30] MEDS: LACTOBACILLUS ACIDOPHILUS 1 GM PACKET PEG SCH ×4 (08:28→20:40)
[2016-09-30] MEDS: BACLOFEN 10 MG TAB PEG SCH ×2 (08:29→20:41)
[2016-09-30] MEDS: HYOSCYAMINE 0.125 MG TAB JT SCH ×4 (08:29→20:41)
[2016-09-30] MEDS: levETIRAcetam 500 MG/5 ML UDC TUBE SCH ×2 (08:29→20:41)
[2016-09-30] MEDS: POTASSIUM CL 40 MEQ/30 ML LIQ UDC PO SCH (08:29)
[2016-09-30] MEDS: CHLORHEXIDINE 0.12% (ORAL KIT) 15 ML CUP MT SCH ×2 (08:30→20:39)
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
[2016-09-30] MEDS: VANCOMYCIN INJ 1,750 MG in SODIUM CHLORID 0.9% 500 ML INJ 500 ML IV SCH (11:31)
[2016-09-30] MEDS: SCOPOLAMINE 1.5 MG PATCH TD SCH (12:57)
[2016-09-30] MEDS: REMOVE OLD PATCH T-DERMAL SCH (12:57)
--- NOTE | 2016-09-30 13:57 | HHI.IDPN ---
Note Infectious Disease Note Notes reviewed. Patient intubated after cardiac arrest. On the vent. Eyes open and random movements. Afebrile. Had low grade temp. Had removal of ETHICS MANAGER shunt 09/05/16. External drain placed and then removed 09/12/16. Had lumbar spinal drain placed on 09/12/16. No longer has lumbar drain. CSF from 08/29 had AFB. Repeat CSF AFB smear 09/01,09/05 positive. AFB identified as Mycobacterium abscessus. PAST MEDICAL HISTORY 1. Traumatic brain injury in October 2014, ETHICS MANAGER shunt placement, 2. Seizure disorder. 3. PEG placement 4. History of tracheostomy 5. History of MRSA wound infection from the scalp 6. Bacteremia due to MRSA 7. History of ESBL E-coli UTI. 8. Previous ETHICS MANAGER shunt malfunction and culture positive with Pseudomonas treated with a round of antibiotic. ALLERGIES NO KNOWN DRUG ALLERGIES. ANTIBIOTICS: Imipenem. Amikacin. Biaxin 09/04/16. Flagyl. Tobra nebulized. Avibactam. Fluconazole. OBJECTIVE: Vital Signs Date Time Temp Pulse Resp B/P Pulse Ox O2 Delivery O2 Flow Rate FiO2 09/30/16 12:00 96 09/30/16 12:00 98.5 96 12 109/71 100 09/30/16 12:00 40 09/30/16 10:11 100 35 09/30/16 10:00 92 09/30/16 08:00 98.2 90 12 130/81 100 09/30/16 08:00 90 09/30/16 08:00 40 09/30/16 07:19 100 35 09/30/16 07:00 100 Mechanical Ventilator 40 09/30/16 06:00 96 09/30/16 05:30 40 09/30/16 04:15 100 40 09/30/16 04:00 86 09/30/16 04:00 98.8 86 12 139/97 100 09/30/16 03:55 100 100 09/30/16 02:00 100 50 09/30/16 02:00 74 09/30/16 00:00 90 09/30/16 00:00 97.4 90 12 88/54 100 09/29/16 23:10 100 50 09/29/16 23:00 50 09/29/16 22:04 16 09/29/16 22:00 64 09/29/16 20:00 100.1 105 12 141/77 100 09/29/16 20:00 105 09/29/16 19:36 100 Nasal Cannula 2.00 09/29/16 19:00 100 Nasal Cannula 2.00 Humidified 09/29/16 18:00 111 09/29/16 16:00 106 09/29/16 16:00 97.9 107 20 121/66 100 09/29/16 14:00 104 09/29/16 09/29/16 09/30/16 15:00 23:00 07:00 Intake Total 1072 ml 1344 ml 1313 ml Output Total 520 ml 1170 ml 2800 ml Balance 552 ml 174 ml -1487 ml IV Total 672 ml 1046 ml 1143 ml Tube Feeding 78 ml 70 ml Other 400 ml 220 ml 100 ml Output Urine Total 500 ml 1150 ml 2700 ml Stool Total 20 ml 20 ml 100 ml Laboratory Tests Test 09/28/16 09/30/16 20:45 00:45 White Blood Count 5.2 TH/MM3 4.3 TH/MM3 Red Blood Count 4.00 MIL/MM3 3.10 MIL/MM3 Hemoglobin 11.2 GM/DL 8.8 GM/DL Hematocrit 35.4 % 26.5 % Mean Corpuscular Volume 88.5 FL 85.6 FL Mean Corpuscular Hemoglobin 28.0 PG 28.5 PG Mean Corpuscular Hemoglobin 31.7 % 33.3 % Concent Red Cell Distribution Width 17.8 % 17.7 % Platelet Count 236 TH/MM3 257 TH/MM3 Mean Platelet Volume 6.2 FL 6.9 FL Neutrophils (%) (Auto) 69.7 % 75.2 % Lymphocytes (%) (Auto) 16.2 % 15.0 % Monocytes (%) (Auto) 12.7 % 7.1 % Eosinophils (%) (Auto) 0.9 % 2.2 % Basophils (%) (Auto) 0.5 % 0.5 % Neutrophils # (Auto) 3.6 TH/MM3 3.2 TH/MM3 Lymphocytes # (Auto) 0.8 TH/MM3 0.6 TH/MM3 Monocytes # (Auto) 0.7 TH/MM3 0.3 TH/MM3 Eosinophils # (Auto) 0.0 TH/MM3 0.1 TH/MM3 Basophils # (Auto) 0.0 TH/MM3 0.0 TH/MM3 CBC Comment DIFF FINAL DIFF FINAL Differential Comment Laboratory Tests Test 09/28/16 09/28/16 09/29/16 09/29/16 17:56 20:45 04:16 19:36 Lactic Acid Level 0.5 mmol/L Sodium Level 150 MEQ/L 150 MEQ/L 142 MEQ/L Potassium Level 3.1 MEQ/L 3.1 MEQ/L 3.7 MEQ/L Chloride Level 106 MEQ/L 109 MEQ/L 103 MEQ/L Carbon Dioxide Level 34.8 MEQ/L 31.1 MEQ/L 30.5 MEQ/L Anion Gap 9 MEQ/L 10 MEQ/L 9 MEQ/L Blood Urea Nitrogen 4 MG/DL 4 MG/DL 3 MG/DL Creatinine 0.77 MG/DL 0.67 MG/DL 0.71 MG/DL Estimat Glomerular Filtration 140 ML/MIN 165 ML/MIN 154 ML/MIN Rate Random Glucose 97 MG/DL 81 MG/DL 87 MG/DL Calcium Level 8.2 MG/DL 8.6 MG/DL 8.6 MG/DL Total Bilirubin 0.4 MG/DL Aspartate Amino Transf 20 U/L (AST/SGOT) Alanine Aminotransferase 21 U/L (ALT/SGPT) Alkaline Phosphatase 76 U/L C-Reactive Protein 5.60 MG/DL Total Protein 6.3 GM/DL Albumin 2.8 GM/DL Magnesium Level 1.6 MG/DL Test 09/30/16 00:45 Sodium Level 149 MEQ/L Potassium Level 2.6 MEQ/L Chloride Level 107 MEQ/L Carbon Dioxide Level 32.8 MEQ/L Anion Gap 9 MEQ/L Blood Urea Nitrogen 4 MG/DL Creatinine 0.76 MG/DL Estimat Glomerular Filtration 142 ML/MIN Rate Random Glucose 126 MG/DL Calcium Level 8.1 MG/DL Phosphorus Level 1.2 MG/DL Magnesium Level 1.8 MG/DL Total Bilirubin 0.4 MG/DL Aspartate Amino Transf 25 U/L (AST/SGOT) Alanine Aminotransferase 21 U/L (ALT/SGPT) Alkaline Phosphatase 73 U/L Total Protein 5.5 GM/DL Albumin 2.5 GM/DL Microbiology Date/Time Procedure Status Source Growth 09/27/16 14:30 Gram Stain - Final Complete Sputum Nasal Tracheal Aspirate 09/27/16 14:30 Sputum Culture - Final Complete Pseudomonas Aeruginosa 09/27/16 16:55 Aerobic Blood Culture - Preliminary Resulted Blood Peripheral NO GROWTH IN 3 DAYS 09/27/16 16:55 Anaerobic Blood Culture - Preliminary Resulted Blood Peripheral NO GROWTH IN 3 DAYS 09/27/16 17:00 Aerobic Blood Culture - Preliminary Resulted Blood Peripheral NO GROWTH IN 3 DAYS 09/27/16 17:00 Anaerobic Blood Culture - Preliminary Resulted Blood Peripheral NO GROWTH IN 3 DAYS IMAGING: CT Angiography 09/30/16 0000 Signed Impressions: Service Date/Time: Friday, September 30, 2016 04:03 - CONCLUSION: 1. No pulmonary embolus. 2. Bilateral mild areas of increased parenchymal density in the posterior lungs likely related to consolidation or atelectasis. Joni Villegas MD Chest X-Ray 09/29/16 0000 Signed Impressions: Service Date/Time: Friday, September 30, 2016 00:13 - CONCLUSION: 1. Tubes and lines in good position. 2. Left perihilar and right upper lung consolidation or atelectasis. Joni Villegas MD Chest X-Ray 09/28/16 0000 Signed Impressions: Service Date/Time: Wednesday, September 28, 2016 15:15 - CONCLUSION: 1. Hazy airspace disease left lung, probably dependent atelectasis or consolidation. Right lung relatively clear. Zaheer Hayward MD Chest X-Ray 09/21/16 0000 Signed Impressions: Service Date/Time: Wednesday, September 21, 2016 14:38 - CONCLUSION: 1. Chronic density in the upper right lung, probably scarring. No new infiltrate compared with multiple prior examinations. Zaheer Hayward MD PHYSICAL EXAMINATION GENERAL: No distress. Difficult to assess. Not tracking. NECK: No adenopathy or swelling. LUNGS: Coarse bilateral rhonchi. HEART: Regular rate and rhythm. Nl S1S2. TITI at LSB. ABDOMEN: Bowel sounds present, soft. EXTREMITIES: No clubbing,cyanosis or edema. NEUROLOGIC: Unable to fully assess. Appears to be posturing. SKIN: No visible rash. IMPRESSION 1. Prior fever - ETHICS MANAGER Shunt related infection. Mycobacteria abscessus. CSF now without AFB on smear x 2. Also had Staph Haemolyticus on in one sample. 2. Sepsis indicated By decreased BP, increased HR. Decreased mentation. High fever. Temperature improved. 3. Cellulitis suggested by CT scan of the abdomen and pelvis which reveals myositis and cellulitis in the posterior tissues of the buttock and hip. No erythema present. Treated - Received course of Vancomycin. 4. Candiduria. Recurrent. 4. Pneumonia. Treated. Now with bilateral infiltrates. Aspiration likely. drug resistant pseudomonas. 5. C diff colitis - Being treated and stable. 6. Fever. PNA vs tracheobronchitis. - pseudomonas resistant. 7. Skin rash ? drug related. Appeared better after stopping Ceftolozane/Tazo. 9. Acute Respiratory failure/cardiac arrest. [place] is very poor. Mother indicate that she would like to wait 2 days to see if he improves or can be weaned of the vent and then will make further decision on aggressiveness of care. RECOMMENDATIONS 1. Stop Vancomycin. 2. Continue Tobramycin nebulized bid for pseudomonas. Add Zerbaxa IV for pseudomonas. Monitor for rash. Questionable wether skin rash was due to zerbaxa. 3. Continue Amikacin. Pharmacy dosing. Would give until 10/11/15 CSF AFB was negative on last 2 cultures. The dosing can be given 3 x weekly. 4. Continue Imipenem IV until 10/10/16. 5. Continue Biaxin. Previously planned for six months duration. 6. Continue Flagyl for c. diff. while on the IV antibiotics. 7. Follow the sensitivity of the mycobacteria with micro. 8. Continue Fluconazole for [place] in urine. Quique Mendez MD Sep 30, 2016 13:57
[2016-09-30] MEDS: SODIUM CHLORID 0.9% IV SCH (15:54)
[2016-09-30] MEDS: AMIKACIN IV SCH (15:54)
[2016-09-30] MEDS: CEFTOLOZANE-TAZOBACTAM INJ 1,500 MG in SODIUM CHLORIDE 0.9% INJ 100 ML IV SCH ×2 (15:54→22:17)
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
[2016-09-30] MEDS: FLUCONAZOLE 200 MG PREMIX BAG 100 ML IV SCH (20:40)
[2016-09-30] MEDS: SILVER SULFADIAZINE 1% CR 50 GM JAR TOPICAL SCH (20:41)
[2016-10-01] VITALS (19 sets, daily range): BP systolic 91–120; BP diastolic 60–89; PULSE 67–98; RESP 12–15; TEMP 93.9–99.7; O2SAT 100
[2016-10-01] MEDS: CHOLESTYRAMINE 4 GM PACKET PO SCH ×5 (00:09→23:19)
[2016-10-01] MEDS: VANCOMYCIN INJ 1,750 MG in SODIUM CHLORID 0.9% 500 ML INJ 500 ML IV SCH ×3 (00:09→23:55)
[2016-10-01] MEDS: PANTOPRAZOLE SODIUM 40 MG VIAL IV PUSH SCH (00:09)
[2016-10-01] MEDS: metroNIDAZOLE 500 MG TAB PEG SCH ×3 (05:28→23:17)
[2016-10-01] MEDS: oxyCODONE/ACETAMINOPHEN 5 MG/325 MG TAB JT SCH ×3 (05:28→22:00)
[2016-10-01] MEDS: ENOXAPARIN SODIUM 40 MG/0.4 ML SYRINGE SQ SCH (05:29)
[2016-10-01] MEDS: IMIPENEM/CILASTATIN INJ 500 MG in SODIUM CHLORIDE 0.9% INJ 100 ML IV SCH ×4 (05:33→23:18)
[2016-10-01] MEDS: LACTATED RINGER'S 1000 ML INJ 1,000 ML IV SCH ×2 (06:12→18:00)
[2016-10-01] MEDS: CEFTOLOZANE-TAZOBACTAM INJ 1,500 MG in SODIUM CHLORIDE 0.9% INJ 100 ML IV SCH ×3 (06:12→23:21)
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
[2016-10-01] MEDS: CLARITHROMYCIN 500 MG TAB PO SCH ×2 (08:26→20:45)
[2016-10-01] MEDS: POTASSIUM CL 40 MEQ/30 ML LIQ UDC PO SCH (08:26)
[2016-10-01] MEDS: HYOSCYAMINE 0.125 MG TAB JT SCH ×4 (08:26→20:46)
[2016-10-01] MEDS: levETIRAcetam 500 MG/5 ML UDC TUBE SCH ×2 (08:26→20:45)
[2016-10-01] MEDS: LACTOBACILLUS ACIDOPHILUS 1 GM PACKET PEG SCH ×4 (08:27→20:46)
[2016-10-01] MEDS: BACLOFEN 10 MG TAB PEG SCH ×2 (08:28→20:45)
[2016-10-01] MEDS: POLYETHYLENE GLYCOL 17 GM PKG PO SCH (09:00)
[2016-10-01] MEDS: SODIUM CHLORIDE 0.9% FLUSH 5 ML FLUSH FLUSH SCH ×2 (09:04→20:41)
[2016-10-01] MEDS: CHLORHEXIDINE 0.12% (ORAL KIT) 15 ML CUP MT SCH ×2 (09:05→19:12)
[2016-10-01] MEDS: REMOVE OLD PATCH TD SCH (11:00)
[2016-10-01] MEDS: fentaNYL 50 MCG/HR PATCH T-DERMAL SCH (11:09)
--- NOTE | 2016-10-01 12:18 | HHI.IDPN ---
Note Infectious Disease Note Notes reviewed. Patient intubated after cardiac arrest. On the vent. No distress. Non responsive. Afebrile. Had removal of ADMINISTRATIVE FELLOW shunt 09/05/16. External drain placed and then removed 09/12/16. Had lumbar spinal drain placed on 09/12/16. No longer has lumbar drain. CSF from 08/29 had AFB. Repeat CSF AFB smear 09/01,09/05 positive. AFB identified as Mycobacterium abscessus. PAST MEDICAL HISTORY 1. Traumatic brain injury in October 2014, ADMINISTRATIVE FELLOW shunt placement, 2. Seizure disorder. 3. PEG placement 4. History of tracheostomy 5. History of MRSA wound infection from the scalp 6. Bacteremia due to MRSA 7. History of ESBL E-coli UTI. 8. Previous ADMINISTRATIVE FELLOW shunt malfunction and culture positive with Pseudomonas treated with a round of antibiotic. ALLERGIES NO KNOWN DRUG ALLERGIES. ANTIBIOTICS: Imipenem. Amikacin. Biaxin 09/04/16. Flagyl. Tobra nebulized. Avibactam. Fluconazole. OBJECTIVE: Vital Signs Date Time Temp Pulse Resp B/P Pulse Ox O2 Delivery O2 Flow Rate FiO2 10/01/16 11:56 100 35 10/01/16 10:00 71 10/01/16 09:00 100 35 10/01/16 08:54 100 Mechanical Ventilator 35 10/01/16 08:00 35 10/01/16 08:00 68 10/01/16 08:00 98.2 67 12 120/83 100 10/01/16 06:00 68 10/01/16 04:26 100 35 10/01/16 04:00 98.7 78 15 117/80 100 10/01/16 04:00 35 10/01/16 04:00 78 10/01/16 02:00 86 10/01/16 01:02 100 35 10/01/16 00:00 35 10/01/16 00:00 90 10/01/16 00:00 99.7 90 12 119/74 100 09/30/16 22:24 100 35 09/30/16 22:00 98 09/30/16 20:00 100.3 90 12 122/72 100 09/30/16 20:00 100 09/30/16 20:00 35 09/30/16 19:00 100 Mechanical Ventilator 35 09/30/16 18:00 94 09/30/16 16:14 100 35 09/30/16 16:00 99.1 97 14 116/68 100 09/30/16 16:00 97 09/30/16 16:00 40 09/30/16 14:00 98 09/30/16 09/30/16 10/01/16 15:00 23:00 07:00 Intake Total 1299 ml 1946 ml 1690 ml Output Total 1150 ml 700 ml 1000 ml Balance 149 ml 1246 ml 690 ml IV Total 1080 ml 1634 ml 1310 ml Tube Feeding 159 ml 192 ml 180 ml Tube Irrigant 60 ml Other 120 ml 200 ml Output Urine Total 1050 ml 650 ml 1000 ml Stool Total 100 ml 50 ml 0 ml Laboratory Tests Test 09/30/16 00:45 White Blood Count 4.3 TH/MM3 Red Blood Count 3.10 MIL/MM3 Hemoglobin 8.8 GM/DL Hematocrit 26.5 % Mean Corpuscular Volume 85.6 FL Mean Corpuscular Hemoglobin 28.5 PG Mean Corpuscular Hemoglobin 33.3 % Concent Red Cell Distribution Width 17.7 % Platelet Count 257 TH/MM3 Mean Platelet Volume 6.9 FL Neutrophils (%) (Auto) 75.2 % Lymphocytes (%) (Auto) 15.0 % Monocytes (%) (Auto) 7.1 % Eosinophils (%) (Auto) 2.2 % Basophils (%) (Auto) 0.5 % Neutrophils # (Auto) 3.2 TH/MM3 Lymphocytes # (Auto) 0.6 TH/MM3 Monocytes # (Auto) 0.3 TH/MM3 Eosinophils # (Auto) 0.1 TH/MM3 Basophils # (Auto) 0.0 TH/MM3 CBC Comment DIFF FINAL Differential Comment Laboratory Tests Test 09/29/16 09/30/16 09/30/16 10/01/16 19:36 00:45 18:49 04:36 Sodium Level 142 MEQ/L 149 MEQ/L Potassium Level 3.7 MEQ/L 2.6 MEQ/L 3.6 MEQ/L Chloride Level 103 MEQ/L 107 MEQ/L Carbon Dioxide Level 30.5 MEQ/L 32.8 MEQ/L Anion Gap 9 MEQ/L 9 MEQ/L Blood Urea Nitrogen 3 MG/DL 4 MG/DL Creatinine 0.71 MG/DL 0.76 MG/DL 0.60 MG/DL Estimat Glomerular Filtration 154 ML/MIN 142 ML/MIN 187 ML/MIN Rate Random Glucose 87 MG/DL 126 MG/DL Calcium Level 8.6 MG/DL 8.1 MG/DL Phosphorus Level 1.2 MG/DL Magnesium Level 1.8 MG/DL Total Bilirubin 0.4 MG/DL Aspartate Amino Transf 25 U/L (AST/SGOT) Alanine Aminotransferase 21 U/L (ALT/SGPT) Alkaline Phosphatase 73 U/L Total Protein 5.5 GM/DL Albumin 2.5 GM/DL Microbiology Date/Time Procedure Status Source Growth 09/30/16 12:50 Gram Stain - Final Resulted Sputum Endotracheal 09/30/16 12:50 Sputum Culture Resulted Sputum Endotracheal Pending IMAGING: CT Angiography 09/30/16 0000 Signed Impressions: Service Date/Time: Friday, September 30, 2016 04:03 - CONCLUSION: 1. No pulmonary embolus. 2. Bilateral mild areas of increased parenchymal density in the posterior lungs likely related to consolidation or atelectasis. Joni Villegas MD Chest X-Ray 09/29/16 0000 Signed Impressions: Service Date/Time: Friday, September 30, 2016 00:13 - CONCLUSION: 1. Tubes and lines in good position. 2. Left perihilar and right upper lung consolidation or atelectasis. Joni Villegas MD Chest X-Ray 09/28/16 0000 Signed Impressions: Service Date/Time: Wednesday, September 28, 2016 15:15 - CONCLUSION: 1. Hazy airspace disease left lung, probably dependent atelectasis or consolidation. Right lung relatively clear. Zaheer Hayward MD Chest X-Ray 09/21/16 0000 Signed Impressions: Service Date/Time: Wednesday, September 21, 2016 14:38 - CONCLUSION: 1. Chronic density in the upper right lung, probably scarring. No new infiltrate compared with multiple prior examinations. Zaheer Hayward MD PHYSICAL EXAMINATION GENERAL: No distress. Difficult to assess. Not tracking. NECK: No adenopathy or swelling. LUNGS: Coarse bilateral rhonchi. HEART: Regular rate and rhythm. Nl S1S2. TITI at LSB. ABDOMEN: Bowel sounds present, soft. EXTREMITIES: No clubbing,cyanosis or edema. NEUROLOGIC: Unable to fully assess. SKIN: No visible rash. IMPRESSION 1. Prior fever - ADMINISTRATIVE FELLOW Shunt related infection. Mycobacteria abscessus. CSF negative AFB x 2 after start of therapy. Also had Staph Haemolyticus on in one sample. Shunt has been removed and CSF catheters have been removed. 2. Sepsis indicated By decreased BP, increased HR. Decreased mentation. High fever. Temperature improved. 3. Cellulitis suggested by CT scan of the abdomen and pelvis which reveals myositis and cellulitis in the posterior tissues of the buttock and hip. No erythema present. Treated - Received course of Vancomycin. 4. Candiduria. Recurrent. 4. Pneumonia. Treated. Now with bilateral infiltrates. Aspiration likely. drug resistant pseudomonas. 5. C diff colitis - Being treated and stable. 6. PNA - pseudomonas resistant. 7. Skin rash ? drug related. Appeared better after stopping Ceftolozane/Tazo. No rash noted after restarting that med. 9. Acute Respiratory failure/cardiac arrest. [place] is very poor. Mother indicate that she would like to wait to see if he improves or can be weaned of the vent and then will make further decision on aggressiveness of care. RECOMMENDATIONS 1. Continue Tobramycin nebulized bid for pseudomonas. Continue Zerbaxa IV for pseudomonas. Monitor for rash. Questionable wether skin rash was due to zerbaxa. 2. Continue Amikacin. Pharmacy dosing. Would give until 10/11/15 CSF AFB was negative on last 2 cultures. The dosing can be given 3 x weekly. 3. Continue Imipenem IV until 10/10/16. 4. Continue Biaxin. Previously planned for six months duration. 5. Continue Flagyl for c. diff. while on the IV antibiotics. 6. Follow the sensitivity of the mycobacteria with micro. 7. Continue Fluconazole for [place] in urine. Discussed with mom. No significant change. I will be away 10/03 - 10/13 other ID to cover. Quique Mendez MD Oct 01, 2016 12:18
[2016-10-01] MEDS: AMIKACIN IV SCH (16:01)
[2016-10-01] MEDS: SODIUM CHLORID 0.9% IV SCH (16:01)
--- NOTE | 2016-10-01 16:12 | HHI.NSPN ---
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 He had a left ventriculoperitoneal shunt which was removed secondary to wound dehiscence and had a right ventriculoperitoneal shunt placed. He is a chronic longterm resident and has been febrile the last few days and presents MRI is room for workup for for this fever. He had a urethral stricture which was dilated in the emergency room by urology and urinalysis reveals urinary tract infection. He also has a decubitus ulcer. Blood cultures are pending. His neurologic examination is baseline and CT of the head obtained reveals ventriculomegaly compared to the scan from a month ago. The patient had programmable valve place with a lower setting of 50 mm water. Shuntogram obtained reveals ventricular catheter being patent but the peritoneal catheter was not evaluated because patient did not cooperate and the plan is to have this further evaluated once more cooperate with IV access per special procedures. CSF from a shunt tap that does not reveal any organisms on Gram stain. CT of the abdomen reveals a small fluid collection around the shunt catheter of unclear significance. 10/01/16: He is intubated and on ventilator support status post cardiac arrest. Mother is at bedside. Exam Results Vital Signs Date Time Temp Pulse Resp B/P Pulse Ox O2 Delivery O2 Flow Rate FiO2 10/01/16 14:41 100 35 10/01/16 14:00 98 10/01/16 12:00 99.3 12 120/89 10/01/16 08:54 Mechanical Ventilator 09/29/16 19:36 2.00 Intake and Output 09/30/16 09/30/16 10/01/16 08:00 16:00 00:00 Intake Total 1313 ml 1299 ml 1946 ml Output Total 2800 ml 1150 ml 700 ml Balance -1487 ml 149 ml 1246 ml Physical Examination Pt opens eyes to stimulation. Not following commands and grimaces to stimulation. Not tracking or focusing. Pupils 4mm bilaterally reactive bilaterally. 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 He is now on a ventilator status post cardiac arrest likely has suffered additional hypoxic/ischemic injury on top of the severe traumatic brain injury. Prognosis is grim given his overall multiple medical issues and chronically debilitated state. Discussed with mother who seems to be now inclined to consider making him a DNR if there is no improvement over the next few days. Franky Carreno MD Oct 01, 2016 16:12
[2016-10-01] MEDS: SODIUM CHLOR 0.45% 1000 ML INJ 1,000 ML IV SCH ×2 (18:15→19:12)
[2016-10-01 18:52] LABS: BLOOD, URINE NEG (NEG); GLUCOSE,URINE NEG (NEG); KETONE, URINE NEG (NEG); NITRITE,URINE NEG (NEG); URINE COLOR COLORLESS (YELLW/STRAW)
[2016-10-01 18:53] LABS: COMMENT (UR) CATH-CULT NOT IND; CULTURE IF INDICATED CATH CULTURE NOT IND
[2016-10-01 19:09] LABS: BICARBONATE 29.3 MEQ/L (21.0-32.0); POTASSIUM 3.5 MEQ/L (3.5-5.1)
--- NOTE | 2016-10-01 19:28 | HHI.PR ---
Subjective Remarks 36 YOAA male with TBI, Ch RF had resp arrest, was resusutated On Vent On Fentanyl drip Did't tolerate weaning Objective Vital Signs Vital Signs Date Time Temp Pulse Resp B/P Pulse Ox O2 Delivery O2 Flow Rate FiO2 10/01/16 18:47 100 35 10/01/16 18:00 94 10/01/16 16:00 35 10/01/16 16:00 94 10/01/16 16:00 98.2 94 12 91/60 100 10/01/16 14:41 100 35 10/01/16 14:00 98 10/01/16 12:00 99.3 71 12 120/89 100 10/01/16 12:00 67 10/01/16 12:00 35 10/01/16 11:56 100 35 10/01/16 10:00 71 10/01/16 09:00 100 35 10/01/16 08:54 100 Mechanical Ventilator 35 10/01/16 08:00 35 10/01/16 08:00 68 10/01/16 08:00 98.2 67 12 120/83 100 10/01/16 06:00 68 10/01/16 04:26 100 35 10/01/16 04:00 98.7 78 15 117/80 100 10/01/16 04:00 35 10/01/16 04:00 78 10/01/16 02:00 86 10/01/16 01:02 100 35 10/01/16 00:00 35 10/01/16 00:00 90 10/01/16 00:00 99.7 90 12 119/74 100 09/30/16 22:24 100 35 09/30/16 22:00 98 09/30/16 20:00 100.3 90 12 122/72 100 09/30/16 20:00 100 09/30/16 20:00 35 I/O 09/30/16 09/30/16 09/30/16 10/01/16 10/01/16 10/01/16 07:00 15:00 23:00 07:00 15:00 23:00 Intake Total 1313 ml 1299 ml 1946 ml 1690 ml 1432 ml Output Total 2800 ml 1150 ml 700 ml 1000 ml 1830 ml 2550 ml Balance -1487 ml 149 ml 1246 ml 690 ml -398 ml -2550 ml IV Total 1143 ml 1080 ml 1634 ml 1310 ml 1167 ml Tube Feeding 70 ml 159 ml 192 ml 180 ml 265 ml Tube Irrigant 60 ml Other 100 ml 120 ml 200 ml Output Urine Total 2700 ml 1050 ml 650 ml 1000 ml 1800 ml 2550 ml Stool Total 100 ml 100 ml 50 ml 0 ml 30 ml Result Diagram: 09/30/16 0045 10/01/16 1810 Objective Remarks GENERAL: WBWN AA male, mild sob, On Vent SKIN: Warm and dry. HEAD: Normocephalic. EYES: No scleral icterus. No injection or drainage. NECK: Supple, trachea midline. No JVD or lymphadenopathy. CARDIOVASCULAR: Regular rate and rhythm without murmurs, gallops, or rubs. RESPIRATORY: Breath sounds equal bilaterally. No accessory muscle use. GASTROINTESTINAL: Abdomen soft, non-tender, nondistended. PEG tube MUSCULOSKELETAL: No cyanosis, or edema. BACK: Nontender without obvious deformity. No CVA tenderness. A/P Assessment and Plan VDRF S/P resp arrest Right Basal infilt Atelactesis TBI MRSA Pn treated M.sandraus in CSF PLAN: Vent support Wean 02 to keep sat >90% Aerosol nebs Abx per ID TF Han Hernandez MD Oct 01, 2016 19:28
[2016-10-01] MEDS: FLUCONAZOLE 200 MG PREMIX BAG 100 ML IV SCH (20:45)
[2016-10-01] MEDS: SILVER SULFADIAZINE 1% CR 50 GM JAR TOPICAL SCH (20:45)
[2016-10-01] MEDS ORDERED: DESMOPRESSIN ACETATE 4 MCG/ML VIAL SQ SCH (21:00)
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
[2016-10-01] MEDS ORDERED: PHARMACY ORDERED LAB XX ONE (23:45)
[2016-10-01] MEDS: fentaNYL DRIP 250 ML IV SCH (23:55)
[2016-10-02] VITALS (18 sets, daily range): BP systolic 84–108; BP diastolic 51–74; PULSE 82–110; RESP 12–13; TEMP 96.4–103.1; O2SAT 99–100
[2016-10-02] MEDS: PANTOPRAZOLE SODIUM 40 MG VIAL IV PUSH SCH (00:06)
[2016-10-02 00:24] LABS: ALKALINE PHOSPHATASE 83 U/L (45-117); ALT (GPT) 18 U/L (12-78); ANION GAP 5 MEQ/L (5-15); AST (GOT) 25 U/L (15-37); BICARBONATE 28.4 MEQ/L (21.0-32.0); BLOOD UREA NITROGEN 5 MG/DL (7-18); CHLORIDE 124 MEQ/L (98-107); GLOMERULAR FILTRATION RATE 194 ML/MIN (>89); POTASSIUM 3.7 MEQ/L (3.5-5.1); TOTAL BILIRUBIN ADULT 0.4 MG/DL (0.2-1.0); VANCOMYCIN TROUGH 25.9 MCG/ML (5.0-10.0)
[2016-10-02 00:33] LABS: SODIUM (NA) 157 MEQ/L (136-145)
[2016-10-02] MEDS: LACTATED RINGER'S 1000 ML INJ 1,000 ML IV SCH (03:12)
[2016-10-02] MEDS: IMIPENEM/CILASTATIN INJ 500 MG in SODIUM CHLORIDE 0.9% INJ 100 ML IV SCH ×3 (04:33→18:38)
[2016-10-02] MEDS: oxyCODONE/ACETAMINOPHEN 5 MG/325 MG TAB JT SCH ×3 (05:20→20:59)
[2016-10-02] MEDS: metroNIDAZOLE 500 MG TAB PEG SCH ×3 (05:21→21:00)
[2016-10-02] MEDS: ENOXAPARIN SODIUM 40 MG/0.4 ML SYRINGE SQ SCH (05:21)
[2016-10-02] MEDS: CHOLESTYRAMINE 4 GM PACKET PO SCH ×3 (05:21→18:39)
[2016-10-02 05:26] LABS: AUTOMATED NEUTROPHIL # 2.5 TH/MM3 (1.8-7.7); BASOPHIL % 0.7 % (0.0-2.0); EOSINOPHIL # 0.1 TH/MM3 (0-0.4); EOSINOPHIL % 3.4 % (0.0-4.0); HEMATOCRIT 26.5 % (39.0-51.0); HEMO FLAGS DIFF FINAL; LYMPH % 27.2 % (9.0-44.0); LYMPHOCYTE # 1.2 TH/MM3 (1.0-4.8); MEAN CELL VOLUME 87.1 FL (80.0-100.0); MEAN CORPUSCULAR HEMOGLOBIN 28.3 PG (27.0-34.0); MEAN CORPUSCULAR HGB CONC 32.5 % (32.0-36.0); MONO % 9.6 % (0.0-8.0); NEUT % 59.1 % (16.0-70.0); PLATELET COUNT 229 TH/MM3 (150-450); RED BLOOD COUNT 3.04 MIL/MM3 (4.50-5.90); RED CELL DISTRIBUTION WIDTH 18.2 % (11.6-17.2); WHITE BLOOD COUNT 4.2 TH/MM3 (4.0-11.0)
[2016-10-02] MEDS ORDERED: LACTATED RINGER'S 1000 ML INJ 2,000 ML IV SCH (06:00)
[2016-10-02] MEDS: CEFTOLOZANE-TAZOBACTAM INJ 1,500 MG in SODIUM CHLORIDE 0.9% INJ 100 ML IV SCH (06:28)
[2016-10-02] MEDS: SODIUM CHLORIDE 0.9% FLUSH 5 ML FLUSH FLUSH SCH ×2 (08:32→21:00)
[2016-10-02] MEDS: SODIUM CHLOR 0.45% 1000 ML INJ 1,000 ML IV SCH ×3 (08:32→18:00)
[2016-10-02] MEDS: CHLORHEXIDINE 0.12% (ORAL KIT) 15 ML CUP MT SCH ×2 (08:32→20:00)
[2016-10-02] MEDS: POLYETHYLENE GLYCOL 17 GM PKG PO SCH (09:00)
[2016-10-02] MEDS: BACLOFEN 10 MG TAB PEG SCH ×2 (09:00→21:00)
[2016-10-02] MEDS: HYOSCYAMINE 0.125 MG TAB JT SCH (09:00)
[2016-10-02] MEDS: levETIRAcetam 500 MG/5 ML UDC TUBE SCH ×2 (09:31→21:00)
[2016-10-02] MEDS: DESMOPRESSIN ACETATE 4 MCG/ML VIAL SQ SCH ×2 (09:31→21:00)
[2016-10-02] MEDS: LACTOBACILLUS ACIDOPHILUS 1 GM PACKET PEG SCH ×4 (09:32→20:59)
[2016-10-02] MEDS: CLARITHROMYCIN 500 MG TAB PO SCH ×2 (09:32→21:00)
[2016-10-02] MEDS: POTASSIUM CL 40 MEQ/30 ML LIQ UDC PO SCH (09:32)
[2016-10-02] MEDS ORDERED: TERBUTALINE INJ 1 MG/ML AMP SQ PRN (10:15)
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
--- NOTE | 2016-10-02 10:37 | HHI.IDPN ---
Subjective Subjective Remarks ID COVERAGE Notes reviewed D/W RN Coded this weekend 09/29 On the vent Hypothermic earlier, on bear hugger, temps better BP running low Neurology saw patient His pupils are fixed and dilated Temps 100+ This is a 36-year-old male a resident of a senior care facility receiving treatment for M. abscessus and Staph Hemolyticus PROGRAM REVIEW DIRECTOR shunt infx Also on Rx for MDR PSAE strains , MDRO S only gent/tobra Antibiotics Biaxin Amikacin Primaxin Flagyl Zerbaxa Vancomycin Also on Keppra for seizures. Lines Line sites with no e/o infection Past Medical History 1. Traumatic brain injury in October 2014, PROGRAM REVIEW DIRECTOR shunt placement, 2. Seizure disorder. 3. J tube placement 4. History of tracheostomy 5. History of MRSA wound infection from the scalp 6. Bacteremia due to MRSA 7. History of ESBL E-coli UTI. 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 Vital Signs Date Time Temp Pulse Resp B/P Pulse Ox O2 Delivery O2 Flow Rate FiO2 10/02/16 09:34 99 35 10/02/16 06:00 87 10/02/16 04:35 100 35 10/02/16 04:00 35 10/02/16 04:00 97.9 91 12 86/51 100 10/02/16 04:00 91 10/02/16 02:00 96 10/02/16 00:12 100 35 10/02/16 00:00 35 10/02/16 00:00 97.2 94 12 88/55 100 10/02/16 00:00 94 10/01/16 22:00 89 10/01/16 21:48 100 35 10/01/16 20:00 84 10/01/16 20:00 93.9 80 12 110/85 100 10/01/16 20:00 35 10/01/16 19:00 100 Mechanical Ventilator 35 10/01/16 18:47 100 35 10/01/16 18:00 94 10/01/16 16:00 35 10/01/16 16:00 94 10/01/16 16:00 98.2 94 12 91/60 100 10/01/16 14:41 100 35 10/01/16 14:00 98 10/01/16 12:00 99.3 71 12 120/89 100 10/01/16 12:00 67 10/01/16 12:00 35 10/01/16 11:56 100 35 10/01/16 10/01/16 10/02/16 15:00 23:00 07:00 Intake Total 1432 ml 3651 ml 1799 ml Output Total 1830 ml 5775 ml 2120 ml Balance -398 ml -2124 ml -321 ml IV Total 1167 ml 3141 ml 1216 ml Tube Feeding 265 ml 210 ml 183 ml Other 300 ml 400 ml Output Urine Total 1800 ml 5775 ml 2100 ml Stool Total 30 ml 0 ml 20 ml . Laboratory Tests Test 10/02/16 04:50 White Blood Count 4.2 TH/MM3 Red Blood Count 3.04 MIL/MM3 Hemoglobin 8.6 GM/DL Hematocrit 26.5 % Mean Corpuscular Volume 87.1 FL Mean Corpuscular Hemoglobin 28.3 PG Mean Corpuscular Hemoglobin 32.5 % Concent Red Cell Distribution Width 18.2 % Platelet Count 229 TH/MM3 Mean Platelet Volume 7.2 FL Neutrophils (%) (Auto) 59.1 % Lymphocytes (%) (Auto) 27.2 % Monocytes (%) (Auto) 9.6 % Eosinophils (%) (Auto) 3.4 % Basophils (%) (Auto) 0.7 % Neutrophils # (Auto) 2.5 TH/MM3 Lymphocytes # (Auto) 1.2 TH/MM3 Monocytes # (Auto) 0.4 TH/MM3 Eosinophils # (Auto) 0.1 TH/MM3 Basophils # (Auto) 0.0 TH/MM3 CBC Comment DIFF FINAL Differential Comment Laboratory Tests Test 09/30/16 10/01/16 10/01/16 10/01/16 18:49 04:36 18:10 23:35 Potassium Level 3.6 MEQ/L 3.5 MEQ/L 3.7 MEQ/L Creatinine 0.60 MG/DL 0.65 MG/DL 0.58 MG/DL Estimat Glomerular Filtration 187 ML/MIN 170 ML/MIN 194 ML/MIN Rate Sodium Level 154 MEQ/L 157 MEQ/L Chloride Level 120 MEQ/L 124 MEQ/L Carbon Dioxide Level 29.3 MEQ/L 28.4 MEQ/L Anion Gap 5 MEQ/L 5 MEQ/L Blood Urea Nitrogen 4 MG/DL 5 MG/DL Random Glucose 112 MG/DL 98 MG/DL Serum Osmolality 312 MOSM/KG Calcium Level 8.6 MG/DL 8.8 MG/DL Total Bilirubin 0.4 MG/DL Aspartate Amino Transf 25 U/L (AST/SGOT) Alanine Aminotransferase 18 U/L (ALT/SGPT) Alkaline Phosphatase 83 U/L Total Protein 5.9 GM/DL Albumin 2.4 GM/DL Microbiology Date/Time Procedure Status Source Growth 09/30/16 12:50 Gram Stain - Final Complete Sputum Endotracheal 09/30/16 12:50 Sputum Culture - Final Complete Sputum Endotracheal NO GROWTH IN [address] Angiography 09/30/16 0000 Signed Impressions: Service Date/Time: Friday, September 30, 2016 04:03 - CONCLUSION: 1. No pulmonary embolus. 2. Bilateral mild areas of increased parenchymal density in the posterior lungs likely related to consolidation or atelectasis. Joni Villegas MD Chest X-Ray 09/29/16 0000 Signed Impressions: Service Date/Time: Friday, September 30, 2016 00:13 - CONCLUSION: 1. Tubes and lines in good position. 2. Left perihilar and right upper lung consolidation or atelectasis. Joni Villegas MD Abdomen X-Ray 09/26/16 0000 Signed Impressions: Service Date/Time: September 11:00 - CONCLUSION: 1. Benign-appearing bowel gas pattern. Erik Esqueda MD Lumbar Puncture Fluoroscopy 09/17/16 0000 Signed Impressions: Service Date/Time: Saturday, September 17, 2016 14:38 - CONCLUSION: Uncomplicated lumbar drain placement as above. Jem Alexander MD Lumbar Puncture 09/16/16 0000 Signed Impressions: Service Date/Time: Friday, September 16, 2016 15:12 - CONCLUSION: Patent lumbar drain Jem Alexander MD Brain MRI 09/03/16 0600 Signed Impressions: Service Date/Time: Saturday, September 03, 2016 11:54 - CONCLUSION: 1. Marked increase in ventricular size and compare with the prior study but no transependymal fluid migration. Obstructing communicating hydrocephalus is not excluded. There is no evidence of abscess. Jem Alexander MD Shunt Study (Imaging) 08/23/16 1514 Signed Impressions: Service Date/Time: Tuesday, August 23, 2016 15:14 - CONCLUSION: PROGRAM REVIEW DIRECTOR shunt tap for spinal fluid sampling as above Joni Sharpe MD Abdomen/Pelvis CT 08/23/16 0816 Signed Impressions: Service Date/Time: Tuesday, August 23, 2016 08:44 - CONCLUSION: Abnormal scan with multiple findings as outlined above Joni Sharpe MD Shunt Study 08/23/16 0000 Signed Impressions: Service Date/Time: Tuesday, August 23, 2016 14:07 - CONCLUSION: Shunt tubing is patent into the ventricular system. The downstream portion of the shunt to the peritoneal cavity was not evaluated. Joni Sharpe MD Head CT 08/23/16 0000 Signed Impressions: Service Date/Time: Tuesday, August 23, 2016 11:57 - CONCLUSION: 1. Interval significant increase in the size of the ventricles compared to the previous examination suggesting worsening hydrocephalus. Clinical correlation is recommended. 2. No significant change in the extensive encephalomalacia ( right worse than left) within the cerebral hemispheres. 3. No acute hemorrhage, midline shift or extraaxial fluid collections. Donavan Vidales MD Chest X-Ray 09/21/16 0000 Signed Impressions: Service Date/Time: Wednesday, September 21, 2016 14:38 - CONCLUSION: 1. Chronic density in the upper right lung, probably scarring. No new infiltrate compared with multiple prior examinations. Zaheer Hayward MD Lumbar Puncture Fluoroscopy 09/17/16 0000 Signed Impressions: Service Date/Time: Saturday, September 17, 2016 14:38 - CONCLUSION: Uncomplicated lumbar drain placement as above. Jem Alexander MD Lumbar Puncture 09/16/16 0000 Signed Impressions: Service Date/Time: Friday, September 16, 2016 15:12 - CONCLUSION: Patent lumbar drain Jem Alexander MD Brain MRI 09/03/16 0600 Signed Impressions: Service Date/Time: Saturday, September 03, 2016 11:54 - CONCLUSION: 1. Marked increase in ventricular size and compare with the prior study but no transependymal fluid migration. Obstructing communicating hydrocephalus is not excluded. There is no evidence of abscess. Jme Alexander MD Shunt Study (Imaging) 08/23/16 1514 Signed Impressions: Service Date/Time: Tuesday, August 23, 2016 15:14 - CONCLUSION: PROGRAM REVIEW DIRECTOR shunt tap for spinal fluid sampling as above Joni Sharpe MD Abdomen/Pelvis CT 08/23/16 0816 Signed Impressions: Service Date/Time: Tuesday, August 23, 2016 08:44 - CONCLUSION: Abnormal scan with multiple findings as outlined above Joni Sharpe MD Shunt Study 08/23/16 0000 Signed Impressions: Service Date/Time: Tuesday, August 23, 2016 14:07 - CONCLUSION: Shunt tubing is patent into the ventricular system. The downstream portion of the shunt to the peritoneal cavity was not evaluated. Joni Sharpe MD Head CT 08/23/16 0000 Signed Impressions: Service Date/Time: Tuesday, August 23, 2016 11:57 - CONCLUSION: 1. Interval significant increase in the size of the ventricles compared to the previous examination suggesting worsening hydrocephalus. Clinical correlation is recommended. 2. No significant change in the extensive encephalomalacia ( right worse than left) within the cerebral hemispheres. 3. No acute hemorrhage, midline shift or extraaxial fluid collections. Donavan Vidales MD Physical Exam GENERAL: Unresponsive, on the vent SKIN: Warm, dry, no rash HEAD: incisions clean EENT: Fixed and dilated pupils. dirty sclera. Orally intubated NECK: Trachea midline. Supple, nontender. Old scar from previous tracheostomy. In the supraclavicular/clavicular area, there is a small area with drainage, and some surrounding erythema, looks like its is where he has his tunnelled PROGRAM REVIEW DIRECTOR shunt is CARDIOVASCULAR: Regular rate and rhythm without murmurs, gallops, or rubs. RESPIRATORY/CHEST: Scattered rhonchi to auscultation. GASTROINTESTINAL: Abdomen soft, nondistended. No reaction to deep palpation. Scars in RUQ fro his PROGRAM REVIEW DIRECTOR shunt, with no redness or induration noted. Bowel sounds present. GENITOURINARY: Without palpable bladder distension. Miranda catheter in place with clear yellow urine MUSCULOSKELETAL: Extremities without clubbing, cyanosis, or edema. No mottling or clubbing. NEUROLOGICAL: Unresponsive PSYCHIATRIC: unable to assess Assessment & Plan Remarks IMPRESSION New Sepsis, has fevers, hypotension, S/P arrest, - on Rx for MDR PSAE PNA - likely aspiration PNA in health care setting, prior MDR PSAE, Verenice Cath associated UTI (miranda cannot be changed, pt has stricture but its a possibility), Drug fever, resistant M.abscessus infection. PROGRAM REVIEW DIRECTOR Shunt related infection. Mycobacteria abscessus. - sensitivities P - CSF neg since 09/12 - still with part of cath in place, has area of drainage along the tunnelled cath site in R clavicular area Also had Staph Haemolyticus on in one sample. - subsequent CSF C/S did not grow any further Coag neg Staph Verenice cath associated UTI. Possible drug fever given eosinophilia: DDX Antibiotics and Keppra. S/P arrest, prob has suffered a new hypoxic injury RECOMMENDATIONS Continue Amikacin+ Imipenem + Biaxin for M abscessus PROGRAM REVIEW DIRECTOR shunt infection, ventriculitis Continue Zerbaxa 1.5 gm q 8 hrs Continue Tobramycin nebs would recommend changing stop date to add few more days. Stop Vancomycin Follow new C/S Check UA and C/S 2 BC today Continue Diflucan Continue Flagyl for c. diff. Monitor progress Very poor prognosis Family waiting a couple days to see if any improvement neuro holguin Denys/W Maya Kerr MD Oct 02, 2016 10:37
[2016-10-02 11:19] LABS: ALKALINE PHOSPHATASE 85 U/L (45-117); ALT (GPT) 19 U/L (12-78); ANION GAP 1 MEQ/L (5-15); AST (GOT) 26 U/L (15-37); BLOOD UREA NITROGEN 7 MG/DL (7-18); CHLORIDE 130 MEQ/L (98-107); GLOMERULAR FILTRATION RATE 149 ML/MIN (>89); POTASSIUM 4.1 MEQ/L (3.5-5.1); TOTAL BILIRUBIN ADULT 0.4 MG/DL (0.2-1.0)
[2016-10-02 11:23] LABS: SODIUM (NA) 160 MEQ/L (136-145)
[2016-10-02] MEDS: FREE WATER G-TUBE SCH ×3 (11:33→20:00)
[2016-10-02] MEDS: NOREPINEPHRINE-DEXTROSE DRIP 250 ML IV SCH (11:35)
[2016-10-02] MEDS ORDERED: ALBUMIN HUMAN 5% 25 GM/500 ML BOTTLE IV ONE (12:00)
[2016-10-02] MEDS ORDERED: SODIUM CHLOR 0.9% 1000 ML INJ 1,000 ML IV ONE (12:00)
[2016-10-02] MEDS: REMOVE OLD PATCH TD SCH (13:13)
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
[2016-10-02] MEDS: SODIUM CHLORID 0.9% IV SCH (15:59)
[2016-10-02] MEDS: AMIKACIN IV SCH (15:59)
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
[2016-10-02] MEDS: ACETAMINOPHEN 325 MG TAB G-TUBE PRN (20:59)
[2016-10-02] MEDS: SILVER SULFADIAZINE 1% CR 50 GM JAR TOPICAL SCH (21:00)
[2016-10-02] MEDS: FLUCONAZOLE 200 MG PREMIX BAG 100 ML IV SCH (21:01)
[2016-10-03] VITALS (16 sets, daily range): BP systolic 88–109; BP diastolic 50–66; PULSE 78–130; RESP 10–12; TEMP 96.1–101.3; O2SAT 100
[2016-10-03] MEDS: SODIUM CHLOR 0.45% 1000 ML INJ 1,000 ML IV SCH ×4 (02:19→13:37)
[2016-10-03] MEDS: CEFTOLOZANE-TAZOBACTAM INJ 1,500 MG in SODIUM CHLORIDE 0.9% INJ 100 ML IV SCH ×3 (02:19→16:03)
[2016-10-03] MEDS: IMIPENEM/CILASTATIN INJ 500 MG in SODIUM CHLORIDE 0.9% INJ 100 ML IV SCH ×4 (02:20→18:26)
[2016-10-03] MEDS: CHOLESTYRAMINE 4 GM PACKET PO SCH ×4 (02:20→18:00)
[2016-10-03] MEDS: PANTOPRAZOLE SODIUM 40 MG VIAL IV PUSH SCH (02:21)
[2016-10-03] MEDS: FREE WATER G-TUBE SCH ×5 (04:00→16:00)
[2016-10-03] MEDS: metroNIDAZOLE 500 MG TAB PEG SCH ×2 (05:44→14:00)
[2016-10-03] MEDS: ENOXAPARIN SODIUM 40 MG/0.4 ML SYRINGE SQ SCH (05:44)
[2016-10-03] MEDS: oxyCODONE/ACETAMINOPHEN 5 MG/325 MG TAB JT SCH (05:45)
[2016-10-03 06:59] LABS: AUTOMATED NEUTROPHIL # 4.9 TH/MM3 (1.8-7.7); BASOPHIL % 0.4 % (0.0-2.0); EOSINOPHIL # 0.2 TH/MM3 (0-0.4); EOSINOPHIL % 2.6 % (0.0-4.0); HEMATOCRIT 26.6 % (39.0-51.0); HEMO FLAGS DIFF FINAL; LYMPH % 20.1 % (9.0-44.0); LYMPHOCYTE # 1.5 TH/MM3 (1.0-4.8); MEAN CELL VOLUME 87.8 FL (80.0-100.0); MEAN CORPUSCULAR HEMOGLOBIN 28.4 PG (27.0-34.0); MEAN CORPUSCULAR HGB CONC 32.3 % (32.0-36.0); MONO % 12.5 % (0.0-8.0); NEUT % 64.4 % (16.0-70.0); PLATELET COUNT 220 TH/MM3 (150-450); RED BLOOD COUNT 3.03 MIL/MM3 (4.50-5.90); RED CELL DISTRIBUTION WIDTH 19.1 % (11.6-17.2); WHITE BLOOD COUNT 7.7 TH/MM3 (4.0-11.0)
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
[2016-10-03 07:50] LABS: ALKALINE PHOSPHATASE 86 U/L (45-117); ALT (GPT) 20 U/L (12-78); ANION GAP 6 MEQ/L (5-15); AST (GOT) 29 U/L (15-37); BICARBONATE 25.8 MEQ/L (21.0-32.0); BLOOD UREA NITROGEN 6 MG/DL (7-18); CHLORIDE 122 MEQ/L (98-107); GLOMERULAR FILTRATION RATE 136 ML/MIN (>89); MAGNESIUM 1.9 MG/DL (1.5-2.5); POTASSIUM 3.8 MEQ/L (3.5-5.1); SODIUM (NA) 154 MEQ/L (136-145); TOTAL BILIRUBIN ADULT 0.4 MG/DL (0.2-1.0)
[2016-10-03] MEDS: levETIRAcetam 500 MG/5 ML UDC TUBE SCH (09:00)
[2016-10-03] MEDS: POLYETHYLENE GLYCOL 17 GM PKG PO SCH (09:00)
[2016-10-03] MEDS: LACTOBACILLUS ACIDOPHILUS 1 GM PACKET PEG SCH ×3 (09:00→18:00)
[2016-10-03] MEDS: CLARITHROMYCIN 500 MG TAB PO SCH (09:00)
[2016-10-03] MEDS: SODIUM CHLORIDE 0.9% FLUSH 5 ML FLUSH FLUSH SCH (09:36)
[2016-10-03] MEDS: CHLORHEXIDINE 0.12% (ORAL KIT) 15 ML CUP MT SCH (09:36)
[2016-10-03] MEDS ORDERED: EPINEPHrine HCL (1:10,000) 1 MG/10 ML SYRINGE ONE (09:47)
[2016-10-03] MEDS ORDERED: ATROPINE SULFATE 1 MG/10 ML SYRINGE ONE (09:47)
[2016-10-03] MEDS ORDERED: LIDOCAINE HCL 2% 100 MG/5 ML SYRINGE ONE (09:48)
[2016-10-03] MEDS: DESMOPRESSIN ACETATE 4 MCG/ML VIAL SQ SCH (09:53)
[2016-10-03] MEDS: levETIRAcetam 1000 MG INJ 100 ML IV PRN (09:54)
[2016-10-03] MEDS ORDERED: ROCURONIUM INJ 50 MG/5 ML VIAL ONE ×2 (11:13)
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
[2016-10-03] MEDS ORDERED: MIDAZOLAM HCL 5 MG/ML VIAL (1 ML) ONE (11:14)
--- NOTE | 2016-10-03 11:16 | RADRPT ---
EXAM DATE/TIME: 10/03/2016 10:30 [facility] COMPARISON: No previous studies available for comparison. INDICATIONS : Herniation. REPAIRER CYLINDER HEADS shunt infection. DOSE: 27.2 mCi Tc99m DTPA IV The diagnosis of brain is clinical and the results of this test should be taken in the content of clinical and electrocephalographic data. MEDICAL HISTORY : Seizures. Hypertension. Traumatic brain injury. SURGICAL HISTORY : REPAIRER CYLINDER HEADS shunt. ENCOUNTER: Initial ACUITY: 1 day PAIN SCALE: 0/10 LOCATION: Head. TECHNIQUE: Anterior dynamic imaging as well as delayed for view planar imaging including a vertex view. A tourn iquet was placed about the mid convexity. FINDINGS: No intracranial flow seen on the flow study. On the delayed phase imaging, no activity seen in the r egion of the sinuses. CONCLUSION: No intracranial flow documented. The imaging findings are characteristic of brain and should b e in conjunction with clinical parameters. Laron Rodriguez MD on October 03, 2016 at 11:12 Board Certified Radiologist. This report was verified electronically.
[2016-10-03 14:31] LABS: BLOOD GAS CARBOXYHEMOGLOBIN 1.1 % (0-4); BLOOD GAS HCO3 23 mmol/L (22-26); BLOOD GAS METHEMOGLOBIN 0.6 % (0-2); BLOOD GAS O2 HGB SATURATION 97 % (90-100); BLOOD GAS OXYGEN CONTENT 12.6 Vol % (12.0-20.0); BLOOD GAS PCO2 32 mmHg (38-42); BLOOD GAS PO2 143 mmHg (61-120); CRITICAL VALUE NO; TEMP CORR TO 98.6
[2016-10-03 14:32] LABS: DRAW SITE LT RADIAL; FIO2 35 %; NUMBER OF ARTERIAL PUNCTURES 1; OXYGEN DEVICE PRVC 12/550/5+/0.9IT; STAT YES; ULNAR PULSE PRESENT
[2016-10-03 15:26] LABS: BLOOD GAS BASE EXCESS 0.2 mmol/L (-2-2); BLOOD GAS CARBOXYHEMOGLOBIN 0.8 % (0-4); BLOOD GAS HCO3 24 mmol/L (22-26); BLOOD GAS METHEMOGLOBIN 0.6 % (0-2); BLOOD GAS O2 HGB SATURATION 99 % (90-100); BLOOD GAS OXYGEN CONTENT 13.9 Vol % (12.0-20.0); BLOOD GAS PCO2 36 mmHg (38-42); BLOOD GAS PO2 460 mmHg (61-120); BLOOD GAS TOTAL HGB 9.1 G/DL (12.0-16.0); CRITICAL VALUE NO; OXYGEN DEVICE VENTILATOR; TEMP CORR TO 98.6
[2016-10-03 15:27] LABS: DRAW SITE LT RADIAL; FIO2 100 %; NUMBER OF ARTERIAL PUNCTURES 1; STAT NO; ULNAR PULSE PRESENT
[2016-10-03] MEDS ORDERED: ACETAMINOPHEN 650 MG SUPP PR PRN (15:45)
[2016-10-03] MEDS ORDERED: LORazepam 2 MG/ML VIAL IV ONE ×2 (15:45→20:30)
[2016-10-03] MEDS ORDERED: HYOSCYAMINE 0.5 MG/ML AMP IV PRN (15:45)
[2016-10-03] MEDS ORDERED: MORPHINE SULFATE 4 MG/ML INJ IV ONE (15:45)
[2016-10-03 16:06] LABS: BLOOD GAS BASE EXCESS -0.9 mmol/L (-2-2); BLOOD GAS CARBOXYHEMOGLOBIN 0.8 % (0-4); BLOOD GAS HCO3 25 mmol/L (22-26); BLOOD GAS METHEMOGLOBIN 0.9 % (0-2); BLOOD GAS O2 HGB SATURATION 95 % (90-100); BLOOD GAS OXYGEN CONTENT 12.9 Vol % (12.0-20.0); BLOOD GAS PCO2 49 mmHg (38-42); BLOOD GAS PO2 108 mmHg (61-120); BLOOD GAS TOTAL HGB 9.5 G/DL (12.0-16.0); CRITICAL VALUE NO; TEMP CORR TO 98.6
[2016-10-03 16:07] LABS: DRAW SITE LT RADIAL; LITER FLOW 6 L/M; NUMBER OF ARTERIAL PUNCTURES 1; OXYGEN DEVICE INSUFFLATION CATH
[2016-10-03 16:08] LABS: STAT NO; ULNAR PULSE PRESENT
[2016-10-03 16:40] LABS: BLOOD GAS BASE EXCESS -0.7 mmol/L (-2-2); BLOOD GAS HCO3 23 mmol/L (22-26); BLOOD GAS METHEMOGLOBIN 0.8 % (0-2); BLOOD GAS O2 HGB SATURATION 98 % (90-100); BLOOD GAS OXYGEN CONTENT 13.1 Vol % (12.0-20.0); BLOOD GAS PCO2 38 mmHg (38-42); BLOOD GAS PO2 382 mmHg (61-120); BLOOD GAS TOTAL HGB 8.8 G/DL (12.0-16.0); CRITICAL VALUE NO; OXYGEN DEVICE VENTILATOR; TEMP CORR TO 98.6
[2016-10-03 16:41] LABS: DRAW SITE LT RADIAL; FIO2 100 %; NUMBER OF ARTERIAL PUNCTURES 1; STAT NO; ULNAR PULSE PRESENT; VENT SETTINGS 550/10/+5/0.90
[2016-10-03] MEDS: SODIUM CHLORID 0.9% IV SCH (18:27)
[2016-10-03] MEDS: NOREPINEPHRINE-DEXTROSE DRIP 250 ML IV SCH (18:27)
[2016-10-03] MEDS: AMIKACIN IV SCH (18:27)
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
[2016-10-03] MEDS ORDERED: HYOSCYAMINE 0.5 MG/ML AMP IV ONE (20:30)
[2016-10-03] MEDS ORDERED: MORPHINE SULFATE 4 MG/ML INJ IV PRN (20:30)
[2016-10-03] MEDS ORDERED: LORazepam 2 MG/ML VIAL IV PRN (20:30)
[2016-10-03] MEDS ORDERED: MORPHINE SULFATE 8 MG/ML INJ IV PUSH ONE (20:30)
[2016-10-04] VITALS: BP 93/63; PULSE 90; RESP 0; O2SAT 28
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
== END 2016-10-04 04:06 | disposition expired | DRG 25 ==
LOC: NEPE 08:13 → NEDA 10:30 → NEDH 14:52 → N05B 17:59 → N03B 08-28 18:14 → N05B 08-28 18:17 → N03A 08-28 19:51
PROVIDERS: ADMIT Internal Medicine; ATTEND Internal Medicine
PROC: 8C01X6J Collection of Cerebrospinal Fluid from Indwelling Device in Nervous System (ICD-10-PCS; 2016-08-23)
PROC: B0281ZZ Computerized Tomography (CT Scan) of Cerebral Ventricle(s) using Low Osmolar Contrast (ICD-10-PCS; 2016-08-23)
PROC: 0T9B70Z Drainage of Bladder with Drainage Device, Via Natural or Artificial Opening (ICD-10-PCS; 2016-08-23)
PROC: 0T7D8ZZ Dilation of Urethra, Via Natural or Artificial Opening Endoscopic (ICD-10-PCS; 2016-08-23)
PROC: 0WWG0JZ Revision of Synthetic Substitute in Peritoneal Cavity, Open Approach (ICD-10-PCS; 2016-08-28)
PROC: 00P60JZ Removal of Synthetic Substitute from Cerebral Ventricle, Open Approach (ICD-10-PCS; 2016-09-05)
PROC: 009600Z Drainage of Cerebral Ventricle with Drainage Device, Open Approach (ICD-10-PCS; principal; 2016-09-05 12:01)
PROC: 009U30Z Drainage of Spinal Canal with Drainage Device, Percutaneous Approach (ICD-10-PCS; 2016-09-12)
PROC: 009U3ZX Drainage of Spinal Canal, Percutaneous Approach, Diagnostic (ICD-10-PCS; 2016-09-16)
PROC: 009U30Z Drainage of Spinal Canal with Drainage Device, Percutaneous Approach (ICD-10-PCS; 2016-09-17)
PROC: 5A1955Z Respiratory Ventilation, Greater than 96 Consecutive Hours (ICD-10-PCS; 2016-09-29)
PROC: 5A12012 Performance of Cardiac Output, Single, Manual (ICD-10-PCS; 2016-09-29)
PROC: 05HN33Z Insertion of Infusion Device into Left Internal Jugular Vein, Percutaneous Approach (ICD-10-PCS; 2016-09-29)
PROC: 0BH17EZ Insertion of Endotracheal Airway into Trachea, Via Natural or Artificial Opening (ICD-10-PCS; 2016-09-29)
DX: T85.730A Infection and inflammatory reaction due to ventricular intracranial (communicating) shunt, initial encounter (principal); A41.9 Sepsis, unspecified organism; J96.21 Acute and chronic respiratory failure with hypoxia; G93.6 Cerebral edema; J69.0 Pneumonitis due to inhalation of food and vomit; G93.41 Metabolic encephalopathy; G93.49 Other encephalopathy; E23.2 Diabetes insipidus; J15.1 Pneumonia due to Pseudomonas; G93.1 Anoxic brain damage, not elsewhere classified; R40.3 Persistent vegetative state; R47.01 Aphasia; A31.8 Other mycobacterial infections; L03.317 Cellulitis of buttock; B37.49 Other urogenital candidiasis; L03.311 Cellulitis of abdominal wall; J98.11 Atelectasis; A04.7 Enterocolitis due to Clostridium difficile; E22.2 Syndrome of inappropriate secretion of antidiuretic hormone; G91.9 Hydrocephalus, unspecified; T85.01XA Breakdown (mechanical) of ventricular intracranial (communicating) shunt, initial encounter; G40.909 Epilepsy, unspecified, not intractable, without status epilepticus; N35.9 Urethral stricture, unspecified; N20.0 Calculus of kidney; I10 Essential (primary) hypertension; D64.9 Anemia, unspecified; M60.9 Myositis, unspecified; L89.159 Pressure ulcer of sacral region, unspecified stage; L89.319 Pressure ulcer of right buttock, unspecified stage; L89.329 Pressure ulcer of left buttock, unspecified stage; I95.9 Hypotension, unspecified; K59.00 Constipation, unspecified; I46.9 Cardiac arrest, cause unspecified; Z51.5 Encounter for palliative care; Z93.1 Gastrostomy status; Z87.820 Personal history of traumatic brain injury; Z87.440 Personal history of urinary (tract) infections; Z86.14 Personal history of Methicillin resistant Staphylococcus aureus infection; Y84.6 Urinary catheterization as the cause of abnormal reaction of the patient, or of later complication, without mention of misadventure at the time of the procedure; Y75.2 Prosthetic and other implants, materials and neurological devices associated with adverse incidents; V29.9XXD Motorcycle rider (driver) (passenger) injured in unspecified traffic accident, subsequent encounter
CPT/HCPCS: 31500; 36556; 36600; 61070; 63741; 70450; 70553; 71010; 71275; 74000; 74176; 75809; 76937; 77002; 77003; 78606; 80048; 80053; 80150; 80202; 81001; 82565; 82805; 82945; 83605; 83690; 83735; 83930; 83935; 84100; 84132; 84157; 84295; 84300; 84484; 85007; 85025; 85027; 85610; 85730; 86140; 86403; 87015; 87040; 87070; 87077; 87086; 87102; 87106; 87116; 87186; 87205; 87206; 87493; 87497; 87804; 89051; 92950; 93005; 94002; 94003; 94640; 94664; 95819; 96365; 96367; A9539; A9579; C1755; C9113; J0131; J0171; J0278; J0461; J0692; J0695; J0743; J1100; J1450; J1580; J1650; J1953; J1956; J1980; J2060; J2185; J2212; J2248; J2250; J2270; J2405; J2543; J2597; J2710; J3010; J3370; J3475; J3480; J7030; J7040; J7050; J7070; J7120; J7682; P9045; Q9967